=== PATIENT | male | born 1935 | race Caucasian/White ===

== ENCOUNTER → 2018-02-26 15:02 | Outpatient (CLI) | payer MEDICARE, SELFPAY ==
[2018-02-26 15:19] LABS: Bacteria Urine None Seen; RBC Urine None Seen (0-5/HPF); WBC Urine None Seen (0-5/HPF)
[2018-02-26 15:48] LABS: Add Manual Diff / Slide Review NO; Basophils Percent Auto 0.9 % (0-2); Eosinophils Percent Auto 5.3 % (2-4); Hematocrit 30.5 % (41-53); Hemoglobin 10.6 g/dL (13.5-17.5); Lymphocytes Percent Auto 17.5 % (25-40); Mean Corpuscular HGB Conc 34.8 % (30-36); Mean Corpuscular Hemoglobin 32.6 PG (26-34); Mean Corpuscular Volume 93.8 fL (80-100); Monocytes Percent Auto 11.1 % (3-14); Neutrophils Absolute Auto 3300 /uL (3000-5900); Neutrophils Percent Auto 65.2 % (50-75); Platelet Count 155 X10^3/uL (150-400); Red Blood Cell Count 3.25 X10^6/uL (4.5-5.9); Red Cell Distribution Width 13.8 % (11.6-14.8)
[2018-02-26 16:00] LABS: Appearance Urine UA CLEAR; Bilirubin Urine UA NEGATIVE (NEGATIVE); Color Urine UA YELLOW; Glucose Urine UA NEGATIVE (Normal); Ketones Urine UA NEGATIVE (NEGATIVE); Leukocyte Esterase Urine UA NEGATIVE (NEGATIVE); Nitrite Urine UA Negative (Negative); Occult Blood Urine UA NEGATIVE (Negative); Protein Urine UA NEGATIVE (Negative); Specific Gravity Urine UA <=1.005 (1.000-1.035); Urobilinogen Urine UA 0.2 E.U./dL (0.2); pH Urine UA 5.5 (4.5-8.0)
[2018-02-26 16:02] LABS: Creatinine Urine Random 52.2 mg/dL; Protein (Total) Urine Random 29 mg/dL (0-12); Protein Creatinine Ratio Urine 0.55 GRAM/24H
[2018-02-26 16:16] LABS: Culture Indicated Urine Cult Not Indicated; Urine Comments Microscopic Normal
[2018-02-26 16:21] LABS: HEMOLYSIS < 15 (0-50); Iron 64 ug/dL (49-181)
[2018-02-26 16:23] LABS: Alanine Aminotransferase 22 IU/L (21-72); Albumin 3.8 g/dL (3.5-5.0); Albumin Globulin Ratio 1.4 (1.0-2.8); Alkaline Phosphatase 63 U/L (38-126); Aspartate Aminotransferase 21 IU/L (17-59); BUN Creatinine Ratio 21.4 (6-22); Bilirubin Total 0.7 mg/dL (0.2-1.3); Blood Urea Nitrogen 45 mg/dL (9-20); Calcium 8.9 mg/dL (8.4-10.2); Carbon Dioxide 24 mmol/L (22-32); Chloride 103 mmol/L (98-107); Estimated Glomerular Filt Rate 30.3 mL/min (>60); Globulin 2.7 g/dL (1.7-4.1); Glucose 157 mg/dL (80-110); HEMOLYSIS < 15 (0-50); Potassium 4.8 mmol/L (3.4-5.1); Sodium 141 mmol/L (137-145); Total Protein 6.5 g/dL (6.3-8.2); Uric Acid 7.6 mg/dL (3.5-8.5)
[2018-02-26 16:31] LABS: Percent Iron Saturation 25 % (20-50); Total Iron Binding Capacity 259 ug/dL (261-462); Transferrin 189 mg/dL (206-381)
[2018-02-26 16:39] LABS: Vitamin D 25 Hydroxy (D3) 19.1 ng/mL (30.0-100.0)
[2018-02-26 16:56] LABS: Ferritin 92.3 ng/mL (17.9-464)
[2018-02-28 14:28] LABS: Parathyroid Hormone Int 113 pg/mL (14-64)
[2018-03-01 15:42] LABS: Albumin 49 %; Protein/ Creatinine Ratio 417 mg/g creat (22-128); Total Urine Protein 27 mg/dL (5-25); Urine Creatinine, Random 65 mg/dL (20-370)
== END ==
PROVIDERS: Family Provider Internal Medicine; PCP Internal Medicine; Visit Provider Internal Medicine
DX: N18.4 Chronic kidney disease, stage 4 (severe) (principal)
CPT/HCPCS: 36415; 80053; 81001; 82306; 82570; 82728; 83540; 83550; 83970; 84156; 84166; 84550; 85025

== ENCOUNTER → 2018-03-12 07:49 | Outpatient (CLI) | payer MEDICARE, SELFPAY ==
--- NOTE | 2018-03-12 | DI.US.S_ITS ---
PROCEDURE: US RENAL COMPLETE INDICATIONS: STAGE 4 CHRONIC KIDNEY DISEASE TECHNIQUE: Real-time scanning was performed of the kidneys and bladder, with image documentation. COMPARISON: [facility], , RENAL COMPLETE, 08/22/2007, 11:01. FINDINGS: Kidneys: Kidneys are normal in size. Right kidney measures 10.2 cm long; left kidney measures 9.2 cm long. Right renal cortical thickness is 1.4 cm; left renal cortical thickness is 1.0 cm. Renal cortical echotexture is normal. No hydronephrosis or nephrolithiasis. No suspicious solid mass lesions. Bladder: Pre-void bladder volume is 311 mL. Post-void residual is 151 mL. Pre-void images demonstrate no intraluminal masses or stones. On pre-void images, neither ureteral jets are noted with color Doppler interrogation. (Of note, ureteral jets may not be detectable in up to 25% of cases due to insufficient differences in specific gravity between ureteral and bladder urine). Miscellaneous: No free pelvic fluid. IMPRESSION: Normal exam. Dictated by: Naun Ang [facility] Interpreted: Apolinar Mckeon MD on 03/12/2018 at 9:54 Approved by: Apolinar Mckeon M.D. on 03/12/2018 at 11:00
== END ==
PROVIDERS: PCP Internal Medicine; Visit Provider Internal Medicine
DX: N18.4 Chronic kidney disease, stage 4 (severe) (principal)
CPT/HCPCS: 76770

== ENCOUNTER → 2018-04-16 08:54 | Outpatient (CLI) | payer MEDICARE, SELFPAY ==
[2018-04-16 10:01] LABS: BUN Creatinine Ratio 21.4 (6-22); Blood Urea Nitrogen 45 mg/dL (9-20); Calcium 9.2 mg/dL (8.4-10.2); Carbon Dioxide 27 mmol/L (22-32); Chloride 103 mmol/L (98-107); Estimated Glomerular Filt Rate 30.3 mL/min (>60); Glucose 108 mg/dL (80-110); HEMOLYSIS < 15 (0-50); Potassium 4.5 mmol/L (3.4-5.1); Sodium 140 mmol/L (137-145)
== END ==
PROVIDERS: PCP Internal Medicine; Visit Provider Internal Medicine Cardiovascular Disease
DX: N18.4 Chronic kidney disease, stage 4 (severe) (principal); I50.22 Chronic systolic (congestive) heart failure
CPT/HCPCS: 36415; 80048

== ENCOUNTER → 2018-07-11 10:26 | Outpatient (CLI) | payer MEDICARE, SELFPAY ==
--- NOTE | 2018-07-11 13:13 | DI.ECHO.S_ITS ---
Echocardiogram Report + + :Name: JOHN PAUL SINGH Study Date: 07/11/2018 Height: 71 in : :[facility] Exam Location: [facility] Weight: 230 lb : : Gender: Male BSA: 2.2 m2 : :: 1935 Age: 83 yrs BP: 140/80 mmHg: :Reason For Study: CAD : :Ordering Physician: Rand Galicia : :Sridhar Performed By: Ana Page : + + Interpretation Summary 1) Mildly dilated left ventricle with normal systolic function (EF 55-60%). 2) There are no obvious focal wall motion abnormalities noted but poor endocardial definition reduces the sensitivity for the detection of such. 3) Mildly to moderately enlarged right ventricle with mildly reduced function. 4) There is mild aortic stenosis (valve area 2.1cm2, mean gradient 10.4mmHg). 5) The right ventricular systolic pressure is estimated to be at least 55 mmHg based on an estimated right atrial pressure of 15 mm Hg. 6) Compared to the Echo done 11/19/2017, LV is less dilated and EF has improved from 40-45% to 55-60% on this study. Procedure: A two-dimensional transthoracic echocardiogram with color flow and Doppler was performed. The study quality was technically adequate. Comparison is made with the echocardiogram of 11/19/2017. The heart rate ranged between 65-83 bpm during the study. Left Ventricle: The left ventricle is mildly dilated. There is borderline concentric left ventricular hypertrophy. The ejection fraction is estimated to be 55-60%. Compared to the prior exam, the left ventricular function is improved. There are no obvious focal wall motion abnormalities noted but poor endocardial definition reduces the sensitivity for the detection of such. Diastolic function could not be accurately assessed due to atrial fibrillation. Right Ventricle: The right ventricle is mild to moderately dilated. Right ventricular systolic function is mildly reduced. Atria: Both atria are severely dilated. There is no Doppler evidence for an interatrial shunt. Mitral Valve: There is mild mitral annular calcification. The mitral valve leaflets appear mildly thickened, but open well. There is trace mitral regurgitation. Aortic Valve: The aortic valve is trileaflet. Leaflet mobility is minimally reduced. The peak aortic velocity is 2.2 m/sec. The peak aortic velocity on the previous exam was 2.0 m/sec. The aortic valve mean gradient is 10.4 mmHg. The calculated aortic valve area is 2.1 cm2. There is mild aortic stenosis. There is mild to moderate aortic regurgitation. Tricuspid Valve: The tricuspid valve is normal in structure and function. There is mild tricuspid regurgitation. The right ventricular systolic pressure is estimated to be at least 55 mmHg based on an estimated right atrial pressure of 15 mm Hg. Pulmonic Valve: The pulmonic valve is not well visualized. There is a trace or physiologic amount of pulmonic regurgitation. Great Vessels: The aortic root is normal size. The ascending aorta is mildmoderately enlarged. The pulmonary artery is not well visualized, but is probably normal size. The IVC is dilated (diameter is greater than 2.1 cm) and it collapses less than 50% with a sniff. This suggests a high right atrial pressure of 15 mm Hg. Pericardium/ Pleura There is no pericardial effusion. There is no pleural effusion. MMode/2D Measurements & Calculations LVIDd: 6.2 cm LVOT diam: 2.3 cm LVIDs: 4.2 cm Ao root diam: 3.9 cm FS: 31.9 % asc Aorta Diam: 4.3 cm EPSS: 1.0 cm IVSd: 1.1 cm LVPWd: 1.1 cm LV maradiaga. diameter/BSA (cm/m^2): 2.8 LV sys. diameter/BSA (cm/m^2): 1.9 LA A2 area: 39.1 cm2 RA long axis: 6.2 cm LA A4 area: 35.4 cm2 RA area: 28.6 cm2 LA length (vol): 7.4 cm RA vol: 112.0 ml LA vol: 158.8 ml RA : 50.0 ml/m2 LA vol index: 70.9 ml/m2 IVC diam: 2.8 cm RVD1 (basal): 5.3 cm Doppler Measurements & Calculations Ao V2 max: 219.7 cm/sec LVOT Max Fred: 106.5 cm/sec Ao V2 mean: 152.4 cm/sec LV V1 max P.6 mmHg Ao max P.3 mmHg LV V1 VTI: 22.8 cm Ao mean P.4 mmHg ADIS(I,D): 2.1 cm2 Ao V2 VTI: 47.9 cm ADIS(V,D): 2.1 cm2 sev ratio: 0.48 ADIS indexed to BSA (cm^2/m^2): 0.92 MV E max fred: 128.3 cm/sec TR max fred: 316.8 cm/sec MV A max fred: 132.4 cm/sec TR max P.2 mmHg MV E/A: 0.97 PA V2 max: 95.8 cm/sec Med Peak E' Fred: 6.7 cm/sec PA V2 mean: 64.6 cm/sec E/E' med: 19.1 PA mean P.9 mmHg Lat Peak E' Fred: 11.2 cm/sec PA Accel Time: 0.08 sec E/E' lat: 11.4 E/e' average: 15.3 MV P1/2t: 47.3 msec MV P1/2t max fred: 130.0 cm/sec MVA(P12t): 4.6 cm2 _ Reading Physician:01:13 PM
[2018-07-11 13:26] LABS: Add Manual Diff / Slide Review NO; Basophils Percent Auto 1.2 % (0-2); Eosinophils Percent Auto 2.4 % (2-4); Hematocrit 32.8 % (41-53); Lymphocytes Percent Auto 18.3 % (25-40); Mean Corpuscular HGB Conc 33.6 % (30-36); Mean Corpuscular Hemoglobin 32.3 PG (26-34); Monocytes Percent Auto 8.9 % (3-14); Neutrophils Absolute Auto 3300 /uL (3000-5900); Neutrophils Percent Auto 69.2 % (50-75); Platelet Count 207 X10^3/uL (150-400); Red Blood Cell Count 3.42 X10^6/uL (4.5-5.9); Red Cell Distribution Width 13.2 % (11.6-14.8); White Blood Cell Count 4.8 X10^3/uL (4.5-11.0)
[2018-07-11 13:48] LABS: BUN Creatinine Ratio 14.8 (6-22); Blood Urea Nitrogen 31 mg/dL (9-20); Calcium 9.5 mg/dL (8.4-10.2); Carbon Dioxide 30 mmol/L (22-32); Chloride 101 mmol/L (98-107); Cholesterol 109 mg/dL (140-199); Estimated Glomerular Filt Rate 30.3 mL/min (>60); Glucose 100 mg/dL (80-110); HDL Cholesterol 47 mg/dL (40-60); HEMOLYSIS < 15 (0-50); LDL Cholesterol Calculated 49 mg/dL (<100); Potassium 4.2 mmol/L (3.4-5.1); Sodium 144 mmol/L (137-145); Triglycerides 65 mg/dL (35-150)
== END ==
PROVIDERS: PCP Internal Medicine; Visit Provider Internal Medicine Cardiovascular Disease
DX: I08.2 Rheumatic disorders of both aortic and tricuspid valves (principal); I25.10 Atherosclerotic heart disease of native coronary artery without angina pectoris; I25.5 Ischemic cardiomyopathy; E78.5 Hyperlipidemia, unspecified
CPT/HCPCS: 36415; 80048; 80061; 85025; 93306

== ENCOUNTER → 2018-08-23 11:36 | Outpatient (CLI) | payer MEDICARE, SELFPAY ==
[2018-08-23 12:47] LABS: Blood Urea Nitrogen 46 mg/dL (9-20); Calcium 9.1 mg/dL (8.4-10.2); Carbon Dioxide 25 mmol/L (22-32); Chloride 104 mmol/L (98-107); Estimated Glomerular Filt Rate 27.3 mL/min (>60); Glucose 101 mg/dL (80-110); HEMOLYSIS < 15 (0-50); Sodium 142 mmol/L (137-145)
== END ==
PROVIDERS: PCP Internal Medicine; Visit Provider Internal Medicine Cardiovascular Disease
DX: I10 Essential (primary) hypertension (principal); I25.5 Ischemic cardiomyopathy; I48.1 Persistent atrial fibrillation; E78.5 Hyperlipidemia, unspecified
CPT/HCPCS: 36415; 80048

== ENCOUNTER 2019-01-23 06:59 | Inpatient (IN) | payer MEDICARE, MEDICAID, SELFPAY ==
[2019-01-23] VITALS (10 sets, daily range): BP systolic 104–151; BP diastolic 54–78; PULSE 56–84; RESP 12–19; TEMP 33.6–37; O2SAT 96–99; BMI 29.2
--- NOTE | 2019-01-23 06:56 | DI.RAD.S_ITS ---
PROCEDURE: XR HIP W PEL IF DONE RT 2V INDICATIONS: pain swelling TECHNIQUE: 2 views of the hip were acquired. COMPARISON: None. FINDINGS: Bones: No fractures or dislocations. No suspicious bony lesions. The visualized pelvic ring appears intact. Soft tissues: No suspicious soft tissue calcifications or masses. There are extensive soft tissue vascular calcifications. IMPRESSION: No acute radiographic findings. If there is continued pain, followup exam or additional imaging such as MRI or CT could be performed for further assessment. Dictated by: Wanda Sanders M.D. on 01/23/2019 at 9:15 Approved by: Wanda Sanders M.D. on 01/23/2019 at 9:15
--- NOTE | 2019-01-23 07:12 | ED.FALL ---
HPI - Fall General Chief Complaint: Fall Stated Complaint: GLF, Rt leg pain Time Seen by Provider: 01/23/19 07:05 Source: patient and EMS Mode of arrival: EMS Limitations: no limitations History of Present Illness HPI Narrative: 83-year-old male nonsmoker presents by EMS for evaluation of right hip and thigh pain after a mechanical fall in which he fell into the fireplace. He was walking this morning and tripped suffering this injury. He denies any head neck or back pain. patient has a history of hypertension and coronary artery disease and is on warfarin. His primary care provider is Dr. Coffey. Patient was up caring a cup of coffee and tripped over something on the floor. He denies any dizziness, weakness or lightheadedness. He denies any chest pain or shortness of breath. he has pain in his right thigh. Related Data Allergies Allergy/AdvReac Type Severity Reaction Status Date / Time No Known Drug Allergies Allergy Verified 01/23/19 08:36 Review of Systems Constitutional Denies chills, Denies fever(s), Denies lethargy and Denies weakness Eyes Denies change in vision, Denies eye discharge, Denies irritation and Denies loss of vision ENT Ears, Nose, Mouth, and Throat: Denies change in voice, Denies neck pain and Denies sore throat Cardiovascular Denies chest pain, Denies irregular heart rhythm, Denies lightheadedness, Denies palpitations, Denies dyspnea, Denies dyspnea on exertion and Denies orthopnea Respiratory Denies cough, Denies dyspnea, Denies dyspnea on exertion and Denies wheezing Gastrointestinal Gastrointestinal: Denies abdominal pain, Denies change in bowel habits, Denies diarrhea, Denies nausea and Denies vomiting Genitourinary Denies hematuria, Denies flank pain, Denies urinary incontinence and Denies urinary urgency Musculoskeletal Reports joint swelling, Reports limited range of motion and Denies neck pain Integumentary/Breasts Denies pruritus, Denies erythema, Denies rash and Denies wounds Neurologic Denies confusion, Denies loss of vision and Denies weakness Psychiatric Denies anxiety, Denies confusion, Denies depression, Denies homicidal ideation and Denies suicidal ideation Endocrine Denies palpitations Hematologic/Lymphatic Denies easy bruising Allergic/Immunologic Denies wheezing Exam Narrative Exam Narrative: GENERAL: 83-year-old male pleasant, obviously in some pain. alert and oriented x3, GCS 15 HEAD: Atraumatic. Normocephalic. No temporal or scalp tenderness. EYES: Pupils equal round and reactive. Extraocular motions intact. No scleral icterus. No injection or drainage. ENT: Nose without bleeding, purulent drainage or septal hematoma. Throat without erythema, tonsillar hypertrophy or exudate. Uvula midline. Airway patent. NECK: Trachea midline. No JVD or lymphadenopathy. Supple, nontender, no meningeal signs. CARDIOVASCULAR: Regular rate and rhythm without murmurs, gallops, or rubs. RESPIRATORY: Clear to auscultation. Breath sounds equal bilaterally. No wheezes, rales, or rhonchi. GASTROINTESTINAL: Abdomen soft, non-tender, nondistended. No hepato-splenomegaly, or palpable masses. No guarding. EXTREMITIES: Notable tenderness, swelling and some ecchymosis of mid thigh. Sensation intact. Cap refill intact. This injury is closed, isolated and neurovascularly intact BACK: Nontender without deformity or crepitance. No flank tenderness. NEURO: AOx3. SKIN: No rash or erythema. Initial Vital Signs Initial Vital Signs: Vital Signs Temperature 97.5 F L 01/23/19 07:24 Pulse Rate 61 01/23/19 07:24 Respiratory Rate 12 01/23/19 07:24 Blood Pressure 151/66 H 01/23/19 07:24 Pulse Oximetry 99 01/23/19 07:24 PFS Social History Smoking Status: Smoker, status unknown Social History Smoking Status: Smoker, status unknown Procedures Orthopedic Splinting/Casting Injury #1: Side: right Lower Extremity Injury Location: upper leg Lower Extremity Immobilizer: knee immobilizer Post splinting neuro exam: intact Post splinting vascular exam: intact Placed by: Nursing Course Orders Ordered: ED Orders 01/23/19 06:56 XR hip w pel if done RT 2V Stat 01/23/19 07:18 XR chest 1V Stat XR femur RT min 2V Stat 01/23/19 08:10 Basic Metabolic Panel Stat Complete Blood Count AUTO DIFF Stat Partial Thromboplastin Time Stat Prothrombin Time INR Stat Discontinued Medications Hydromorphone HCl (Dilaudid) 0.5 mg IV NOW ONE Stop: 01/23/19 09:27 Phytonadione (Mephyton) 10 mg PO NOW ONE Stop: 01/23/19 08:42 Last Admin: 01/23/19 09:10 Dose: 10 mg Consultations Consultation #1: Dr. Gonzales happy to accept Time: 08:16 Consultation #2: Dr. Main has seen patient at bedside, plans for OR tomorrow Time: 08:16 Vital Signs - 8 hr 01/23/19 07:24 01/23/19 07:28 01/23/19 09:33 Temperature 97.5 F L 97.5 F L Pulse Rate 61 61 56 L Respiratory Rate 12 12 12 Blood Pressure [Right Arm] 151/66 H 138/73 Pulse Oximetry 99 99 97 MDM - Fall Lab Data Result diagrams: 01/23/19 08:10 01/23/19 08:10 Lab Results 01/23/19 01/23/19 01/23/19 Range/Units 08:10 08:10 08:10 WBC 8.3 (4.5-11.0) X10^3/uL RBC 3.35 L (4.5-5.9) X10^6/uL Hgb 10.2 L (13.5-17.5) g/dL Hct 31.2 L (41-53) % MCV 93.2 (80-100) fL MCH 30.6 (26-34) PG MCHC 32.8 (30-36) % RDW 13.6 (11.6-14.8) % Plt Count 163 (150-400) X10^3/uL Neut % (Auto) 82.0 H (50-75) % Lymph % (Auto) 11.9 L (25-40) % [place] % (Auto) 5.4 (3-14) % Eos % (Auto) 0.2 L (2-4) % Baso % (Auto) 0.5 (0-2) % Neut # (Auto) 6800 (7515-2418) /uL Lymph # (Auto) 1000 L (1181-9361) /uL [place] # (Auto) 400 (0-900) /uL Eos # (Auto) 0 (0-450) /uL Baso # (Auto) 0 (0-100) /uL PT 21.9 H (10.1-12.7) SECONDS INR 1.9 H (0.9-1.3) APTT 36 (26.4-36.2) SECONDS Sodium 138 (137-145) mmol/L Potassium 4.2 (3.4-5.1) mmol/L Chloride 104 (98-107) mmol/L Carbon Dioxide 23 (22-32) mmol/L BUN 36 H (9-20) mg/dL Creatinine 2.10 H (0.66-1.25) mg/dL Estimated GFR 30.3 L (>60) mL/min BUN/Creatinine Ratio 17.1 (6-22) Glucose 119 H (80-110) mg/dL Calcium 9.1 (8.4-10.2) mg/dL Imaging Data Femur Xray: Radiologist's impression: Chris Peralta 83 M [address] [address] XRay Report Signed Patient: Chris Peralta R#: [id number] : 5Acct:[id number] Age/Sex: 83 / MDate of Service: 01/23/19 Loc: [id number]-1 Accession Number: [id number] Procedure: XR femur RT min 2V Ordering Provider: Javid Begum D.O. PROCEDURE: XR FEMUR RT MIN 2V INDICATIONS: fall, deformity TECHNIQUE: 2 views of the femur were acquired. COMPARISON: None. FINDINGS: Bones: There is a displaced fracture through the distal right femoral diaphysis. The distal fracture fragment is displaced 4 cm medial to the proximal fracture fragment and 4 cm superior to the proximal fracture fragment. Unicondylar medial right knee arthroplasty is partially characterized visualized and is grossly intact. Soft tissues: No suspicious soft tissue calcifications or masses. IMPRESSION: Displaced, impacted right femoral diaphyseal fracture. Dictated by: Wanda Sanders M.D. on 01/23/2019 at 9:23 Approved by: Wanda Sanders M.D. on 01/23/2019 at 9:24 Chest x-ray: Radiologist's impression: [address] [address] XRay Report Signed Patient: Chris Peralta R#: [id number] : 5Acct:[id number] Age/Sex: 83 / MDate of Service: 01/23/19 Loc: [id number]-3 Accession Number: [id number] Procedure: XR chest 1V Ordering Provider: Javid Begum D.O. PROCEDURE: XR CHEST 1V INDICATIONS: fall, preop TECHNIQUE: One view of the chest was acquired. COMPARISON: [facility], CHEST 2 VIEW, 03/01/2017, 14:01. [facility], , CHEST 2 VIEW, 01/08/2017, 13:50. FINDINGS: Surgical changes and devices: None. Lungs and pleura: There is a questionable subtle pulmonary radiopacity within the right midlung. The lungs are otherwise clear. No pleural effusion or pneumothorax. Mediastinum: Mediastinal contours appear normal. Heart size is normal. Bones and chest wall: No suspicious bony lesions. Overlying soft tissues appear unremarkable. IMPRESSION: Questionable right pulmonary radiopacity. Short interval followup is recommended with resolution of the patient's symptoms to ensure there is no underlying pulmonary pathology. No acute cardiopulmonary findings. Dictated by: Wanda Sanders M.D. on 01/23/2019 at 9:24 Approved by: Wanda Sanders M.D. on 01/23/2019 at 9:25 Discharge Plan Departure Patient Disposition: Admitted As Inpatient Clinical Impression: Closed femur fracture Qualifiers: Encounter type: initial encounter Femur location: shaft Fracture morphology: oblique Fracture alignment: displaced Laterality: right Qualified Code(s): S72.331A - Displaced oblique fracture of shaft of right femur, initial encounter for closed fracture Admit Date/Time: 01/23/19 08:33 Admit Provider: Alvin Gonzales
--- NOTE | 2019-01-23 07:18 | DI.RAD.S_ITS ---
PROCEDURE: XR FEMUR RT MIN 2V INDICATIONS: fall, deformity TECHNIQUE: 2 views of the femur were acquired. COMPARISON: None. FINDINGS: Bones: There is a displaced fracture through the distal right femoral diaphysis. The distal fracture fragment is displaced 4 cm medial to the proximal fracture fragment and 4 cm superior to the proximal fracture fragment. Unicondylar medial right knee arthroplasty is partially characterized visualized and is grossly intact. Soft tissues: No suspicious soft tissue calcifications or masses. IMPRESSION: Displaced, impacted right femoral diaphyseal fracture. Dictated by: Wanda Sanders M.D. on 01/23/2019 at 9:23 Approved by: Wanda Sanders M.D. on 01/23/2019 at 9:24
--- NOTE | 2019-01-23 07:18 | DI.RAD.S_ITS ---
PROCEDURE: XR CHEST 1V INDICATIONS: fall, preop TECHNIQUE: One view of the chest was acquired. COMPARISON: [facility], CHEST 2 VIEW, 03/01/2017, 14:01. [facility], CHEST 2 VIEW, 01/08/2017, 13:50. FINDINGS: Surgical changes and devices: None. Lungs and pleura: There is a questionable subtle pulmonary radiopacity within the right midlung. The lungs are otherwise clear. No pleural effusion or pneumothorax. Mediastinum: Mediastinal contours appear normal. Heart size is normal. Bones and chest wall: No suspicious bony lesions. Overlying soft tissues appear unremarkable. IMPRESSION: Questionable right pulmonary radiopacity. Short interval followup is recommended with resolution of the patient's symptoms to ensure there is no underlying pulmonary pathology. No acute cardiopulmonary findings. Dictated by: Wanda Sanders M.D. on 01/23/2019 at 9:24 Approved by: Wanda Sanders M.D. on 01/23/2019 at 9:25
--- NOTE | 2019-01-23 07:53 | ED_ITS ---
HPI - Fall General Chief Complaint: Fall Stated Complaint: GLF, Rt leg pain Time Seen by Provider: 01/23/19 07:05 Source: patient and EMS Mode of arrival: EMS Limitations: no limitations History of Present Illness HPI Narrative: 83-year-old male nonsmoker presents by EMS for evaluation of right hip and thigh pain after a mechanical fall in which he fell into the fireplace. He was walking this morning and tripped suffering this injury. He denies any head neck or back pain. patient has a history of hypertension and coronary artery disease and is on warfarin. His primary care provider is Dr. Coffey. Patient was up caring a cup of coffee and tripped over something on the floor. He denies any dizziness, weakness or lightheadedness. He denies any chest pain or shortness of breath. he has pain in his right thigh. Related Data Allergies Allergy/AdvReac Type Severity Reaction Status Date / Time No Known Drug Allergies Allergy Verified 01/23/19 08:36 Review of Systems Constitutional Denies chills, Denies fever(s), Denies lethargy and Denies weakness Eyes Denies change in vision, Denies eye discharge, Denies irritation and Denies loss of vision ENT Ears, Nose, Mouth, and Throat: Denies change in voice, Denies neck pain and Denies sore throat Cardiovascular Denies chest pain, Denies irregular heart rhythm, Denies lightheadedness, Denies palpitations, Denies dyspnea, Denies dyspnea on exertion and Denies orthopnea Respiratory Denies cough, Denies dyspnea, Denies dyspnea on exertion and Denies wheezing Gastrointestinal Gastrointestinal: Denies abdominal pain, Denies change in bowel habits, Denies diarrhea, Denies nausea and Denies vomiting Genitourinary Denies hematuria, Denies flank pain, Denies urinary incontinence and Denies urinary urgency Musculoskeletal Reports joint swelling, Reports limited range of motion and Denies neck pain Integumentary/Breasts Denies pruritus, Denies erythema, Denies rash and Denies wounds Neurologic Denies confusion, Denies loss of vision and Denies weakness Psychiatric Denies anxiety, Denies confusion, Denies depression, Denies homicidal ideation and Denies suicidal ideation Endocrine Denies palpitations Hematologic/Lymphatic Denies easy bruising Allergic/Immunologic Denies wheezing Exam Narrative Exam Narrative: GENERAL: 83-year-old male pleasant, obviously in some pain. alert and oriented x3, GCS 15 HEAD: Atraumatic. Normocephalic. No temporal or scalp tenderness. EYES: Pupils equal round and reactive. Extraocular motions intact. No scleral icterus. No injection or drainage. ENT: Nose without bleeding, purulent drainage or septal hematoma. Throat without erythema, tonsillar hypertrophy or exudate. Uvula midline. Airway patent. NECK: Trachea midline. No JVD or lymphadenopathy. Supple, nontender, no meningeal signs. CARDIOVASCULAR: Regular rate and rhythm without murmurs, gallops, or rubs. RESPIRATORY: Clear to auscultation. Breath sounds equal bilaterally. No wheezes, rales, or rhonchi. GASTROINTESTINAL: Abdomen soft, non-tender, nondistended. No hepato- splenomegaly, or palpable masses. No guarding. EXTREMITIES: Notable tenderness, swelling and some ecchymosis of mid thigh. Sensation intact. Cap refill intact. This injury is closed, isolated and neurovascularly intact BACK: Nontender without deformity or crepitance. No flank tenderness. NEURO: AOx3. SKIN: No rash or erythema. Initial Vital Signs Initial Vital Signs: Vital Signs Temperature 97.5 F L 01/23/19 07:24 Pulse Rate 61 01/23/19 07:24 Respiratory Rate 12 01/23/19 07:24 Blood Pressure 151/66 H 01/23/19 07:24 Pulse Oximetry 99 01/23/19 07:24 PFS Social History Smoking Status: Smoker, status unknown Social History Smoking Status: Smoker, status unknown Procedures Orthopedic Splinting/Casting Injury #1: Side: right Lower Extremity Injury Location: upper leg Lower Extremity Immobilizer: knee immobilizer Post splinting neuro exam: intact Post splinting vascular exam: intact Placed by: Nursing Course Orders Ordered: ED Orders 01/23/19 06:56 XR hip w pel if done RT 2V Stat 01/23/19 07:18 XR chest 1V Stat XR femur RT min 2V Stat 01/23/19 08:10 Basic Metabolic Panel Stat Complete Blood Count AUTO DIFF Stat Partial Thromboplastin Time Stat Prothrombin Time INR Stat Discontinued Medications Hydromorphone HCl (Dilaudid) 0.5 mg IV NOW ONE Stop: 01/23/19 09:27 Phytonadione (Mephyton) 10 mg PO NOW ONE Stop: 01/23/19 08:42 Last Admin: 01/23/19 09:10 Dose: 10 mg Consultations Consultation #1: Dr. Gonzales happy to accept Time: 08:16 Consultation #2: Dr. Main has seen patient at bedside, plans for OR tomorrow Time: 08:16 Vital Signs - 8 hr 01/23/19 07:24 01/23/19 07:28 01/23/19 09:33 Temperature 97.5 F L 97.5 F L Pulse Rate 61 61 56 L Respiratory Rate 12 12 12 Blood Pressure [Right Arm] 151/66 H 138/73 Pulse Oximetry 99 99 97 MDM - Fall Lab Data Result diagrams: 01/23/19 08:10 01/23/19 08:10 Lab Results 01/23/19 01/23/19 01/23/19 Range/Units 08:10 08:10 08:10 WBC 8.3 (4.5-11.0) X10^3/uL RBC 3.35 L (4.5-5.9) X10^6/uL Hgb 10.2 L (13.5-17.5) g/dL Hct 31.2 L (41-53) % MCV 93.2 (80-100) fL MCH 30.6 (26-34) PG MCHC 32.8 (30-36) % RDW 13.6 (11.6-14.8) % Plt Count 163 (150-400) X10^3/uL Neut % (Auto) 82.0 H (50-75) % Lymph % (Auto) 11.9 L (25-40) % [place] % (Auto) 5.4 (3-14) % Eos % (Auto) 0.2 L (2-4) % Baso % (Auto) 0.5 (0-2) % Neut # (Auto) 6800 (1719-9904) /uL Lymph # (Auto) 1000 L (7595-4053) /uL [place] # (Auto) 400 (0-900) /uL Eos # (Auto) 0 (0-450) /uL Baso # (Auto) 0 (0-100) /uL PT 21.9 H (10.1-12.7) SECONDS INR 1.9 H (0.9-1.3) APTT 36 (26.4-36.2) SECONDS Sodium 138 (137-145) mmol/L Potassium 4.2 (3.4-5.1) mmol/L Chloride 104 (98-107) mmol/L Carbon Dioxide 23 (22-32) mmol/L BUN 36 H (9-20) mg/dL Creatinine 2.10 H (0.66-1.25) mg/dL Estimated GFR 30.3 L (>60) mL/min BUN/Creatinine Ratio 17.1 (6-22) Glucose 119 H (80-110) mg/dL Calcium 9.1 (8.4-10.2) mg/dL Imaging Data Femur Xray: Radiologist's impression: Chris Peralta 83 M [address] [address] XRay Report Signed Patient: Chris Peralta R#: [id number] : 5Acct:[id number] Age/Sex: 83 / MDate of Service: 01/23/19 Loc: [id number]-5 Accession Number: [id number] Procedure: XR femur RT min 2V Ordering Provider: Javid Begum D.O. PROCEDURE: XR FEMUR RT MIN 2V INDICATIONS: fall, deformity TECHNIQUE: 2 views of the femur were acquired. COMPARISON: None. FINDINGS: Bones: There is a displaced fracture through the distal right femoral diaphysis. The distal fracture fragment is displaced 4 cm medial to the proximal fracture fragment and 4 cm superior to the proximal fracture fragment. Unicondylar medial right knee arthroplasty is partially characterized visualized and is grossly intact. Soft tissues: No suspicious soft tissue calcifications or masses. IMPRESSION: Displaced, impacted right femoral diaphyseal fracture. Dictated by: Wanda Sanders M.D. on 01/23/2019 at 9:23 Approved by: Wanda Sanders M.D. on 01/23/2019 at 9:24 Chest x-ray: Radiologist's impression: [address] [address] XRay Report Signed Patient: Chris Peralta R#: [id number] : 5Acct:[id number] Age/Sex: 83 / MDate of Service: 01/23/19 Loc: [id number]-6 Accession Number: [id number] Procedure: XR chest 1V Ordering Provider: Javid Begum D.O. PROCEDURE: XR CHEST 1V INDICATIONS: fall, preop TECHNIQUE: One view of the chest was acquired. COMPARISON: [facility], CHEST 2 VIEW, 03/01/2017, 14:01. [facility], , CHEST 2 VIEW, 01/08/2017, 13:50. FINDINGS: Surgical changes and devices: None. Lungs and pleura: There is a questionable subtle pulmonary radiopacity within the right midlung. The lungs are otherwise clear. No pleural effusion or pneumothorax. Mediastinum: Mediastinal contours appear normal. Heart size is normal. Bones and chest wall: No suspicious bony lesions. Overlying soft tissues appear unremarkable. IMPRESSION: Questionable right pulmonary radiopacity. Short interval followup is recommended with resolution of the patient's symptoms to ensure there is no underlying pulmonary pathology. No acute cardiopulmonary findings. Dictated by: Wanda Sanders M.D. on 01/23/2019 at 9:24 Approved by: Wanda Sanders M.D. on 01/23/2019 at 9:25 Discharge Plan Departure Patient Disposition: Admitted As Inpatient Clinical Impression: Closed femur fracture Qualifiers: Encounter type: initial encounter Femur location: shaft Fracture morphology: oblique Fracture alignment: displaced Laterality: right Qualified Code(s): S72.331A - Displaced oblique fracture of shaft of right femur, initial encounter for closed fracture Admit Date/Time: 01/23/19 08:33 Admit Provider: Alvin Gonzales
[2019-01-23 08:24] LABS: Add Manual Diff / Slide Review NO; Basophils Absolute Auto 0 /uL (0-100); Basophils Percent Auto 0.5 % (0-2); Eosinophils Absolute Auto 0 /uL (0-450); Eosinophils Percent Auto 0.2 % (2-4); Hematocrit 31.2 % (41-53); Hemoglobin 10.2 g/dL (13.5-17.5); Lymphocytes Absolute Auto 1000 /uL (1100-4500); Lymphocytes Percent Auto 11.9 % (25-40); Mean Corpuscular HGB Conc 32.8 % (30-36); Mean Corpuscular Hemoglobin 30.6 PG (26-34); Mean Corpuscular Volume 93.2 fL (80-100); Monocytes Absolute Auto 400 /uL (0-900); Monocytes Percent Auto 5.4 % (3-14); Neutrophils Absolute Auto 6800 /uL (1500-7000); Platelet Count 163 X10^3/uL (150-400); Red Blood Cell Count 3.35 X10^6/uL (4.5-5.9); Red Cell Distribution Width 13.6 % (11.6-14.8); White Blood Cell Count 8.3 X10^3/uL (4.5-11.0)
[2019-01-23 08:31] LABS: INR 1.9 (0.9-1.3); Prothrombin Time 21.9 SECONDS (10.1-12.7)
[2019-01-23 08:34] LABS: PTT Partial Thromboplastin Tim 36 SECONDS (26.4-36.2)
[2019-01-23 08:36] LABS: BUN Creatinine Ratio 17.1 (6-22); Blood Urea Nitrogen 36 mg/dL (9-20); Calcium 9.1 mg/dL (8.4-10.2); Carbon Dioxide 23 mmol/L (22-32); Chloride 104 mmol/L (98-107); Estimated Glomerular Filt Rate 30.3 mL/min (>60); Glucose 119 mg/dL (80-110); HEMOLYSIS < 15 (0-50); Potassium 4.2 mmol/L (3.4-5.1); Sodium 138 mmol/L (137-145)
--- NOTE | 2019-01-23 08:54 | PC.NURSE ---
unisalve applied under skin folds. pt arrived with excoriated area.
[2019-01-23] MEDS: PHYTONADIONE (VIT K1) 5 MG TABLET 10 MG PO (09:10)
--- NOTE | 2019-01-23 09:13 | P.CONS_ITS ---
History of Present Illness Date Patient Seen: 01/23/19 Time Patient Seen: 09:05 Chief complaint: GLF, Rt leg pain Reason for consult: Right femur fracture Requesting provider: Javid Begum Narrative: 83-year-old male with a right femur fracture. He was walking through his house today and tripped on an object on the floor. He denies any prodromal shortness of breath, chest pain, or dizziness. He did not hit his head. He just went down and felt his right leg pop. He was unable to ambulate afterwards. Pain is sharp with any motion in the leg. he has some spasms which are painful even without moving. No pain outside of the right leg. [facility] Medical History (Updated 01/23/19 @ 11:06 by Angelo Main MD) Anticoagulation adequate (Acute) Atrial fibrillation (Acute) Chronic renal failure (Acute) Family History (Updated 01/23/19 @ 11:10 by Angelo Main MD) Other Hypertension Social History (Updated 01/23/19 @ 11:07 by Angelo Main MD) marital status: Smoking Status: Smoker, status unknown Family History (Updated 01/23/19 @ 11:10 by Angelo Main MD) Other Hypertension Social History (Updated 01/23/19 @ 11:07 by Angelo Main MD) marital status: Smoking Status: Smoker, status unknown Meds Home Medications Medication Instructions Recorded Confirmed Type amlodipine 5 mg PO DAILY 01/23/19 01/23/19 History atorvastatin 40 mg PO DAILY 01/23/19 01/23/19 History clopidogrel 75 mg PO DAILY 01/23/19 01/23/19 History ferrous gluconate 324 mg PO BID 01/23/19 01/23/19 History hydralazine 50 mg PO TID 01/23/19 01/23/19 History hydrocodone-acetaminophen 1 tab PO BID PRN 01/23/19 01/23/19 History losartan 25 mg PO DAILY 01/23/19 01/23/19 History warfarin 2 mg PO DAILY 01/23/19 01/23/19 History Allergies Allergy/AdvReac Type Severity Reaction Status Date / Time No Known Drug Allergies Allergy Verified 01/23/19 08:36 Review of Systems Constitutional Constitutional: Denies chills, Denies fever(s) and Denies frequent falls ENT Ears, Nose, Mouth, and Throat: No dizziness and No lip swelling Cardiovascular Cardiovascular: Denies chest pain Respiratory Respiratory: Denies cough Gastrointestinal Gastrointestinal: Denies abdominal pain Musculoskeletal Comments: History of arthritic pain through multiple joints in the body. Neurologic Neurologic: Denies dizziness and Denies frequent falls Psychiatric Psychiatric: Denies anxiety Endocrine Endocrine: Denies change in body appearance Hematologic/Lymphatic Hematologic/Lymphatic: Reports easy bleeding Comments: easy bleeding from Coumadin Allergic/Immunologic Allergic/Immunologic: Denies lip swelling Exam Vital Signs (past 8 hours): - 01/23/19 07:24 01/23/19 07:28 Temperature 97.5 F L 97.5 F L Pulse Rate 61 61 Respiratory Rate 12 12 Blood Pressure [Right Arm] 151/66 H Pulse Oximetry 99 99 Oxygen Delivery Method Room Air Const Orientation: alert and oriented x3 Resp Auscultation: clear to auscultation bilaterally Cardio Rhythm: abnormal rhythm Extrem Other: Intact integument over the thigh. Well-healed medial parapatellar incision at knee. external rotation of leg. Nonpalpable pulse but good Doppler signal and good capillary refill. Easily moves ankle and toes up and down. In tact sensation through foot and ankle. Objective Imaging Right femur x-ray: My impression: Displaced spiral fracture through the distal shaft of the femur. He does have a unicompartmental knee replacement on this Labs Result Diagrams: 01/23/19 08:10 01/23/19 08:10 Labs: Laboratory Results - last 24 hr 01/23/19 01/23/19 01/23/19 08:10 08:10 08:10 WBC 8.3 RBC 3.35 L Hgb 10.2 L Hct 31.2 L MCV 93.2 MCH 30.6 MCHC 32.8 RDW 13.6 Plt Count 163 Neut % (Auto) 82.0 H Lymph % (Auto) 11.9 L [place] % (Auto) 5.4 Eos % (Auto) 0.2 L Baso % (Auto) 0.5 Neut # (Auto) 6800 Lymph # (Auto) 1000 L [place] # (Auto) 400 Eos # (Auto) 0 Baso # (Auto) 0 PT 21.9 H INR 1.9 H APTT 36 Sodium 138 Potassium 4.2 Chloride 104 Carbon Dioxide 23 BUN 36 H Creatinine 2.10 H Estimated GFR 30.3 L BUN/Creatinine Ratio 17.1 Glucose 119 H Calcium 9.1 Assessment & Plan Assessment & Plan narrative: 1. Right femur fracture. plan is for intramedullary nail fixation to stabilize this. We will go retrograde around hi s unicompartmental knee replacement. Risks and benefits of surgery were discussed including not limited to medical risk with heart attack, stroke, , DVT, PE, infection, bleeding, scarring, nerve injury with pain numbness weakness, nonunion, failure to alleviate symptoms, loss of ambulatory status, need for further surgery. The appropriate consent was obtained. 2. Chronic renal failure treatment as per medicine team. 3. atrial fibrillation on Coumadin. His INR was 1.9. We will give him a dose of vitamin K and plan on postponing surgery until tomorrow.
[2019-01-23] MEDS: HYDROMORPHONE 0.5 MG INJ IV (09:49)
--- NOTE | 2019-01-23 10:19 | P.HP_ITS ---
History of Present Illness Date Patient Seen: 01/23/19 Time Patient Seen: :19 Chief complaint: GLF, Rt leg pain Narrative: This is an 83-year-old male who fell in his home at 4:30 a.m. today while walking past the fireplace. He was carrying coffee and tripped, fracturing the midshaft of the right femur. He tried to sleep for 2 hours and then finally asked his to call 911. He is now being prepared for surgery tomorrow after he has been bowel rested today. He is also on warfarin and will need his INR to be reversed with vitamin K. he has diet-controlled diabetes mellitus, hypertension and congestive heart failure along with coronary artery disease. Per his recent progress notes with Dr. Coffey he has had stents to the left main, left anterior descending and circumflex artery in April. His chronic kidney disease is being followed by Nephrology. The last A1c was 5.3 in November. He is on a regimen of 2 Vicodin a day. The GFR is 30 with a creatinine of 2.1 and hemoglobin of 10.2. The INR is 1.9. Patient History Medical History (Updated 01/23/19 @ 19:47 by Alvin Gonzales MD) Anticoagulation adequate (Acute) Atrial fibrillation (Acute) Chronic kidney disease (CKD) stage G3a/A1, moderately decreased glomerular filtration rate (GFR) between 45-59 mL/min/1.73 square meter and albuminuria creatinine ratio less than 30 mg/g (Acute) Chronic renal failure (Acute) Coronary artery disease (Acute) History of left common carotid artery stent placement (Acute) History of right common carotid artery stent placement (Acute) Peripheral arterial disease (Acute) Surgical History (Updated 01/23/19 @ 19:47 by Alvin Gonzales MD) History of appendectomy (Acute) History of bilateral knee arthroplasty (Acute) Stented coronary artery (Acute) Family History (Updated 01/23/19 @ 19:47 by Alvin Gonzales MD) Mother Lung cancer Father Lung cancer Other Hypertension Social History (Updated 01/23/19 @ 11:07 by Angelo Main MD) marital status: household members: spouse Smoking Status: Smoker, status unknown Family & Social History Family History (Updated 01/23/19 @ 19:47 by Alvin Gonzales MD) Mother Lung cancer Father Lung cancer Other Hypertension Social History: 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 His primary care physician is Dr. Coffey Safety & Behavioral: Feels Safe in Current Yes Environment Been Physically Hurt or No Threatened By a Person Tobacco & Substance use: Smoking Status Smoker, status unknown alcohol intake frequency a few times a month Substance Use Type does not use Meds Home Medications Medication Instructions Recorded Confirmed Type amlodipine 5 mg PO DAILY 01/23/19 01/23/19 History atorvastatin 40 mg PO DAILY 01/23/19 01/23/19 History clopidogrel 75 mg PO DAILY 01/23/19 01/23/19 History ferrous gluconate 324 mg PO BID 01/23/19 01/23/19 History hydralazine 50 mg PO TID 01/23/19 01/23/19 History hydrocodone-acetaminophen 1 tab PO BID PRN 01/23/19 01/23/19 History losartan 25 mg PO DAILY 01/23/19 01/23/19 History warfarin 2 mg PO DAILY 01/23/19 01/23/19 History Allergies Allergy/AdvReac Type Severity Reaction Status Date / Time No Known Drug Allergies Allergy Verified 01/23/19 08:36 Review of Systems Review of Systems Positive for hip pain, falling. Negative for fevers, chills, sweats, nausea, vomiting, diarrhea, bloody stool, abdominal pain, chest pain, coughing, dysuria, joint pain, ankle edema, seizures, headaches, sore throat, new allergies, trouble talking. All systems reviewed & are unremarkable except as noted in HPI and below Exam Vital Signs (past 8 hours): - 01/23/19 07:24 01/23/19 07:28 01/23/19 09:33 Temperature 97.5 F L 97.5 F L Pulse Rate 61 61 56 L Respiratory Rate 12 12 12 Blood Pressure [Right Arm] 151/66 H 138/73 Pulse Oximetry 99 99 97 Oxygen Delivery Method Room Air Narrative Exam Narrative: He is alert and oriented x3. No apparent distress. Pupils are equally round and reactive to light and accommodation. Extraocular muscles are intact. Sclerae are pink and nonicteric. No lymph nodes are felt head, neck, supraclavicular area. There is no thyromegaly. No carotid bruits are heard. JVD is less 6 cm. Heart is regular rate and rhythm with a 2/6 systolic ejection murmur. Lungs are clear to auscultation bilaterally. Abdomen is soft, bowel sounds positive, nontender, no organomegaly. Extremities no ankle edema. Neuro exam. Cranial nerves 2-12 tested intact. Reflexes are symmetric. Motor function is 4/5 throughout. There is a long leg brace on the right lower extremity. There is extensive bruising, flaking of the skin on both lower legs There is extensive bruises on both arms along with skin tears. Objective Labs Result Diagrams: 01/23/19 08:10 01/23/19 08:10 Labs: Laboratory Results - last 24 hr 01/23/19 01/23/19 01/23/19 08:10 08:10 08:10 WBC 8.3 RBC 3.35 L Hgb 10.2 L Hct 31.2 L MCV 93.2 MCH 30.6 MCHC 32.8 RDW 13.6 Plt Count 163 Neut % (Auto) 82.0 H Lymph % (Auto) 11.9 L [place] % (Auto) 5.4 Eos % (Auto) 0.2 L Baso % (Auto) 0.5 Neut # (Auto) 6800 Lymph # (Auto) 1000 L [place] # (Auto) 400 Eos # (Auto) 0 Baso # (Auto) 0 PT 21.9 H INR 1.9 H APTT 36 Sodium 138 Potassium 4.2 Chloride 104 Carbon Dioxide 23 BUN 36 H Creatinine 2.10 H Estimated GFR 30.3 L BUN/Creatinine Ratio 17.1 Glucose 119 H Calcium 9.1 Assessment & Plan Assessment & Plan narrative: Right femur fracture -evaluated by Ortho, now being kept NPO, going for surgery in the morning. -repeat INR in the morning, vitamin K given for reversal today. Peripheral arterial disease -resume Plavix and resume warfarin postop when appropriate. -vitamin K required for reversal of Coumadin to undergo surgery. Coronary artery disease -continue atorvastatin -resume Plavix and warfarin when cleared by surgery Hypertension -continue amlodipine, hydralazine and losartan Hyperlipidemia -continue atorvastatin Chronic kidney disease -repeat BMP in the morning and continue hydration tonight. Anemia -repeat CBC in the morning and postop period
[2019-01-23] MEDS: SODIUM CHLORIDE 0.9% FLUSH 10 ML IV (12:38)
[2019-01-23] MEDS: SODIUM CHLORIDE 0.45% 1,000 ML 100 ML IV ×2 (12:38→20:33)
[2019-01-23] MEDS: HYDRALAZINE 25 MG TABLET 50 MG PO ×2 (14:42→20:31)
--- NOTE | 2019-01-23 14:46 | PC.NURSE ---
AM Shift pt arrived around 1150 from ED. Used slider to transfer to bed. pt is AO, pleasant, and has brace to RLE, generalized scattered bruising and abrasions present upon admission. pt reporting 2/10 pain and hasn't asked for anything other than the 0.5mg Dilaudid administered in ED. Quintana draining to gravity and 1/2 NS infusing at 100/hr. jockey valet, Mirela, stopped by with his favorite muffins (phone number listed on white board) and daughter Ashley is at bedside.
[2019-01-23] MEDS: ATORVASTATIN 20 MG TABLET 40 MG PO (20:30)
[2019-01-23] MEDS: FERROUS GLUCONATE 324 MG TABLET PO (20:30)
[2019-01-24] VITALS (18 sets, daily range): BP systolic 97–143; BP diastolic 50–75; PULSE 63–82; RESP 12–20; TEMP 36.6–37.6; O2SAT 95–100
--- NOTE | 2019-01-24 | DI.RAD.S_ITS ---
PROCEDURE: XR FEMUR RT MIN 2V INDICATIONS: right femur khalida TECHNIQUE: Fluoroscopic images were obtained during an operative procedure and submitted for interpretation following the completion of the procedure. COMPARISON: [facility], CR, XR FEMUR RT MIN 2V, 01/23/2019, 7:41. [facility], CR, XR HIP W PEL IF DONE RT 2V, 01/23/2019, 7:20. FINDINGS: These fluoroscopic images were performed for intraoperative localization. On these images, a right femoral khalida is in place. The distal femur fracture is better aligned. Please correlate with intraoperative findings. IMPRESSION: Normal intraoperative examination. Dictated by: Perfecto Goetz M.D. on 01/24/2019 at 12:59 Approved by: Perfecto Goetz M.D. on 01/24/2019 at 13:00
--- NOTE | 2019-01-24 04:43 | PC.NURSE ---
[employer] Note: 0015: Awake, watching TV. Pt denies pain at this time. Vital signs stable. IV in place in rt AC with 1/2NS infusing at 100cc/hr. Pt verbalized understanding that he is on bedrest due to fractured rt femur, and that he is going to the operating room in the morning to repair the fracture. He verbalized understanding that he cannot eat or drink as of now.
[2019-01-24 05:30] LABS: Add Manual Diff / Slide Review NO; Basophils Absolute Auto 0 /uL (0-100); Basophils Percent Auto 0.6 % (0-2); Eosinophils Absolute Auto 0 /uL (0-450); Eosinophils Percent Auto 0.6 % (2-4); Hematocrit 26.2 % (41-53); Hemoglobin 8.9 g/dL (13.5-17.5); Lymphocytes Absolute Auto 1300 /uL (1100-4500); Lymphocytes Percent Auto 18.4 % (25-40); Mean Corpuscular Hemoglobin 31.3 PG (26-34); Monocytes Absolute Auto 1000 /uL (0-900); Neutrophils Absolute Auto 4600 /uL (1500-7000); Neutrophils Percent Auto 66.4 % (50-75); Platelet Count 150 X10^3/uL (150-400); Red Blood Cell Count 2.84 X10^6/uL (4.5-5.9); Red Cell Distribution Width 13.3 % (11.6-14.8); White Blood Cell Count 6.9 X10^3/uL (4.5-11.0)
[2019-01-24 05:36] LABS: INR 1.6 (0.9-1.3); Prothrombin Time 18.8 SECONDS (10.1-12.7)
[2019-01-24 05:42] LABS: BUN Creatinine Ratio 18.9 (6-22); Blood Urea Nitrogen 36 mg/dL (9-20); Calcium 8.5 mg/dL (8.4-10.2); Carbon Dioxide 23 mmol/L (22-32); Chloride 102 mmol/L (98-107); Glucose 104 mg/dL (80-110); HEMOLYSIS < 15 (0-50); Potassium 4.3 mmol/L (3.4-5.1); Sodium 134 mmol/L (137-145)
[2019-01-24] MEDS: SODIUM CHLORIDE 0.45% 1,000 ML 100 ML IV (05:56)
--- NOTE | 2019-01-24 09:13 | P.PN_ITS ---
Subjective Date Patient Seen: 01/24/19 Time Patient Seen: 09:12 Interval history: He is having no pain. Exam Vital Signs (past 8 hours): - 01/24/19 04:33 Temperature 98.9 F Pulse Rate 68 Respiratory Rate 16 Blood Pressure 129/75 Pulse Oximetry 98 Oxygen Delivery Method Room Air Const Orientation: alert and oriented x3 Extrem Other: Knee immobilizer intact. Easily wiggles toes and ankle up and down. Intact sensation distally. good cap refill distally Objective Labs Result Diagrams: 01/24/19 05:03 01/24/19 05:03 Labs: Laboratory Results - last 24 hr 01/24/19 01/24/19 01/24/19 05:03 05:03 05:03 WBC 6.9 RBC 2.84 L Hgb 8.9 L Hct 26.2 L MCV 92.0 MCH 31.3 MCHC 34.0 RDW 13.3 Plt Count 150 Neut % (Auto) 66.4 Lymph % (Auto) 18.4 L [place] % (Auto) 14.0 Eos % (Auto) 0.6 L Baso % (Auto) 0.6 Neut # (Auto) 4600 Lymph # (Auto) 1300 [place] # (Auto) 1000 H Eos # (Auto) 0 Baso # (Auto) 0 PT 18.8 H INR 1.6 H Sodium 134 L Potassium 4.3 Chloride 102 Carbon Dioxide 23 BUN 36 H Creatinine 1.90 H Estimated GFR 34.0 L BUN/Creatinine Ratio 18.9 Glucose 104 Calcium 8.5 Assessment & Plan Assessment & Plan narrative: Stable distal femur fracture in knee immobilizer. Plan for IM nailing today went operating room available.
[2019-01-24] MEDS: LACTATED RINGERS 1,000 ML 42 ML IV ×2 (10:50→12:36)
[2019-01-24] MEDS: CEFAZOLIN 2 GM/100 ML FROZ.PIGGY IV ×2 (10:55→18:27)
--- NOTE | 2019-01-24 10:58 | PM.PREOP ---
Pre-operative Note Interval Note History & Physical reviewed/Exam performed by Physician: Yes Changes to H&P: No
--- NOTE | 2019-01-24 11:02 | P.OP_ITS ---
Operative Date/Time/Diagnoses Date of procedure: 01/24/19 Time of procedure: 12:54 Pre-op diagnosis: Right femoral shaft fracture History of right knee replacement Post-op diagnosis: same Procedure & Clinicians Procedure: Intramedullary nail fixation of right femur fracture Same procedure as scheduled: Yes Indications: 83-year-old male with a right femur fracture. It was felt he would benefit from operative stabilization. Risks and benefits of surgery were discussed and appropriate consent obtained. Surgeon: Angelo Main Click Yes if Unassisted: Yes Anesthesia Type: General Operative Notes Findings: None Closure Type: primary Specimen(s): none sent Prosthetic devices, grafts, tissues, transplants, or devices: Jerardo NaturalNail retrograde femoral nail Applied: catheter Estimated Blood Loss (mL): 100 Blood products transfused: none Procedure in detail: Patient was brought to the operating room and a spinal block was initiated. He was then intubated on the table. Attention was turned towards the well-marked right leg. Preoperative antibiotics were given. time- out was performed. the right leg was prepped and draped in standard sterile fashion. We utilized his previous medial parapatellar knee incision and made a 5 cm incision along the medial aspect of the patella and patellar tendon. we sharply cut through the retinaculum. We then used fluoroscopy to start our guidewire in the center of the condylar notch and anterior to Blumensaat's line. the guidewire was advanced proximally up the femur and then we over drilled over this while using a tissue protector and retracting the patella medially. We then reduced the fracture and placed the slightly bent guidewire up the leg and across the fracture site until it was in the proximal femur. we then reamed over the guidewire with the tissue and patellar protection. We measured and placed our intramedullary nail. There was still some gap so we sunk the nail deeper and placed our proximal AP screw freehand. We then backslapped several millimeters until the fracture gap had reduced. He had very soft bone distally and we did 3 proximal fixation screws using the guide. final x-rays were taken. The wounds were irrigated. The retinaculum, superficial and skin were closed. Sterile dressing was placed. he was then extubated brought to recovery with no complications. Complications: none Condition: stable Disposition: PACU Plan for aftercare: Inpatient. TDWB on RLE. Will need SNF.
--- NOTE | 2019-01-24 11:42 | SUR.OPER ---
Have not started on time because horse and wagon driver OR team was on hold for twin delivery, possible C section.
--- NOTE | 2019-01-24 11:56 | SUR.OPER ---
Supine on padded OR bed, head on pillow, right arm secured on padded arm boards at <90 degrees abduction, left arm is tucked in, legs uncrossed, right leg is under control of surgeon, safety belt at thigh, tape over blanket over left lower leg.
[2019-01-24] MEDS: BUPIVACAINE 0.5% W/ EPI (PF) VIAL 30 ML INJ (12:02)
--- NOTE | 2019-01-24 13:10 | SUR.OPER ---
Patient has multiple bruising and abrasions on his right leg. Excoriated area in his lower abdominal folds and groin.
[2019-01-24] MEDS: LACTATED RINGERS 1,000 ML 125 ML IV ×2 (14:21→23:39)
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
--- NOTE | 2019-01-24 19:58 | PC.NURSE ---
1500- assumed care of pt from outgoing shift. pt awake and alert. family at bedside. Pt at bedside. updated pt and family on plan of care. belongings and call quintero within reach. family comes and asks questions and answered appropriately. dtr delgado is driving up from [place]. dtr in law left earlier in the day. pt turned and repositioned. changed. stooled. loose. cooperative with care. denies pain. scrotum and pannus excoriated. cleaned and dried, powder applied. will continue to monitor pt for safety. pt left upper arm where bp cuff was has three small skin tears. xeroformdsg doubled, gauze then kirlex wrap with netting to hold in place. bed alarm on.
[2019-01-24] MEDS: ATORVASTATIN 20 MG TABLET 40 MG PO (20:32)
[2019-01-24] MEDS: FERROUS GLUCONATE 324 MG TABLET PO (20:32)
--- NOTE | 2019-01-24 23:13 | PM.PN.1 ---
Subjective Date Patient Seen: 01/24/19 Time Patient Seen: 22:30 Interval history: Chris Peralta is an 83 male who had a mechanical fall and sustained a right distal femur fracture. He is status post surgery today. He states he feels no pain and is anxious for discharge to home. States he is taking care of his who has bone cancer and that his daughters can only cover him for 2 more nights. States he wants to be discharged home on Saturday as he will not have coverage for his 's care. Exam Vital Signs (past 8 hours): - 01/24/19 16:14 01/24/19 16:18 01/24/19 20:36 Temperature 98.4 F 98.4 F Pulse Rate 82 82 82 Respiratory Rate 20 19 Blood Pressure 97/62 143/61 H 119/50 L Pulse Oximetry 97 95 01/24/19 21:23 Temperature 97.9 F Pulse Rate Respiratory Rate 20 Blood Pressure 121/66 Pulse Oximetry 98 Oxygen Delivery Method Room Air Narrative Exam Narrative: General: Alert oriented well-developed 83-year-old male in no distress HEENT: Normocephalic atraumatic Eyes: Conjunctiva is clear, sclera is nonicteric Neck: Supple, no JVD Respirations: Lung sounds are clear to auscultation bilaterally no wheezes or rhonchi CV: Regular rate and rhythm no murmur rubs Skin: Dry and intact, no edema noted Neuro: Alert and oriented x4 with no focal deficits, has normal sensation. Extremities: He moves his upper extremities with full range of motion, right knee immobilized in a splint Psych: Mildly anxious tonight Objective Labs Result Diagrams: 01/24/19 05:03 01/24/19 05:03 Labs: Laboratory Results - last 24 hr 01/24/19 01/24/19 01/24/19 05:03 05:03 05:03 WBC 6.9 RBC 2.84 L Hgb 8.9 L Hct 26.2 L MCV 92.0 MCH 31.3 MCHC 34.0 RDW 13.3 Plt Count 150 Neut % (Auto) 66.4 Lymph % (Auto) 18.4 L [place] % (Auto) 14.0 Eos % (Auto) 0.6 L Baso % (Auto) 0.6 Neut # (Auto) 4600 Lymph # (Auto) 1300 [place] # (Auto) 1000 H Eos # (Auto) 0 Baso # (Auto) 0 PT 18.8 H INR 1.6 H Sodium 134 L Potassium 4.3 Chloride 102 Carbon Dioxide 23 BUN 36 H Creatinine 1.90 H Estimated GFR 34.0 L BUN/Creatinine Ratio 18.9 Glucose 104 Calcium 8.5 Assessment & Plan Assessment & Plan narrative: Atrial fibrillation anticoagulated on warfarin - INR is 1.6, subtherapeutic - Continue warfarin 2 mg po daily, consider increase tomorrow if INR continues to be low, will need to balanced against bleeding risk. Right femur fracture - POD #1 followed by Ortho Peripheral arterial disease -resume Plavix and resume warfarin Coronary artery disease -continue atorvastatin 40 mg po daily -resume Plavix 75 mg po daily and warfarin 2 mg daily Hypertension - continue amlodipine 5 mg po daily - Continue hydralazine 50 mg po tid - Continue losartan 25 mg po daily Hyperlipidemia -continue atorvastatin Chronic kidney disease - repeat BMP in the morning and continue hydration tonight. Anemia - repeat CBC in the morning and postop period Dispo: unknown at this time, he is being recommended for SNF rehab. I have ordered a SW consult to assist the patient in determining care needs. Quality VTE Deep Vein Thrombosis/Pulmonary Embolism Present on Admission: No
[2019-01-25] VITALS (13 sets, daily range): BP systolic 117–133; BP diastolic 55–81; PULSE 59–76; RESP 16–20; TEMP 36.8–37.7; O2SAT 97–98
--- NOTE | 2019-01-25 01:18 | PC.NURSE ---
Heating Equipment Repairer Note: 0045: Awake, daughter at bedside and attempting to assist pt out of bed because he thought he had a bowel movement. Advised pt and daughter that PT will assist him in the morning and to not attempt to get out of bed until then. Assisted pt back to bed, amador care given and barrier cream applied. Quintana cath care given. Assisted pt to turn and reposition. Clean brief and chux placed under pt. IVs in place in rt AC and forearm, with LR infusing at 125cc/hr. Leg immobilizer remains in place on rt leg. Quintana catheter patent, with clear yellow urine.
[2019-01-25] MEDS: CEFAZOLIN 2 GM/100 ML FROZ.PIGGY IV ×3 (03:34→19:50)
[2019-01-25 05:31] LABS: Hematocrit 21.8 % (41-53); Hemoglobin 7.3 g/dL (13.5-17.5)
[2019-01-25] MEDS: FERROUS GLUCONATE 324 MG TABLET PO ×2 (08:42→19:52)
[2019-01-25] MEDS: CLOPIDOGREL 75 MG TABLET PO (08:42)
[2019-01-25] MEDS: OXYCODONE/ACETAMINOPHEN 5/325 TABLET 1 TAB PO (08:48)
--- NOTE | 2019-01-25 09:10 | PM.PNPO.1 ---
Subjective Date Patient Seen: 01/25/19 Time Patient Seen: 09:10 Interval history: He denies shortness of breath or chest pain. denies any pain in the leg either. Exam Vital Signs (past 8 hours): - 01/25/19 03:46 01/25/19 08:00 Temperature 99.8 F H 99 F Pulse Rate 69 67 Respiratory Rate 16 18 Blood Pressure 127/69 133/66 Pulse Oximetry 98 98 Oxygen Delivery Method Room Air Const Orientation: alert and oriented x3 Extrem Other: Dressings clean dry intact. He wiggles toes, good capillary refill and foot. Objective Labs Result Diagrams: 01/25/19 04:32 01/24/19 05:03 Labs: Laboratory Results - last 24 hr 01/25/19 04:32 Hgb 7.3 L Hct 21.8 L Assessment & Plan Post-op Postoperative Procedures Operation Date: 01/24/19 09:00 Actual Procedures Side Surgeon p Retrograde Intramedullary Nailing Femur Angelo Main MD Stable after IM nailing of his left femur. Mobilize with therapy on touchdown weight-bearing. Acute blood loss anemia - His hemoglobin is at 7. He is on Plavix and Coumadin, and I expect this to drop further. With his cardiac history, low blood pressure, anticipation of further dropping, I am going to transfuse him today. Operation Date: 01/24/19 09:00 <No data on this case meets the specified criteria> Quality VTE Deep Vein Thrombosis/Pulmonary Embolism Present on Admission: No
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
[2019-01-25 13:48] LABS: INR 1.4 (0.9-1.3); Prothrombin Time 16.4 SECONDS (10.1-12.7)
--- NOTE | 2019-01-25 14:30 | PT.IPTN ---
Current Diagnoses Displaced fracture of lower epiphysis (separation) of right femur, initial encounter for closed fracture (01/23/19) Surgery Performed Operation Date: 01/24/19 09:00 Actual Procedures p Retrograde Intramedullary Nailing Femur - Angelo Main MD Operation Date: 01/24/19 09:00 <No data on this case meets the specified criteria> Physical Therapy Treatment Note M2 PT-IP Current Condition Start: 01/25/19 12:47 Freq: NEEDED Status: Active Protocol: Document 01/25/19 10:05 [facility] (Rec: 01/25/19 12:59 [facility] [id number]) Physical Therapy Current Condition Current Condition Evaluation Date 01/25/19 Treatment Diagnosis R femoral shaft fx s/p IMN fixation 01/24/19, impaired activity tolerance Precautions Other Precautions TDWB RLE Weight Bearing Status Weight Bearing Status Touch Down Weight Bearing M3 PT-IP Subjective Start: 01/25/19 12:47 Freq: NEEDED Status: Active Protocol: Document 01/25/19 14:30 [facility] (Rec: 01/25/19 16:51 [facility] [email or web address]) Subjective Physical Therapy Visit Type Type Treatment Note Visit Start Time 14:30 Visit Stop Time 14:55 Total Visit Minutes 25 Notes 2 daughters in room during session Number of BUNDLING MACHINE OPERATOR Visits 0 Physical Therapy Visit Comments Patient Comments pt feeling no pain, ready to get BTB. M4 PT-IP Mobility and Gait Start: 01/25/19 12:47 Freq: NEEDED Status: Active Protocol: Document 01/25/19 14:30 [facility] (Rec: 01/25/19 16:51 [facility] [id number]) PT-Bed Mobility Assessment Sit to Supine Sit to Supine Maximum Assistance 2 Person Assistance Scooting Scooting to Edge of Bed Moderate Assistance Scooting Up and Down in Bed Dependent PT-Transfer Assessment Sit to and From Stand Sit to and from Stand Moderate Assistance 2 Person Assistance Use of Upper Extremities Equipment Transfer Assistive Device Gait Belt Front Wheeled Walker Orthotic/Prosthetic Devices or Brace: Yes Transfers Transfer Destination Bed Transfer Technique alt heel/toe scoot to the L Transfer Ability Level of Assist Moderate Assistance 2 Person Assistance Use of Upper Extremities Comments Mobility Comments knee immobilizer in place RLE Gait Assessment Comments Gait Comments unable to ambulate M5 PT-IP Objective Assessments Start: 01/25/19 12:47 Freq: NEEDED Status: Active Protocol: Document 01/25/19 10:05 [facility] (Rec: 01/25/19 12:59 [facility] [id number]) Orientation Orientation/Cognition Level of Alertness Alert Gross Range of Motion Lower Extremity ROM Assessment Right Impaired Impairments RLE in knee immobilizer Strength Lower Extremity Strength Assessment Right Impaired Comments Strength Comments RLE strength not tested d/t surgery LLE 4/5 or greater with hip flexion, knee flex/extension and ankle DF Sensation Assessment Sensation Gross Sensation WNL M6 PT-IP Treatment Start: 01/25/19 12:47 Freq: NEEDED Status: Active Protocol: Document 01/25/19 14:30 [facility] (Rec: 01/25/19 16:51 [facility] [id number]) Physical Therapy Treatment Education Education Provided Weight Bearing Status Safety M7 PT-IP Assessment and Plan Start: 01/25/19 12:47 Freq: NEEDED Status: Active Protocol: Document 01/25/19 14:30 [facility] (Rec: 01/25/19 16:51 [facility] [id number]) PT Summary Assessment and Plan Summary Progress Towards Goals Slow Progress due to Medical Issues Slow Progress due to Activity Tolerance Assessment Summary Pt continues to require 2 assist with transfers and bed mobility this session. No c/o of high levels of pain but pt is unable to manage the FWW without manual assistance and continues to require cuing for TDWB RLE. Goals Bed Mobility Goal Contact Guard Assistance Transfer Goal Minimal Assistance Front Wheeled Walker Days to Meet Goals 5 Frequency of Treatment Frequency Of Treatment Twice a Day Treatment Plan Other Recommendations and Next Treatment cont to advance transfers and Focus bed mobility, re-educate on TDWB RLE Recommendations To Nursing Amount of Assist Needed PT/OT Assist Only Mechanical Lift Discharge Recommendations PT Discharge Recommendations SNF Rehab
--- NOTE | 2019-01-25 14:42 | PC.NURSE ---
Mobility: SI would like to go home but maybe I can't. Pt is max assist of 2 people to get up to chair and back to bed, painful to move when up. It was harder to get up than what he thought it would be. HH down this am and 2 units of blood were crossed, consent signed. First unit of blood is up and running. No sxs of transfusion reaction seen. Have received no call back yet from [facility]. [place] into see pt and she discussed social situation with him. Dtrs have been present today to see pt and has witnessed his diff in moving. Resting quietly for now after return to bed. Cont w/poc..
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
[2019-01-25] MEDS: HYDRALAZINE 25 MG TABLET 50 MG PO (16:14)
[2019-01-25] MEDS: WARFARIN 2 MG TABLET PO (17:07)
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
[2019-01-25] MEDS: ATORVASTATIN 20 MG TABLET 40 MG PO (19:52)
[2019-01-25] MEDS: HYDROCODONE/ACET 5/325 TABLET 1 TAB PO (19:57)
--- NOTE | 2019-01-26 00:27 | PC.NURSE ---
Public Health Assistant Note: 0030: Awake, watching TV. Vital signs stable. Pt denies pain at this time. Rt leg immobilizer remains on. Rt toes are pink and warm, and pedal pulse is strong and equal to lt pedal pulse. IVs in place in rt wrist and rt AC.
[2019-01-26] MEDS: CEFAZOLIN 2 GM/100 ML FROZ.PIGGY IV (02:17)
[2019-01-26] MEDS: HYDROCODONE/ACET 5/325 TABLET 1 TAB PO (02:17)
[2019-01-26 05:09] VITALS: BP 144/63; PULSE 54; RESP 18; TEMP 36.8; O2SAT 97
[2019-01-26 05:59] LABS: Hematocrit 25.7 % (41-53)
[2019-01-26 06:00] LABS: BUN Creatinine Ratio 19.4 (6-22); Blood Urea Nitrogen 35 mg/dL (9-20); Calcium 8.1 mg/dL (8.4-10.2); Carbon Dioxide 25 mmol/L (22-32); Chloride 101 mmol/L (98-107); Estimated Glomerular Filt Rate 36.2 mL/min (>60); Glucose 112 mg/dL (80-110); HEMOLYSIS < 15 (0-50); Magnesium 1.8 mg/dL (1.6-2.3); Potassium 3.7 mmol/L (3.4-5.1); Sodium 134 mmol/L (137-145)
--- NOTE | 2019-01-26 07:59 | PM.PNPO.1 ---
Subjective Date Patient Seen: 01/26/19 Time Patient Seen: 07:59 Interval history: Patient is a 83 year old male with PMH of AFIB on warfarin who is POD#2 s/p intramedullary nail fixation of right femur fracture with Dr. Main. He reports minimal pain when the leg is moved. He has been mobilizing with the assistance of PT to the chair and around the room. He received 2 units of PRBC yesterday and denies any lightheadedness, dizziness, shortness of breath or chest pain. Exam Vital Signs (past 8 hours): - 01/26/19 05:09 Temperature 98.3 F Pulse Rate 54 L Respiratory Rate 18 Blood Pressure 144/63 H Pulse Oximetry 97 Oxygen Delivery Method Room Air Narrative Exam Narrative: 83 year old male resting comfortably in bed in no acute distress. Alert and oriented. Knee immobilizer in place. Dressing is clean, dry and intact with minimal shadow drainage. Able to dorsiflex/plantar flex the foot. Distal sensation intact to light touch. Pulses symmetrical. Calves are soft, nontender bilaterally. Objective Labs Result Diagrams: 01/26/19 05:04 01/26/19 05:04 Labs: Laboratory Results - last 24 hr 01/25/19 01/25/19 01/26/19 10:40 13:20 05:04 Hgb 9.0 L Hct 25.7 L PT 16.4 H INR 1.4 H Sodium Potassium Chloride Carbon Dioxide BUN Creatinine Estimated GFR BUN/Creatinine Ratio Glucose Calcium Magnesium Blood Type A Positive Antibody Screen Negative Crossmatch See Detail 01/26/19 05:04 Hgb Hct PT INR Sodium 134 L Potassium 3.7 Chloride 101 Carbon Dioxide 25 BUN 35 H Creatinine 1.80 H Estimated GFR 36.2 L BUN/Creatinine Ratio 19.4 Glucose 112 H Calcium 8.1 L Magnesium 1.8 Blood Type Antibody Screen Crossmatch Assessment & Plan Post-op Postoperative Procedures Operation Date: 01/24/19 09:00 Actual Procedures Side Surgeon p Retrograde Intramedullary Nailing Femur Angelo Main MD Operation Date: 01/24/19 09:00 <No data on this case meets the specified criteria> Patient remains stable s/p intramedullary nail fixation. He is to continue to mobilize with PT and is touch down weight bearing. Pain is well controlled with current regimen. Due to his current mobility and his status as his 's caregiver, patient has been recommended to discharge to SNF, with which he is amenable. OK to discharge to SNF from orthopedics standpoint. Patient should follow up with orthopedics on an outpatient basis in 2 weeks. Quality VTE Deep Vein Thrombosis/Pulmonary Embolism Present on Admission: No
[2019-01-26 08:51] VITALS: BP 157/65; PULSE 64; RESP 17; TEMP 36.8; O2SAT 99
[2019-01-26] MEDS: AMLODIPINE 5 MG TABLET PO (10:22)
[2019-01-26] MEDS: LOSARTAN 25 MG TABLET PO (10:22)
[2019-01-26] MEDS: CLOPIDOGREL 75 MG TABLET PO (10:22)
[2019-01-26] MEDS: FERROUS GLUCONATE 324 MG TABLET PO (10:22)
[2019-01-26] MEDS: DOCUSATE 100 MG CAPSULE PO (10:22)
[2019-01-26] MEDS: HYDRALAZINE 25 MG TABLET 50 MG PO (10:22)
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
--- NOTE | 2019-01-26 11:13 | PC.NURSE ---
Addendum entered by Evelyn Luu R.N. 01/26/19 12:55: pt belongings all packed up and provided to transport staff member. PT assisted pt to wheelchair and discharged to [facility] at 1242. Original Note: AM Shift pt is AO and receptive to care. Very [place]. VS stable. +2 edema noted in RLE and pt reporting 0/10 pain with intermittent tingling to knee cap. Brace is being worn in bed. PT has yet to visit patient. Plan is for pt to DC to [facility] today at 1230. Adult protective services have been called and are still pending a visit to the patient. H&H is on the increase at 9.0 and 27.7 this AM. PTT was just ordered (1110). Patient agreed and is willing to go to rehab.
[2019-01-26 11:24] LABS: INR 1.5 (0.9-1.3); Prothrombin Time 16.8 SECONDS (10.1-12.7)
--- NOTE | 2019-01-26 12:30 | PT.IPTN ---
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 (01/23/19) Surgery Performed Operation Date: 01/24/19 09:00 Actual Procedures p Retrograde Intramedullary Nailing Femur - Angelo Main MD Operation Date: 01/24/19 09:00 <No data on this case meets the specified criteria> Physical Therapy Treatment Note M2 PT-IP Current Condition Start: 01/25/19 12:47 Freq: NEEDED Status: Discharge Protocol: Document 01/25/19 10:05 RCC (Rec: 01/25/19 12:59 RCC [id number]) Physical Therapy Current Condition Current Condition Evaluation Date 01/25/19 Treatment Diagnosis R femoral shaft fx s/p IMN fixation 01/24/19, impaired activity tolerance Precautions Other Precautions TDWB RLE Weight Bearing Status Weight Bearing Status Touch Down Weight Bearing M3 PT-IP Subjective Start: 01/25/19 12:47 Freq: NEEDED Status: Discharge Protocol: Document 01/26/19 12:30 RS (Rec: 01/26/19 14:34 RS [id number]) Subjective Physical Therapy Visit Type Type Discharge Summary Visit Start Time 11:50 Visit Stop Time 12:30 Total Visit Minutes 40 Physical Therapy Visit Comments Patient Comments pt trying to convince this PT that he's ready to go home, but pt knows he needs to go to SNF. M4 PT-IP Mobility and Gait Start: 01/25/19 12:47 Freq: NEEDED Status: Discharge Protocol: Document 01/26/19 12:30 RS (Rec: 01/26/19 14:34 RS [id number]) PT-Bed Mobility Assessment Supine to Sit Supine to Sit Moderate Assistance 1 Person Assistance Head of Bed Elevated Sit to Supine Sit to Supine Maximum Assistance 2 Person Assistance Scooting Scooting to Edge of Bed Moderate Assistance Scooting Up and Down in Bed Dependent PT-Transfer Assessment Sit to and From Stand Sit to and from Stand Moderate Assistance 2 Person Assistance Use of Upper Extremities Equipment Transfer Assistive Device Gait Belt Front Wheeled Walker Transfers Transfer Destination Wheelchair Transfer Technique alt heel/toe scoot to the L Transfer Ability Level of Assist Moderate Assistance 2 Person Assistance Use of Upper Extremities Comments Mobility Comments knee immobilizer in place RLE, seemed to have more difficulty today than yesterday Gait Assessment Comments Gait Comments unable to ambulate M5 PT-IP Objective Assessments Start: 01/25/19 12:47 Freq: NEEDED Status: Discharge Protocol: Document 01/25/19 10:05 RCC (Rec: 01/25/19 12:59 RCC [id number]) Orientation Orientation/Cognition Level of Alertness Alert Gross Range of Motion Lower Extremity ROM Assessment Right Impaired Impairments RLE in knee immobilizer Strength Lower Extremity Strength Assessment Right Impaired Comments Strength Comments RLE strength not tested d/t surgery LLE 4/5 or greater with hip flexion, knee flex/extension and ankle DF Sensation Assessment Sensation Gross Sensation WNL M6 PT-IP Treatment Start: 01/25/19 12:47 Freq: NEEDED Status: Discharge Protocol: Document 01/25/19 14:30 RCC (Rec: 01/25/19 16:51 RCC [id number]) Physical Therapy Treatment Education Education Provided Weight Bearing Status Safety M7 PT-IP Assessment and Plan Start: 01/25/19 12:47 Freq: NEEDED Status: Discharge Protocol: Document 01/26/19 12:30 RS (Rec: 01/26/19 14:34 RS [id number]) PT Summary Assessment and Plan Potential Rehabilitation Potential Good Status of Condition at Evaluation Stable Summary Assessment Summary POD #2 IMN s/p R femur fx. Pt still requiring heavy 2 person assist for all mobility which is far below pt's reported functional baseline. Continue to recommend SNF rehab for daily low intensity skilled therapies. Pt will be discharging to SNF momentarily . Pt has no other acute PT needs, will sign off. Frequency of Treatment Frequency Of Treatment Discharge
--- NOTE | 2019-01-26 14:52 | CM.DPC ---
DCP/continued: Reviewed chart. Patient with orders to d/c to SNF today. Placed call to first SNF choice [facility]. Per February they do not have male bed today. Therefore, placed call to second choice [facility], spoke with Radha she reports that they can accept. Orders faxed. Met with patient to confirm plan. Patient disappointed that he cannot stay in town but agreeable to [facility] [place]. Patient requesting INSTALLATION TECH call his spouse/Shantel. Placed call to spouse and vm left. Also with patient's permission left message with Ashley. 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 All aware and in agreement with transfer. [facility] brochure provided to patient. [facility] arranged transport through [facility] at 12:30pm. RN updated and given number to call report. P: [facility] today. Left vm with [facility] with discharge disposition. [facility] staff did report to [facility] over the w/e. DWAYNE Stiles
== END 2019-01-26 12:42 | DRG 481 ==
LOC: ED 08:15 → AC 08:34
PROVIDERS: Internal Medicine; Orthopaedic Surgery; Admitting Provider Family Medicine; Emergency Provider Emergency Medicine; PCP Internal Medicine; Visit Provider Family Medicine
PROC: 0QS806Z Reposition Right Femoral Shaft with Intramedullary Internal Fixation Device, Open Approach (ICD-10-PCS; principal; 2019-01-24 09:00)
DX: M84.451A Pathological fracture, right femur, initial encounter for fracture (principal); D62 Acute posthemorrhagic anemia; E11.51 Type 2 diabetes mellitus with diabetic peripheral angiopathy without gangrene; I48.91 Unspecified atrial fibrillation; N18.3 Chronic kidney disease, stage 3 (moderate); I12.9 Hypertensive chronic kidney disease with stage 1 through stage 4 chronic kidney disease, or unspecified chronic kidney disease; I25.10 Atherosclerotic heart disease of native coronary artery without angina pectoris; E78.5 Hyperlipidemia, unspecified; W18.30XA Fall on same level, unspecified, initial encounter; Y92.009 Unspecified place in unspecified non-institutional (private) residence as the place of occurrence of the external cause; Z79.01 Long term (current) use of anticoagulants
CPT/HCPCS: 36415; 36430; 71045; 73502; 73552; 76000; 80048; 83735; 85014; 85018; 85025; 85610; 85730; 86850; 86900; 86901; 96374; 97162; 97530; 99284; P9016; J0690; J1170; J2274; J2405; J2704; J3010; J7050

== ENCOUNTER → 2019-06-24 13:36 | Outpatient (CLI) | payer MEDICARE, SELFPAY ==
[2019-01-23 12:20] VITALS: BMI 29.2
== END ==
PROVIDERS: PCP Internal Medicine; Visit Provider Family Medicine
DX: E11.621 Type 2 diabetes mellitus with foot ulcer (principal); I87.2 Venous insufficiency (chronic) (peripheral); E11.622 Type 2 diabetes mellitus with other skin ulcer; L97.411 Non-pressure chronic ulcer of right heel and midfoot limited to breakdown of skin; L97.821 Non-pressure chronic ulcer of other part of left lower leg limited to breakdown of skin; L97.811 Non-pressure chronic ulcer of other part of right lower leg limited to breakdown of skin; R60.0 Localized edema; I50.42 Chronic combined systolic (congestive) and diastolic (congestive) heart failure
CPT/HCPCS: 11042; 99213; 99214

== ENCOUNTER → 2019-06-26 11:43 | Outpatient (CLI) | payer MEDICARE, SELFPAY ==
[2019-01-23 12:20] VITALS: BMI 29.2
--- NOTE | 2019-06-26 | DI.RAD.S_ITS ---
PROCEDURE: XR CALCANEOUS RT MIN 2V INDICATIONS: EVAL FOR F.B. TECHNIQUE: Two views of the calcaneus were acquired. COMPARISON: None. FINDINGS: Bones: No fractures or dislocations. No suspicious bony lesions. Note is made of a calcific radiodensity that is somewhat rounded at the lateral aspect inferior plantar margin of the posterior calcaneus, within the soft tissues. This has a appearance of peripheral calcification rather than clearly representing evidence of a foreign body. Soft tissues: No suspicious calcifications. Achilles tendon appears normal. IMPRESSION: Rounded presumed dystrophic peripheral calcification circumscribing a 1 cm diameter space in the fatty soft tissues beneath the plantar margin of the posterior calcaneus. A definite foreign body is not seen. Note is made of calcifications within small vessels crossing the ankle consistent with long-standing diabetes. Dictated by: Murali Santos M.D. on 06/26/2019 at 14:11 Approved by: Murali Santos M.D. on 06/26/2019 at 14:13
== END ==
PROVIDERS: Family Provider Internal Medicine; PCP Internal Medicine; Visit Provider Family Medicine
DX: S91.301A Unspecified open wound, right foot, initial encounter (principal)
CPT/HCPCS: 73650

== ENCOUNTER → 2019-06-30 10:45 | Outpatient (CLI) | payer MEDICARE, SELFPAY ==
[2019-01-23 12:20] VITALS: BMI 29.2
== END ==
PROVIDERS: Family Provider Internal Medicine; PCP Internal Medicine; Visit Provider Family Medicine
DX: I87.2 Venous insufficiency (chronic) (peripheral) (principal); L97.818 Non-pressure chronic ulcer of other part of right lower leg with other specified severity; L97.828 Non-pressure chronic ulcer of other part of left lower leg with other specified severity; R60.0 Localized edema
CPT/HCPCS: 29581; 99215

== ENCOUNTER → 2019-07-02 09:41 | Outpatient (CLI) | payer MEDICARE, SELFPAY ==
[2019-01-23 12:20] VITALS: BMI 29.2
== END ==
PROVIDERS: Family Provider Internal Medicine; PCP Internal Medicine; Visit Provider Family Medicine
DX: I87.2 Venous insufficiency (chronic) (peripheral) (principal); E11.628 Type 2 diabetes mellitus with other skin complications; E11.622 Type 2 diabetes mellitus with other skin ulcer; L97.811 Non-pressure chronic ulcer of other part of right lower leg limited to breakdown of skin; L97.821 Non-pressure chronic ulcer of other part of left lower leg limited to breakdown of skin; L89.612 Pressure ulcer of right heel, stage 2; S51.802A Unspecified open wound of left forearm, initial encounter; S51.801A Unspecified open wound of right forearm, initial encounter; L89.313 Pressure ulcer of right buttock, stage 3; L89.323 Pressure ulcer of left buttock, stage 3; R60.0 Localized edema; I50.42 Chronic combined systolic (congestive) and diastolic (congestive) heart failure
CPT/HCPCS: 11042; 97597; 97598

== ENCOUNTER → 2019-07-06 10:08 | Outpatient (CLI) | payer MEDICARE, SELFPAY ==
[2019-01-23 12:20] VITALS: BMI 29.2
== END ==
PROVIDERS: Family Provider Internal Medicine; PCP Internal Medicine; Visit Provider Podiatrist Primary Podiatric Medicine
DX: I87.2 Venous insufficiency (chronic) (peripheral) (principal); L97.811 Non-pressure chronic ulcer of other part of right lower leg limited to breakdown of skin; L97.821 Non-pressure chronic ulcer of other part of left lower leg limited to breakdown of skin; L89.612 Pressure ulcer of right heel, stage 2; L89.313 Pressure ulcer of right buttock, stage 3; L89.323 Pressure ulcer of left buttock, stage 3; S31.80 Open wound of unspecified buttock; S41.102D Unspecified open wound of left upper arm, subsequent encounter
CPT/HCPCS: 29581

== ENCOUNTER → 2019-07-09 10:06 | Outpatient (CLI) | payer MEDICARE, SELFPAY ==
[2019-01-23 12:20] VITALS: BMI 29.2
== END ==
PROVIDERS: Family Provider Internal Medicine; PCP Internal Medicine; Visit Provider Family Medicine
DX: I87.2 Venous insufficiency (chronic) (peripheral) (principal); E11.621 Type 2 diabetes mellitus with foot ulcer; L89.313 Pressure ulcer of right buttock, stage 3; L89.323 Pressure ulcer of left buttock, stage 3; S51.802A Unspecified open wound of left forearm, initial encounter; L97.411 Non-pressure chronic ulcer of right heel and midfoot limited to breakdown of skin; L97.821 Non-pressure chronic ulcer of other part of left lower leg limited to breakdown of skin; L97.811 Non-pressure chronic ulcer of other part of right lower leg limited to breakdown of skin; I50.42 Chronic combined systolic (congestive) and diastolic (congestive) heart failure; S41.102D Unspecified open wound of left upper arm, subsequent encounter; E11.628 Type 2 diabetes mellitus with other skin complications
CPT/HCPCS: 11042; 11045; 97597

== ENCOUNTER → 2019-07-13 12:02 | Outpatient (CLI) | payer MEDICARE, SELFPAY ==
[2019-01-23 12:20] VITALS: BMI 29.2
== END ==
PROVIDERS: Family Provider Internal Medicine; PCP Internal Medicine; Visit Provider Podiatrist Primary Podiatric Medicine
DX: L97.811 Non-pressure chronic ulcer of other part of right lower leg limited to breakdown of skin (principal); L97.821 Non-pressure chronic ulcer of other part of left lower leg limited to breakdown of skin; R60.0 Localized edema; I87.2 Venous insufficiency (chronic) (peripheral); L89.323 Pressure ulcer of left buttock, stage 3; L89.313 Pressure ulcer of right buttock, stage 3
CPT/HCPCS: 29581

== ENCOUNTER → 2019-07-15 08:59 | Outpatient (CLI) | payer MEDICARE, SELFPAY ==
[2019-01-23 12:20] VITALS: BMI 29.2
== END ==
PROVIDERS: Family Provider Internal Medicine; PCP Internal Medicine; Visit Provider Family Medicine
DX: E11.621 Type 2 diabetes mellitus with foot ulcer (principal); I87.2 Venous insufficiency (chronic) (peripheral); L97.818 Non-pressure chronic ulcer of other part of right lower leg with other specified severity; L97.821 Non-pressure chronic ulcer of other part of left lower leg limited to breakdown of skin; L97.411 Non-pressure chronic ulcer of right heel and midfoot limited to breakdown of skin; S51.802A Unspecified open wound of left forearm, initial encounter; L89.313 Pressure ulcer of right buttock, stage 3; L89.323 Pressure ulcer of left buttock, stage 3; E11.622 Type 2 diabetes mellitus with other skin ulcer
CPT/HCPCS: 11042; 29581; 87070; 87075; 87077; 87147; 87185; 87186; 87205

== ENCOUNTER → 2019-07-18 11:20 | Outpatient (CLI) | payer MEDICARE, SELFPAY ==
[2019-01-23 12:20] VITALS: BMI 29.2
[2019-07-18 12:12] LABS: INR 1.5 (0.9-1.3); Prothrombin Time 17.8 SECONDS (10.1-12.7)
== END ==
PROVIDERS: PCP Internal Medicine; Visit Provider Family Medicine
DX: L08.9 Local infection of the skin and subcutaneous tissue, unspecified (principal); Z79.01 Long term (current) use of anticoagulants
CPT/HCPCS: 36415; 85610

== ENCOUNTER → 2019-07-22 10:50 | Outpatient (CLI) | payer MEDICARE, SELFPAY ==
[2019-01-23 12:20] VITALS: BMI 29.2
== END ==
PROVIDERS: PCP Internal Medicine; Visit Provider Family Medicine
DX: E11.621 Type 2 diabetes mellitus with foot ulcer (principal); I87.2 Venous insufficiency (chronic) (peripheral); B95.62 Methicillin resistant Staphylococcus aureus infection as the cause of diseases classified elsewhere; R60.0 Localized edema; L97.819 Non-pressure chronic ulcer of other part of right lower leg with unspecified severity; L97.829 Non-pressure chronic ulcer of other part of left lower leg with unspecified severity; L97.419 Non-pressure chronic ulcer of right heel and midfoot with unspecified severity; S41.102D Unspecified open wound of left upper arm, subsequent encounter
CPT/HCPCS: 11042; 29581; 99213

== ENCOUNTER → 2019-07-22 12:49 | Outpatient (CLI) | payer MEDICARE, SELFPAY ==
[2019-01-23 12:20] VITALS: BMI 29.2
[2019-07-22 14:03] LABS: Add Manual Diff / Slide Review NO; Basophils Absolute Auto 100 /uL (0-100); Basophils Percent Auto 0.8 % (0-2); Eosinophils Absolute Auto 200 /uL (0-450); Eosinophils Percent Auto 2.6 % (2-4); Hematocrit 30.3 % (41-53); Hemoglobin 10.1 g/dL (13.5-17.5); Lymphocytes Absolute Auto 1400 /uL (1100-4500); Lymphocytes Percent Auto 20.1 % (25-40); Mean Corpuscular HGB Conc 33.3 % (30-36); Mean Corpuscular Hemoglobin 30.1 PG (26-34); Mean Corpuscular Volume 90.1 fL (80-100); Monocytes Absolute Auto 700 /uL (0-900); Monocytes Percent Auto 10.4 % (3-14); Neutrophils Absolute Auto 4700 /uL (1500-7000); Neutrophils Percent Auto 66.1 % (50-75); Platelet Count 250 X10^3/uL (150-400); Red Blood Cell Count 3.36 X10^6/uL (4.5-5.9); Red Cell Distribution Width 14.4 % (11.6-14.8); White Blood Cell Count 7.2 X10^3/uL (4.5-11.0)
[2019-07-22 14:18] LABS: Erythrocyte Sedimentation Rate 50 MM/HR (0-15)
[2019-07-22 14:35] LABS: Alanine Aminotransferase 8 IU/L (<50); Albumin 3.6 g/dL (3.5-5.0); Albumin Globulin Ratio 1.2 (1.0-2.8); Alkaline Phosphatase 100 U/L (38-126); Aspartate Aminotransferase 22 IU/L (17-59); BUN Creatinine Ratio 14.2 (6-22); Bilirubin Total 0.6 mg/dL (0.2-1.3); Blood Urea Nitrogen 34 mg/dL (9-20); C-Reactive Protein Quant 1.5 mg/dL (<1.0); Calcium 9.1 mg/dL (8.4-10.2); Carbon Dioxide 26 mmol/L (22-32); Chloride 101 mmol/L (98-107); Estimated Glomerular Filt Rate 25.9 mL/min (>60); Glucose 104 mg/dL (80-110); HEMOLYSIS < 15 (0-50); Potassium 4.7 mmol/L (3.4-5.1); Sodium 137 mmol/L (137-145); Total Protein 6.6 g/dL (6.3-8.2)
== END ==
PROVIDERS: Family Provider Internal Medicine; PCP Internal Medicine; Visit Provider Family Medicine
DX: L08.9 Local infection of the skin and subcutaneous tissue, unspecified (principal)
CPT/HCPCS: 36415; 80053; 85025; 85651; 86140

== ENCOUNTER → 2019-07-24 12:46 | Outpatient (ROUT) | payer MEDICARE, SELFPAY ==
[2019-01-23 12:20] VITALS: BMI 29.2
[2019-07-24 13:02] LABS: Reticulocyte Count, Percent 1.1 % (0.87-2.60)
[2019-07-24 13:03] LABS: HEMOLYSIS < 15 (0-50); Iron 60 ug/dL (49-181)
[2019-07-24 13:14] LABS: Percent Iron Saturation 24 % (20-50); Total Iron Binding Capacity 254 ug/dL (261-462); Transferrin 183 mg/dL (206-381)
[2019-07-24 13:40] LABS: Ferritin 63.2 ng/mL (17.9-464)
== END ==
PROVIDERS: Family Provider Internal Medicine; PCP Internal Medicine; Visit Provider Internal Medicine
DX: D64.9 Anemia, unspecified (principal)
CPT/HCPCS: 82728; 83540; 83550; 85045

== ENCOUNTER → 2019-07-29 09:56 | Outpatient (CLI) | payer MEDICARE, SELFPAY ==
[2019-01-23 12:20] VITALS: BMI 29.2
== END ==
PROVIDERS: Family Provider Internal Medicine; PCP Internal Medicine; Visit Provider Family Medicine
DX: E11.621 Type 2 diabetes mellitus with foot ulcer (principal); I87.2 Venous insufficiency (chronic) (peripheral); L97.812 Non-pressure chronic ulcer of other part of right lower leg with fat layer exposed; B95.62 Methicillin resistant Staphylococcus aureus infection as the cause of diseases classified elsewhere; L97.811 Non-pressure chronic ulcer of other part of right lower leg limited to breakdown of skin; L97.821 Non-pressure chronic ulcer of other part of left lower leg limited to breakdown of skin; L97.411 Non-pressure chronic ulcer of right heel and midfoot limited to breakdown of skin; S41.102D Unspecified open wound of left upper arm, subsequent encounter
CPT/HCPCS: 11042; 29581; 87070; 87075; 87077; 87186; 87205

== ENCOUNTER → 2019-08-05 09:02 | Outpatient (CLI) | payer MEDICARE, SELFPAY ==
[2019-01-23 12:20] VITALS: BMI 29.2
== END ==
PROVIDERS: Family Provider Internal Medicine; PCP Internal Medicine; Visit Provider Family Medicine
DX: I87.2 Venous insufficiency (chronic) (peripheral) (principal); E11.621 Type 2 diabetes mellitus with foot ulcer; L97.811 Non-pressure chronic ulcer of other part of right lower leg limited to breakdown of skin; L97.821 Non-pressure chronic ulcer of other part of left lower leg limited to breakdown of skin; L97.411 Non-pressure chronic ulcer of right heel and midfoot limited to breakdown of skin; S51.802A Unspecified open wound of left forearm, initial encounter; R60.0 Localized edema
CPT/HCPCS: 11042; 17250; 29581

== ENCOUNTER → 2019-08-05 10:31 | Outpatient (CLI) | payer MEDICARE, SELFPAY ==
[2019-01-23 12:20] VITALS: BMI 29.2
[2019-08-05 11:24] LABS: Erythrocyte Sedimentation Rate 33 MM/HR (0-15)
[2019-08-05 11:48] LABS: BUN Creatinine Ratio 22.3 (6-22); Blood Urea Nitrogen 49 mg/dL (9-20); C-Reactive Protein Quant 0.7 mg/dL (<1.0); Calcium 9.4 mg/dL (8.4-10.2); Carbon Dioxide 28 mmol/L (22-32); Chloride 102 mmol/L (98-107); Estimated Glomerular Filt Rate 28.7 mL/min (>60); Glucose 104 mg/dL (80-110); HEMOLYSIS < 15 (0-50); Potassium 4.9 mmol/L (3.4-5.1); Sodium 138 mmol/L (137-145)
== END ==
PROVIDERS: Family Provider Internal Medicine; PCP Internal Medicine; Visit Provider Family Medicine
DX: L08.9 Local infection of the skin and subcutaneous tissue, unspecified (principal)
CPT/HCPCS: 36415; 80048; 85651; 86140

== ENCOUNTER → 2019-08-26 10:27 | Outpatient (CLI) | payer MEDICARE, SELFPAY ==
[2019-01-23 12:20] VITALS: BMI 29.2
[2019-08-26 11:12] LABS: BUN Creatinine Ratio 14.1 (6-22); Blood Urea Nitrogen 31 mg/dL (9-20); Carbon Dioxide 25 mmol/L (22-32); Chloride 104 mmol/L (98-107); Estimated Glomerular Filt Rate 28.7 mL/min (>60); Glucose 94 mg/dL (80-110); HEMOLYSIS < 15 (0-50); Potassium 4.5 mmol/L (3.4-5.1); Sodium 138 mmol/L (137-145)
== END ==
PROVIDERS: PCP Internal Medicine; Visit Provider Internal Medicine Cardiovascular Disease
DX: I50.23 Acute on chronic systolic (congestive) heart failure (principal)
CPT/HCPCS: 36415; 80048

== ENCOUNTER → 2019-08-31 09:06 | Outpatient (CLI) | payer MEDICARE, SELFPAY ==
[2019-01-23 12:20] VITALS: BMI 29.2
== END ==
PROVIDERS: PCP Internal Medicine; Visit Provider Family Medicine
DX: L97.419 Non-pressure chronic ulcer of right heel and midfoot with unspecified severity (principal); S51.802A Unspecified open wound of left forearm, initial encounter
CPT/HCPCS: 29581

== ENCOUNTER → 2019-09-14 10:37 | Outpatient (CLI) | payer MEDICARE, SELFPAY ==
[2019-01-23 12:20] VITALS: BMI 29.2
== END ==
PROVIDERS: PCP Internal Medicine; Visit Provider Family Medicine
DX: E11.621 Type 2 diabetes mellitus with foot ulcer (principal); L97.411 Non-pressure chronic ulcer of right heel and midfoot limited to breakdown of skin; S41.102A Unspecified open wound of left upper arm, initial encounter; R60.0 Localized edema
CPT/HCPCS: 29581; 97597

== ENCOUNTER → 2019-09-21 13:31 | Outpatient (CLI) | payer MEDICARE, SELFPAY ==
[2019-01-23 12:20] VITALS: BMI 29.2
== END ==
PROVIDERS: PCP Internal Medicine; Visit Provider Family Medicine
DX: E11.621 Type 2 diabetes mellitus with foot ulcer (principal); L97.411 Non-pressure chronic ulcer of right heel and midfoot limited to breakdown of skin; R60.0 Localized edema
CPT/HCPCS: 29581; 99213

== ENCOUNTER → 2019-09-28 09:11 | Outpatient (CLI) | payer MEDICARE, SELFPAY ==
[2019-01-23 12:20] VITALS: BMI 29.2
== END ==
PROVIDERS: PCP Internal Medicine; Visit Provider Family Medicine
DX: E11.621 Type 2 diabetes mellitus with foot ulcer (principal); L97.411 Non-pressure chronic ulcer of right heel and midfoot limited to breakdown of skin; R60.0 Localized edema
CPT/HCPCS: 99213

== ENCOUNTER → 2019-09-28 10:23 | Outpatient (CLI) | payer MEDICARE, SELFPAY ==
[2019-01-23 12:20] VITALS: BMI 29.2
[2019-09-28 11:48] LABS: INR 2.2 (0.9-1.3); Prothrombin Time 25.3 SECONDS (10.1-12.7)
== END ==
PROVIDERS: PCP Internal Medicine; Visit Provider Internal Medicine
DX: I48.91 Unspecified atrial fibrillation (principal); I48.20 Chronic atrial fibrillation, unspecified
CPT/HCPCS: 36415; 85610

== ENCOUNTER → 2019-10-05 08:37 | Outpatient (CLI) | payer MEDICARE, SELFPAY ==
[2019-01-23 12:20] VITALS: BMI 29.2
== END ==
PROVIDERS: PCP Internal Medicine; Visit Provider Family Medicine
DX: E11.621 Type 2 diabetes mellitus with foot ulcer (principal)
CPT/HCPCS: 99212; 99213

== ENCOUNTER → 2020-05-11 10:58 | Outpatient (CLI) | payer MEDICARE, SELFPAY ==
[2019-01-23 12:20] VITALS: BMI 29.2
[2020-05-11 12:05] LABS: Add Manual Diff / Slide Review NO; Basophils Absolute Auto 0 /uL (0-100); Basophils Percent Auto 0.6 % (0-2); Eosinophils Absolute Auto 200 /uL (0-450); Hematocrit 31.2 % (41-53); Hemoglobin 10.4 g/dL (13.5-17.5); Lymphocytes Absolute Auto 3300 /uL (1100-4500); Lymphocytes Percent Auto 40.6 % (25-40); Mean Corpuscular HGB Conc 33.4 % (30-36); Mean Corpuscular Hemoglobin 30.2 PG (26-34); Mean Corpuscular Volume 90.3 fL (80-100); Monocytes Absolute Auto 700 /uL (0-900); Monocytes Percent Auto 8.7 % (3-14); Neutrophils Absolute Auto 3900 /uL (1500-7000); Neutrophils Percent Auto 47.1 % (50-75); Platelet Count 192 X10^3/uL (150-400); Red Blood Cell Count 3.45 X10^6/uL (4.5-5.9); Red Cell Distribution Width 15.1 % (11.6-14.8); White Blood Cell Count 8.2 X10^3/uL (4.5-11.0)
[2020-05-11 12:26] LABS: BUN Creatinine Ratio 15.6 (6-22); Blood Urea Nitrogen 31 mg/dL (9-20); Calcium 8.9 mg/dL (8.4-10.2); Carbon Dioxide 23 mmol/L (22-32); Chloride 106 mmol/L (98-107); Cholesterol 102 mg/dL (140-199); Estimated Glomerular Filt Rate 32.1 mL/min (>60); Glucose 89 mg/dL (80-110); HDL Cholesterol 44 mg/dL (40-60); HEMOLYSIS < 15 (0-50); LDL Cholesterol Calculated 46 mg/dL (<100); Potassium 4.7 mmol/L (3.4-5.1); Sodium 137 mmol/L (137-145); Triglycerides 61 mg/dL (35-150)
== END ==
PROVIDERS: PCP Internal Medicine; Referring Provider Internal Medicine Cardiovascular Disease; Visit Provider Internal Medicine Cardiovascular Disease
DX: I10 Essential (primary) hypertension (principal); E78.5 Hyperlipidemia, unspecified
CPT/HCPCS: 36415; 80048; 80061; 85025

== ENCOUNTER → 2020-05-26 16:30 | Outpatient (ROUT) | payer MEDICARE, SELFPAY ==
[2019-01-23 12:20] VITALS: BMI 29.2
== END ==
PROVIDERS: PCP Internal Medicine; Visit Provider Internal Medicine
DX: R39.9 Unspecified symptoms and signs involving the genitourinary system (principal)
CPT/HCPCS: 87077; 87086; 87186

== ENCOUNTER 2020-05-27 12:57 | Emergency (ER) | payer MEDICARE, SELFPAY ==
[2019-01-23 12:20] VITALS: BMI 29.2
[2020-05-27] VITALS (9 sets, daily range): BP systolic 121–185; BP diastolic 56–79; PULSE 51–79; RESP 14–22; TEMP 36.6–36.8; O2SAT 97–100; BMI 30.5
--- NOTE | 2020-05-27 13:12 | DI.RAD.S_ITS ---
PROCEDURE: XR CHEST 1V INDICATIONS: weakness, chills TECHNIQUE: One view of the chest was acquired. COMPARISON: [facility], , CHEST 2 VIEW, 03/01/2017, 14:01. [facility], , XR CHEST 1V, 01/23/2019, 7:43. FINDINGS: Surgical changes and devices: None. Lungs and pleura: Mild interstitial prominence is seen. On this semiupright portable chest examination, no large pneumothorax can be seen. Blunting of the right costophrenic angle is seen. No focal infiltrates are seen. Mediastinum: The cardiac contours are moderately enlarged. The aorta demonstrates calcification and tortuosity. Bones and chest wall: No suspicious bony lesions. There is an apparent right posterior 6th rib fracture seen, as before. Age-appropriate bony degenerative changes are seen. Overlying soft tissues appear unremarkable. IMPRESSION: Mild, generalized interstitial prominence is seen. Moderate cardiomegaly. Blunting of the right costophrenic angle is seen. Please consider CHF. No don, focal infiltrates are seen. If clinically appropriate, a short-term followup chest series (with PA and lateral views) performed in deep inspiration is suggested for further evaluation. Remote right posterior 6th rib fracture. Dictated by: Perfecto Goetz M.D. on 05/27/2020 at 12:32 Approved by: Perfecto Goetz M.D. on 05/27/2020 at 12:34
[2020-05-27 13:21] LABS: Add Manual Diff / Slide Review NO; Basophils Absolute Auto 0 /uL (0-100); Basophils Percent Auto 0.5 % (0-2); Eosinophils Absolute Auto 200 /uL (0-450); Eosinophils Percent Auto 2.6 % (2-4); Hematocrit 30.3 % (41-53); Hemoglobin 10.2 g/dL (13.5-17.5); Lymphocytes Absolute Auto 3500 /uL (1100-4500); Mean Corpuscular HGB Conc 33.6 % (30-36); Mean Corpuscular Hemoglobin 30.6 PG (26-34); Mean Corpuscular Volume 90.9 fL (80-100); Monocytes Absolute Auto 600 /uL (0-900); Monocytes Percent Auto 7.4 % (3-14); Neutrophils Absolute Auto 4300 /uL (1500-7000); Neutrophils Percent Auto 49.5 % (50-75); Platelet Count 221 X10^3/uL (150-400); Red Blood Cell Count 3.33 X10^6/uL (4.5-5.9); White Blood Cell Count 8.6 X10^3/uL (4.5-11.0)
[2020-05-27 13:28] LABS: INR 3.9 (0.9-1.3); Prothrombin Time 44.7 SECONDS (10.1-12.7)
--- NOTE | 2020-05-27 13:30 | ED_ITS ---
HPI - Male Genitourinary <America Emerson, HOSIERY PAIRER-BC - Last Filed: 05/27/20 16:51> General Chief complaint: Urogenital-Male Stated complaint: UTI, maybe sepsis shock Time Seen by Provider: 05/27/20 13:03 Source: patient and other Mode of arrival: Wheelchair Limitations: language barrier (Hard of hearing) History of Present Illness HPI Narrative: The patient is an 85-year-old male former smoker with history of AFib on Coumadin who presents with a chief complaint of urinary tract infection, possibly septic shock. The patient's vice president global advertising sales states that the patient is incontinent, they have noticed that his urine is increasingly smelly and dark lately. The patient complains of some dysuria urgency and frequency as well. He states that he does not have any fever, but had some muscle aches and chills this morning. Thus the patient's ambulatory care contacted his primary care provider and they are concerned about possibly early sepsis. The patient denies any abdominal pain, nausea vomiting or diarrhea. He states he is eating and drinking well. Denies any cough. The patient's vice president global advertising sales states that he has been followed by his primary care provider regarding this, but they are waiting on culture results. The patient states that he is fine, is only here because his vice president global advertising sales brought him. Related Data Home Medications Medication Instructions Recorded Confirmed amlodipine 5 mg PO DAILY 01/23/19 01/23/19 atorvastatin 40 mg PO DAILY 01/23/19 01/23/19 clopidogrel 75 mg PO DAILY 01/23/19 01/23/19 ferrous gluconate 324 mg PO BID 01/23/19 01/23/19 hydralazine 50 mg PO TID 01/23/19 01/23/19 losartan 25 mg PO DAILY 01/23/19 01/23/19 warfarin 2 mg PO DAILY 01/23/19 01/23/19 Previous Rx's Medication Instructions Recorded bisacodyl 10 mg MD PRN PRN #10 ea 01/26/19 docusate sodium [DOK] 100 mg PO BID #60 cap 01/26/19 hydrocodone-acetaminophen 1 tab PO Q4HR PRN #20 tab 01/26/19 hydrocodone-acetaminophen 2 tab PO Q4HR PRN #20 tab 01/26/19 magnesium hydroxide [Milk of 30 ml PO BEDTIME PRN #1 pkg 01/26/19 Magnesia] cephalexin 500 mg PO BID #14 cap 05/27/20 Allergies Allergy/AdvReac Type Severity Reaction Status Date / Time No Known Drug Allergies Allergy Verified 05/27/20 13:11 Review of Systems <JENNI Ring - Last Filed: 05/27/20 16:51> Review of Systems Narrative: GENERAL: See HPI HEENT: Denies sinus pain, ear pain, sore throat, difficulty swallowing, dizziness. RESPIRATORY: Denies dyspnea, cough, wheezing, hemoptysis, sputum. CARDIOVASCULAR: Denies chest pain, palpitations, orthopnea, edema, GASTROINTESTINAL: Denies nausea, vomiting, abdominal pain, diarrhea, constipation, melena. : See HPI MUSCULOSKELETAL: denies weakness, joint pain, or bony pain SKIN: Denies rash, skin lesions, or other NEUROLOGIC: Denies weakness, headache, numbness, change in speech, confusion, seizures, incoordination. PSYCHIATRIC: No concerning psychosocial issues. 12 point review of systems is negative except for those stated above Patient History <JENNI Ring - Last Filed: 05/27/20 16:51> Medical History Anticoagulation adequate (Acute) Atrial fibrillation (Acute) Chronic kidney disease (CKD) stage G3a/A1, moderately decreased glomerular filtration rate (GFR) between 45-59 mL/min/1.73 square meter and albuminuria creatinine ratio less than 30 mg/g (Acute) Chronic renal failure (Acute) Coronary artery disease (Acute) History of left common carotid artery stent placement (Acute) History of right common carotid artery stent placement (Acute) Peripheral arterial disease (Acute) Surgical History History of appendectomy (Acute) History of bilateral knee arthroplasty (Acute) Stented coronary artery (Acute) Family History Mother Lung cancer Father Lung cancer Other Hypertension Social History marital status: household members: spouse Smoking Status: Never smoker Smoking Status: Never smoker alcohol intake frequency: a few times a month Substance Use Type: does not use Exam <JENNI Ring - Last Filed: 05/27/20 16:51> Narrative Exam Narrative: GENERAL: Elderly male lying on stretcher HEAD: Atraumatic. Normocephalic. No temporal or scalp tenderness. EYES: Pupils equal round and reactive. Extraocular motions intact. No scleral icterus. No injection or drainage. ENT: Nose without bleeding, purulent drainage or septal hematoma. Throat without erythema, tonsillar hypertrophy or exudate. Uvula midline. Airway patent. Very hard of hearing NECK: Trachea midline. No JVD or lymphadenopathy. Supple, nontender, no meningeal signs. CARDIOVASCULAR: Regular rate and rhythm RESPIRATORY: Clear to auscultation. Breath sounds equal bilaterally. No wheezes, rales, or rhonchi. No cough. No increased respiratory effort. No accessory muscle use. GASTROINTESTINAL: Abdomen soft, non-tender, nondistended. No hepato- splenomegaly, or palpable masses. No guarding. Active bowel sounds all 4 quadrants EXTREMITIES: No clubbing, cyanosis, or edema. No joint tenderness, effusion, or edema noted. BACK: Nontender without deformity or crepitance. No flank tenderness. NEURO: AOx3. SKIN: No rash or erythema on visible skin Initial Vital Signs Initial Vital Signs: Vital Signs Blood Pressure 185/79 H 05/27/20 13:06 <Angelo Ko MD - Last Filed: 05/27/20 18:22> Initial Vital Signs Initial Vital Signs: Vital Signs Blood Pressure 185/79 H 05/27/20 13:06 Scores <JENNI Ring - Last Filed: 05/27/20 16:51> GCS Anshu coma scale eye opening: Spontaneous Anshu coma scale verbal response: Orientated Anshu coma scale motor response: Obey commands Nicholls coma scale total score: 15 Course <JENNI Ring - Last Filed: 05/27/20 16:51> Orders Ordered: ED Orders 05/27/20 13:11 Complete Blood Count AUTO DIFF Stat Comprehensive Metabolic Panel Stat Lactate (Lactic Acid) Stat Procalcitonin Stat Prothrombin Time INR Stat 05/27/20 13:12 XR chest 1V Stat 05/27/20 13:18 Blood Culture Stat 05/27/20 14:25 Urinalysis and Microscopic Stat Urine Culture Stat Discontinued Medications Cephalexin HCl (Keflex) 500 mg PO NOW ONE Stop: 05/27/20 15:13 Last Admin: 05/27/20 15:39 Dose: 500 mg Documented by: TRENTON Vital Signs Vital signs: Vital Signs - 8 hr 05/27/20 13:06 05/27/20 13:07 05/27/20 13:30 Temperature 97.8 F 98.2 F Pulse Rate 79 63 Respiratory Rate 16 18 Blood Pressure 185/79 H 185/79 H Pulse Oximetry 100 98 05/27/20 13:31 05/27/20 14:00 05/27/20 14:30 Temperature Pulse Rate 61 51 L 62 Respiratory Rate 15 14 20 Blood Pressure 140/63 127/60 147/67 H Pulse Oximetry 98 98 05/27/20 15:00 05/27/20 15:01 05/27/20 15:30 Temperature Pulse Rate 53 L 51 L 51 L Respiratory Rate 15 20 22 Blood Pressure 132/59 L 121/56 L Pulse Oximetry 97 97 97 <Angelo Ko MD - Last Filed: 05/27/20 18:22> Orders Ordered: ED Orders 05/27/20 13:11 Complete Blood Count AUTO DIFF Stat Comprehensive Metabolic Panel Stat Lactate (Lactic Acid) Stat Procalcitonin Stat Prothrombin Time INR Stat 05/27/20 13:12 XR chest 1V Stat 05/27/20 13:18 Blood Culture Stat 05/27/20 14:25 Urinalysis and Microscopic Stat Urine Culture Stat Discontinued Medications Cephalexin HCl (Keflex) 500 mg PO NOW ONE Stop: 05/27/20 15:13 Last Admin: 05/27/20 15:39 Dose: 500 mg Documented by: TRENTON Vital Signs Vital signs: Vital Signs - 8 hr 05/27/20 13:06 05/27/20 13:07 05/27/20 13:30 Temperature 97.8 F 98.2 F Pulse Rate 79 63 Respiratory Rate 16 18 Blood Pressure 185/79 H 185/79 H Pulse Oximetry 100 98 05/27/20 13:31 05/27/20 14:00 05/27/20 14:30 Temperature Pulse Rate 61 51 L 62 Respiratory Rate 15 14 20 Blood Pressure 140/63 127/60 147/67 H Pulse Oximetry 98 98 05/27/20 15:00 05/27/20 15:01 05/27/20 15:30 Temperature Pulse Rate 53 L 51 L 51 L Respiratory Rate 15 20 22 Blood Pressure 132/59 L 121/56 L Pulse Oximetry 97 97 97 MDM - Male Genitourinary <America WilsonLILY espositoP- - Last Filed: 05/27/20 16:51> Lab Data Result diagrams: 05/27/20 13:11 05/27/20 13:11 Labs: Lab Results 05/27/20 05/27/20 05/27/20 Range/Units 13:11 13:11 13:11 WBC 8.6 (4.5-11.0) X10^3/uL RBC 3.33 L (4.5-5.9) X10^6/uL Hgb 10.2 L (13.5-17.5) g/dL Hct 30.3 L (41-53) % MCV 90.9 (80-100) fL MCH 30.6 (26-34) PG MCHC 33.6 (30-36) % RDW 15.0 H (11.6-14.8) % Plt Count 221 (150-400) X10^3/uL Neut % (Auto) 49.5 L (50-75) % Lymph % (Auto) 40.0 (25-40) % [place] % (Auto) 7.4 (3-14) % Eos % (Auto) 2.6 (2-4) % Baso % (Auto) 0.5 (0-2) % Neut # (Auto) 4300 (1071-6347) /uL Lymph # (Auto) 3500 (0182-7571) /uL Weston # (Auto) 600 (0-900) /uL Eos # (Auto) 200 (0-450) /uL Baso # (Auto) 0 (0-100) /uL PT 44.7 H (10.1-12.7) SECONDS INR 3.9 H (0.9-1.3) Sodium (137-145) mmol/L Potassium (3.4-5.1) mmol/L Chloride (98-107) mmol/L Carbon Dioxide (22-32) mmol/L BUN (9-20) mg/dL Creatinine (0.66-1.25) mg/dL Estimated GFR (>60) mL/min BUN/Creatinine Ratio (6-22) Glucose (80-110) mg/dL Lactate (0.7-2.1) mmol/L Calcium (8.4-10.2) mg/dL Total Bilirubin (0.2-1.3) mg/dL AST (17-59) IU/L ALT (<50) IU/L Alkaline Phosphatase (38-126) U/L Total Protein (6.3-8.2) g/dL Albumin (3.5-5.0) g/dL Globulin (1.7-4.1) g/dL Albumin/Globulin Ratio (1.0-2.8) Procalcitonin < 0.05 (<0.5) ng/mL Urine Color Urine Appearance Urine pH (4.5-8.0) Ur Specific [place] (1.000-1.035) Urine Protein (Negative) Urine Glucose (UA) (Negative) g/dL Urine Ketones (NEGATIVE) Urine Occult Blood (Negative) Urine Nitrate (Negative) Urine Bilirubin (NEGATIVE) Urine Urobilinogen (0.2) E.U./dL Ur Leukocyte Esterase (NEGATIVE) Urine RBC (0-5/HPF) Urine WBC (0-5/HPF) Ur Squamous Epith Cells (0-5/HPF) Urine Bacteria (None) Ur Culture Indicated? 05/27/20 05/27/20 05/27/20 Range/Units 13:11 13:11 14:25 WBC (4.5-11.0) X10^3/uL RBC (4.5-5.9) X10^6/uL Hgb (13.5-17.5) g/dL Hct (41-53) % MCV (80-100) fL MCH (26-34) PG MCHC (30-36) % RDW (11.6-14.8) % Plt Count (150-400) X10^3/uL Neut % (Auto) (50-75) % Lymph % (Auto) (25-40) % Weston % (Auto) (3-14) % Eos % (Auto) (2-4) % Baso % (Auto) (0-2) % Neut # (Auto) (5721-2449) /uL Lymph # (Auto) (5156-2701) /uL Weston # (Auto) (0-900) /uL Eos # (Auto) (0-450) /uL Baso # (Auto) (0-100) /uL PT (10.1-12.7) SECONDS INR (0.9-1.3) Sodium 138 (137-145) mmol/L Potassium 4.7 (3.4-5.1) mmol/L Chloride 106 (98-107) mmol/L Carbon Dioxide 23 (22-32) mmol/L BUN 35 H (9-20) mg/dL Creatinine 2.18 H (0.66-1.25) mg/dL Estimated GFR 28.9 L (>60) mL/min BUN/Creatinine Ratio 16.1 (6-22) Glucose 205 H (80-110) mg/dL Lactate 1.4 (0.7-2.1) mmol/L Calcium 8.7 (8.4-10.2) mg/dL Total Bilirubin 0.6 (0.2-1.3) mg/dL AST 37 (17-59) IU/L ALT 11 (<50) IU/L Alkaline Phosphatase 92 (38-126) U/L Total Protein 7.2 (6.3-8.2) g/dL Albumin 3.9 (3.5-5.0) g/dL Globulin 3.3 (1.7-4.1) g/dL Albumin/Globulin Ratio 1.2 (1.0-2.8) Procalcitonin (<0.5) ng/mL Urine Color Yellow Urine Appearance Clear Urine pH 6.0 (4.5-8.0) Ur Specific [place] 1.015 (1.000-1.035) Urine Protein 1+ H (Negative) Urine Glucose (UA) Negative (Negative) g/dL Urine Ketones Negative (NEGATIVE) Urine Occult Blood 1+ H (Negative) Urine Nitrate Negative (Negative) Urine Bilirubin Negative (NEGATIVE) Urine Urobilinogen 0.2 (0.2) E.U./dL Ur Leukocyte Esterase 3+ H (NEGATIVE) Urine RBC 1-5/hpf (0-5/HPF) Urine WBC >100/hpf H (0-5/HPF) Ur Squamous Epith Cells 0-1 /hpf (0-5/HPF) Urine Bacteria Moderate (10-30) H (None) Ur Culture Indicated? Specimen cultured Imaging Data Chest x-ray: Radiologist's Impression: [facility] [address] [place], [place] [id number] XRay Report Signed Patient: Chris Peralta R#: [id number] : 5Acct:[id number] Age/Sex: 85 / MDate of Service: 05/27/20 Loc: ED Accession Number: [id number] Procedure: XR chest 1V Ordering Provider: America Emerson PROCEDURE: XR CHEST 1V INDICATIONS: weakness, chills TECHNIQUE: One view of the chest was acquired. COMPARISON: [facility], CR, CHEST 2 VIEW, 03/01/2017, 14:01. [facility], CR, XR CHEST 1V, 01/23/2019, 7:43. FINDINGS: Surgical changes and devices: None. Lungs and pleura: Mild interstitial prominence is seen. On this semiupright portable chest examination, no large pneumothorax can be seen. Blunting of the right costophrenic angle is seen. No focal infiltrates are seen. Mediastinum: The cardiac contours are moderately enlarged. The aorta demonstrates calcification and tortuosity. Bones and chest wall: No suspicious bony lesions. There is an apparent right posterior 6th rib fracture seen, as before. Age-appropriate bony degenerative changes are seen. Overlying soft tissues appear unremarkable. IMPRESSION: Mild, generalized interstitial prominence is seen. Moderate cardiomegaly. Blunting of the right costophrenic angle is seen. Please consider CHF. No don, focal infiltrates are seen. If clinically appropriate, a short-term followup chest series (with PA and lateral views) performed in deep inspiration is suggested for further evaluation. Remote right posterior 6th rib fracture. Dictated by: Perfecto Goetz M.D. on 05/27/2020 at 12:32 Approved by: Perfecto Goetz M.D. on 05/27/2020 at 12:34 MDM Narrative Medical decision making narrative: The patient is an 85-year-old male presenting with his vice president global advertising sales for chief complaint of urinary tract infection and possible septic shock. The patient is hemodynamically stable on evaluation, alert oriented, though hard of hearing. He is not hypotensive, not febrile and not tachycardic. He does not have an elevated lactate or elevated procalcitonin. He denies any signs of systemic illness other than chills, has no vomiting or diarrhea. His urine is concerning for infection, bacteria, leukocyte esterase, wbc's. I initiated treatment with Keflex and the patient was given a 1st dose in the emergency department. The patient is noted to have an elevated 3.9 INR, and goal is 2-3. I discussed this with the patient and his vice president global advertising sales, his vice president global advertising sales states that she will call his Coumadin clinic to change dosing. She states that he only gets checked once a month at this point time and I encouraged a follow-up for more frequent dosing specially given antibiotics. Patient appears well in the emergency department, keep down his 1st dose of antibiotics. Encouraged follow-up with primary care provider in the next few days and coming back to the emergency department for any acute concerns discussed signs to watch for including flank pain, vomiting etcetera patient and vice president global advertising sales do not have any questions or concerns upon discharge and state understanding of return precautions as well as follow-up care <Angelo Ko MD - Last Filed: 05/27/20 18:22> Lab Data Labs: Lab Results 05/27/20 05/27/20 05/27/20 Range/Units 13:11 13:11 13:11 WBC 8.6 (4.5-11.0) X10^3/uL RBC 3.33 L (4.5-5.9) X10^6/uL Hgb 10.2 L (13.5-17.5) g/dL Hct 30.3 L (41-53) % MCV 90.9 (80-100) fL MCH 30.6 (26-34) PG MCHC 33.6 (30-36) % RDW 15.0 H (11.6-14.8) % Plt Count 221 (150-400) X10^3/uL Neut % (Auto) 49.5 L (50-75) % Lymph % (Auto) 40.0 (25-40) % Weston % (Auto) 7.4 (3-14) % Eos % (Auto) 2.6 (2-4) % Baso % (Auto) 0.5 (0-2) % Neut # (Auto) 4300 (8747-9571) /uL Lymph # (Auto) 3500 (5937-2905) /uL Weston # (Auto) 600 (0-900) /uL Eos # (Auto) 200 (0-450) /uL Baso # (Auto) 0 (0-100) /uL PT 44.7 H (10.1-12.7) SECONDS INR 3.9 H (0.9-1.3) Sodium (137-145) mmol/L Potassium (3.4-5.1) mmol/L Chloride (98-107) mmol/L Carbon Dioxide (22-32) mmol/L BUN (9-20) mg/dL Creatinine (0.66-1.25) mg/dL Estimated GFR (>60) mL/min BUN/Creatinine Ratio (6-22) Glucose (80-110) mg/dL Lactate (0.7-2.1) mmol/L Calcium (8.4-10.2) mg/dL Total Bilirubin (0.2-1.3) mg/dL AST (17-59) IU/L ALT (<50) IU/L Alkaline Phosphatase (38-126) U/L Total Protein (6.3-8.2) g/dL Albumin (3.5-5.0) g/dL Globulin (1.7-4.1) g/dL Albumin/Globulin Ratio (1.0-2.8) Procalcitonin < 0.05 (<0.5) ng/mL Urine Color Urine Appearance Urine pH (4.5-8.0) Ur Specific [place] (1.000-1.035) Urine Protein (Negative) Urine Glucose (UA) (Negative) g/dL Urine Ketones (NEGATIVE) Urine Occult Blood (Negative) Urine Nitrate (Negative) Urine Bilirubin (NEGATIVE) Urine Urobilinogen (0.2) E.U./dL Ur Leukocyte Esterase (NEGATIVE) Urine RBC (0-5/HPF) Urine WBC (0-5/HPF) Ur Squamous Epith Cells (0-5/HPF) Urine Bacteria (None) Ur Culture Indicated? 05/27/20 05/27/20 05/27/20 Range/Units 13:11 13:11 14:25 WBC (4.5-11.0) X10^3/uL RBC (4.5-5.9) X10^6/uL Hgb (13.5-17.5) g/dL Hct (41-53) % MCV (80-100) fL MCH (26-34) PG MCHC (30-36) % RDW (11.6-14.8) % Plt Count (150-400) X10^3/uL Neut % (Auto) (50-75) % Lymph % (Auto) (25-40) % [place]on % (Auto) (3-14) % Eos % (Auto) (2-4) % Baso % (Auto) (0-2) % Neut # (Auto) (1386-1178) /uL Lymph # (Auto) (7427-6688) /uL [place] # (Auto) (0-900) /uL Eos # (Auto) (0-450) /uL Baso # (Auto) (0-100) /uL PT (10.1-12.7) SECONDS INR (0.9-1.3) Sodium 138 (137-145) mmol/L Potassium 4.7 (3.4-5.1) mmol/L Chloride 106 (98-107) mmol/L Carbon Dioxide 23 (22-32) mmol/L BUN 35 H (9-20) mg/dL Creatinine 2.18 H (0.66-1.25) mg/dL Estimated GFR 28.9 L (>60) mL/min BUN/Creatinine Ratio 16.1 (6-22) Glucose 205 H (80-110) mg/dL Lactate 1.4 (0.7-2.1) mmol/L Calcium 8.7 (8.4-10.2) mg/dL Total Bilirubin 0.6 (0.2-1.3) mg/dL AST 37 (17-59) IU/L ALT 11 (<50) IU/L Alkaline Phosphatase 92 (38-126) U/L Total Protein 7.2 (6.3-8.2) g/dL Albumin 3.9 (3.5-5.0) g/dL Globulin 3.3 (1.7-4.1) g/dL Albumin/Globulin Ratio 1.2 (1.0-2.8) Procalcitonin (<0.5) ng/mL Urine Color Yellow Urine Appearance Clear Urine pH 6.0 (4.5-8.0) Ur Specific [place] 1.015 (1.000-1.035) Urine Protein 1+ H (Negative) Urine Glucose (UA) Negative (Negative) g/dL Urine Ketones Negative (NEGATIVE) Urine Occult Blood 1+ H (Negative) Urine Nitrate Negative (Negative) Urine Bilirubin Negative (NEGATIVE) Urine Urobilinogen 0.2 (0.2) E.U./dL Ur Leukocyte Esterase 3+ H (NEGATIVE) Urine RBC 1-5/hpf (0-5/HPF) Urine WBC >100/hpf H (0-5/HPF) Ur Squamous Epith Cells 0-1 /hpf (0-5/HPF) Urine Bacteria Moderate (10-30) H (None) Ur Culture Indicated? Specimen cultured Discharge Plan Departure Patient Disposition: Home Clinical Impression: Urinary tract infection Qualifiers: Urinary tract infection type: site unspecified Hematuria presence: without hematuria Qualified Code(s): N39.0 - Urinary tract infection, site not specified Discharge Date/Time: 05/27/20 15:49 Instructions: DI for Urinary Tract Infection (UTI) Activity Restrictions/Additional Instructions: Thank you for trusting us with your care today. Your labs came back very reassuring. However you appear to have a urinary tract infection. I sent a prescription of antibiotic to [facility]. I suggest taking this with probiotic or yogurt to help prevent antibiotic associated diarrhea. Please monitor for high fevers, flank or back pain, inability keep down fluids or signs of a kidney infection. Please come back to the emergency department for any acute concerns. Please follow-up with primary care provider in the next few days. We are doing a urine culture at this point time, we will call you if we need to change your antibiotics. As discussed, your INR is 3.9 today. This is a bit high. Please follow-up with your Coumadin dosing clinic regarding instructions you may need to decrease your dose, or have you follow-up for recheck sooner than usual. Prescriptions: New cephalexin 500 mg capsule 500 mg PO BID Qty: 14 RF: 0 No Action atorvastatin 40 mg tablet 40 mg PO DAILY RF: 0 clopidogrel 75 mg tablet 75 mg PO DAILY RF: 0 amlodipine 5 mg tablet 5 mg PO DAILY RF: 0 warfarin 2 mg tablet 2 mg PO DAILY RF: 0 losartan 25 mg tablet 25 mg PO DAILY RF: 0 hydralazine 50 mg tablet 50 mg PO TID RF: 0 ferrous gluconate 324 mg (38 mg iron) tablet 324 mg PO BID RF: 0 hydrocodone-acetaminophen 5-325 mg Tablet 2 tab PO Q4HR PRN (Reason: Pain, Moderate (4-6)) Qty: 20 RF: 0 hydrocodone-acetaminophen 5-325 mg Tablet 1 tab PO Q4HR PRN (Reason: Pain, Mild (1-3)) Qty: 20 RF: 0 magnesium hydroxide [Milk of Magnesia] 400 mg/5 mL Suspension 30 ml PO BEDTIME PRN (Reason: Constipation) Qty: 1 RF: 0 bisacodyl 10 mg Suppository 10 mg MD PRN PRN (Reason: Constipation) Qty: 10 RF: 0 docusate sodium [DOK] 100 mg Capsule 100 mg PO BID Qty: 60 RF: 0 Referrals: Sourav Coffey MD [Primary Care Provider] - <Angelo Ko MD - Last Filed: 05/27/20 18:22> Cosign ED Attending Cosignature Attestation: I was immediately available in the department for consultation. This documentation has been reviewed and I agree with assessment and plan. Supervised by Angelo oK MD
[2020-05-27 13:50] LABS: Alanine Aminotransferase 11 IU/L (<50); Albumin 3.9 g/dL (3.5-5.0); Albumin Globulin Ratio 1.2 (1.0-2.8); Alkaline Phosphatase 92 U/L (38-126); Aspartate Aminotransferase 37 IU/L (17-59); BUN Creatinine Ratio 16.1 (6-22); Bilirubin Total 0.6 mg/dL (0.2-1.3); Blood Urea Nitrogen 35 mg/dL (9-20); Calcium 8.7 mg/dL (8.4-10.2); Carbon Dioxide 23 mmol/L (22-32); Chloride 106 mmol/L (98-107); Estimated Glomerular Filt Rate 28.9 mL/min (>60); Globulin 3.3 g/dL (1.7-4.1); Glucose 205 mg/dL (80-110); HEMOLYSIS < 15 (0-50); Lactate (Lactic Acid) 1.4 mmol/L (0.7-2.1); Potassium 4.7 mmol/L (3.4-5.1); Sodium 138 mmol/L (137-145); Total Protein 7.2 g/dL (6.3-8.2)
[2020-05-27 14:13] LABS: Procalcitonin < 0.05 ng/mL (<0.5)
[2020-05-27 14:31] LABS: Appearance Urine UA CLEAR; Bilirubin Urine UA NEGATIVE (NEGATIVE); Color Urine UA YELLOW; Glucose Urine UA NEGATIVE (Negative); Ketones Urine UA NEGATIVE (NEGATIVE); Leukocyte Esterase Urine UA 3+ (NEGATIVE); Nitrite Urine UA NEGATIVE (Negative); Occult Blood Urine UA 1+ (Negative); Protein Urine UA 1+ (Negative); Specific Gravity Urine UA 1.015 (1.000-1.035); Urobilinogen Urine UA 0.2 E.U./dL (0.2)
[2020-05-27 14:49] LABS: Bacteria Urine Moderate (10-30); Culture Indicated Urine Specimen Cultured; RBC Urine 1-5/HPF (0-5/HPF); Squamous Epithelial Cell Urine 0-1 /HPF (0-5/HPF); WBC Urine >100/HPF (0-5/HPF)
[2020-05-27] MEDS: cephALEXin 250 MG CAPSULE 500 MG PO (15:39)
== END 2020-05-27 15:49 | disposition home or self-care (01) ==
PROVIDERS: Emergency Provider Nurse Practitioner Family; PCP Internal Medicine
DX: N39.0 Urinary tract infection, site not specified (principal); R53.1 Weakness; R79.1 Abnormal coagulation profile
CPT/HCPCS: 36415; 71045; 80053; 81001; 83605; 84145; 85025; 85610; 87040; 87077; 87086; 87186; 99284

== ENCOUNTER → 2020-06-20 08:53 | Outpatient (CLI) | payer MEDICARE, SELFPAY ==
[2019-01-23 12:20] VITALS: BMI 29.2
== END ==
PROVIDERS: PCP Internal Medicine; Referring Provider Internal Medicine; Visit Provider Family Medicine
DX: I87.2 Venous insufficiency (chronic) (peripheral) (principal); L97.821 Non-pressure chronic ulcer of other part of left lower leg limited to breakdown of skin; L97.811 Non-pressure chronic ulcer of other part of right lower leg limited to breakdown of skin; I50.42 Chronic combined systolic (congestive) and diastolic (congestive) heart failure; N18.31 Chronic kidney disease, stage 3a; I25.10 Atherosclerotic heart disease of native coronary artery without angina pectoris; I73.9 Peripheral vascular disease, unspecified
CPT/HCPCS: 97597; 99213; 99214

== ENCOUNTER → 2020-06-22 10:55 | Outpatient (CLI) | payer MEDICARE, SELFPAY ==
[2019-01-23 12:20] VITALS: BMI 29.2
== END ==
PROVIDERS: PCP Internal Medicine; Referring Provider Internal Medicine; Visit Provider Family Medicine
DX: I87.2 Venous insufficiency (chronic) (peripheral) (principal); L97.821 Non-pressure chronic ulcer of other part of left lower leg limited to breakdown of skin; L97.811 Non-pressure chronic ulcer of other part of right lower leg limited to breakdown of skin
CPT/HCPCS: 29581

== ENCOUNTER → 2020-06-29 10:09 | Outpatient (CLI) | payer MEDICARE, SELFPAY ==
[2019-01-23 12:20] VITALS: BMI 29.2
== END ==
PROVIDERS: PCP Internal Medicine; Referring Provider Internal Medicine; Visit Provider Family Medicine
DX: I87.2 Venous insufficiency (chronic) (peripheral) (principal); L97.821 Non-pressure chronic ulcer of other part of left lower leg limited to breakdown of skin; L97.811 Non-pressure chronic ulcer of other part of right lower leg limited to breakdown of skin; I50.42 Chronic combined systolic (congestive) and diastolic (congestive) heart failure; N18.31 Chronic kidney disease, stage 3a; I25.10 Atherosclerotic heart disease of native coronary artery without angina pectoris; I73.9 Peripheral vascular disease, unspecified; L03.116 Cellulitis of left lower limb; R60.0 Localized edema
CPT/HCPCS: 97597; 99214

== ENCOUNTER → 2020-07-06 10:48 | Outpatient (CLI) | payer MEDICARE, SELFPAY ==
[2019-01-23 12:20] VITALS: BMI 29.2
== END ==
PROVIDERS: PCP Internal Medicine; Referring Provider Internal Medicine; Visit Provider Family Medicine
DX: I87.2 Venous insufficiency (chronic) (peripheral) (principal); L97.821 Non-pressure chronic ulcer of other part of left lower leg limited to breakdown of skin; L97.811 Non-pressure chronic ulcer of other part of right lower leg limited to breakdown of skin
CPT/HCPCS: 99214

== ENCOUNTER → 2020-07-13 08:52 | Outpatient (CLI) | payer MEDICARE, SELFPAY ==
[2019-01-23 12:20] VITALS: BMI 29.2
== END ==
PROVIDERS: PCP Internal Medicine; Referring Provider Internal Medicine; Visit Provider Family Medicine
DX: I87.2 Venous insufficiency (chronic) (peripheral) (principal); E11.622 Type 2 diabetes mellitus with other skin ulcer; Z79.899 Other long term (current) drug therapy
CPT/HCPCS: 36415; 80048; 97597; 99214

== ENCOUNTER → 2020-07-13 10:02 | Outpatient (CLI) | payer MEDICARE, SELFPAY ==
[2019-01-23 12:20] VITALS: BMI 29.2
[2020-07-13 13:16] LABS: BUN Creatinine Ratio 20.2 (6-22); Blood Urea Nitrogen 43 mg/dL (9-20); Calcium 8.8 mg/dL (8.4-10.2); Carbon Dioxide 24 mmol/L (22-32); Chloride 106 mmol/L (98-107); Estimated Glomerular Filt Rate 29.7 mL/min (>60); Glucose 90 mg/dL (80-110); HEMOLYSIS < 15 (0-50); Potassium 4.8 mmol/L (3.4-5.1); Sodium 138 mmol/L (137-145)
== END ==
PROVIDERS: PCP Internal Medicine; Referring Provider Family Medicine; Visit Provider Family Medicine
DX: Z79.899 Other long term (current) drug therapy (principal)
CPT/HCPCS: 36415; 80048

== ENCOUNTER → 2020-08-03 09:18 | Outpatient (CLI) | payer MEDICARE, SELFPAY ==
[2019-01-23 12:20] VITALS: BMI 29.2
[2020-08-03 10:43] LABS: Prothrombin Time 22.9 SECONDS (10.1-12.7)
== END ==
PROVIDERS: PCP Internal Medicine; Referring Provider Internal Medicine; Visit Provider Internal Medicine
DX: I48.21 Permanent atrial fibrillation (principal)
CPT/HCPCS: 36415; 85610

== ENCOUNTER → 2020-08-03 09:33 | Outpatient (CLI) | payer MEDICARE, SELFPAY ==
[2019-01-23 12:20] VITALS: BMI 29.2
== END ==
PROVIDERS: PCP Internal Medicine; Referring Provider Internal Medicine; Visit Provider Family Medicine
DX: E11.628 Type 2 diabetes mellitus with other skin complications (principal); B37.2 Candidiasis of skin and nail
CPT/HCPCS: 99213; 99214

== ENCOUNTER → 2020-08-16 09:51 | Outpatient (CLI) | payer MEDICARE, SELFPAY ==
[2019-01-23 12:20] VITALS: BMI 29.2
== END ==
PROVIDERS: PCP Internal Medicine; Referring Provider Internal Medicine; Visit Provider Family Medicine
DX: I87.2 Venous insufficiency (chronic) (peripheral) (principal); E11.622 Type 2 diabetes mellitus with other skin ulcer; L97.821 Non-pressure chronic ulcer of other part of left lower leg limited to breakdown of skin; S41.101A Unspecified open wound of right upper arm, initial encounter; E11.628 Type 2 diabetes mellitus with other skin complications
CPT/HCPCS: 17250; 97597; 99214

== ENCOUNTER → 2020-08-16 10:17 | Outpatient (CLI) | payer MEDICARE, SELFPAY ==
[2019-01-23 12:20] VITALS: BMI 29.2
[2020-08-16 11:39] LABS: INR 1.7 (0.9-1.3); Prothrombin Time 19.3 SECONDS (10.1-12.7)
== END ==
PROVIDERS: PCP Internal Medicine; Referring Provider Internal Medicine; Visit Provider Internal Medicine
DX: I48.91 Unspecified atrial fibrillation (principal)
CPT/HCPCS: 36415; 85610

== ENCOUNTER → 2020-08-31 10:02 | Outpatient (CLI) | payer MEDICARE, SELFPAY ==
[2019-01-23 12:20] VITALS: BMI 29.2
== END ==
PROVIDERS: PCP Internal Medicine; Referring Provider Internal Medicine; Visit Provider Family Medicine
DX: I87.2 Venous insufficiency (chronic) (peripheral) (principal); L97.821 Non-pressure chronic ulcer of other part of left lower leg limited to breakdown of skin; S41.101A Unspecified open wound of right upper arm, initial encounter
CPT/HCPCS: 99214

== ENCOUNTER → 2020-09-12 11:34 | Outpatient (CLI) | payer MEDICARE, SELFPAY ==
[2019-01-23 12:20] VITALS: BMI 29.2
== END ==
PROVIDERS: PCP Internal Medicine; Referring Provider Internal Medicine; Visit Provider Family Medicine
DX: S41.101A Unspecified open wound of right upper arm, initial encounter (principal); I87.2 Venous insufficiency (chronic) (peripheral); E11.628 Type 2 diabetes mellitus with other skin complications
CPT/HCPCS: 97597; 99213

== ENCOUNTER → 2020-09-19 10:51 | Outpatient (CLI) | payer OTHER, MEDICARE, SELFPAY ==
[2019-01-23 12:20] VITALS: BMI 29.2
== END ==
PROVIDERS: PCP Internal Medicine; Referring Provider Internal Medicine; Visit Provider Family Medicine
DX: E11.628 Type 2 diabetes mellitus with other skin complications (principal); S41.101A Unspecified open wound of right upper arm, initial encounter
CPT/HCPCS: 99212; 99213

== ENCOUNTER → 2020-09-26 10:26 | Outpatient (CLI) | payer OTHER, MEDICARE, SELFPAY ==
[2019-01-23 12:20] VITALS: BMI 29.2
== END ==
PROVIDERS: PCP Internal Medicine; Referring Provider Internal Medicine; Visit Provider Family Medicine
DX: E11.628 Type 2 diabetes mellitus with other skin complications (principal); S41.101D Unspecified open wound of right upper arm, subsequent encounter
CPT/HCPCS: 99212

== ENCOUNTER → 2020-09-26 10:39 | Outpatient (CLI) | payer OTHER, SELFPAY ==
[2019-01-23 12:20] VITALS: BMI 29.2
[2020-09-26 11:41] LABS: INR 1.6 (0.9-1.3); Prothrombin Time 18.3 SECONDS (10.1-12.7)
== END ==
PROVIDERS: PCP Internal Medicine; Referring Provider Internal Medicine; Visit Provider Internal Medicine
DX: I48.91 Unspecified atrial fibrillation (principal)
CPT/HCPCS: 36415; 85610

== ENCOUNTER → 2020-10-24 11:06 | Outpatient (CLI) | payer OTHER, SELFPAY ==
[2019-01-23 12:20] VITALS: BMI 29.2
[2020-10-24 12:48] LABS: INR 2.3 (0.9-1.3); Prothrombin Time 26.5 SECONDS (10.1-12.7)
== END ==
PROVIDERS: PCP Internal Medicine; Referring Provider Internal Medicine; Visit Provider Internal Medicine
DX: I48.91 Unspecified atrial fibrillation (principal)
CPT/HCPCS: 36415; 85610

== ENCOUNTER 2021-01-21 17:33 | Emergency (ER) | payer OTHER, SELFPAY ==
[2019-01-23 12:20] VITALS: BMI 29.2
[2021-01-21 17:40] VITALS: BP 167/74; PULSE 67; RESP 22; TEMP 37.1; O2SAT 100
--- NOTE | 2021-01-21 17:58 | DI.CT.S_ITS ---
PROCEDURE: CT HEAD/BRAIN WO CON INDICATIONS: On blood thinners. head injury TECHNIQUE: Noncontrast 4.5 mm thick angled axial sections acquired from the foramen magnum to the vertex, with coronal and sagittal reformats. For radiation dose reduction, the following was used: automated exposure control, adjustment of mA and/or kV according to patient size. COMPARISON: None. FINDINGS: Image quality: Excellent. CSF spaces: Basal cisterns are patent. No extra-axial fluid collections. The ventricles are symmetric in size and shape. There is mild cerebral volume loss, with resultant ventricular and sulcal prominence. Brain: No intracranial hemorrhage, mass, or mass effect. There are subcortical, periventricular and deep white matter hypodensities consistent with [id number] chronic small vessel ischemic changes. There is intracranial internal carotid artery atherosclerosis. Skull and face: There is soft tissue swelling in the forehead region with a soft tissue laceration. Calvarium and visualized facial bones appear intact, without suspicious lesions. Sinuses: Visualized sinuses and mastoids are clear. IMPRESSION: 1. No acute intracranial abnormality. 2. Mild to moderate chronic white matter small vessel ischemic changes and mild cerebral volume loss. Dictated by: Garfield Perales M.D. on 01/21/2021 at 18:27 Approved by: Garfield Perales M.D. on 01/21/2021 at 18:35
--- NOTE | 2021-01-21 18:41 | ED_ITS ---
HPI - Fall General Chief Complaint: Trauma Stated Complaint: Fall/ Head, arm, body wounds Time Seen by Provider: 01/21/21 18:25 Source: patient and family Mode of arrival: Family Vehicle Limitations: no limitations History of Present Illness HPI Narrative: The patient stumbled and fell when entering his home about 2 hours ago. He fell to the floor as he entered the door. He injured his forehead and nose. He has lacerations. Initial bleeding has ceased. He also has minor injuries to left arm and the right knee. He had no LOC. He has no confusion. He is motor sensory deficits. He is well oriented. He is anticoagulated with Plavix and Coumadin due to a history of atrial fib. He denies recent illness. Denies recent headache, sore throat, cough or dyspnea. He is having no chest pain. Related Data Home Medications Medication Instructions Recorded Confirmed amlodipine 5 mg PO DAILY 01/23/19 01/23/19 atorvastatin 40 mg PO DAILY 01/23/19 01/23/19 clopidogrel 75 mg PO DAILY 01/23/19 01/23/19 ferrous gluconate 324 mg PO BID 01/23/19 01/23/19 hydralazine 50 mg PO TID 01/23/19 01/23/19 losartan 25 mg PO DAILY 01/23/19 01/23/19 warfarin 2 mg PO DAILY 01/23/19 01/23/19 Previous Rx's Medication Instructions Recorded bisacodyl 10 mg GA PRN PRN #10 ea 01/26/19 docusate sodium [DOK] 100 mg PO BID #60 cap 01/26/19 hydrocodone-acetaminophen 1 tab PO Q4HR PRN #20 tab 01/26/19 hydrocodone-acetaminophen 2 tab PO Q4HR PRN #20 tab 01/26/19 magnesium hydroxide [Milk of 30 ml PO BEDTIME PRN #1 pkg 01/26/19 Magnesia] cephalexin 500 mg PO BID #14 cap 05/27/20 Allergies Allergy/AdvReac Type Severity Reaction Status Date / Time No Known Drug Allergies Allergy Verified 01/21/21 18:07 Review of Systems Constitutional Constitutional: Denies fatigue, Denies fever(s), Denies frequent falls and Denies lethargy Eyes Eyes: Denies blind spots, Denies blurry vision and Denies change in vision ENT Ears, Nose, Mouth, and Throat: Denies tinnitus and Denies sore throat Comments: Injuries to his nose and forehead. Cardiovascular Cardiovascular: Denies chest pain, Denies syncope, Denies rapid heart rate and Denies dyspnea Respiratory Respiratory: Denies cough and Denies dyspnea Gastrointestinal Gastrointestinal: Denies abdominal pain, Denies change in bowel habits, Denies diarrhea, Denies nausea and Denies vomiting Musculoskeletal Comments: Injuries to his right knee and left elbow in addition to the facial injuries. Integumentary/Breasts Skin/Breast: Denies erythema, Denies rash and Denies wounds Neurologic Neurologic: Denies syncope and Denies frequent falls Endocrine Endocrine: Denies fatigue Patient History Medical History Anticoagulation adequate Atrial fibrillation Chronic kidney disease (CKD) stage G3a/A1, moderately decreased glomerular filtration rate (GFR) between 45-59 mL/min/1.73 square meter and albuminuria creatinine ratio less than 30 mg/g Chronic renal failure Coronary artery disease History of left common carotid artery stent placement History of right common carotid artery stent placement Peripheral arterial disease Surgical History History of appendectomy History of bilateral knee arthroplasty Stented coronary artery Family History Mother Lung cancer Father Lung cancer Other Hypertension Social History marital status: household members: spouse Smoking Status: Never smoker Smoking Status: Never smoker alcohol intake frequency: a few times a month Substance Use Type: does not use Exam Initial Vital Signs Initial Vital Signs: Vital Signs Temperature 98.7 F 01/21/21 17:40 Pulse Rate 67 01/21/21 17:40 Respiratory Rate 22 01/21/21 17:40 Blood Pressure 167/74 H 01/21/21 17:40 Pulse Oximetry 100 01/21/21 17:40 Const General: cooperative and well developed Nutritional Appearance: well nourished Other: Facial injuries are noted. HENMT Head: other (5 cm central forehead laceration.) Nose: other (2 cm laceration across the bridge of his nose.) Mouth: oral mucosae normal Throat: posterior oropharynx normal Eyes General: appearance normal, both eyes and all related structures Eyelids: eyelids normal Conjunctivae: conjunctivae normal Sclera: sclerae normal Pupils: PERRL EOM: EOM intact bilaterally Neck Neck: full ROM and No tender Chest Chest: normal inspection of the chest, normal palpation of entire chest wall and No crepitus Resp Auscultation: clear to auscultation bilaterally Cardio Rate: regular rate Rhythm: regular rhythm Heart Sounds: no click, no gallops, no murmurs and no rubs Pulses: normal peripheral pulses GI Inspection: non-distended Palpation: soft, no hepatosplenomegaly, No guarding, No pulsatile mass and No tender Auscultation: normal bowel sounds Back/Spine/Pelvis Back: normal to inspection Skin General: no rashes or lesions noted, No jaundice and No petechiae Neuro General: patient alert, patient oriented x3, gait normal and no focal motor deficits Speech: speech normal Extrem General: full ROM, no clubbing, cyanosis or edema, no pedal edema and no calf tenderness Other: Abrasion to the left lateral elbow. Normal range of motion the elbow. No deformity. Abrasion over the right patella. Normal range of motion without deformity. No tenderness. Extremities are otherwise atraumatic. Procedures Laceration Repair Laceration 1: Site: face (Central forehead) Size (cm): 5 Description: irregular Depth: simple, single layer Local Anesthetic: lidocaine 2% Amount of anesthesia used (mL): 3 Pre-repair: wound explored, irrigated extensively, deep structures intact and extensive debridement Skin layer closed with: nylon Size (cm): 5-0 Technique: simple, interrupted Laceration 2: Site: face (Bridge of his nose) Depth: simple, single layer Local Anesthetic: lidocaine 1% Amount of anesthesia used (mL): 1 Pre-repair: wound explored, irrigated extensively and deep structures intact Skin layer closed with: nylon Size (cm): 5-0 Course Course Course Narrative: His head CT shows no acute intracranial injury. I closed the 1.5 cm nose laceration, and the 5 cm forehead laceration. His INR is 3.1. Pressure bandage was were also applied for peer to time to induce hemostasis. Hemostasis was obtained. He is okay for discharge. Orders Ordered: ED Orders 01/21/21 17:58 CT head/brain wo con Stat 01/21/21 18:50 Complete Blood Count AUTO DIFF Stat Comprehensive Metabolic Panel Stat Partial Thromboplastin Time Stat Prothrombin Time INR Stat Type and Screen Stat Vital Signs Vital signs: Vital Signs - 8 hr 01/21/21 17:40 01/21/21 20:59 01/21/21 21:00 Temperature 98.7 F 97.9 F Pulse Rate 67 64 63 Respiratory Rate 22 Blood Pressure 167/74 H 158/67 H Pulse Oximetry 100 100 100 MDM - Fall Lab Data Result diagrams: 01/21/21 18:50 01/21/21 18:50 Labs: Lab Results 01/21/21 01/21/21 01/21/21 Range/Units 18:50 18:50 18:50 WBC 12.1 H (4.5-11.0) X10^3/uL RBC 3.41 L (4.5-5.9) X10^6/uL Hgb 11.0 L (13.5-17.5) g/dL Hct 32.4 L (41-53) % MCV 95.1 (80-100) fL MCH 32.1 (26-34) PG MCHC 33.8 (30-36) % RDW 13.8 (11.6-14.8) % Plt Count 160 (150-400) X10^3/uL Neut % (Auto) 41.2 L (50-75) % Lymph % (Auto) 50.9 H (25-40) % [place] % (Auto) 4.8 (3-14) % Eos % (Auto) 2.5 (2-4) % Baso % (Auto) 0.6 (0-2) % Neut # (Auto) 5000 (7809-1099) /uL Lymph # (Auto) 6200 H (8229-9062) /uL [place] # (Auto) 600 (0-900) /uL Eos # (Auto) 300 (0-450) /uL Baso # (Auto) 100 (0-100) /uL PT 36.7 H (10.1-12.7) SECONDS INR 3.1 H (0.9-1.3) APTT 49 H D (26.4-36.2) SECONDS Sodium 140 (137-145) mmol/L Potassium 4.5 (3.4-5.1) mmol/L Chloride 109 H (98-107) mmol/L Carbon Dioxide 22 (22-32) mmol/L BUN 36 H (9-20) mg/dL Creatinine 2.20 H (0.66-1.25) mg/dL Estimated GFR 28.6 L (>60) mL/min BUN/Creatinine Ratio 16.4 (6-22) Glucose 106 (80-110) mg/dL Calcium 9.1 (8.4-10.2) mg/dL Total Bilirubin 0.6 (0.2-1.3) mg/dL AST 32 (17-59) IU/L ALT 13 (<50) IU/L Alkaline Phosphatase 88 (38-126) U/L Total Protein 6.8 (6.3-8.2) g/dL Albumin 3.9 (3.5-5.0) g/dL Globulin 2.9 (1.7-4.1) g/dL Albumin/Globulin Ratio 1.3 (1.0-2.8) Blood Type Antibody Screen 01/21/21 Range/Units 18:50 WBC (4.5-11.0) X10^3/uL RBC (4.5-5.9) X10^6/uL Hgb (13.5-17.5) g/dL Hct (41-53) % MCV (80-100) fL MCH (26-34) PG MCHC (30-36) % RDW (11.6-14.8) % Plt Count (150-400) X10^3/uL Neut % (Auto) (50-75) % Lymph % (Auto) (25-40) % [place] % (Auto) (3-14) % Eos % (Auto) (2-4) % Baso % (Auto) (0-2) % Neut # (Auto) (6190-2194) /uL Lymph # (Auto) (6356-2232) /uL [place] # (Auto) (0-900) /uL Eos # (Auto) (0-450) /uL Baso # (Auto) (0-100) /uL PT (10.1-12.7) SECONDS INR (0.9-1.3) APTT (26.4-36.2) SECONDS Sodium (137-145) mmol/L Potassium (3.4-5.1) mmol/L Chloride (98-107) mmol/L Carbon Dioxide (22-32) mmol/L BUN (9-20) mg/dL Creatinine (0.66-1.25) mg/dL Estimated GFR (>60) mL/min BUN/Creatinine Ratio (6-22) Glucose (80-110) mg/dL Calcium (8.4-10.2) mg/dL Total Bilirubin (0.2-1.3) mg/dL AST (17-59) IU/L ALT (<50) IU/L Alkaline Phosphatase (38-126) U/L Total Protein (6.3-8.2) g/dL Albumin (3.5-5.0) g/dL Globulin (1.7-4.1) g/dL Albumin/Globulin Ratio (1.0-2.8) Blood Type A Positive Antibody Screen Negative Imaging Data CT scan - head: Radiologist's Impression: [address] [id number] Scan ReportSigned Patient: Chris Peralta [facility]#: [id number]: 5Acct:[id number]/Sex: 85 / MDate of Service: 01/21/21Loc: EDAccession Number: [id number] Procedure: CT head/brain wo con Ordering Provider: Khushbu Field D.O. PROCEDURE: CT HEAD/BRAIN WO CON INDICATIONS: On blood thinners. head injury TECHNIQUE: Noncontrast 4.5 mm thick angled axial sections acquired from the foramen magnum to the vertex, with coronal and sagittal reformats. For radiation dose reduction, the following was used: automated exposure control, adjustment of mA and/or kV according to patient size. COMPARISON: None. FINDINGS: Image quality: Excellent. CSF spaces: Basal cisterns are patent. No extra-axial fluid collections. The ventricles are symmetric in size and shape. There is mild cerebral volume loss, with resultant ventricular and sulcal prominence. Brain: No intracranial hemorrhage, mass, or mass effect. There are subcortical, periventricular and deep white matter hypodensities consistent with [id number] chronic small vessel ischemic changes. There is intracranial internal carotid artery atherosclerosis. Skull and face: There is soft tissue swelling in the forehead region with a soft tissue laceration. Calvarium and visualized facial bones appear intact, without suspicious lesions. Sinuses: Visualized sinuses and mastoids are clear. IMPRESSION: 1. No acute intracranial abnormality. 2. Mild to moderate chronic white matter small vessel ischemic changes and mild cerebral volume loss. Dictated by: Garfield Perales M.D. on 01/21/2021 at 18:27 Approved by: Garfield Perales M.D. on 01/21/2021 at 18:35 Discharge Plan Departure Patient Disposition: Home Clinical Impression: Anticoagulated on Coumadin Forehead laceration Qualifiers: Encounter type: initial encounter Qualified Code(s): S01.81XA - Laceration without foreign body of other part of head, initial encounter Laceration of nose Qualifiers: Encounter type: initial encounter Qualified Code(s): S01.21XA - Laceration without foreign body of nose, initial encounter Instructions: DI for Laceration Repair Activity Restrictions/Additional Instructions: Keep the bandages in place for 24 hours. I recommend applying ice packs to the forehead injury. Skip tomorrow's dose of Coumadin. Resume Coumadin at her normal dose in 2 days. Follow-up with your doctor in 10 days for suture removal. Return here as necessary. Prescriptions: No Action atorvastatin 40 mg tablet 40 mg PO DAILY RF: 0 clopidogrel 75 mg tablet 75 mg PO DAILY RF: 0 amlodipine 5 mg tablet 5 mg PO DAILY RF: 0 warfarin 2 mg tablet 2 mg PO DAILY RF: 0 losartan 25 mg tablet 25 mg PO DAILY RF: 0 hydralazine 50 mg tablet 50 mg PO TID RF: 0 ferrous gluconate 324 mg (38 mg iron) tablet 324 mg PO BID RF: 0 hydrocodone-acetaminophen 5-325 mg Tablet 2 tab PO Q4HR PRN (Reason: Pain, Moderate (4-6)) Qty: 20 RF: 0 hydrocodone-acetaminophen 5-325 mg Tablet 1 tab PO Q4HR PRN (Reason: Pain, Mild (1-3)) Qty: 20 RF: 0 magnesium hydroxide [Milk of Magnesia] 400 mg/5 mL Suspension 30 ml PO BEDTIME PRN (Reason: Constipation) Qty: 1 RF: 0 bisacodyl 10 mg Suppository 10 mg GA PRN PRN (Reason: Constipation) Qty: 10 RF: 0 docusate sodium [DOK] 100 mg Capsule 100 mg PO BID Qty: 60 RF: 0 cephalexin 500 mg capsule 500 mg PO BID Qty: 14 RF: 0 Referrals: Sourav Coffey MD [Primary Care Provider] -
[2021-01-21 19:09] LABS: Add Manual Diff / Slide Review NO; Basophils Absolute Auto 100 /uL (0-100); Basophils Percent Auto 0.6 % (0-2); Eosinophils Absolute Auto 300 /uL (0-450); Eosinophils Percent Auto 2.5 % (2-4); Hematocrit 32.4 % (41-53); Lymphocytes Absolute Auto 6200 /uL (1100-4500); Lymphocytes Percent Auto 50.9 % (25-40); Mean Corpuscular HGB Conc 33.8 % (30-36); Mean Corpuscular Hemoglobin 32.1 PG (26-34); Mean Corpuscular Volume 95.1 fL (80-100); Monocytes Absolute Auto 600 /uL (0-900); Monocytes Percent Auto 4.8 % (3-14); Neutrophils Absolute Auto 5000 /uL (1500-7000); Neutrophils Percent Auto 41.2 % (50-75); Platelet Count 160 X10^3/uL (150-400); Red Blood Cell Count 3.41 X10^6/uL (4.5-5.9); Red Cell Distribution Width 13.8 % (11.6-14.8); White Blood Cell Count 12.1 X10^3/uL (4.5-11.0)
[2021-01-21 19:22] LABS: INR 3.1 (0.9-1.3); Prothrombin Time 36.7 SECONDS (10.1-12.7)
[2021-01-21 19:25] LABS: PTT Partial Thromboplastin Tim 49 SECONDS (26.4-36.2)
[2021-01-21 19:26] LABS: Alanine Aminotransferase 13 IU/L (<50); Albumin 3.9 g/dL (3.5-5.0); Albumin Globulin Ratio 1.3 (1.0-2.8); Alkaline Phosphatase 88 U/L (38-126); Aspartate Aminotransferase 32 IU/L (17-59); BUN Creatinine Ratio 16.4 (6-22); Bilirubin Total 0.6 mg/dL (0.2-1.3); Blood Urea Nitrogen 36 mg/dL (9-20); Calcium 9.1 mg/dL (8.4-10.2); Carbon Dioxide 22 mmol/L (22-32); Chloride 109 mmol/L (98-107); Estimated Glomerular Filt Rate 28.6 mL/min (>60); Globulin 2.9 g/dL (1.7-4.1); Glucose 106 mg/dL (80-110); HEMOLYSIS < 15 (0-50); Potassium 4.5 mmol/L (3.4-5.1); Sodium 140 mmol/L (137-145); Total Protein 6.8 g/dL (6.3-8.2)
[2021-01-21 20:59] VITALS: PULSE 64; O2SAT 100
[2021-01-21 21:00] VITALS: BP 158/67; PULSE 63; TEMP 36.6; O2SAT 100
== END 2021-01-21 21:34 | disposition home or self-care (01) ==
PROVIDERS: Emergency Provider Emergency Medicine; PCP Internal Medicine
DX: S01.81XA Laceration without foreign body of other part of head, initial encounter (principal); S01.21XA Laceration without foreign body of nose, initial encounter; W19.XXXA Unspecified fall, initial encounter; Z79.01 Long term (current) use of anticoagulants
CPT/HCPCS: 36415; 70450; 80053; 85025; 85610; 85730; 86850; 86900; 86901; 99284

== ENCOUNTER → 2021-06-01 12:04 | Outpatient (CLI) | payer OTHER, SELFPAY ==
[2019-01-23 12:20] VITALS: BMI 29.2
--- NOTE | 2021-06-01 | DI.ECHO.S_ITS ---
[facility] +---------+ : : [address] : [place] : : : : [id number] : : : : Phone: [phone]---------+ Echocardiogram Report + + :Name: JOHN PAUL SINGH Study Date: 06/01/2021 Height: 71 in : :[facility] ReadingLocation: Weight: 213 lb : : Gender: Male BSA: 2.2 m2 : :: 1935 Age: 86 yrs BP: 171/88 mmHg: :Reason For Study: Aortic valve stenosis : :Ordering Physician: Jyotsna : :Frida Waller Performed By: Humberto Pearson : :Referring: JYOTSNA WALLER : + + Interpretation Summary 1) Mildly dilated left ventricle with normal wall motion and normal systolic function (EF 55-60%). 2) Mildly enlarged right ventricle with mildly reduced function. 3) Severe biatrial enlargement present. 4) There is mild aortic stenosis (valve area 1.6cm2, mean gradient 13mmHg). There is mild aortic regurgitation. 5) The right ventricular systolic pressure is estimated to be at least 57 mmHg based on an estimated right atrial pressure of 8 mm Hg. 6) Compared to the Echo done 07/11/2018, no signifiicant change. Procedure: A two-dimensional transthoracic echocardiogram with color flow and Doppler was performed. The study quality was technically adequate. Comparison is made with the echocardiogram of 07/11/2018. A contrast injection of Definity was performed to improve assessment of LV function. Left Ventricle: The left ventricle is mildly dilated. There is normal left ventricular wall thickness. Left ventricular systolic function is normal. The ejection fraction is estimated to be 55-60%. There are no focal wall motion abnormalities. Diastolic function could not be accurately assessed due to unobtainable data. Right Ventricle: The right ventricle is mildly dilated. Right ventricular systolic function is mildly reduced. Atria: Both atria are severely dilated. There is no Doppler evidence for an interatrial shunt. Mitral Valve: There is mild mitral annular calcification. There is mild mitral regurgitation. Aortic Valve: The aortic valve is moderately calcified. There is mild aortic stenosis. The aortic valve mean gradient is 13 mmHg. There is mild aortic regurgitation. Tricuspid Valve: The tricuspid valve is normal in structure and function. There is mild to moderate tricuspid regurgitation. The right ventricular systolic pressure is estimated to be at least 57 mmHg based on an estimated right atrial pressure of 8 mm Hg. Pulmonic Valve: The pulmonic valve is normal in structure and function. There is no pulmonic valvular regurgitation. Great Vessels: The aortic root is normal size. The ascending aorta is mildly enlarged. The IVC is dilated (diameter is greater than 2.1 cm) yet it collapses greater than 50% with a sniff. This suggests a right atrial pressure of 8 mm Hg. Pericardium/ Pleura There is no pericardial effusion. There is no pleural effusion. MMode/2D Measurements & Calculations LVIDd: 6.1 cm LVOT diam: 2.1 cm LVIDs: 4.1 cm Ao root diam: 3.8 cm FS: 32.8 % asc Aorta Diam: 3.8 cm IVSd: 0.90 cm LVPWd: 0.80 cm LV maradiaga. diameter/BSA (cm/m^2): 2.8 LV sys. diameter/BSA (cm/m^2): 1.9 LA dimension: 4.8 cm RA long axis: 7.5 cm LA A2 area: 32.2 cm2 IVC diam: 2.7 cm LA A4 area: 35.6 cm2 LA length (vol): 7.6 cm LA vol: 127.7 ml LA vol index: 59.0 ml/m2 LVLs ap4: 7.2 cm LVLd ap2: 8.1 cm LVLs ap2: 7.8 cm TAPSE_phl: 1.8 cm Doppler Measurements & Calculations Ao V2 max: 250.0 cm/sec LVOT Max Fred: 102.0 cm/sec Ao V2 mean: 171.0 cm/sec LV V1 max P.2 mmHg Ao max P.0 mmHg LV V1 VTI: 25.2 cm Ao mean P.0 mmHg ADIS(I,D): 1.6 cm2 Ao V2 VTI: 53.9 cm ADIS(V,D): 1.4 cm2 sev ratio: 0.47 ADIS indexed to BSA (cm^2/m^2): 0.75 TR max fred: 339.5 cm/sec SV(LVOT): 87.3 ml TR max P.3 mmHg PA V2 max: 119.0 cm/sec PA V2 mean: 76.4 cm/sec PA mean P.0 mmHg PA pr(Accel): 61.0 mmHg AV VR_phl: 0.44 ADIS(VTI)/BSA_phl: 0.77 Reading Physician:06:27 PM
== END ==
PROVIDERS: PCP Internal Medicine; Referring Provider Internal Medicine Cardiovascular Disease; Visit Provider Internal Medicine Cardiovascular Disease
DX: I35.0 Nonrheumatic aortic (valve) stenosis (principal); I51.7 Cardiomegaly; I35.1 Nonrheumatic aortic (valve) insufficiency
CPT/HCPCS: C8929; Q9957

== ENCOUNTER 2022-05-03 14:07 | Inpatient (IN) | payer OTHER, MEDICAID, SELFPAY ==
[2019-01-23 12:20] VITALS: BMI 29.2
[2022-05-03] VITALS (7 sets, daily range): BP systolic 124–160; BP diastolic 58–72; PULSE 71–80; RESP 17–28; TEMP 36.5–36.8; O2SAT 93–99; BMI 30.8
--- NOTE | 2022-05-03 14:19 | DI.RAD.S_ITS ---
PROCEDURE: XR FEMUR LT MIN 2V INDICATIONS: fall/hip pain TECHNIQUE: AP and lateral views of the femur were acquired. COMPARISON: [facility], CR, XR HIP W PEL IF DONE LT 2V, 05/03/2022, 14:23. FINDINGS: Bones: There is a mildly displaced and possibly comminuted intertrochanteric fracture of the proximal femur. There is mild varus angulation. A medial unicompartmental knee arthroplasty is seen in the knee. However the knee is not well evaluated due to positioning. Soft tissues: No suspicious soft tissue calcifications or masses. Atherosclerotic vascular calcifications are present. IMPRESSION: Mildly displaced and possibly comminuted intertrochanteric fracture of the proximal femur. Dictated by: Iván Adler M.D. on 05/03/2022 at 15:27 Approved by: Iván Adler M.D. on 05/03/2022 at 15:31
--- NOTE | 2022-05-03 14:19 | DI.RAD.S_ITS ---
PROCEDURE: XR HIP W PEL IF DONE LT 2V INDICATIONS: fall/hip pain TECHNIQUE: AP pelvis with lateral view of the left hip. COMPARISON: [facility], CR, XR HIP W PEL IF DONE RT 2V, 01/23/2019, 7:20. FINDINGS: Bones: There is a mildly displaced intertrochanteric fracture of the proximal femur. Degenerative changes are seen in the hips bilaterally and in the lower lumbar spine. Chronic posttraumatic changes are seen in the contralateral right proximal femur with a partially imaged intramedullary khalida. Pelvic ring appears intact. No suspicious bony lesions. Soft tissues: The visualized bowel gas pattern is normal. No suspicious soft tissue calcifications. Atherosclerotic calcifications are present. IMPRESSION: Mildly displaced intertrochanteric fracture of the left proximal femur. Dictated by: Iván Adler M.D. on 05/03/2022 at 15:23 Approved by: Iván Adler M.D. on 05/03/2022 at 15:25
--- NOTE | 2022-05-03 14:20 | DI.RAD.S_ITS ---
PROCEDURE: XR CHEST 1V INDICATIONS: fall TECHNIQUE: One view of the chest was acquired. COMPARISON: [facility], CR, XR CHEST 1 VIEW, 11/14/2021, 20:07. [facility], CR, XR CHEST 1V, 01/23/2019, 7:43. FINDINGS: Surgical changes and devices: None. Lungs and pleura: Bilateral interstitial prominence and mild pulmonary opacities are suspicious for edema. Small right pleural effusion. Mediastinum: Mediastinal contours appear normal. Heart size is enlarged. Bones and chest wall: No suspicious bony lesions. Overlying soft tissues appear unremarkable. IMPRESSION: Cardiomegaly and suspected pulmonary edema. Small right pleural effusion. Dictated by: Iván Adler M.D. on 05/03/2022 at 15:25 Approved by: Iván Adler M.D. on 05/03/2022 at 15:27
--- NOTE | 2022-05-03 14:49 | ED_ITS ---
HPI - Fall General Chief Complaint: Trauma Stated Complaint: Fall, left leg pain Time Seen by Provider: 05/03/22 14:43 Source: patient Mode of arrival: EMS History of Present Illness HPI Narrative: Patient is an 87-year-old male history of diet-controlled diabetes hypertension, congestive heart failure, coronary artery disease, possible AFib possibly on Coumadin although he denies. He presents today after a fall. He says he actually was in his chair when he says he fell out at it he just slid down the chair. He denies any head injury or loss of consciousness. He is complaining of pain in his left hip. Unable to weight bear. He has no chest pain or shortness of breath. He received medication with EMS. Related Data Home Medications Medication Instructions Recorded Confirmed amlodipine 5 mg tablet 5 mg PO DAILY 01/23/19 05/03/22 atorvastatin 40 mg tablet 40 mg PO BEDTIME 01/23/19 05/03/22 ferrous gluconate 324 mg (38 mg 324 mg PO BID 01/23/19 05/03/22 iron) tablet apixaban 2.5 mg tablet (Eliquis) 2.5 mg BID 05/03/22 05/03/22 pantoprazole 40 mg tablet,delayed 40 mg PO BID 05/03/22 05/03/22 release torsemide 10 mg PO DAILY PRN Edema 05/03/22 05/03/22 Allergies Allergy/AdvReac Type Severity Reaction Status Date / Time No Known Drug Allergies Allergy Verified 05/03/22 14:15 Review of Systems Review of Systems Narrative: GENERAL: Denies chills, fatigue, malaise, fever, sweats, travel HEENT: Denies sinus pain, ear pain, sore throat, difficulty swallowing, neck pain RESPIRATORY: Denies dyspnea, cough, wheezing, hemoptysis, sputum. CARDIOVASCULAR: Denies chest pain, palpitations, orthopnea, edema GASTROINTESTINAL: Denies nausea, vomiting, abdominal pain, diarrhea, constipation, melena. : Denies dysuria, frequency, incontinence, hematuria, urinary retention, flank pain. MUSCULOSKELETAL: See HPI SKIN: No rash, no erythema, no pruritus NEUROLOGIC: Denies weakness, dizziness, headache, numbness, change in speech, confusion PSYCHIATRIC: No concerning psychosocial issues. 12 point review of systems is negative except for those stated above and HPI Patient History Medical History Anticoagulation adequate Atrial fibrillation Chronic kidney disease (CKD) stage G3a/A1, moderately decreased glomerular filtration rate (GFR) between 45-59 mL/min/1.73 square meter and albuminuria creatinine ratio less than 30 mg/g Chronic renal failure Coronary artery disease History of left common carotid artery stent placement History of right common carotid artery stent placement Peripheral arterial disease Surgical History History of appendectomy History of bilateral knee arthroplasty Stented coronary artery Family History Mother Lung cancer Father Lung cancer Other Hypertension Social History marital status: household members: spouse Smoking Status: Never smoker Smoking Status: Never smoker alcohol intake frequency: a few times a month Substance Use Type: does not use Exam Initial Vital Signs Initial Vital Signs: Vital Signs Pulse Rate 80 05/03/22 14:19 Respiratory Rate 22 05/03/22 14:19 Blood Pressure 160/72 H 05/03/22 14:19 Pulse Oximetry 99 05/03/22 14:19 Oxygen Delivery Method 05/03/22 14:19 GENERAL: Alert 87-year-old male HEENT: Head atraumatic,EOMI, pupils reactive, face symmetric, moist mucous membranes CARDIOVASCULAR: Regular rate and rhythm without murmurs, rubs or gallops. RESPIRATORY: Breath sounds equal bilaterally, no wheezes rales or rhonchi. ABDOMEN: Soft, nontender. Normoactive bowel sounds all 4 quadrants. No guarding or rebound. EXTREMITIES: Normal range of motion, no clubbing or edema. Neurovascularly intact Left leg in position of comfort externally rotated distal pedal pulse intact tender left hip NEUROLOGICAL: Alert and oriented x4. SKIN: Warm, dry, no laceration, no petechiae, no rashes or lesions. Course Orders Ordered: Acetaminophen (Acetaminophen 325 Mg Tablet) 975 mg PO Q8H PRN PRN Reason: Pain, Mild (1-3) Atorvastatin Calcium (Atorvastatin 20 Mg Tablet) 40 mg PO BEDTIME MARTY Hydromorphone HCl (Hydromorphone 0.5 Mg Inj) 0.5 mg IV Q4H PRN PRN Reason: Breakthrough pain only (8-10) Last Admin: 05/04/22 01:17 Dose: 0.5 mg Documented By: Oxycodone HCl (Oxycodone Ir 5 Mg Tablet) 5 mg PO Q4HR PRN PRN Reason: Pain, Moderate (4-6) Oxycodone HCl (Oxycodone Ir 10 Mg Tablet) 10 mg PO Q4HR PRN PRN Reason: Pain, Severe (7-10) Pantoprazole Sodium (Pantoprazole Dr 40 Mg Tablet) 40 mg PO BID [facility] Discontinued Medications Furosemide (Furosemide 40 Mg/4 Ml Vial) 40 mg IV NOW ONE Stop: 05/04/22 06:50 Sodium Chloride (Normal Saline 0.9%) 1,000 mls @ 150 mls/hr IV CONT MARTY Last Admin: 05/03/22 20:25 Dose: Not Given Documented By: SHAUN Morphine Sulfate (Morphine 4 Mg/Ml Inj) 4 mg IV NOW ONE Stop: 05/03/22 15:02 Last Admin: 05/03/22 15:07 Dose: 4 mg Documented By: CARLITOS Ondansetron HCl (Ondansetron 4 Mg/2 Ml Inj) 4 mg IV NOW ONE Stop: 05/03/22 15:02 Last Admin: 05/03/22 15:07 Dose: 4 mg Documented By: CARLITOS Torsemide (Torsemide 10 Mg Tablet) 10 mg PO DAILY [facility] Vital Signs Vital signs: Vital Signs - 8 hr 05/03/22 14:19 05/03/22 15:28 05/03/22 14:40 Pulse Rate 80 77 71 Respiratory Rate 22 28 H Blood Pressure 160/72 H 160/67 H Pulse Oximetry 99 96 Oxygen Delivery Method Room Air Room Air 05/03/22 15:00 Pulse Rate 78 Respiratory Rate Blood Pressure Pulse Oximetry 98 Oxygen Delivery Method MDM - Fall Lab Data Result diagrams: 05/04/22 04:50 05/04/22 04:50 Labs: Lab Results 05/03/22 05/03/22 05/03/22 Range/Units 14:12 14:12 14:12 WBC 24.7 H (4.5-11.0) X10^3/uL RBC 2.98 L (4.5-5.9) X10^6/uL Hgb 9.4 L (13.5-17.5) g/dL Hct 28.2 L (41-53) % MCV 94.5 (80-100) fL MCH 31.5 (26-34) PG MCHC 33.3 (30-36) % RDW 15.3 H (11.6-14.8) % Plt Count 197 (150-400) X10^3/uL Neut % (Auto) Not Reportable Lymph % (Auto) Not Reportable [place] % (Auto) Not Reportable Eos % (Auto) Not Reportable Baso % (Auto) Not Reportable Lymph # (Auto) Not Reportable [place] # (Auto) Not Reportable Baso # (Auto) Not Reportable Total Counted 100 Seg Neutrophils % 29.0 L (38-70) % Lymphocytes % (Manual) 69.0 H (25-45) % Monocytes % (Manual) 1.0 L (2-11) % Basophils % (Manual) 1.0 (0-1) % Neutrophils # (Manual) 7163 H (1292-6148) /uL RBC Morphology See Poikilocytosis 1+ H PT 19.8 H (10.1-12.7) SECONDS INR 1.7 H (0.9-1.3) Sodium 139 (137-145) mmol/L Potassium 4.6 (3.4-5.1) mmol/L Chloride 106 (98-107) mmol/L Carbon Dioxide 22 (22-32) mmol/L BUN 42 H (9-20) mg/dL Creatinine 2.54 H (0.66-1.25) mg/dL Estimated GFR 24 L (>60) mL/min BUN/Creatinine Ratio 16.5 (6-22) Glucose 246 H (80-110) mg/dL Lactate (0.7-2.1) mmol/L Calcium 8.4 (8.4-10.2) mg/dL Total Bilirubin 0.9 (0.2-1.3) mg/dL AST 29 (17-59) IU/L ALT 17 (<50) IU/L Alkaline Phosphatase 95 (38-126) U/L Total Creatine Kinase (55-170) U/L CK-MB (CK-2) CK-MB (CK-2) Rel Index Troponin I (0.01-0.034) ng/mL NT-Pro-B Natriuret Pep (<450) pg/mL Total Protein 6.9 (6.3-8.2) g/dL Albumin 3.6 (3.5-5.0) g/dL Globulin 3.3 (1.7-4.1) g/dL Albumin/Globulin Ratio 1.1 (1.0-2.8) SARS-CoV-2 (PCR) (Negative) 05/03/22 05/03/22 05/03/22 Range/Units 14:12 14:12 14:12 WBC (4.5-11.0) X10^3/uL RBC (4.5-5.9) X10^6/uL Hgb (13.5-17.5) g/dL Hct (41-53) % MCV (80-100) fL MCH (26-34) PG MCHC (30-36) % RDW (11.6-14.8) % Plt Count (150-400) X10^3/uL Neut % (Auto) Lymph % (Auto) [place] % (Auto) Eos % (Auto) Baso % (Auto) Lymph # (Auto) [place] # (Auto) Baso # (Auto) Total Counted Seg Neutrophils % (38-70) % Lymphocytes % (Manual) (25-45) % Monocytes % (Manual) (2-11) % Basophils % (Manual) (0-1) % Neutrophils # (Manual) (7801-2568) /uL RBC Morphology Poikilocytosis PT (10.1-12.7) SECONDS INR (0.9-1.3) Sodium (137-145) mmol/L Potassium (3.4-5.1) mmol/L Chloride (98-107) mmol/L Carbon Dioxide (22-32) mmol/L BUN (9-20) mg/dL Creatinine (0.66-1.25) mg/dL Estimated GFR (>60) mL/min BUN/Creatinine Ratio (6-22) Glucose (80-110) mg/dL Lactate 2.4 H (0.7-2.1) mmol/L Calcium (8.4-10.2) mg/dL Total Bilirubin (0.2-1.3) mg/dL AST (17-59) IU/L ALT (<50) IU/L Alkaline Phosphatase (38-126) U/L Total Creatine Kinase 39 L (55-170) U/L CK-MB (CK-2) TNP CK-MB (CK-2) Rel Index TNP Troponin I 0.027 (0.01-0.034) ng/mL NT-Pro-B Natriuret Pep 7400 H (<450) pg/mL Total Protein (6.3-8.2) g/dL Albumin (3.5-5.0) g/dL Globulin (1.7-4.1) g/dL Albumin/Globulin Ratio (1.0-2.8) SARS-CoV-2 (PCR) (Negative) 05/03/22 Range/Units 14:49 WBC (4.5-11.0) X10^3/uL RBC (4.5-5.9) X10^6/uL Hgb (13.5-17.5) g/dL Hct (41-53) % MCV (80-100) fL MCH (26-34) PG MCHC (30-36) % RDW (11.6-14.8) % Plt Count (150-400) X10^3/uL Neut % (Auto) Lymph % (Auto) [place] % (Auto) Eos % (Auto) Baso % (Auto) Lymph # (Auto) [place] # (Auto) Baso # (Auto) Total Counted Seg Neutrophils % (38-70) % Lymphocytes % (Manual) (25-45) % Monocytes % (Manual) (2-11) % Basophils % (Manual) (0-1) % Neutrophils # (Manual) (1365-7527) /uL RBC Morphology Poikilocytosis PT (10.1-12.7) SECONDS INR (0.9-1.3) Sodium (137-145) mmol/L Potassium (3.4-5.1) mmol/L Chloride (98-107) mmol/L Carbon Dioxide (22-32) mmol/L BUN (9-20) mg/dL Creatinine (0.66-1.25) mg/dL Estimated GFR (>60) mL/min BUN/Creatinine Ratio (6-22) Glucose (80-110) mg/dL Lactate (0.7-2.1) mmol/L Calcium (8.4-10.2) mg/dL Total Bilirubin (0.2-1.3) mg/dL AST (17-59) IU/L ALT (<50) IU/L Alkaline Phosphatase (38-126) U/L Total Creatine Kinase (55-170) U/L CK-MB (CK-2) CK-MB (CK-2) Rel Index Troponin I (0.01-0.034) ng/mL NT-Pro-B Natriuret Pep (<450) pg/mL Total Protein (6.3-8.2) g/dL Albumin (3.5-5.0) g/dL Globulin (1.7-4.1) g/dL Albumin/Globulin Ratio (1.0-2.8) SARS-CoV-2 (PCR) Negative (Negative) Imaging Data Extremity x-ray #1: Radiologist's Impression: Signed Patient: Chris Peralta MR#: [id number] : 1935 Acct:[id number] Age/Sex: 87 / M Date of Service: 05/03/22 Loc: ED Accession Number: [id number] ?? Procedure: XR hip w pel if done LT 2V Ordering Provider: Khushbu Field D.O. PROCEDURE:? XR HIP W PEL IF DONE LT 2V ? INDICATIONS:? fall/hip pain ? TECHNIQUE:? AP pelvis with lateral view of the left hip. ? COMPARISON:? [facility], CR, XR HIP W PEL IF DONE RT 2V, 01/23/2019, 7:20. ? FINDINGS:? ? Bones:? There is a mildly displaced intertrochanteric fracture of the proximal femur.? Degenerative changes are seen in the hips bilaterally and in the lower lumbar spine.? Chronic posttraumatic changes are seen in the contralateral right proximal femur with a partially imaged intramedullary khalida.? Pelvic ring appears intact.? No suspicious bony lesions.? ? Soft tissues:? The visualized bowel gas pattern is normal.? No suspicious soft tissue calcifications.? Atherosclerotic calcifications are present. ? ? IMPRESSION:? Mildly displaced intertrochanteric fracture of the left proximal femur. ? ? ? Dictated by: Iván Adler M.D. on 05/03/2022 at 15:23 ? ? Approved by: Iván Adler M.D. on 05/03/2022 at 15:25 ? Extremity x-ray #2: Radiologist's Impression: YARITZA [place] [id number] XRay Report Signed Patient: Chris Peralta MR#: [id number] : 1935 Acct:[id number] Age/Sex: 87 / M Date of Service: 05/03/22 Loc: ED Accession Number: [id number] ?? Procedure: XR femur LT min 2V Ordering Provider: Khushbu Field D.O. PROCEDURE:? XR FEMUR LT MIN 2V ? INDICATIONS:? fall/hip pain ? TECHNIQUE:? AP and lateral views of the femur were acquired.? ? COMPARISON:? [facility], CR, XR HIP W PEL IF DONE LT 2V, 05/03/2022, 14:23.? FINDINGS:? ? Bones:? There is a mildly displaced and possibly comminuted intertrochanteric fr acture of the proximal femur.? There is mild varus angulation.? A medial unicompartmental knee arthroplasty is seen in the knee.? However the knee is not well evaluated due to positioning. ? Soft tissues:? No suspicious soft tissue calcifications or masses.? Atherosclerotic vascular calcifications are present. ? IMPRESSION:? Mildly displaced and possibly comminuted intertrochanteric fracture of the proximal femur. ? ? Dictated by: Iván Adler M.D. on 05/03/2022 at 15:27 ? ? Chest x-ray: Radiologist's Impression: nt: Chris Peralta MR#: [id number] : 1935 Acct:[id number] Age/Sex: 87 / M Date of Service: 05/03/22 Loc: ED Accession Number: [id number] ?? Procedure: XR chest 1V Ordering Provider: Khushbu Field D.O. PROCEDURE:? XR CHEST 1V ? INDICATIONS:? fall ? TECHNIQUE:? One view of the chest was acquired.? ? COMPARISON:? [facility], CR, XR CHEST 1 VIEW, 11/14/2021, 20:07.? [facility], CR, XR CHEST 1V, 01/23/2019, 7:43. ? FINDINGS:? ? Surgical changes and devices:? None.? ? Lungs and pleura:? Bilateral interstitial prominence and mild pulmonary opacities are suspicious for edema.? Small right pleural effusion. ? Mediastinum:? Mediastinal contours appear normal.? Heart size is enlarged.? ? Bones and chest wall:? No suspicious bony lesions.? Overlying soft tissues appear unremarkable.? ? IMPRESSION:? Cardiomegaly and suspected pulmonary edema.? Small right pleural effusion. ? ? Dictated by: Iván Adler M.D. on 05/03/2022 at 15:25 ? ECG Data Interpretation: Atrial fibrillation rate [address] changes no priors to come MDM Narrative Medical decision making narrative: Patient does have atrial fibrillation but do not actually see that he is on anticoagulation, although he is an extremely poor historian he has absolutely no idea what medication he is on. According to what I see here he has not had any medications filled since 2020. There is no sign of head injury. Found have an intertrochanteric fracture. He also has leukocytosis mildly anemic I do not see any obvious infection. Dr. Heck orthopedic has been updated patient's symptoms and test results. Dr. Boles accepts patient Discharge Plan Departure Patient Disposition: Admitted As Inpatient Clinical Impression: Closed left hip fracture Admit Date/Time: 05/03/22 15:49 Admit Provider: Joselo Boles
[2022-05-03 14:54] LABS: INR 1.7 (0.9-1.3); Prothrombin Time 19.8 SECONDS (10.1-12.7)
[2022-05-03 15:03] LABS: Alanine Aminotransferase 17 IU/L (<50); Albumin 3.6 g/dL (3.5-5.0); Albumin Globulin Ratio 1.1 (1.0-2.8); Alkaline Phosphatase 95 U/L (38-126); Aspartate Aminotransferase 29 IU/L (17-59); BUN Creatinine Ratio 16.5 (6-22); Bilirubin Total 0.9 mg/dL (0.2-1.3); Blood Urea Nitrogen 42 mg/dL (9-20); Calcium 8.4 mg/dL (8.4-10.2); Carbon Dioxide 22 mmol/L (22-32); Chloride 106 mmol/L (98-107); Estimated Glomerular Filt Rate 24 mL/min (>60); Globulin 3.3 g/dL (1.7-4.1); Glucose 246 mg/dL (80-110); HEMOLYSIS < 15 (0-50); Potassium 4.6 mmol/L (3.4-5.1); Sodium 139 mmol/L (137-145); Total Protein 6.9 g/dL (6.3-8.2)
[2022-05-03] MEDS: ONDANSETRON 4 MG/2 ML INJ IV (15:07)
[2022-05-03] MEDS: MORPHINE 4 MG/ML INJ IV (15:07)
[2022-05-03 15:09] LABS: Hematocrit 28.2 % (41-53); Hemoglobin 9.4 g/dL (13.5-17.5); Mean Corpuscular HGB Conc 33.3 % (30-36); Mean Corpuscular Hemoglobin 31.5 PG (26-34); Mean Corpuscular Volume 94.5 fL (80-100); Platelet Count 197 X10^3/uL (150-400); Red Blood Cell Count 2.98 X10^6/uL (4.5-5.9); Red Cell Distribution Width 15.3 % (11.6-14.8); White Blood Cell Count 24.7 X10^3/uL (4.5-11.0)
[2022-05-03 15:11] LABS: Add Manual Diff / Slide Review YES
[2022-05-03 15:36] LABS: COVID19 -Nasal RAPID Negative (Negative)
[2022-05-03 15:37] LABS: Creatine Kinase 39 U/L (55-170)
[2022-05-03 15:41] LABS: Neutrophils Absolute Manual 7163 /uL (3000-5900); Total Cells Counted 100
[2022-05-03 15:42] LABS: Poikilocytosis 1+
[2022-05-03 15:43] LABS: RBC Morphology See
[2022-05-03 15:49] LABS: Troponin I 0.027 ng/mL (0.01-0.034)
[2022-05-03 15:52] LABS: Lactate (Lactic Acid) 2.4 mmol/L (0.7-2.1)
[2022-05-03 16:07] LABS: NT-proBNP (BNP-Adult 18+) 7400 pg/mL (<450)
[2022-05-03 17:41] LABS: Reflexed Lactate in 2 Hours Y
--- NOTE | 2022-05-03 19:22 | PC.NURSE ---
Pt is AXOx3-4, very NOORVIK and pleasant and cooperative. Pt arrived to the unit from ER around 1620 on stretcher. Pt denied pain while not moving on bed. VSS, Tele is placed and it shows A-fib with PVCs. Pt denied dinner due to no appetite today. Otherwise, no problem. Pt is watching TV. Continue monitor.
--- NOTE | 2022-05-03 23:13 | P.HP_ITS ---
History of Present Illness History of Present Illness Date Patient Seen: 05/03/22 Time Patient Seen: 20:00 Chief complaint: Fall, left leg pain Narrative: Mr. Peralta is an 87M with PMH CHFpEF, mild aortic stenosis, atrial fibrillation on eliquis, CKD stage 4 who presents with a fall. He states he believes he took his eliquis the morning of 05/03. He says he was in a chair and he fell out of it onto his left hip. No head strike. No loss of consciousness. He had left hip pain and could not ambulate. In the ED workup was done, vitals notable for no measured temp, elevated blood pressure in 160s/60s. Labs notable for WBC 24.7, hgb 9.4, plts 197. Creatinine 2.54. INR 1.7. BNP 7400. COVID negative. Hip xray shows L displaced intertrochanteric fracture of left proximal femur. Chest xray showed pulmonary edema. He was given pain medications and admitted for further treatment. Patient History Medical History Anticoagulation adequate Atrial fibrillation Chronic kidney disease (CKD) stage G3a/A1, moderately decreased glomerular filtration rate (GFR) between 45-59 mL/min/1.73 square meter and albuminuria creatinine ratio less than 30 mg/g Chronic renal failure Coronary artery disease History of left common carotid artery stent placement History of right common carotid artery stent placement Peripheral arterial disease Surgical History History of appendectomy History of bilateral knee arthroplasty Stented coronary artery Family & Social History Family History Mother Lung cancer Father Lung cancer Other Hypertension Social History: household members spouse Safety & Behavioral: Feels Safe in Current Yes Environment Been Physically Hurt or No Threatened By a Person Tobacco & Substance use: Smoking Status Never smoker alcohol intake frequency a few times a month Substance Use Type does not use Meds Home Medications and Allergies Home Medications Medication Instructions Recorded Confirmed Type amlodipine 5 mg tablet 5 mg PO DAILY 01/23/19 05/03/22 History atorvastatin 40 mg tablet 40 mg PO BEDTIME 01/23/19 05/03/22 History ferrous gluconate 324 mg (38 mg 324 mg PO BID 01/23/19 05/03/22 History iron) tablet apixaban 2.5 mg tablet (Eliquis) 2.5 mg BID 05/03/22 05/03/22 History pantoprazole 40 mg tablet,delayed 40 mg PO BID 05/03/22 05/03/22 History release torsemide 10 mg PO DAILY PRN Edema 05/03/22 05/03/22 History Allergies Allergy/AdvReac Type Severity Reaction Status Date / Time No Known Drug Allergies Allergy Verified 05/03/22 14:15 Review of Systems Review of Systems Narrative: 14 systems reviewed and negative aside from what is noted in HPI Exam Vital Signs (past 8 hours): - 05/03/22 15:28 05/03/22 16:35 05/03/22 16:35 Temperature 98.2 F 98.2 F Pulse Rate 77 74 74 Respiratory Rate 20 20 Blood Pressure 160/67 H 124/58 L 124/58 L Pulse Oximetry 96 93 93 Oxygen Delivery Method Room Air Oxygen Flow Rate 0 0 05/03/22 17:12 05/03/22 16:07 05/03/22 20:47 Temperature 97.7 F Pulse Rate 72 Respiratory Rate 17 Blood Pressure 128/62 Pulse Oximetry 93 Oxygen Delivery Method Room Air Room Air Oxygen Flow Rate Oxygen Delivery Method Room Air Oxygen Flow Rate 0 Narrative Exam Narrative: GEN: no acute distress, hard of hearing HEENT: moist mucous membranes, PERRL NECK: trachea midline, no JVD CV: regular rate and rhythm, no murmurs PULM: clear bilaterally, no wheezes, rhonchi, rales ABD: soft, nontender, nondistended, no organomegaly EXT: warm and well perfused with trace edema, tender to palpation left hip, ped al pulses intact NEURO: awake, alert, moving all extremities SKIN: scattered small bruises Objective Labs Result Diagrams: 05/03/22 14:12 05/03/22 14:12 Labs: Laboratory Results - last 24 hr 05/03/22 05/03/22 05/03/22 14:12 14:12 14:12 WBC 24.7 H RBC 2.98 L Hgb 9.4 L Hct 28.2 L MCV 94.5 MCH 31.5 MCHC 33.3 RDW 15.3 H Plt Count 197 Neut % (Auto) Not Reportable Lymph % (Auto) Not Reportable [place] % (Auto) Not Reportable Eos % (Auto) Not Reportable Baso % (Auto) Not Reportable Lymph # (Auto) Not Reportable [place] # (Auto) Not Reportable Baso # (Auto) Not Reportable Total Counted 100 Seg Neutrophils % 29.0 L Lymphocytes % (Manual) 69.0 H Monocytes % (Manual) 1.0 L Basophils % (Manual) 1.0 Neutrophils # (Manual) 7163 H RBC Morphology See Poikilocytosis 1+ H PT 19.8 H INR 1.7 H Sodium 139 Potassium 4.6 Chloride 106 Carbon Dioxide 22 BUN 42 H Creatinine 2.54 H Estimated GFR 24 L BUN/Creatinine Ratio 16.5 Glucose 246 H Lactate Calcium 8.4 Total Bilirubin 0.9 AST 29 ALT 17 Alkaline Phosphatase 95 Total Creatine Kinase CK-MB (CK-2) CK-MB (CK-2) Rel Index Troponin I NT-Pro-B Natriuret Pep Total Protein 6.9 Albumin 3.6 Globulin 3.3 Albumin/Globulin Ratio 1.1 SARS-CoV-2 (PCR) 05/03/22 05/03/22 05/03/22 14:12 14:12 14:12 WBC RBC Hgb Hct MCV MCH MCHC RDW Plt Count Neut % (Auto) Lymph % (Auto) [place] % (Auto) Eos % (Auto) Baso % (Auto) Lymph # (Auto) [place] # (Auto) Baso # (Auto) Total Counted Seg Neutrophils % Lymphocytes % (Manual) Monocytes % (Manual) Basophils % (Manual) Neutrophils # (Manual) RBC Morphology Poikilocytosis PT INR Sodium Potassium Chloride Carbon Dioxide BUN Creatinine Estimated GFR BUN/Creatinine Ratio Glucose Lactate 2.4 H Calcium Total Bilirubin AST ALT Alkaline Phosphatase Total Creatine Kinase 39 L CK-MB (CK-2) TNP CK-MB (CK-2) Rel Index TNP Troponin I 0.027 NT-Pro-B Natriuret Pep 7400 H Total Protein Albumin Globulin Albumin/Globulin Ratio SARS-CoV-2 (PCR) 05/03/22 14:49 WBC RBC Hgb Hct MCV MCH MCHC RDW Plt Count Neut % (Auto) Lymph % (Auto) [place] % (Auto) Eos % (Auto) Baso % (Auto) Lymph # (Auto) [place] # (Auto) Baso # (Auto) Total Counted Seg Neutrophils % Lymphocytes % (Manual) Monocytes % (Manual) Basophils % (Manual) Neutrophils # (Manual) RBC Morphology Poikilocytosis PT INR Sodium Potassium Chloride Carbon Dioxide BUN Creatinine Estimated GFR BUN/Creatinine Ratio Glucose Lactate Calcium Total Bilirubin AST ALT Alkaline Phosphatase Total Creatine Kinase CK-MB (CK-2) CK-MB (CK-2) Rel Index Troponin I NT-Pro-B Natriuret Pep Total Protein Albumin Globulin Albumin/Globulin Ratio SARS-CoV-2 (PCR) Negative Assessment & Plan Assessment & Plan narrative: Mr. Peralta is an 87M with PMH afib, ckd stage 4 who presents with a fall found to have a left hip fracture. 1. Acute left hip fracture -secondary to mechanical fall -orthopedic consulted -pain well controlled, continue prn pain medications -patient is not clear when he took eliquis, but suspects it was on day of admission in AM on 05/03 -patient has multiple risk factors but his medical conditions are currently optimized and can proceed with surgery when safe to do so per ortho as he is on anticoagulation 2. Leukocytosis -appears chronic as had elevated WBC in 2020, though now at 24.7 from 12.1 -no symptoms of infection -has lymphocytic predominance, raises possibility of CLL -follow up as needed as outpatient 3. Anemia -has chronic anemia -last was in 2020 at 11, now 9.4 -suspect chronic, but will trend to make sure not related to fracture -may be secondary to renal disease 4. Elevated INR -secondary to eliquis vs poor nutrition -hold eliquis 5. Atrial fibrillation, chronic -hold eliquis, last dose suspect took on am 05/03 6. Probable pulmonary edema with CHF with last EF 55-60% in 2020, and mild aortic stenosis -continue home dose torsemide, but will order for daily instead of prn -as he has no respiratory symptoms will diurese gently 7. CKD stage 4 -last creatinine in 2020 was 2.2 -on admit creatinine 2.54, likely new baseline -monitor daily CODE: Full Proxy: Patrizia Leon, daughter I have utilized all available resources to reconcile the patient's home medications. Time Spent With Patient Critical Care time: I spent a total of [] minutes of critical care time on this patient's care today; this time is exclusive of procedural time. Quality VTE Deep Vein Thrombosis/Pulmonary Embolism Present on Admission: No MIPS - Admit I confirm the patient?s Advance Care Plan is present, Code status is documented, Surrogate decision maker is in patient?s record [If Yes, STOP here]: Yes
[2022-05-04] VITALS (18 sets, daily range): BP systolic 105–141; BP diastolic 55–66; PULSE 65–89; RESP 16–18; TEMP 36.6–37.4; O2SAT 87–98
[2022-05-04] MEDS: HYDROMORPHONE 0.5 MG INJ IV ×2 (01:17→11:44)
--- NOTE | 2022-05-04 04:48 | PC.NURSE ---
Pt's POX dropped to 87% on RA while sleeping, O2 2L NC applied, POX 95%. Pt is incontinent of urine, condom cath on draining clear yellow urine. Groin and gluteal crease red and excoriated, Opened superficial wound to left barbosa with scant bloody drainage on home drsg. Area cleaned with NS and drsg applied.
[2022-05-04 05:03] LABS: INR 1.6 (0.9-1.3); Prothrombin Time 18.3 SECONDS (10.1-12.7)
[2022-05-04 05:07] LABS: Lactate 2HR (Lactic Acid Rflx) 0.8 mmol/L (0.7-2.1)
[2022-05-04 05:10] LABS: BUN Creatinine Ratio 17.9 (6-22); Blood Urea Nitrogen 44 mg/dL (9-20); Carbon Dioxide 25 mmol/L (22-32); Chloride 108 mmol/L (98-107); Estimated Glomerular Filt Rate 25 mL/min (>60); Glucose 111 mg/dL (80-110); HEMOLYSIS < 15 (0-50); Potassium 4.4 mmol/L (3.4-5.1); Sodium 141 mmol/L (137-145)
[2022-05-04 05:13] LABS: Hematocrit 25.5 % (41-53); Hemoglobin 8.7 g/dL (13.5-17.5); Mean Corpuscular HGB Conc 34.2 % (30-36); Mean Corpuscular Hemoglobin 32.2 PG (26-34); Platelet Count 168 X10^3/uL (150-400); Red Blood Cell Count 2.71 X10^6/uL (4.5-5.9); Red Cell Distribution Width 15.1 % (11.6-14.8); White Blood Cell Count 22.9 X10^3/uL (4.5-11.0)
[2022-05-04] MEDS: FUROSEMIDE 40 MG/4 ML VIAL IV (08:19)
[2022-05-04] MEDS: PANTOPRAZOLE 40 MG VIAL IV ×2 (08:27→20:15)
[2022-05-04] MEDS: SODIUM CHLORIDE 0.9% FLUSH 10 ML IV ×3 (09:13→20:46)
--- NOTE | 2022-05-04 14:41 | PM.PN.1 ---
Subjective Subjective Date Patient Seen: 05/04/22 Interval history: Pain control is currently good, around a 2/10. He has no chest pain, shortness of breath, nausea, vomiting, LE edema. No palpitations. Hg down to 8.7 today from admission, Exam Vital Signs (past 8 hours): - 05/04/22 07:50 05/04/22 09:19 05/04/22 12:15 Temperature 98.0 F 98.3 F Pulse Rate 65 70 Respiratory Rate 18 18 Blood Pressure 109/55 L 118/64 Pulse Oximetry 95 95 92 Oxygen Delivery Method Room Air Oxygen Flow Rate 0 0 05/04/22 13:28 Temperature Pulse Rate Respiratory Rate Blood Pressure Pulse Oximetry 93 Oxygen Delivery Method Room Air Oxygen Flow Rate Oxygen Delivery Method Room Air Oxygen Flow Rate 0 Narrative Exam Narrative: GEN: no acute distress, hard of hearing HEENT: moist mucous membranes, PERRL NECK: trachea midline, no JVD CV: regular rate and rhythm, no murmurs PULM: clear bilaterally, no wheezes, rhonchi, rales ABD: soft, nontender, nondistended, no organomegaly EXT: warm and well perfused with trace edema, tender to palpation left hip, pedal pulses intact NEURO: awake, alert, moving all extremities SKIN: scattered small bruises Objective Labs Result Diagrams: 05/04/22 04:50 05/04/22 04:50 Labs: Laboratory Results - last 24 hr 05/03/22 05/03/22 05/03/22 14:12 14:12 14:12 WBC 24.7 H RBC 2.98 L Hgb 9.4 L Hct 28.2 L MCV 94.5 MCH 31.5 MCHC 33.3 RDW 15.3 H Plt Count 197 Neut % (Auto) Not Reportable Lymph % (Auto) Not Reportable [place] % (Auto) Not Reportable Eos % (Auto) Not Reportable Baso % (Auto) Not Reportable Lymph # (Auto) Not Reportable [place] # (Auto) Not Reportable Baso # (Auto) Not Reportable Total Counted 100 Seg Neutrophils % 29.0 L Lymphocytes % (Manual) 69.0 H Monocytes % (Manual) 1.0 L Basophils % (Manual) 1.0 Neutrophils # (Manual) 7163 H RBC Morphology See Poikilocytosis 1+ H PT 19.8 H INR 1.7 H Sodium 139 Potassium 4.6 Chloride 106 Carbon Dioxide 22 BUN 42 H Creatinine 2.54 H Estimated GFR 24 L BUN/Creatinine Ratio 16.5 Glucose 246 H Lactate Calcium 8.4 Total Bilirubin 0.9 AST 29 ALT 17 Alkaline Phosphatase 95 Total Creatine Kinase CK-MB (CK-2) CK-MB (CK-2) Rel Index Troponin I NT-Pro-B Natriuret Pep Total Protein 6.9 Albumin 3.6 Globulin 3.3 Albumin/Globulin Ratio 1.1 SARS-CoV-2 (PCR) 05/03/22 05/03/22 05/03/22 14:12 14:12 14:12 WBC RBC Hgb Hct MCV MCH MCHC RDW Plt Count Neut % (Auto) Lymph % (Auto) [place] % (Auto) Eos % (Auto) Baso % (Auto) Lymph # (Auto) [place] # (Auto) Baso # (Auto) Total Counted Seg Neutrophils % Lymphocytes % (Manual) Monocytes % (Manual) Basophils % (Manual) Neutrophils # (Manual) RBC Morphology Poikilocytosis PT INR Sodium Potassium Chloride Carbon Dioxide BUN Creatinine Estimated GFR BUN/Creatinine Ratio Glucose Lactate 2.4 H Calcium Total Bilirubin AST ALT Alkaline Phosphatase Total Creatine Kinase 39 L CK-MB (CK-2) TNP CK-MB (CK-2) Rel Index TNP Troponin I 0.027 NT-Pro-B Natriuret Pep 7400 H Total Protein Albumin Globulin Albumin/Globulin Ratio SARS-CoV-2 (PCR) 05/03/22 05/04/22 05/04/22 14:49 04:50 04:50 WBC 22.9 H RBC 2.71 L Hgb 8.7 L Hct 25.5 L MCV 94.0 MCH 32.2 MCHC 34.2 RDW 15.1 H Plt Count 168 Neut % (Auto) Lymph % (Auto) [place] % (Auto) Eos % (Auto) Baso % (Auto) Lymph # (Auto) [place] # (Auto) Baso # (Auto) Total Counted Seg Neutrophils % Lymphocytes % (Manual) Monocytes % (Manual) Basophils % (Manual) Neutrophils # (Manual) RBC Morphology Poikilocytosis PT INR Sodium Potassium Chloride Carbon Dioxide BUN Creatinine Estimated GFR BUN/Creatinine Ratio Glucose Lactate 0.8 Calcium Total Bilirubin AST ALT Alkaline Phosphatase Total Creatine Kinase CK-MB (CK-2) CK-MB (CK-2) Rel Index Troponin I NT-Pro-B Natriuret Pep Total Protein Albumin Globulin Albumin/Globulin Ratio SARS-CoV-2 (PCR) Negative 05/04/22 05/04/22 04:50 04:50 WBC RBC Hgb Hct MCV MCH MCHC RDW Plt Count Neut % (Auto) Lymph % (Auto) [place] % (Auto) Eos % (Auto) Baso % (Auto) Lymph # (Auto) [place] # (Auto) Baso # (Auto) Total Counted Seg Neutrophils % Lymphocytes % (Manual) Monocytes % (Manual) Basophils % (Manual) Neutrophils # (Manual) RBC Morphology Poikilocytosis PT 18.3 H INR 1.6 H Sodium 141 Potassium 4.4 Chloride 108 H Carbon Dioxide 25 BUN 44 H Creatinine 2.46 H Estimated GFR 25 L BUN/Creatinine Ratio 17.9 Glucose 111 H D Lactate Calcium 8.0 L Total Bilirubin AST ALT Alkaline Phosphatase Total Creatine Kinase CK-MB (CK-2) CK-MB (CK-2) Rel Index Troponin I NT-Pro-B Natriuret Pep Total Protein Albumin Globulin Albumin/Globulin Ratio SARS-CoV-2 (PCR) [facility] Medical History Anticoagulation adequate Atrial fibrillation Chronic kidney disease (CKD) stage G3a/A1, moderately decreased glomerular filtration rate (GFR) between 45-59 mL/min/1.73 square meter and albuminuria creatinine ratio less than 30 mg/g Chronic renal failure Coronary artery disease History of left common carotid artery stent placement History of right common carotid artery stent placement Peripheral arterial disease Surgical History History of appendectomy History of bilateral knee arthroplasty Stented coronary artery Family History Mother Lung cancer Father Lung cancer Other Hypertension Social History marital status: household members: spouse Smoking Status: Never smoker Assessment & Plan Assessment & Plan narrative: Mr. Peralta is an 87M with H afib, ckd stage 4 who presents with a fall found to have a left hip fracture. 1. Acute left hip fracture -secondary to mechanical fall -orthopedic consulted -pain well controlled, continue prn pain medications -last dose eliquis was AM of 05/03. -patient has multiple risk factors but his medical conditions are currently optimized and can proceed with surgery when safe to do so per ortho as he is on anticoagulation. Per discussion today plan for OR tomorrow AM. 2. Leukocytosis -appears chronic as had elevated WBC in 2020, though now at 24.7 from 12.1. May also be reactive in setting of fall. -no symptoms of infection -has lymphocytic predominance, raises possibility of CLL -follow up as needed as outpatient 3. Anemia -has chronic anemia -last was in 2020 at 11, was 9.4, now 8.7. In discussion with orthopedics will give 1U PRBC overnight prior to OR given expected blood loss and current anemia. -suspect chronic, but will trend to make sure not related to fracture -may be secondary to renal disease as well 4. Elevated INR -secondary to eliquis vs poor nutrition -held eliquis 5. Atrial fibrillation, chronic -hold eliquis, last dose suspect took on am 05/03 6. Probable pulmonary edema with acute on chronic CHF with last EF 55-60% in 2020, and mild aortic stenosis -continue home dose torsemide, but will order for daily instead of prn -overnight he required some supplemental oxygen (later noted probable YOSELIN) so he received 40 mg of IV lasix x1 dose. 7. CKD stage 4 -last creatinine in 2020 was 2.2 -on admit creatinine 2.54, likely new baseline -monitor daily CODE: Full Proxy: Patrizia Leon, daughter I have utilized all available resources to reconcile the patient's home medications. DVT: SCDs. Time Spent With Patient Critical Care time: I spent a total of [] minutes of critical care time on this patient's care today; this time is exclusive of procedural time. Quality VTE Deep Vein Thrombosis/Pulmonary Embolism Present on Admission: No MIPS - Admit I confirm the patient?s Advance Care Plan is present, Code status is documented, Surrogate decision maker is in patient?s record [If Yes, STOP here]: Yes
--- NOTE | 2022-05-04 15:34 | CM.DANOTE ---
Addendum entered by DWAYNE Valldaares 05/05/22 13:09: ADD: Dtr Patrizia lives with patient and cares for him 08/04. Dtr understands patient will likely require SNF upon DC and asks this ELECTRICAL & INSTRUMENTATION SUPERVISOR to start referrals to all SNFs that would consider patient's [facility] Patient in the OR this morning, therapies pending post operatively. Will begin SNF search JW Original Note: Initial DCP Assessment Note Pt is an 87 yo male, resident of [place], presents after a fall at home and found to have an acute left hip fx requiring surgical repair PCP: Formerly Sourav Coffey (current?) Payer: [facility] Reviewed chart, pt discussed in multidisciplinary rounds this morning.Patient currently scheduled in the OR for ORIF, left hip on 05.05.[address] Heck CM team will plan to follow closely for discussion w/patient and family post operatively re dispo options. Will also await dispo recs from therapy team DWAYNE Tabor Discharge Planning/Care Management Discharge Assessment Start: 05/04/22 15:21 Freq: Status: Active Protocol: Document 05/04/22 15:22 SUNNY (Rec: 05/04/22 15:34 SUNNY [id number]) Discharge Planning Assessment Assigned Oven Stripper DWAYNE Herring DPOA/Assigned Designee Name Patrizia Leonmehul (career professional) Contact Information [phone] Advance Directives? Yes Advance Directives on File No History Provided By Patient,Family Member,Medical Record Prior Living Arrangements House Household Members spouse Type of transporation used prior to Relies on Others admit Independent with ADL's Yes: Need to collect more info Is patient alert and oriented? Yes: Very [place] Patient/Family Preference Intermediate Facility Barriers to Discharge Yes Comment 87 yo, GLF/will require hip repair, expected to need SNF for recovery, will await surgery and post operative therapy and recs Discharge Plan Intermediate Facility Transportation Arrangement SNF likely to provide transport at d/c Referrals Initiated Intermediate
--- NOTE | 2022-05-04 17:18 | PM.CN ---
History of Present Illness Consult details Date Patient Seen: 05/03/22 Time Patient Seen: 17:00 Chief complaint: Fall, left leg pain Reason for consult: Left intertrochanteric hip fracture Requesting provider: Khushbu Field Narrative: The patient is an 87-year-old gentleman who fell sustaining the above-noted hip fracture. He was seen at [facility] where radiographs revealed a displaced femoral neck fracture. He has been anticoagulated. He has multiple medical issues that will require being addressed. He is admitted to the hospitalist service with orthopedic consultation for definitive management of the fracture. This note is documentation of a consultation that took place yesterday. I neglected to dictate the note at the appropriate time. Meds Home Medications and Allergies Home Medications Medication Instructions Recorded Confirmed Type amlodipine 5 mg tablet 5 mg PO DAILY 01/23/19 05/03/22 History atorvastatin 40 mg tablet 40 mg PO BEDTIME 01/23/19 05/03/22 History ferrous gluconate 324 mg (38 mg 324 mg PO BID 01/23/19 05/03/22 History iron) tablet apixaban 2.5 mg tablet (Eliquis) 2.5 mg BID 05/03/22 05/03/22 History pantoprazole 40 mg tablet,delayed 40 mg PO BID 05/03/22 05/03/22 History release torsemide 10 mg PO DAILY PRN Edema 05/03/22 05/03/22 History Allergies Allergy/AdvReac Type Severity Reaction Status Date / Time No Known Drug Allergies Allergy Verified 05/03/22 14:15 Review of Systems Review of Systems Narrative: The patient suffers from dementia and review of systems is not possible. Exam Vital Signs (past 8 hours): - 05/04/22 09:19 05/04/22 12:15 05/04/22 13:28 Temperature 98.3 F Pulse Rate 70 Respiratory Rate 18 Blood Pressure 118/64 Pulse Oximetry 95 92 93 Oxygen Delivery Method Room Air Room Air Oxygen Flow Rate 0 05/04/22 16:05 05/04/22 17:11 Temperature 98.6 F Pulse Rate 77 Respiratory Rate 18 Blood Pressure 105/66 Pulse Oximetry 93 93 Oxygen Delivery Method Room Air Oxygen Flow Rate 0 Oxygen Delivery Method Room Air Oxygen Flow Rate 0 Narrative Exam Narrative: The skin over the anticipated site of incision on the left hip is without lesions. Left leg is shortened and externally rotated. Calf is soft. The patient notes he can feel me touching his toes and he can wiggle his toes. Objective Labs Result Diagrams: 05/04/22 04:50 05/04/22 04:50 Labs: Laboratory Results - last 24 hr 05/04/22 05/04/22 05/04/22 04:50 04:50 04:50 WBC 22.9 H RBC 2.71 L Hgb 8.7 L Hct 25.5 L MCV 94.0 MCH 32.2 MCHC 34.2 RDW 15.1 H Plt Count 168 PT 18.3 H INR 1.6 H Sodium Potassium Chloride Carbon Dioxide BUN Creatinine Estimated GFR BUN/Creatinine Ratio Glucose Lactate 0.8 Calcium 05/04/22 04:50 WBC RBC Hgb Hct MCV MCH MCHC RDW Plt Count PT INR Sodium 141 Potassium 4.4 Chloride 108 H Carbon Dioxide 25 BUN 44 H Creatinine 2.46 H Estimated GFR 25 L BUN/Creatinine Ratio 17.9 Glucose 111 H D Lactate Calcium 8.0 L PFSH Medical History Anticoagulation adequate Atrial fibrillation Chronic kidney disease (CKD) stage G3a/A1, moderately decreased glomerular filtration rate (GFR) between 45-59 mL/min/1.73 square meter and albuminuria creatinine ratio less than 30 mg/g Chronic renal failure Coronary artery disease History of left common carotid artery stent placement History of right common carotid artery stent placement Peripheral arterial disease Surgical History History of appendectomy History of bilateral knee arthroplasty Stented coronary artery Family History Mother Lung cancer Father Lung cancer Other Hypertension Social History marital status: household members: spouse Tobacco & Substance Use Smoking Status: Never smoker Assessment & Plan Assessment & Plan narrative: The patient has multiple medical issues including chronic renal disease, and anticoagulation for atrial fibrillation. He has been on Eliquis which was stopped upon his hospitalization but it will not be 48 hours without the Eliquis until tomorrow morning on Saturday. He also has had an anemia which over the last 24 hours has worsened as he is become less dehydrated. There is also likely blood loss into the thigh from the hip fracture. I have been communicating with the medical service and we have discussed keeping him off the Eliquis, as well as transfusing him overnight tonight in preparation for open reduction and internal fixation with a dynamic hip screw to be performed at 9:00 a.m. on Saturday. I have discussed the situation with the patient's daughter. I have requested her to come in tomorrow morning for formal consent. COVID-19 COVID-19 status: Negative Result date/Date tested (Pos, Neg/Pending): 05/03/22 Time Spent With Patient Time with patient: less than 30 minutes Critical Care time: I spent a total of [] minutes of critical care time on this patient's care today; this time is exclusive of procedural time.
[2022-05-04] MEDS: OXYCODONE IR 5 MG TABLET PO (17:22)
[2022-05-04] MEDS: ATORVASTATIN 20 MG TABLET 40 MG PO (20:45)
[2022-05-05] VITALS (20 sets, daily range): BP systolic 122–150; BP diastolic 56–71; PULSE 69–91; RESP 14–24; TEMP 36.4–37.6; O2SAT 91–97; BMI 30.8
--- NOTE | 2022-05-05 | DI.RAD.S_ITS ---
PROCEDURE: XR HIP W PEL IF DONE LT 2V INDICATIONS: LT HIP SURGERY TECHNIQUE: 2 intraoperative low resolution spot films were obtained COMPARISON: [facility], , XR HIP W PEL IF DONE LT 2V, 05/03/2022, 14:23. FINDINGS: Intraoperative fluoroscopic spot films shows femoral neck compression screw and sideplate in good position transfixing an intertrochanteric fracture. IMPRESSION: Left hip orthopedic hardware in good position Approved by: Gustabo Mcfadden M.D. on 05/05/2022 at 17:36
--- NOTE | 2022-05-05 | PC.NURSE ---
Blood transfusion started at 20:30, complete at 23:48. No Adverse side effects noted.
--- NOTE | 2022-05-05 08:26 | PC.NURSE ---
Day shift: Pt seen by Dr Heck and Dr Boles this AM prior to going down for surgery. Pt's Daughter in room this AM also. Off unit for hip procedure at approx 0830. Off tele.
--- NOTE | 2022-05-05 08:28 | PM.PREOP ---
Pre-operative Note COVID-19 COVID-19 status: Negative Result date/Date tested (Pos, Neg/Pending): 05/03/22 Interval Note History & Physical reviewed/Exam performed by Physician: Yes Changes to H&P: Yes H&P completed within 30 days and has changed as indicated here:: He has had a transfusion overnight in preparation for surgery. Has been off Eliquis for 2 days now.
[2022-05-05] MEDS: LACTATED RINGERS 1,000 ML 42 ML IV (08:53)
--- NOTE | 2022-05-05 08:54 | SUR.PREOP ---
Patient to pre-op area in stable condition for left hip repair. Patient ABSENTEE-SHAWNEE and confused at times per baseline. Patient AAO x 3 at arrival. Consents for surgery and anesthesia signed by daughter, Darlene; verbal consent obtained over phone for anesthesia consent and witnessed by Lynne Martínez RN and Genesis Borrego RN. Condom cath noted on arrival to pre-op. Afib at a controlled rate noted on monitor; room air saturation WNL.
[2022-05-05] MEDS: CEFAZOLIN 2 GM/100 ML PREMIX 100 ML IV (09:10)
[2022-05-05] MEDS: TRANEXAMIC ACID 1,000 MG VIAL 2000 MG INJ ×2 (09:21→09:47)
[2022-05-05] MEDS: BUPIVACAINE 0.5% W/ EPI (PF) 30 ML VIAL INJ (09:28)
--- NOTE | 2022-05-05 09:31 | SUR.OPER ---
Supine on padded [place] table with left leg secured in padded positioning boots and suspended in positioning spars, foot wrapped with cast padding and coban, operative leg in traction per surgeon. Right leg in padded well leg vasquez, Head on one pillow. Arm on non-operative side secured on padded armboard <90 degrees abduction. Arm on operative side padded and resting across chest then secured with tape over sheet. Padded perineal post in place per surgeon.
--- NOTE | 2022-05-05 10:17 | PC.NURSE ---
Day shift: Pt remains off unit at this time.
--- NOTE | 2022-05-05 10:17 | SUR.PHASEI ---
Patient to recovery room with anesthesia and nursing staff in stable condition s/p left hip repair. VSS; resting with eyes closed; RR even and unlabored; no distress noted. Afib noted on monitor at a controlled rate of 83; dressing to left hip clean, dry and intact.
--- NOTE | 2022-05-05 10:18 | P.OP_ITS ---
Operative Date/Time/Diagnoses Date of procedure: 05/05/22 Time of procedure: 10:18 Pre-op diagnosis: Left closed, displaced intertrochanteric hip fracture Post-op diagnosis: same Procedure & Clinicians Procedure: Open reduction internal fixation with dynamic hip screw Same procedure as scheduled: Yes Indications: The patient is an 87-year-old gentleman with failing health, mild dementia and significant hearing loss. He fell sustaining the above-noted fracture 2 days ago. His surgery has been delayed due to medical considerations and due to the fact that he has been anticoagulated with Eliquis. After 2 days off the Eliquis and appropriate treatment of his underlying medical issues he is taken to the operating room for repair of the fracture. The risks benefits and alternatives of the surgery were discussed with the patient's daughter in the patient's presence. Risks discussed included but were not limited to: Failure of the hardware, cutting out of the screws, excessive bleeding requiring transfusion, stiffness, infection, nerve damage, deep venous thrombosis, pulmonary embolism, stroke, myocardial infarction, permanent paralysis and . Surgeon: Leland Heck Click Yes if Unassisted: Yes Anesthesia Type: General and Local Operative Notes Findings: Displaced intertrochanteric femoral fracture on the left with anatomic reduction and appropriate position of hardware. Closure Type: primary Specimen(s): none sent Prosthetic devices, grafts, tissues, transplants, or devices: Implants used during this procedure were manufactured by the [employer] and included a 135 degree long barrel 4 hole side plate, 110 mm lag screw and 4 cortical screws to hold the plate on the lateral femur. Applied: implant(s) Estimated Blood Loss (mL): 250 Blood products transfused: none Procedure in detail: The patient was seen in the preoperative area where his left hip was marked with my initials to identify the operative site. He was taken to the operating room and placed on the operating room table in the supine position after undergoing a general anesthetic on his hospital bed. A perineal post was placed. His left leg was placed in the traction leg vasquez in his right leg placed in the well leg vasquez. This was flexed abducted and internally rotated to get it out of the way of the fluoro. All pressure points were well padded. Traction was applied to the left leg and internal rotation applied to reduce the fracture. The position the fracture was identified as being anatomic in the AP and lateral views of fluoroscopy. A furniture assembler and installer-out was performed. The patient received preoperative antibiotics and a dose of tranexamic acid prior to surgery. The lateral aspect of the femur was then prepared with ChloraPrep in the usual fashion and draped with an adherent drape. An approximately 10 cm incision was created overlying the proximal femoral shaft just distal to the greater trochanter. This was carried to the fascia nai which was incised. The vastus lateralis fascia was incised and the muscle bluntly dissected with a Seay elevator off the lateral aspect of the femur. Hemostasis was obtained with electrocautery. The 135 degree guide was used to place a guide pin in the center of the femoral head on the AP and lateral views. This was measured and the triple Reamer used prior to placement of the appropriate length lag screw. The sideplate was then tapped into position over the guide screw. This was confirmed as being appropriately positioned on the fluoroscopy. Four screws were then used to hold this in position. The position of the hardware and the fracture was confirmed as being satisfactory in the AP and lateral views of fluoroscopy. After placement of the side plate with the 1st screw the traction had been removed on the left leg to prevent excessive length of time in traction. Wound was copiously irrigated. A 2nd g of tranexamic acid was administered. The wound was closed with running 2-0 Vicryl in the fascia of the vastus lateralis followed by running and interrupted 0 Vicryl in the fascia nai. Running and interrupted 3-0 Vicryl was used in the subcutaneous layer and hadley for skin. A total of 20 mL of 0.5% Marcaine was injected into the soft tissues for postoperative pain control. Dressings of Xeroform, sterile 4x4s, an ABD and Tegaderm were applied. The patient's legs were then taken out of traction and the well leg vasquez. Was allowed to awaken in the operating room and transferred to the recovery room in good condition having tolerated the procedure well. Complications: none Post-operative Condition: stable Disposition: PACU Plan for aftercare: The patient will be allowed to weight bear as tolerated on his operative leg. He will likely require half-way facility placement due to his age, general poor health and dementia.
--- NOTE | 2022-05-05 11:00 | PC.NURSE ---
Day shift: Pt back in room from PACU at approx 1045. He denies any pain or nausea. VS WNL. RA 93%. Dressing on left hip is CDI. SCD's in place. Calm and cooperative. Call light in reach. Bed alarm is on. Door to room is open. With continue with plan of care. CMS ok and PPP.
--- NOTE | 2022-05-05 11:35 | PT.IIE ---
Current Diagnoses Displaced intertrochanteric fracture of left femur, initial encounter for closed fracture (05/03/22) Surgery Performed Operation Date: 05/05/22 09:00 Actual Procedures p ORIF Hip DHS(Left) - Leland Heck MD Surgical History (Last Reviewed 05/03/22 @ 23:28 by Mirza Ravi MD) History of appendectomy History of bilateral knee arthroplasty Stented coronary artery Medical History (Last Reviewed 05/04/22 @ 17:20 by Leland Heck MD) Anticoagulation adequate Atrial fibrillation Chronic kidney disease (CKD) stage G3a/A1, moderately decreased glomerular filtration rate (GFR) between 45-59 mL/min/1.73 square meter and albuminuria creatinine ratio less than 30 mg/g Chronic renal failure Coronary artery disease History of left common carotid artery stent placement History of right common carotid artery stent placement Peripheral arterial disease Physical Therapy Inpatient Evaluation/Re-Eval M1 PT/OT-IP Prior Functional Status Start: 05/05/22 13:08 Freq: NEEDED Status: Active Protocol: Document 05/05/22 11:35 AB (Rec: 05/05/22 13:18 AB [id number]) Medical Review Prior Functional Status Medical History Reviewed Yes Communication able to make needs known; pt is very [place] Mobility and Gait pt stated that he is independent with all mobilities and ambulation using FWW or SPC and sometimes without AD Social History Household Members family Living Arrangements House Number of Floors (Floors) Two Floors Number of Stairs To Enter/Railing? no steps to enter the house 4 steps B rails to get to bedroom level Home Environment Standard Height Toilet,Walk in Shower Home Equipment Raised Toilet Seat w/Armrests, Shower Seat with Backrest,Hand Held Shower,Grab Bars Near Toilet,Grab Bars In Shower Additional Social History Comment bed has R side rail M2 PT-IP Current Condition Start: 05/05/22 13:08 Freq: NEEDED Status: Active Protocol: Document 05/05/22 11:35 AB (Rec: 05/05/22 13:18 AB [email or web address]) Physical Therapy Current Condition Current Condition Evaluation Date 05/05/22 Treatment Diagnosis L femoral fx s/p ORIF; difficulty in walking Onset Date 05/03/22 M3 PT-IP Subjective Start: 05/05/22 13:08 Freq: NEEDED Status: Active Protocol: Document 05/05/22 11:35 AB (Rec: 05/05/22 13:18 AB [email or web address]) Subjective Physical Therapy Visit Type Type Initial Evaluation Visit Start Time 11:35 Visit Stop Time 12:27 Total Visit Minutes 52 Number of SILHOUETTE ARTIST Visits 0 Physical Therapy Visit Comments Patient Comments agreeable to do PT M4 PT-IP Mobility and Gait Start: 05/05/22 13:08 Freq: NEEDED Status: Active Protocol: Document 05/05/22 11:35 AB (Rec: 05/05/22 13:18 AB [email or web address]) PT-Bed Mobility Assessment Supine to Sit Supine to Sit Maximum Assistance,2 Person Assistance Sit to Supine Sit to Supine Maximum Assistance,Total Assistance,2 Person Assistance Scooting Scooting to Edge of Bed Dependent PT-Transfer Assessment Sit to and From Stand Sit to and from Stand Maximum Assistance,2 Person Assistance,Use of Upper Extremities Equipment Transfer Assistive Device Gait Belt,Front Wheeled Walker Orthotic/Prosthetic Devices or Brace: No Comments Mobility Comments pt completed supine to sit max A x 2 and max cues. able to sit on EOB CGA to min A. attempted sit to stand x 2 and pt unable to stand. attempted again with bed height elevated and pt completed sit to stand max A x 2 and max cues but only tolerated ~ 10 sec of standing . c/o L hip pain. completed sit to supine total A x 2 and max cues. positioned pt in bed max A x 2 to total A x 2. call light and table placed within reach. Gait Assessment Comments Gait Comments unable at this time PT-Balance Assessment Sitting Balance and Reactions Static Sitting Balance Ability Good Dynamic Sitting Balance Ability Fair Standing Balance and Reactions Static Standing Balance Ability Poor Dynamic Standing Balance Ability Poor Device Used FWW M5 PT-IP Objective Assessments Start: 05/05/22 13:08 Freq: NEEDED Status: Active Protocol: Document 05/05/22 11:35 AB (Rec: 05/05/22 13:18 AB [email or web address]) Orientation Orientation/Cognition Level of Alertness Alert Orientation Name,Place,Situation Language Function Ability Hard of Hearing Safety Awareness Decreased Safety Awareness Memory Description Short Term Impaired Gross Range of Motion Lower Extremity ROM Assessment Within Functional Limits Strength Lower Extremity Strength Assessment Left Impaired Hip 3-/5 Knee 3+/5 Coordination Assessment Gross Coordination Gross Coordination WNL Sensation Assessment Sensation Gross Sensation WNL Muscle Tone Muscle Tone WNL Yes M6 PT-IP Treatment Start: 05/05/22 13:08 Freq: NEEDED Status: Active Protocol: Document 05/05/22 11:35 AB (Rec: 05/05/22 13:18 AB [id number]) Physical Therapy Treatment Education Education Provided Precautions,Weight Bearing Status,Post-Op Packet,Safety M7 PT-IP Assessment and Plan Start: 05/05/22 13:08 Freq: NEEDED Status: Active Protocol: Document 05/05/22 11:35 AB (Rec: 05/05/22 13:18 AB [email or web address]) PT Summary Assessment and Plan Potential Rehabilitation Potential Fair Status of Condition at Evaluation Evolving Summary Impairments Pain,ROM,Strength,Balance, Coordination,Sensation,Tone, Cognition,Bed Mobility, Transfers,Gait,Activity Tolerance Assessment Summary pt requiring max A x 2 to total A x 2 with mobility and unable to ambulate at this time. pt will need SNF rehab to improve strength and functional independence. will continue to assess progress. Goals Bed Mobility Goal Minimal Assistance Transfer Goal Minimal Assistance,Front Wheeled Walker Gait Goal Minimal Assistance,Front Wheel Walker Gait Distance 25 Other Goals improve bed mobility, transfers and ambulation using FWW ~100 ft SBA Days to Meet Goals 10 Frequency of Treatment Frequency Of Treatment Twice a Day Treatment Plan Physical Therapy Treatment Plan Bed Mobility Training,Transfer Training,Gait Training, Therapeutic Exercise,Balance Retraining,Post Op Education, Discharge Planning,Hot or Cold Pack,Neuromuscular Re-ed, Coordination Retraining,Manual Therapy Weight Bearing Status Weight Bearing Status Weight Bear as Tolerated Allowed Weight Bearing Amount (enter % LLE WBAT or #) (%) Recommendations To Nursing Amount of Assist Needed Mechanical Lift Discharge Recommendations PT Discharge Recommendations SNF Rehab Transportation Needs at Discharge Wheelchair/Cabulance
--- NOTE | 2022-05-05 13:40 | PM.PN.1 ---
Subjective Subjective Date Patient Seen: 05/05/22 Interval history: 87 year old male admitted with a L hip fracture. He is on eliquis so surgical intervention was delayed until this AM. Prior to surgery he had no complaints of chest pain, shortness of breath, nausea, or vomiting. Exam Vital Signs (past 8 hours): - 05/05/22 08:49 05/05/22 10:09 05/05/22 10:14 Temperature 99.7 F H 98.7 F Pulse Rate 77 87 89 Respiratory Rate 24 15 14 Blood Pressure 134/71 138/66 125/60 Pulse Oximetry 94 93 94 Oxygen Delivery Method Room Air Room Air Room Air Oxygen Flow Rate 05/05/22 10:19 05/05/22 10:28 05/05/22 10:35 Temperature 97.5 F L Pulse Rate 80 82 79 Respiratory Rate 24 22 18 Blood Pressure 132/67 145/70 H 150/63 H Pulse Oximetry 94 93 92 Oxygen Delivery Method Room Air Room Air Oxygen Flow Rate 0 05/05/22 11:05 05/05/22 11:35 05/05/22 12:07 Temperature 97.6 F 97.5 F L Pulse Rate 75 71 Respiratory Rate 18 18 Blood Pressure 133/56 L 135/63 Pulse Oximetry 91 92 Oxygen Delivery Method Room Air Oxygen Flow Rate 0 0 05/05/22 12:07 05/05/22 13:00 05/05/22 12:35 Temperature 97.5 F L Pulse Rate 86 Respiratory Rate 18 Blood Pressure 129/65 Pulse Oximetry 92 93 93 Oxygen Delivery Method Room Air Room Air Oxygen Flow Rate 0 Oxygen Delivery Method Room Air Oxygen Flow Rate 0 Narrative Exam Narrative: GEN: no acute distress, hard of hearing HEENT: moist mucous membranes, PERRL NECK: trachea midline, no JVD CV: regular rate and rhythm, no murmurs PULM: clear bilaterally, no wheezes, rhonchi, rales ABD: soft, nontender, nondistended, no organomegaly EXT: no edema or joint effusions today. NEURO: awake, alert, moving all extremities SKIN: scattered small bruises Objective Labs Result Diagrams: 05/04/22 04:50 05/04/22 04:50 Labs: Laboratory Results - last 24 hr 05/04/22 18:45 Blood Type A Positive Antibody Screen Negative Crossmatch See Detail [facility] Medical History Anticoagulation adequate Atrial fibrillation Chronic kidney disease (CKD) stage G3a/A1, moderately decreased glomerular filtration rate (GFR) between 45-59 mL/min/1.73 square meter and albuminuria creatinine ratio less than 30 mg/g Chronic renal failure Coronary artery disease History of left common carotid artery stent placement History of right common carotid artery stent placement Peripheral arterial disease Surgical History History of appendectomy History of bilateral knee arthroplasty Stented coronary artery Family History Mother Lung cancer Father Lung cancer Other Hypertension Social History marital status: household members: family Smoking Status: Never smoker Assessment & Plan Assessment & Plan narrative: Mr. Peralta is an 87M with PMH afib, ckd stage 4 who presents with a fall found to have a left hip fracture. 1. Acute left hip fracture -secondary to mechanical fall -orthopedic surgery consulted, plan for OR today. -pain well controlled, continue prn pain medications -last dose eliquis was AM of 05/03. -patient has multiple risk factors but his medical conditions are currently optimized and can proceed with surgery when safe to do so per ortho as he is on anticoagulation. 2. Leukocytosis -appears chronic as had elevated WBC in 2020, though now at 24.7 from 12.1. May also be reactive in setting of fall. -no symptoms of infection -has lymphocytic predominance, raises possibility of CLL -follow up as needed as outpatient 3. Anemia -has chronic anemia -last was in 2020 at 11, was 9.4, now 8.7. In discussion with orthopedics will gave 1U PRBC overnight prior to OR given expected blood loss and current anemia. -suspect chronic, but will trend to make sure not related to fracture -may be secondary to renal disease as well -follow up h/h tomorrow. 4. Elevated INR -secondary to eliquis most likely -held eliquis prior to surgery, restart once feasible after operative interventions. 5. Atrial fibrillation, chronic -hold eliquis, last dose he took on am 05/03 6. Probable pulmonary edema with acute on chronic CHF with last EF 55-60% in 2020, and mild aortic ,stenosis and YOSELIN -he was given a single dose of lasix with improvement in his hypoxia. He requires oxygen and desaturates as well when sleeping indicative of YOSELIN -Goal O2 >90%. -continue home medications, 10 mg torsemide following surgery. 7. CKD stage 4 -last creatinine in 2020 was 2.2 -on admit creatinine 2.54, likely new baseline will continue to follow. -monitor daily CODE: Full Proxy: Patrizia Leon, daughter I have utilized all available resources to reconcile the patient's home medications. DVT: SCDs. Dispo: suspect he will need SNF after surgical repair and medical stability achieved. Time Spent With Patient Critical Care time: I spent a total of [] minutes of critical care time on this patient's care today; this time is exclusive of procedural time. Quality VTE Deep Vein Thrombosis/Pulmonary Embolism Present on Admission: No
[2022-05-05] MEDS: OXYCODONE IR 5 MG TABLET PO (14:36)
[2022-05-05] MEDS: ATORVASTATIN 20 MG TABLET 40 MG PO (21:04)
[2022-05-05] MEDS: PANTOPRAZOLE DR 40 MG TABLET PO (21:04)
[2022-05-05] MEDS: SODIUM CHLORIDE 0.9% FLUSH 10 ML IV (21:05)
[2022-05-05] MEDS: APIXABAN 5 MG TABLET 2.5 MG PO (21:05)
[2022-05-06] VITALS (8 sets, daily range): BP systolic 108–120; BP diastolic 52–65; PULSE 78–87; RESP 12–20; TEMP 36.7–37.1; O2SAT 93–97
[2022-05-06] MEDS: OXYCODONE IR 5 MG TABLET PO (02:56)
[2022-05-06 06:10] LABS: Alanine Aminotransferase 14 IU/L (<50); Albumin 2.8 g/dL (3.5-5.0); Albumin Globulin Ratio 0.9 (1.0-2.8); Alkaline Phosphatase 77 U/L (38-126); Aspartate Aminotransferase 28 IU/L (17-59); BUN Creatinine Ratio 20.7 (6-22); Bilirubin Total 1.1 mg/dL (0.2-1.3); Blood Urea Nitrogen 54 mg/dL (9-20); Calcium 7.6 mg/dL (8.4-10.2); Carbon Dioxide 23 mmol/L (22-32); Chloride 103 mmol/L (98-107); Estimated Glomerular Filt Rate 23 mL/min (>60); Glucose 120 mg/dL (80-110); HEMOLYSIS < 15 (0-50); Sodium 135 mmol/L (137-145); Total Protein 5.8 g/dL (6.3-8.2)
[2022-05-06 06:17] LABS: Hematocrit 27.2 % (41-53); Hemoglobin 9.1 g/dL (13.5-17.5); Mean Corpuscular HGB Conc 33.5 % (30-36); Mean Corpuscular Hemoglobin 31.8 PG (26-34); Platelet Count 185 X10^3/uL (150-400); Red Blood Cell Count 2.86 X10^6/uL (4.5-5.9); Red Cell Distribution Width 14.9 % (11.6-14.8); White Blood Cell Count 28.6 X10^3/uL (4.5-11.0)
[2022-05-06] MEDS: PANTOPRAZOLE DR 40 MG TABLET PO ×2 (06:19→21:09)
--- NOTE | 2022-05-06 07:46 | PM.PNPO.1 ---
Subjective Subjective Date Patient Seen: 05/06/22 Time Patient Seen: 07:47 Interval history: Pt sleeping, daughter at bedside. He is extremely [place] and has some dementia, which makes interviewing and examination challenging. However, he appears to be comfortable and in good spirits. Exam Vital Signs (past 8 hours): - 05/06/22 03:19 Temperature 98.7 F Pulse Rate 83 Respiratory Rate 16 Blood Pressure 120/62 Pulse Oximetry 96 Oxygen Flow Rate 0 Oxygen Delivery Method Room Air Oxygen Flow Rate 0 Narrative Exam Narrative: Able to move foot, bend at knee and flex at hip. Calves soft, compressible, and without palpable cords or masses. Dressing placed intraoperatively is CDI. Objective Labs Result Diagrams: 05/06/22 05:28 05/06/22 05:28 Labs: Laboratory Results - last 24 hr 05/06/22 05/06/22 05:28 05:28 WBC 28.6 H RBC 2.86 L Hgb 9.1 L Hct 27.2 L MCV 95.0 MCH 31.8 MCHC 33.5 RDW 14.9 H Plt Count 185 Sodium 135 L Potassium 4.0 Chloride 103 Carbon Dioxide 23 BUN 54 H Creatinine 2.61 H Estimated GFR 23 L BUN/Creatinine Ratio 20.7 Glucose 120 H Calcium 7.6 L Total Bilirubin 1.1 AST 28 ALT 14 Alkaline Phosphatase 77 Total Protein 5.8 L Albumin 2.8 L Globulin 3.0 Albumin/Globulin Ratio 0.9 L [facility] Medical History Anticoagulation adequate Atrial fibrillation Chronic kidney disease (CKD) stage G3a/A1, moderately decreased glomerular filtration rate (GFR) between 45-59 mL/min/1.73 square meter and albuminuria creatinine ratio less than 30 mg/g Chronic renal failure Coronary artery disease History of left common carotid artery stent placement History of right common carotid artery stent placement Peripheral arterial disease Surgical History History of appendectomy History of bilateral knee arthroplasty Stented coronary artery Family History Mother Lung cancer Father Lung cancer Other Hypertension Social History marital status: household members: family Smoking Status: Never smoker Assessment & Plan Post-op Assessment and plan (1) Closed left hip fracture: Assessment and Plan narrative: Will likely need SNF rehab d/t dementia and underlying medical issues. WBAT LLE. Pt takes Eliquis d/t a fib and this will be adequate for post-surgical VTE prophylaxis. He should follow up at [facility] between May 15 and May 19 for staple removal and wound check, but if coordinating this with his living situation is too difficult, staple removal and wound check can be done at SNF. He should follow up with our office no later than 6 weeks after surgery for radiographs. Postoperative Procedures: Procedures Operation Date: 05/05/22 09:00 Actual Procedure Side Surgeon p ORIF Hip DHS Left Leland Heck MD Postoperative day: 1 Quality VTE Deep Vein Thrombosis/Pulmonary Embolism Present on Admission: No
[2022-05-06] MEDS: AMLODIPINE 5 MG TABLET PO (08:55)
[2022-05-06] MEDS: TORSEMIDE 10 MG TABLET PO (08:55)
[2022-05-06] MEDS: APIXABAN 5 MG TABLET 2.5 MG PO ×2 (08:55→20:29)
[2022-05-06] MEDS: DOCUSATE 100 MG CAPSULE PO ×2 (08:55→20:29)
[2022-05-06] MEDS: SODIUM CHLORIDE 0.9% FLUSH 10 ML IV ×2 (08:57→21:10)
--- NOTE | 2022-05-06 12:10 | PT.IPTN ---
Current Diagnoses Fracture of unspecified part of neck of left femur, initial encounter for closed fracture (05/03/22) Displaced intertrochanteric fracture of left femur, initial encounter for closed fracture (05/03/22) Surgery Performed Operation Date: 05/05/22 09:00 Actual Procedures p ORIF Hip DHS(Left) - Leland Heck MD Physical Therapy Treatment Note M2 PT-IP Current Condition Start: 05/05/22 13:08 Freq: NEEDED Status: Active Protocol: Document 05/05/22 11:35 AB (Rec: 05/05/22 13:18 AB [id number]) Physical Therapy Current Condition Current Condition Evaluation Date 05/05/22 Treatment Diagnosis L femoral fx s/p ORIF; difficulty in walking Onset Date 05/03/22 M3 PT-IP Subjective Start: 05/05/22 13:08 Freq: NEEDED Status: Active Protocol: Document 05/06/22 12:10 DLM (Rec: 05/06/22 12:34 DLM [id number]) Subjective Physical Therapy Visit Type Type Treatment Note Visit Start Time 11:45 Visit Stop Time 12:10 Total Visit Minutes 25 Number of ION EXCHANGE OPERATOR Visits 0 Physical Therapy Visit Comments Patient Comments He thinks he is too weak to be able to walk M4 PT-IP Mobility and Gait Start: 05/05/22 13:08 Freq: NEEDED Status: Active Protocol: Document 05/06/22 12:10 DLM (Rec: 05/06/22 12:34 DLM [id number]) PT-Bed Mobility Assessment Supine to Sit Supine to Sit Maximum Assistance,1 Person Assistance,Head of Bed Elevated Sit to Supine Sit to Supine Maximum Assistance,2 Person Assistance Scooting Scooting to Edge of Bed Moderate Assistance Scooting Up and Down in Bed Dependent PT-Transfer Assessment Sit to and From Stand Sit to and from Stand Moderate Assistance,2 Person Assistance,Use of Upper Extremities Equipment Transfer Assistive Device Gait Belt,Front Wheeled Walker Comments Mobility Comments He sat up on edge of bed. Pt stood at edge of bed with FWW x 3 trials. He was not able to progress to transfers to the chair today. Gait Assessment Gait Gait Assistance Required: Moderate Assistance Distance (Feet) 1 Assistive Devices Assistive Device Gait Belt,Front Wheeled Walker Gait Deviations General Gait Pattern Antalgic,Flexed Trunk Factors Limiting Gait Function Factors Limiting Gait Function Decreased Activity Tolerance, Decreased Strength,Pain,Poor Balance Comments Gait Comments Pt able to take a couple of side steps at edge of bed, able to move left LE but poor ability to move right LE and bear weight on left. He c/o pain with attempts to bear weight on left. He is not able to compensate well with his UE's on the FWW due to significant arthritic changes in bilateral UE's PT-Balance Assessment Sitting Balance and Reactions Static Sitting Balance Ability Good Dynamic Sitting Balance Ability Fair Standing Balance and Reactions Static Standing Balance Ability Fair Dynamic Standing Balance Ability Poor Device Used FWW M5 PT-IP Objective Assessments Start: 05/05/22 13:08 Freq: NEEDED Status: Active Protocol: Document 05/05/22 11:35 AB (Rec: 05/05/22 13:18 AB [email or web address]) Orientation Orientation/Cognition Level of Alertness Alert Orientation Name,Place,Situation Language Function Ability Hard of Hearing Safety Awareness Decreased Safety Awareness Memory Description Short Term Impaired Gross Range of Motion Lower Extremity ROM Assessment Within Functional Limits Strength Lower Extremity Strength Assessment Left Impaired Hip 3-/5 Knee 3+/5 Coordination Assessment Gross Coordination Gross Coordination WNL Sensation Assessment Sensation Gross Sensation WNL Muscle Tone Muscle Tone WNL Yes M6 PT-IP Treatment Start: 05/05/22 13:08 Freq: NEEDED Status: Active Protocol: Document 05/06/22 12:10 DLM (Rec: 05/06/22 12:34 [facility] [id number]) Physical Therapy Treatment Exercises Exercises Ankle Pumps,Heel Slides Education Education Provided Weight Bearing Status,Safety Other Treatments Other Treatment Performed all exercises with assistance M7 PT-IP Assessment and Plan Start: 05/05/22 13:08 Freq: NEEDED Status: Active Protocol: Document 05/06/22 12:10 DLM (Rec: 05/06/22 12:34 [facility] [id number]) PT Summary Assessment and Plan Summary Impairments Pain,ROM,Strength,Balance, Coordination,Tone,Cognition, Bed Mobility,Transfers,Gait, Activity Tolerance Progress Towards Goals Progressing Toward Goals Assessment Summary Milton is alert and resting in bed. He is hard of hearing and communication can be challening. No family present for this therapy visit. He shows good effort with therapy but continues to have low activity tolerance. His mobility is very slow. He was able to sit edge of bed and stand up but continues to need 2 person assistance. Pt returned to bed after therapy. Coordinated this visit with nursing to get bed changed while pt up. Pt set up for lunch. Continue to recommend SNF rehab at discharge. Goals Bed Mobility Goal Minimal Assistance Transfer Goal Minimal Assistance,Front Wheeled Walker Gait Goal Minimal Assistance,Front Wheel Walker Gait Distance 25 Other Goals improve bed mobility, transfers and ambulation using FWW ~100 ft SBA Days to Meet Goals 10 Frequency of Treatment Frequency Of Treatment Twice a Day Treatment Plan Physical Therapy Treatment Plan Bed Mobility Training,Transfer Training,Gait Training, Therapeutic Exercise,Balance Retraining,Post Op Education, Discharge Planning,Hot or Cold Pack,Neuromuscular Re-ed Precautions Other Precautions hard of hearing, UE arthritic changes in joints Weight Bearing Status Weight Bearing Status Weight Bear as Tolerated Allowed Weight Bearing Amount (enter % Left LE WBAT, s/p ORIF or #) (%) Recommendations To Nursing Amount of Assist Needed 2 Person Assist,Mechanical Lift Discharge Recommendations PT Discharge Recommendations SNF Rehab Transportation Needs at Discharge Wheelchair/Cabulance
--- NOTE | 2022-05-06 13:30 | CM.DPC ---
DCP SNF Planning: Per Ortho and , pt needing SNF at d/c. Per PT, recommending SNF before safe return home with Dtr. SW spoke to [facility] and they do not currently have beds for a few days. SW left msg with TIM, MARIO, Yousif SUTTON on their review. SW spoke to [facility] w/e admissions and she reviewed and confirms that she feels they can accept and willing to initiate [employer] MCR auth and SW ordered OT today knowing they will not be present until tomorrow to work with pt but SW faxed updated clinicals and PT notes to review towards sending for SNF auth. LAUREL printed pt's COVID vax status and pt's booster was in Sep 2021 this year and therefore pt would be eligible for another booster to keep from having to quarantine. LAUREL completed PASRR and printed COVID booster from [facility]. Plan: SW to follow for [facility] initiating [employer] MCR SNF auth and discussion with pt/Dtr about receiving the updated COVID booster prior to SNF. Erna Sawyer MSW
--- NOTE | 2022-05-06 14:42 | P.PN_ITS ---
Subjective Subjective Date Patient Seen: 05/06/22 Interval history: 87 year old male admitted with a L hip fracture. Now POD#1. He had no complaints of chest pain, shortness of breath, nausea, or vomiting. His pain is controlled today, he states he was able to stand but not do much else with PT today. Exam Vital Signs (past 8 hours): - 05/06/22 07:53 05/06/22 08:38 05/06/22 12:19 Temperature 98.3 F 98.0 F Pulse Rate 80 87 Respiratory Rate 20 20 Blood Pressure 110/60 116/65 Pulse Oximetry 97 97 96 Oxygen Delivery Method Room Air Oxygen Flow Rate 0 0 05/06/22 13:56 Temperature Pulse Rate Respiratory Rate Blood Pressure Pulse Oximetry 96 Oxygen Delivery Method Room Air Oxygen Flow Rate Oxygen Delivery Method Room Air Oxygen Flow Rate 0 Narrative Exam Narrative: GEN: no acute distress, hard of hearing HEENT: moist mucous membranes, PERRL NECK: trachea midline, no JVD CV: regular rate and rhythm, no murmurs PULM: clear bilaterally, no wheezes, rhonchi, rales ABD: soft, nontender, nondistended, no organomegaly EXT: no edema or joint effusions today. dressing c/d/i. NEURO: awake, alert, moving all extremities SKIN: scattered small bruises Objective Labs Result Diagrams: 05/06/22 05:28 05/06/22 05:28 Labs: Laboratory Results - last 24 hr 05/06/22 05/06/22 05:28 05:28 WBC 28.6 H RBC 2.86 L Hgb 9.1 L Hct 27.2 L MCV 95.0 MCH 31.8 MCHC 33.5 RDW 14.9 H Plt Count 185 Sodium 135 L Potassium 4.0 Chloride 103 Carbon Dioxide 23 BUN 54 H Creatinine 2.61 H Estimated GFR 23 L BUN/Creatinine Ratio 20.7 Glucose 120 H Calcium 7.6 L Total Bilirubin 1.1 AST 28 ALT 14 Alkaline Phosphatase 77 Total Protein 5.8 L Albumin 2.8 L Globulin 3.0 Albumin/Globulin Ratio 0.9 L [facility] Medical History Anticoagulation adequate Atrial fibrillation Chronic kidney disease (CKD) stage G3a/A1, moderately decreased glomerular filtration rate (GFR) between 45-59 mL/min/1.73 square meter and albuminuria creatinine ratio less than 30 mg/g Chronic renal failure Coronary artery disease History of left common carotid artery stent placement History of right common carotid artery stent placement Peripheral arterial disease Surgical History History of appendectomy History of bilateral knee arthroplasty Stented coronary artery Family History Mother Lung cancer Father Lung cancer Other Hypertension Social History marital status: household members: family Smoking Status: Never smoker Assessment & Plan Assessment & Plan narrative: Mr. Peralta is an 87M with PMH afib, ckd stage 4 who presents with a fall found to have a left hip fracture. 1. Acute left hip fracture -secondary to mechanical fall -orthopedic surgery consulted, now POD#1. -pain well controlled, continue prn pain medications -continue PT/OT -likely will need SNF placement. 2. Leukocytosis -appears chronic as had elevated WBC in 2020, though notably increased since prior. -no symptoms of infection -has lymphocytic predominance, raises possibility of CLL -follow up as needed as outpatient 3. Anemia -has chronic anemia -last was in 2020 at 11, was 9.4, now 8.7. In discussion with orthopedics gave 1U PRBC overnight prior to OR given expected blood loss and current anemia. -suspect chronic, but will trend to make sure not related to fracture -may be secondary to renal disease as well 4. Elevated INR -secondary to eliquis most likely -held eliquis prior to surgery, now restarted. 5. Atrial fibrillation, chronic -held eliquis prior to surgery, last dose he took on am 05/03. Now restarted post-operatively. 6. Probable pulmonary edema with acute on chronic CHF with last EF 55-60% in 2020, and mild aortic ,stenosis and YOSELIN -he was given a single dose of lasix with improvement in his hypoxia. He requires oxygen and desaturates as well when sleeping indicative of YOSELIN -Goal O2 >90%. -continue home medications, 10 mg torsemide following surgery. 7. CKD stage 4 -last creatinine in 2020 was 2.2 -on admit creatinine 2.54, likely new baseline will continue to follow. -monitor daily CODE: Full Proxy: Patrizia Leon, daughter I have utilized all available resources to reconcile the patient's home medications. DVT: SCDs. Dispo: suspect he will need SNF after surgical repair and medical stability achieved. Time Spent With Patient Critical Care time: I spent a total of [] minutes of critical care time on this patient's care today; this time is exclusive of procedural time. Quality VTE Deep Vein Thrombosis/Pulmonary Embolism Present on Admission: No
[2022-05-06] MEDS: ATORVASTATIN 20 MG TABLET 40 MG PO (20:29)
[2022-05-07 05:15] VITALS: BP 119/55; PULSE 76; RESP 14; TEMP 37.2; O2SAT 97
--- NOTE | 2022-05-07 05:23 | PC.NURSE ---
Pt is AxOx4, needs 2 person assistance and cooperative. VSS, pt denies pain. Drsg on L hip C/D/I. Pt has good CMS but still can't lift LLE. Otherwise, no problem identified. Continue monitor.
[2022-05-07 05:43] LABS: Alanine Aminotransferase 10 IU/L (<50); Albumin 2.7 g/dL (3.5-5.0); Albumin Globulin Ratio 0.9 (1.0-2.8); Alkaline Phosphatase 76 U/L (38-126); Aspartate Aminotransferase 32 IU/L (17-59); BUN Creatinine Ratio 22.5 (6-22); Bilirubin Total 0.7 mg/dL (0.2-1.3); Blood Urea Nitrogen 58 mg/dL (9-20); Calcium 7.4 mg/dL (8.4-10.2); Carbon Dioxide 22 mmol/L (22-32); Chloride 104 mmol/L (98-107); Estimated Glomerular Filt Rate 23 mL/min (>60); Glucose 118 mg/dL (80-110); HEMOLYSIS < 15 (0-50); Potassium 3.9 mmol/L (3.4-5.1); Sodium 133 mmol/L (137-145); Total Protein 5.7 g/dL (6.3-8.2)
[2022-05-07] MEDS: PANTOPRAZOLE DR 40 MG TABLET PO ×2 (06:06→20:48)
--- NOTE | 2022-05-07 07:25 | PM.PNPO.1 ---
Subjective Subjective Date Patient Seen: 05/07/22 Time Patient Seen: 07:26 Interval history: Sitting up in bed, watching TV. Much brighter on my visit today. Exam Vital Signs (past 8 hours): - 05/06/22 23:45 05/07/22 01:00 05/07/22 05:00 Temperature 98.7 F Pulse Rate 78 Respiratory Rate 12 Blood Pressure 108/52 L Pulse Oximetry 95 Oxygen Delivery Method Room Air Room Air Oxygen Flow Rate 0 05/07/22 05:15 Temperature 98.9 F Pulse Rate 76 Respiratory Rate 14 Blood Pressure 119/55 L Pulse Oximetry 97 Oxygen Delivery Method Oxygen Flow Rate 0 Oxygen Delivery Method Room Air Oxygen Flow Rate 0 Narrative Exam Narrative: 4/5 strength in hip flexors, hamstrings, quadriceps; 5/5 DF, PF, EHL on left. Sensation to light touch intact throughout LLE. Calves soft, compressible, nontender. Gauze and tegaderm placed intraoperatively are CDI. Objective Labs Result Diagrams: 05/06/22 05:28 05/07/22 05:17 Labs: Laboratory Results - last 24 hr 05/07/22 05:17 Sodium 133 L Potassium 3.9 Chloride 104 Carbon Dioxide 22 BUN 58 H Creatinine 2.58 H Estimated GFR 23 L BUN/Creatinine Ratio 22.5 H Glucose 118 H Calcium 7.4 L Total Bilirubin 0.7 AST 32 ALT 10 Alkaline Phosphatase 76 Total Protein 5.7 L Albumin 2.7 L Globulin 3.0 Albumin/Globulin Ratio 0.9 L [facility] Medical History Anticoagulation adequate Atrial fibrillation Chronic kidney disease (CKD) stage G3a/A1, moderately decreased glomerular filtration rate (GFR) between 45-59 mL/min/1.73 square meter and albuminuria creatinine ratio less than 30 mg/g Chronic renal failure Coronary artery disease History of left common carotid artery stent placement History of right common carotid artery stent placement Peripheral arterial disease Surgical History History of appendectomy History of bilateral knee arthroplasty Stented coronary artery Family History Mother Lung cancer Father Lung cancer Other Hypertension Social History marital status: household members: family Smoking Status: Never smoker Assessment & Plan Post-op Assessment and plan (1) Closed left hip fracture: Assessment and Plan narrative: Will need SNF rehab.? WBAT LLE.? Pt takes Eliquis d/t a fib and this will be adequate for post-surgical VTE prophylaxis.? He should follow up at [facility] between May 15 and May 19 for staple removal and wound check, but if coordinating this with his rehab situation is too difficult, staple removal and wound check can be done at SNF.? He should follow up with our office no later than 6 weeks after surgery for radiographs.? Postoperative Procedures: Procedures Operation Date: 05/05/22 09:00 Actual Procedure Side Surgeon p ORIF Hip DHS Left Leland Heck MD Postoperative day: 2 Quality VTE Deep Vein Thrombosis/Pulmonary Embolism Present on Admission: No
[2022-05-07 08:21] VITALS: BP 123/52; PULSE 75; RESP 18; TEMP 37; O2SAT 94
--- NOTE | 2022-05-07 09:33 | OT.IP.EVAL ---
Current Diagnoses Fracture of unspecified part of neck of left femur, initial encounter for closed fracture (05/03/22) Displaced intertrochanteric fracture of left femur, initial encounter for closed fracture (05/03/22) Surgery Performed Operation Date: 05/05/22 09:00 Actual Procedures p ORIF Hip DHS(Left) - Leland Heck MD Past Medical History (Last Reviewed 05/04/22 @ 17:20 by Leland Heck MD) Anticoagulation adequate Atrial fibrillation Chronic kidney disease (CKD) stage G3a/A1, moderately decreased glomerular filtration rate (GFR) between 45-59 mL/min/1.73 square meter and albuminuria creatinine ratio less than 30 mg/g Chronic renal failure Coronary artery disease History of left common carotid artery stent placement History of right common carotid artery stent placement Peripheral arterial disease Surgical History (Last Reviewed 05/03/22 @ 23:28 by Mirza Ravi MD) History of appendectomy History of bilateral knee arthroplasty Stented coronary artery Occupational Therapy Inpatient Evaluation/Re-Eval M1 PT/OT-IP Prior Functional Status Start: 05/05/22 13:08 Freq: NEEDED Status: Active Protocol: Document 05/07/22 09:35 CGR (Rec: 05/07/22 10:11 CGR [id number]) Medical Review Prior Functional Status Medical History Reviewed Yes Communication able to make needs known; pt is very KAR[place] Mobility and Gait pt stated that he is independent with all mobilities and ambulation using FWW or SPC and sometimes without AD Activities of Daily Living and IADL's Pt's daughter assist as needed with ADls. Social History Household Members family Living Arrangements House Number of Floors (Floors) Two Floors Number of Stairs To Enter/Railing? no steps to enter the house 4 steps B rails to get to bedroom level Home Environment Standard Height Toilet,Walk in Shower Home Equipment Raised Toilet Seat w/Armrests, Shower Seat with Backrest,Hand Held Shower,Lift Recliner, Grab Bars Near Toilet,Grab Bars In Shower Employment Status Retired Additional Social History Comment bed has R side rail but sleeps in the lift chair per daughter M1 PT/OT-IP Prior Functional Status Start: 05/07/22 09:34 Freq: NEEDED Status: Active Protocol: Document 05/07/22 09:35 CGR (Rec: 05/07/22 10:11 CGR [id number]) Medical Review Prior Functional Status Medical History Reviewed Yes Communication able to make needs known; pt is very [place] Mobility and Gait pt stated that he is independent with all mobilities and ambulation using FWW or SPC and sometimes without AD Activities of Daily Living and IADL's Pt's daughter assist as needed with ADls. Social History Household Members family Living Arrangements House Number of Floors (Floors) Two Floors Number of Stairs To Enter/Railing? no steps to enter the house 4 steps B rails to get to bedroom level Home Environment Standard Height Toilet,Walk in Shower Home Equipment Raised Toilet Seat w/Armrests, Shower Seat with Backrest,Hand Held Shower,Lift Recliner, Grab Bars Near Toilet,Grab Bars In Shower Employment Status Retired Additional Social History Comment bed has R side rail but sleeps in the lift chair per daughter M2 OT-IP Current Condition Start: 05/07/22 09:34 Freq: Status: Active Protocol: Document 05/07/22 09:35 CGR (Rec: 05/07/22 10:11 R [id number]) Occupational Therapy Current Condition Current Condition Evaluation Date 05/07/22 Treatment Diagnosis L intertrocanteric fx s/p 05/05 ORIF sx Diagnosis Onset Date 05/03/22 Weight Bearing Status Weight Bearing Status Weight Bear as Tolerated M3 OT- IP Subjective and Pain Start: 05/07/22 09:34 Freq: Status: Active Protocol: Document 05/07/22 09:35 CGR (Rec: 05/07/22 10:11 CGR [id number]) OT- Subjective Occupational Therapy Visit Type Type Initial Evaluation Visit Start Time 09:10 Visit Stop Time 09:33 Total Visit Minutes 23 Notes Pt's daughter present throughout OT Pain Assessment Pain When Pain Assessed During Mobility Pain Present Pain Present Pain Reported Location left hip Scale Used did not rate Pain Behaviors Facial Grimacing,Guarding Management Techniques Distraction,Modification of Treatment,Re-positioning M4 OT- IP ADL's Start: 05/07/22 09:34 Freq: Status: Active Protocol: Document 05/07/22 09:35 CGR (Rec: 05/07/22 10:11 CGR [id number]) OT [id number] Comments OT Self-Feeding Comments not meal time OT ADL-Grooming Comments OT Grooming Comments pt states already performed this AM OT ADL-Oral Care Comments Oral Care Comments pt states already performed this AM OT ADL-Dressing General Eval Lower Body Dressing Ability Total Assistance Areas Needing Assistance Socks OT ADL-Toileting Comments OT Toileting Comments not performed, pt with brief donned OT ADL-Bathing Comments OT Bathing Comments not performed on this date M5 OT- IP IADL's Start: 05/07/22 09:34 Freq: Status: Active Protocol: Document 05/07/22 09:35 CGR (Rec: 05/07/22 10:11 CGR [id number]) OT-Instrumental Activities of Daily Living Deficits IADL Deficits Identified Deficits Home Safety Awareness Awareness of Need for Assistance at Home Decreased Awareness Ability to Problem Solve Emergency Able to Problem Solve Situations Medication Management Medication Management Caregiver Administers Money Management Money Management Caregiver Provides Assistance Meal Preparation Meal Preparation Caregiver Provides Assist Coding Support Specialist Coding Support Specialist Caregiver Provides Assist M6 OT- IP Functional Cognition Start: 05/07/22 09:34 Freq: Status: Active Protocol: Document 05/07/22 09:35 CGR (Rec: 05/07/22 10:11 CGR [id number]) Cognitive Factors Limiting Selfcare Function Cognitive Ability Level of Alertness Alert Patient Orientation Name,Age,Birthday,Month,Date, Year,Day of Week,Place, Situation Attention Span Ability Capable of Focused Attention, Capable of Sustained Attention Ability to Follow Commands Able to Follow One Step Commands with Increased Time, Able to Follow One Step Commands with Repetition Cognitive Comments Cognitive Assessment Comments Pt is KARUK and needs extra time for comprehension of simple requests. Pt would benefit from formal cog testing. OT- Vision and Hearing OT- Hearing Assessment OT- Hearing Assessment Hearing Impaired OT- Vision Assessment Visual Attentiveness WFL Visual Convergence Impaired Vision Assessment Comments Pt with delayed occular pursuits without smooth pursuits. M7 OT- IP Mobility and Balance Start: 05/07/22 09:34 Freq: Status: Active Protocol: Document 05/07/22 09:35 CGR (Rec: 05/07/22 10:11 CGR [id number]) OT- Bed Mobility Assessment Supine to Sit Supine to Sit Assist Moderate Assistance,Maximum Assistance,1 Person Assistance Sit to Supine Sit to Supine Assist Maximum Assistance,1 Person Assistance Scooting Scooting to Edge of Bed Moderate Assistance Scooting Up and Down in Bed Total Assistance,2 Person Assistance OT-Transfer Assessment Sit to and From Stand Sit to and from Stand Minimal Assistance,Moderate Assistance Technique Transfer Destination Bed Transfer Technique Stand Step Pivot Devices Transfer Assistive Devices Gait Belt,Front Wheeled Walker Comments Mobility Comments Pt was able to stand x2 but with forward flexed standing posture. OT- Gait Assessment Comments Gait Ability Comments did not occur OT- Balance Assessment Sitting Balance and Reactions Static Sitting Balance Ability Fair Dynamic Sitting Balance Ability Fair M8 OT- IP Objective Assessments Start: 05/07/22 09:34 Freq: Status: Active Protocol: Document 05/07/22 09:35 CGR (Rec: 05/07/22 10:11 CGR [id number]) OT Gross Range of Motion Upper Extremity Range of Motion Assessment Within Functional Limits ROM Impairments but noted that pt has pain to B shlds with shld fx past 90 degrees. OT Strength Upper Extremity Strength Assessment Within Functional Limits Comments Strength Comments arms and hands 4/5, shlds not tested d/t pain. OT- Coordination Assessment Upper Extremity Finger to Nose Test Within Functional Limits OT-Muscle Tone Assessment Muscle Tone WNL Yes OT Sensation Assessment Edema Edema Absent M9 OT- IP Assessment and Plan Start: 05/07/22 09:34 Freq: Status: Active Protocol: Document 05/07/22 09:35 CGR (Rec: 05/07/22 10:11 CGR [id number]) OT Summary Assessment and Plan Potential Rehabilitation Potential Good Analytic Complexity at Evaluation High Summary OT Impairments Pain,Strength,Balance, Functional Cognition, Functional Mobility,Grooming, Dressing,Toileting,Bathing, Toilet Transfers,Shower Transfers,Activity Tolerance Progress Towards Goals Slow Progress due to Pain,Slow Progress due to Activity Tolerance Assessment Summary Pt presents as a high complexity evaluation s/p admit for fall with hip fx. Pt underwent ORIF of the L hip on 05/05. Pt is currently able to stand but unable to take steps this morning with OT. Pt declined other activities stating that he had already performed simple grooming and declined transfer to chair. Pt returned to bed and left sitting up in bed at end of session. Call button within reach and all needs at time met. Goals Grooming Goal Independent Dressing Goal Independent Toileting Goal Independent Bathing Goal Standby Assistance Toilet Transfer Goal Independent Shower Transfer Goal Standby Assistance Days to Meet Goals 30 Frequency of Treatment Frequency Of Treatment Once a Day Treatment Plan OT Treatment Plan ADL Training,Functional Cognition Training,Functional Mobility,Patient/Family Education,Discharge Planning Other Treatment Recommendations and Next ADLs seated EOB or in chair, Treatment Focus simple transfers Discharge Recommendations OT Discharge Recommendations SNF Rehab Transportation Needs at Discharge Wheelchair/Cabulance
[2022-05-07] MEDS: APIXABAN 5 MG TABLET 2.5 MG PO ×2 (10:20→20:48)
[2022-05-07] MEDS: AMLODIPINE 5 MG TABLET PO (10:21)
[2022-05-07] MEDS: OXYCODONE IR 5 MG TABLET PO (10:21)
[2022-05-07] MEDS: DOCUSATE 100 MG CAPSULE PO ×2 (10:22→20:48)
[2022-05-07] MEDS: TORSEMIDE 10 MG TABLET PO (10:23)
[2022-05-07] MEDS: SODIUM CHLORIDE 0.9% FLUSH 10 ML IV ×2 (10:23→20:44)
[2022-05-07 11:34] VITALS: BP 117/53; PULSE 75; RESP 16; TEMP 36.8; O2SAT 98
--- NOTE | 2022-05-07 11:35 | P.PN_ITS ---
Subjective Subjective Date Patient Seen: 05/07/22 Time Patient Seen: 11:30 Interval history: Patient has no new complaints. Is not concerned about hip pain. Exam Vital Signs (past 8 hours): - 05/07/22 05:00 05/07/22 05:15 05/07/22 08:21 Temperature 98.9 F 98.6 F Pulse Rate 76 75 Respiratory Rate 14 18 Blood Pressure 119/55 L 123/52 L Pulse Oximetry 97 94 Oxygen Delivery Method Room Air Oxygen Flow Rate 0 0 05/07/22 09:00 05/07/22 11:34 Temperature 98.3 F Pulse Rate 75 Respiratory Rate 16 Blood Pressure 117/53 L Pulse Oximetry 98 Oxygen Delivery Method Room Air Oxygen Flow Rate 0 Oxygen Delivery Method Room Air Oxygen Flow Rate 0 Objective Labs Result Diagrams: 05/06/22 05:28 05/07/22 05:17 Labs: Laboratory Results - last 24 hr 05/07/22 05:17 Sodium 133 L Potassium 3.9 Chloride 104 Carbon Dioxide 22 BUN 58 H Creatinine 2.58 H Estimated GFR 23 L BUN/Creatinine Ratio 22.5 H Glucose 118 H Calcium 7.4 L Total Bilirubin 0.7 AST 32 ALT 10 Alkaline Phosphatase 76 Total Protein 5.7 L Albumin 2.7 L Globulin 3.0 Albumin/Globulin Ratio 0.9 L [facility] Medical History Anticoagulation adequate Atrial fibrillation Chronic kidney disease (CKD) stage G3a/A1, moderately decreased glomerular filtration rate (GFR) between 45-59 mL/min/1.73 square meter and albuminuria creatinine ratio less than 30 mg/g Chronic renal failure Coronary artery disease History of left common carotid artery stent placement History of right common carotid artery stent placement Peripheral arterial disease Surgical History History of appendectomy History of bilateral knee arthroplasty Stented coronary artery Family History Mother Lung cancer Father Lung cancer Other Hypertension Social History marital status: household members: family Smoking Status: Never smoker Assessment & Plan Assessment & Plan narrative: 1. Acute left hip fracture Now POD#2. Pain well controlled, continue prn pain medications Continue PT/OT Likely will need SNF placement. 2. Leukocytosis Appears chronic as had elevated WBC in 2020, though notably increased since prior. Has lymphocytic predominance, raises possibility of CLL Reassess labs in the morning. 3. Anemia Has had chronic anemia and may be due to renal disease. Given 1 unit of packed red blood cells on this admission. Follow-up blood test in the morning. 4. Elevated INR Secondary to eliquis most likely Held eliquis prior to surgery, now restarted. 5. Atrial fibrillation, chronic Held eliquis prior to surgery, last dose he took on am 05/03. Now restarted post- operatively. 6. Probable pulmonary edema with acute on chronic CHF with last EF 55-60% in 2020, and mild aortic ,stenosis and YOSELIN He was given a single dose of lasix with improvement in his hypoxia on this admission. He requires oxygen and desaturates as well when sleeping indicative of YOSELIN Goal O2 >90%. Continue home medications, 10 mg torsemide daily. 7. CKD stage 4 Last creatinine in 2020 was 2.2 On admit creatinine 2.54, likely new baseline will continue to follow. Monitor labs in a.m. CODE: Full Proxy: Patrizia Leon, daughter I have utilized all available resources to reconcile the patient's home medi cations. DVT: SCDs. Dispo: suspect he will need SNF after surgical repair and medical stability ach ieved. Time Spent With Patient Critical Care time: I spent a total of [] minutes of critical care time on this patient's care today; this time is exclusive of procedural time. Quality VTE Deep Vein Thrombosis/Pulmonary Embolism Present on Admission: No
--- NOTE | 2022-05-07 11:49 | CM.DPC ---
Addendum entered by DWAYNE Glass 05/07/22 16:03: ADD: Call from [facility] and [facility] stating pt auth'd for SNF. Due to lateness in the day, [facility] can accept tomorrow but will need to call back with time for transport. LAUREL updated MD who kindly placed order for updated COVID booster. BF Original Note: DCP SNF Planning: SW updated OT that orders placed and requested to prioritize pt's eval as awaiting OT eval note towards getting [facility] insurance auth and OT kindly completed eval this morning. SW spoke to [facility] admissions and confirmed they just submitted insurance auth this morning right when OT note was available. SW called pt's Dtr Patrizia as pt with some cognitive decline and updated on [facility] acceptance and awaiting insurance auth for SNF and Patrizia appreciative and SW explained updated COVID booster shot so pt does not have to quarantine at SNF and Dtr agreeable with second COVID booster for pt here at the hospital. Requested SW update pt on SNF as pt had been hopeful for home. SW met bedside with pt and explained role and pt somewhat [place] and hears better out of left ear and SW discussed above and pt confirms he is agreeable to SNF but hopeful to not need SNF for long as preference is home when safe enough to ambulate with less assist. SW to updated MD on need for COVID booster order but wanting to time it for the additional patients currently needing them as well. Plan: SW to follow for insurance review to confirm auth for SNF for likely d/c tomorrow pending timeframe of auth approval and SNF availability to accept today vs tomorrow. Pt will need updated COVID booster. DWAYNE Glass
--- NOTE | 2022-05-07 12:18 | PT.IPTN ---
Current Diagnoses Fracture of unspecified part of neck of left femur, initial encounter for closed fracture (05/03/22) Displaced intertrochanteric fracture of left femur, initial encounter for closed fracture (05/03/22) Surgery Performed Operation Date: 05/05/22 09:00 Actual Procedures p ORIF Hip DHS(Left) - Leland Heck MD Physical Therapy Treatment Note M2 PT-IP Current Condition Start: 05/05/22 13:08 Freq: NEEDED Status: Active Protocol: Document 05/07/22 11:55 SP (Rec: 05/07/22 14:36 SP [id number]) Physical Therapy Current Condition Current Condition Evaluation Date 05/05/22 Treatment Diagnosis L femoral fx s/p ORIF; difficulty in walking Onset Date 05/03/22 M3 PT-IP Subjective Start: 05/05/22 13:08 Freq: NEEDED Status: Active Protocol: Document 05/07/22 11:55 SP (Rec: 05/07/22 14:36 SP [id number]) Subjective Physical Therapy Visit Type Type Treatment Note Visit Start Time 11:55 Visit Stop Time 12:18 Total Visit Minutes 23 Notes Nurse provided 2nd person assist required throughout tx. Number of GROCERY SPECIALIST Visits 1 Physical Therapy Visit Comments Patient Comments Pt agreeable to mobilizing with therapy. Patient Goals GROCERY SPECIALIST discussed with pt possible DC to SNF, he said OK. M4 PT-IP Mobility and Gait Start: 05/05/22 13:08 Freq: NEEDED Status: Active Protocol: Document 05/07/22 11:55 SP (Rec: 05/07/22 14:36 SP [id number]) PT-Bed Mobility Assessment Supine to Sit Supine to Sit Maximum Assistance,2 Person Assistance,Head of Bed Elevated Scooting Scooting to Edge of Bed Maximum Assistance PT-Transfer Assessment Sit to and From Stand Sit to and from Stand Maximum Assistance,2 Person Assistance,Use of Upper Extremities Equipment Transfer Assistive Device Gait Belt,Front Wheeled Walker Orthotic/Prosthetic Devices or Brace: No Transfers Transfer Destination Chair Transfer Technique Squat Pivot Transfer Ability Level of Assist Maximum Assistance,2 Person Assistance,Use of Upper Extremities Comments Mobility Comments Elevated supine>sit Max A x1 for heavy trunk support due to retrol lean, weakness, L hip pain, Scoot to EOB Max A x2 w/ use transfer pad. Sit>Stand Max A x2 w/FWW, cued push from bed. Able to come to stand and reposition BLE back under him, decreased LLE WB and unableto reposition RLE, pt Max A return to sit on EOB decreased standign tolerance 15s. Completed squat pivot transfer bed>chair with max cues reach for opp chair arm rest, Max Ax2 with therapist blocking BLE anteriorly, heavy transition to chair and scoot back in chair fully BUE redirected on chair arms for self support. ELevated BLE in chair. Pt had call light hand all needs in reach. SERVICE DISMANTLER provided chair alarm. Gait Assessment Gait Gait Assistance Required: Maximum Assistance,2 Person Assist Able to Maintain Weight Bearing Status Yes During Gait Comments Gait Comments Able to come to stand Max A x2 w/ FWW but unable to bear wt into LLE to reposition RLE due to pain LLE and weakness so completed squat pivot transfer bed>chair Max Ax2. Stair Climbing Assessment Comments Stair Climbing Comments Unable to assess. Will need to assess 4 steps B HR before going home to ableto get up to bedroom level home, no steps to enter. PT-Balance Assessment Sitting Balance and Reactions Static Sitting Balance Ability Poor Dynamic Sitting Balance Ability Poor Standing Balance and Reactions Static Standing Balance Ability Poor Dynamic Standing Balance Ability Poor Device Used FWW M5 PT-IP Objective Assessments Start: 05/05/22 13:08 Freq: NEEDED Status: Active Protocol: Document 05/05/22 11:35 AB (Rec: 05/05/22 13:18 AB [id number]) Orientation Orientation/Cognition Level of Alertness Alert Orientation Name,Place,Situation Language Function Ability Hard of Hearing Safety Awareness Decreased Safety Awareness Memory Description Short Term Impaired Gross Range of Motion Lower Extremity ROM Assessment Within Functional Limits Strength Lower Extremity Strength Assessment Left Impaired Hip 3-/5 Knee 3+/5 Coordination Assessment Gross Coordination Gross Coordination WNL Sensation Assessment Sensation Gross Sensation WNL Muscle Tone Muscle Tone WNL Yes M6 PT-IP Treatment Start: 05/05/22 13:08 Freq: NEEDED Status: Active Protocol: Document 05/07/22 11:55 SP (Rec: 05/07/22 14:36 SP [id number]) Physical Therapy Treatment Exercises Exercises Ankle Pumps,Quad Sets Education Education Provided Weight Bearing Status,Safety Other Treatments Other Treatment Performed all exercises with assistance M7 PT-IP Assessment and Plan Start: 05/05/22 13:08 Freq: NEEDED Status: Active Protocol: Document 05/07/22 11:55 SP (Rec: 05/07/22 14:36 SP [id number]) PT Summary Assessment and Plan Potential Rehabilitation Potential Fair Status of Condition at Evaluation Evolving Summary Impairments Pain,ROM,Strength,Balance, Coordination,Tone,Cognition, Bed Mobility,Transfers,Gait, Activity Tolerance Progress Towards Goals Progressing Toward Goals,Slow Progress due to Pain,Slow Progress due to Activity Tolerance Assessment Summary Pt requires Max Ax2 for all mobility due to pain and decreased strength. squat pivot transfer this tx. Will require SNF for increase strength and functional mobility progression. Goals Bed Mobility Goal Minimal Assistance Transfer Goal Minimal Assistance,Front Wheeled Walker Gait Goal Minimal Assistance,Front Wheel Walker Gait Distance 25 Other Goals improve bed mobility, transfers and ambulation using FWW ~100 ft SBA Days to Meet Goals 10 Frequency of Treatment Frequency Of Treatment Twice a Day Treatment Plan Physical Therapy Treatment Plan Bed Mobility Training,Transfer Training,Gait Training, Therapeutic Exercise,Balance Retraining,Post Op Education, Discharge Planning,Hot or Cold Pack,Neuromuscular Re-ed Other Recommendations and Next Treatment LE ex, bed mob, transfers, Focus standing increase tolerance, gait if able w/ FWW and chair follow. Precautions Other Precautions hard of hearing, UE arthritic changes in joints Weight Bearing Status Weight Bearing Status Weight Bear as Tolerated Recommendations To Nursing Amount of Assist Needed 2 Person Assist,Mechanical Lift Discharge Recommendations PT Discharge Recommendations SNF Rehab Transportation Needs at Discharge Wheelchair/Cabulance
--- NOTE | 2022-05-07 13:49 | PC.NURSE ---
Assess- Patient thinks that he is going to go home, he keeps taking off his tele. Pads reapplied and patient is calm.
--- NOTE | 2022-05-07 15:36 | PT.IPTN ---
Current Diagnoses Fracture of unspecified part of neck of left femur, initial encounter for closed fracture (05/03/22) Displaced intertrochanteric fracture of left femur, initial encounter for closed fracture (05/03/22) Surgery Performed Operation Date: 05/05/22 09:00 Actual Procedures p ORIF Hip DHS(Left) - Leland Heck MD Physical Therapy Treatment Note M2 PT-IP Current Condition Start: 05/05/22 13:08 Freq: NEEDED Status: Active Protocol: Document 05/07/22 15:16 SP (Rec: 05/07/22 16:05 SP [id number]) Physical Therapy Current Condition Current Condition Evaluation Date 05/05/22 Treatment Diagnosis L femoral fx s/p ORIF; difficulty in walking Onset Date 05/03/22 M3 PT-IP Subjective Start: 05/05/22 13:08 Freq: NEEDED Status: Active Protocol: Document 05/07/22 15:16 SP (Rec: 05/07/22 16:05 SP [id number]) Subjective Physical Therapy Visit Type Type Treatment Note Visit Start Time 15:16 Visit Stop Time 15:36 Total Visit Minutes 20 Notes PHP WEBSITE DEVELOPER provided 2nd person Max assist required for mobility during tx. Declined pain but demonstrates decrease LLE WB during mobility, fascial grimmacing. Number of AIR BRAKE MECHANIC Visits 2 Physical Therapy Visit Comments Patient Comments Pt agreeable to mobilizing with therapy for standing and getting back to bed. M4 PT-IP Mobility and Gait Start: 05/05/22 13:08 Freq: NEEDED Status: Active Protocol: Document 05/07/22 15:16 SP (Rec: 05/07/22 16:05 SP [id number]) PT-Bed Mobility Assessment Sit to Supine Sit to Supine Maximum Assistance,2 Person Assistance Scooting Scooting Up and Down in Bed Maximum Assistance PT-Transfer Assessment Sit to and From Stand Sit to and from Stand Maximum Assistance,2 Person Assistance,Use of Upper Extremities Equipment Transfer Assistive Device Gait Belt,Front Wheeled Walker Orthotic/Prosthetic Devices or Brace: No Transfers Transfer Destination Bed Transfer Technique Stand Step Pivot Transfer Ability Level of Assist Maximum Assistance,2 Person Assistance,Use of Upper Extremities Comments Mobility Comments Pt able to lean trunk forward to sit upright in chair use chair arms, Max A x2 to scoot forward in chair via sheet on chair. STS Max A x2 RUE on FWW , LUE push from chair, cued come to full stand quad fac w/ BLE under him. Pt able step with LLE and pivot scoot RLE with heavy BUE WB on FWW 2 ft, support for trunk wt shift and repositioning FWW support, pt unable to complete full pivot to bed, cues for RLE back fully but unable, but back enought to sit on EOB. Sit>supine Max Ax2 for trunk lowering and BLE reposition onto bed. Max A x2 lateral scoot to center in bed via transfer pad. Pt had call light and all needs in reach before left, bed alarmed. Gait Assessment Gait Gait Assistance Required: Maximum Assistance,2 Person Assist Distance (Feet) 2 Able to Maintain Weight Bearing Status Yes During Gait Assistive Devices Assistive Device Gait Belt,Front Wheeled Walker Orthotic/Prosthetic Devices or Brace: No Gait Deviations General Gait Pattern Antalgic,Decreased Stride Length,Decreased Feet Clearance,Flexed Trunk,Lateral Trunk Lean,Step-to Gait,Wide Based Gait Factors Limiting Gait Function Factors Limiting Gait Function Decreased Activity Tolerance, Decreased Strength,Difficulty Following Directions,Pain,Poor Balance,Poor Safety Awareness Comments Gait Comments see mobility for details. Stair Climbing Assessment Comments Stair Climbing Comments Unable to assess. Will need to assess 4 steps B HR before going home to ableto get up to bedroom level home, no steps to enter. PT-Balance Assessment Sitting Balance and Reactions Static Sitting Balance Ability Good Dynamic Sitting Balance Ability Fair Standing Balance and Reactions Static Standing Balance Ability Poor Dynamic Standing Balance Ability Poor Device Used FWW M5 PT-IP Objective Assessments Start: 05/05/22 13:08 Freq: NEEDED Status: Active Protocol: Document 05/05/22 11:35 AB (Rec: 05/05/22 13:18 AB [id number]) Orientation Orientation/Cognition Level of Alertness Alert Orientation Name,Place,Situation Language Function Ability Hard of Hearing Safety Awareness Decreased Safety Awareness Memory Description Short Term Impaired Gross Range of Motion Lower Extremity ROM Assessment Within Functional Limits Strength Lower Extremity Strength Assessment Left Impaired Hip 3-/5 Knee 3+/5 Coordination Assessment Gross Coordination Gross Coordination WNL Sensation Assessment Sensation Gross Sensation WNL Muscle Tone Muscle Tone WNL Yes M6 PT-IP Treatment Start: 05/05/22 13:08 Freq: NEEDED Status: Active Protocol: Document 05/07/22 11:55 SP (Rec: 05/07/22 14:36 SP [id number]) Physical Therapy Treatment Exercises Exercises Ankle Pumps,Quad Sets Education Education Provided Weight Bearing Status,Safety Other Treatments Other Treatment Performed all exercises with assistance M7 PT-IP Assessment and Plan Start: 05/05/22 13:08 Freq: NEEDED Status: Active Protocol: Document 05/07/22 15:16 SP (Rec: 05/07/22 16:05 SP [id number]) PT Summary Assessment and Plan Potential Rehabilitation Potential Fair Status of Condition at Evaluation Evolving Summary Impairments Pain,ROM,Strength,Balance, Coordination,Tone,Cognition, Bed Mobility,Transfers,Gait, Activity Tolerance Progress Towards Goals Progressing Toward Goals,Slow Progress due to Pain,Slow Progress due to Activity Tolerance Assessment Summary Pt requires Max Ax2, able to stand step pivot w/ fww chair> bed, decreased LLE WB but able to scoot RLE during transfer, not fully back but enough to sit on bed. Will require SNF for increase strength and functional mobility progression. Goals Bed Mobility Goal Minimal Assistance Transfer Goal Minimal Assistance,Front Wheeled Walker Gait Goal Minimal Assistance,Front Wheel Walker Gait Distance 25 Other Goals improve bed mobility, transfers and ambulation using FWW ~100 ft SBA Days to Meet Goals 10 Frequency of Treatment Frequency Of Treatment Twice a Day Treatment Plan Physical Therapy Treatment Plan Bed Mobility Training,Transfer Training,Gait Training, Therapeutic Exercise,Balance Retraining,Post Op Education, Discharge Planning,Hot or Cold Pack,Neuromuscular Re-ed Other Recommendations and Next Treatment LE ex, bed mob, transfers, Focus standing increase tolerance, gait if able w/ FWW and chair follow. Precautions Other Precautions hard of hearing, UE arthritic changes in joints Weight Bearing Status Weight Bearing Status Weight Bear as Tolerated Allowed Weight Bearing Amount (enter % Left LE WBAT, s/p ORIF or #) (%) Recommendations To Nursing Amount of Assist Needed 2 Person Assist Discharge Recommendations PT Discharge Recommendations SNF Rehab Transportation Needs at Discharge Wheelchair/Cabulance
[2022-05-07 15:49] VITALS: BP 105/52; PULSE 70; RESP 16; TEMP 36.2; O2SAT 99
[2022-05-07] MEDS: COVID-19 VACC #3, MRNA(MOD) 50 MCG/0.25 ML VIAL IM (17:46)
[2022-05-07 20:00] VITALS: BP 134/62; PULSE 76; RESP 16; TEMP 36.6; O2SAT 95
[2022-05-07] MEDS: ATORVASTATIN 20 MG TABLET 40 MG PO (20:47)
[2022-05-08] VITALS (8 sets, daily range): BP systolic 111–128; BP diastolic 51–58; PULSE 57–75; RESP 15–21; TEMP 36.4–37.1; O2SAT 94–98
[2022-05-08 05:59] LABS: Alanine Aminotransferase 9 IU/L (<50); Albumin 2.7 g/dL (3.5-5.0); Albumin Globulin Ratio 0.9 (1.0-2.8); Alkaline Phosphatase 74 U/L (38-126); Aspartate Aminotransferase 34 IU/L (17-59); BUN Creatinine Ratio 22.8 (6-22); Blood Urea Nitrogen 57 mg/dL (9-20); Calcium 7.5 mg/dL (8.4-10.2); Carbon Dioxide 24 mmol/L (22-32); Chloride 104 mmol/L (98-107); Estimated Glomerular Filt Rate 24 mL/min (>60); Glucose 115 mg/dL (80-110); HEMOLYSIS < 15 (0-50); Potassium 3.6 mmol/L (3.4-5.1); Sodium 134 mmol/L (137-145); Total Protein 5.7 g/dL (6.3-8.2)
[2022-05-08 06:03] LABS: Hematocrit 25.5 % (41-53); Hemoglobin 8.6 g/dL (13.5-17.5); Mean Corpuscular HGB Conc 33.8 % (30-36); Mean Corpuscular Hemoglobin 31.8 PG (26-34); Mean Corpuscular Volume 94.1 fL (80-100); Platelet Count 204 X10^3/uL (150-400); Red Blood Cell Count 2.71 X10^6/uL (4.5-5.9); Red Cell Distribution Width 14.8 % (11.6-14.8)
[2022-05-08 06:05] LABS: Add Manual Diff / Slide Review YES
[2022-05-08 06:08] LABS: White Blood Cell Count 30.5 X10^3/uL (4.5-11.0)
[2022-05-08] MEDS: PANTOPRAZOLE DR 40 MG TABLET PO ×2 (06:44→22:00)
[2022-05-08 06:45] LABS: Neutrophils Absolute Manual 3355 /uL (3000-5900); Total Cells Counted 100
[2022-05-08 06:46] LABS: Poikilocytosis 1+
[2022-05-08] MEDS: DOCUSATE 100 MG CAPSULE PO ×2 (10:13→21:59)
[2022-05-08] MEDS: APIXABAN 5 MG TABLET 2.5 MG PO ×2 (10:13→22:00)
[2022-05-08] MEDS: SODIUM CHLORIDE 0.9% FLUSH 10 ML IV ×2 (10:15→21:59)
[2022-05-08] MEDS: TORSEMIDE 10 MG TABLET PO (10:15)
[2022-05-08] MEDS: AMLODIPINE 5 MG TABLET PO (10:15)
--- NOTE | 2022-05-08 10:18 | P.PN_ITS ---
Exam Vital Signs (past 8 hours): - 05/08/22 05:12 05/08/22 08:00 Temperature 97.6 F 97.8 F Pulse Rate 72 73 Respiratory Rate 15 20 Blood Pressure 124/57 L 128/55 L Pulse Oximetry 98 97 Oxygen Flow Rate 0 0 Oxygen Delivery Method Room Air Oxygen Flow Rate 0 Narrative Exam Narrative: Alert. Oriented to person. Questionable to place. Appears in no acute distress. HEENT: Pupils equal reactive to light. Extraocular movements normal. Head is normocephalic. Trachea is midline. No palpable neck nodes. Respiratory: Adequate air entry throughout the lung fitzpatrick but generally decreased in volume. No wheezes or crackles. Cardiovascular: Heart sounds S1 and S2 with no extra sounds or murmurs. Pulses equal bilaterally. Gastrointestinal: Abdomen is soft. Nontender bowel sounds normal Musculoskeletal: Able to move all extremities volitionally. Tender left hip. Neuro: Normal sensation of all extremities. Oriented to person. Psych: Normal mood and affect. Objective Labs Result Diagrams: 05/08/22 05:21 05/08/22 05:21 Labs: Laboratory Results - last 24 hr 05/08/22 05/08/22 05:21 05:21 WBC 30.5 H* RBC 2.71 L Hgb 8.6 L Hct 25.5 L MCV 94.1 MCH 31.8 MCHC 33.8 RDW 14.8 Plt Count 204 Neut % (Auto) Not Reportable Lymph % (Auto) Not Reportable [place] % (Auto) Not Reportable Eos % (Auto) Not Reportable Baso % (Auto) Not Reportable Lymph # (Auto) Not Reportable [place] # (Auto) Not Reportable Baso # (Auto) Not Reportable Total Counted 100 Seg Neutrophils % 11.0 L Lymphocytes % (Manual) 88.0 H Eosinophils % (Manual) 1.0 L Neutrophils # (Manual) 3355 RBC Morphology See below Poikilocytosis 1+ H Sodium 134 L Potassium 3.6 Chloride 104 Carbon Dioxide 24 BUN 57 H Creatinine 2.50 H Estimated GFR 24 L BUN/Creatinine Ratio 22.8 H Glucose 115 H Calcium 7.5 L Total Bilirubin 1.0 AST 34 ALT 9 Alkaline Phosphatase 74 Total Protein 5.7 L Albumin 2.7 L Globulin 3.0 Albumin/Globulin Ratio 0.9 L [facility] Medical History Anticoagulation adequate Atrial fibrillation Chronic kidney disease (CKD) stage G3a/A1, moderately decreased glomerular filtration rate (GFR) between 45-59 mL/min/1.73 square meter and albuminuria creatinine ratio less than 30 mg/g Chronic renal failure Coronary artery disease History of left common carotid artery stent placement History of right common carotid artery stent placement Peripheral arterial disease Surgical History History of appendectomy History of bilateral knee arthroplasty Stented coronary artery Family History Mother Lung cancer Father Lung cancer Other Hypertension Social History marital status: household members: family Smoking Status: Never smoker Assessment & Plan Assessment & Plan narrative: 1. Acute left hip fracture Now POD#3. Pain well controlled, continue prn pain medications Continue PT/OT Likely will need SNF placement. Ready for SNF in regards to postoperative status. However concern with increasing leukocytosis. 2. Leukocytosis Appears chronic as had elevated WBC in 2020, though notably increased since prior. Has lymphocytic predominance, raises possibility of CLL. With abrupt increase in instability of leukocytes concerning for a ALL conversion or actual diagnosis. Leukocytosis continues to increase. It had elevated white blood count in 2021 however prior to this admission was normal. Will do repeat stat CBC, cytometry, pathology assessment and CRP to confirm noninfective. 3. Anemia Has had chronic anemia and may be due to renal disease.? Given 1 unit of packed red blood cells on this admission.? Follow-up blood test in the morning. 4. Elevated INR Secondary to eliquis most likely Held eliquis prior to surgery, now restarted. 5. Atrial fibrillation, chronic Held eliquis prior to surgery, last dose he took on am 05/03. Now restarted post- operatively. 6. Probable pulmonary edema with acute on chronic CHF with last EF 55-60% in 2020, and mild aortic ,stenosis and YOSELIN He was given a single dose of lasix with improvement in his hypoxia on this admission. He requires oxygen and desaturates as well when sleeping indicative of YOSELIN Goal O2 >90%. Continue home medications, 10 mg torsemide daily. 7. CKD stage 4 Last creatinine in 2020 was 2.2 On admit creatinine 2.54, likely new baseline will continue to follow. With 2.5 today with BUN of 57 and GFR of 24. CODE: Full Proxy: Patrizia Leon, daughter I have utilized all available resources to reconcile the patient's home medications. DVT: SCDs. Dispo: suspect he will need SNF after surgical repair and medical stability achieved. Time Spent With Patient Critical Care time: I spent a total of [] minutes of critical care time on this patient's care today; this time is exclusive of procedural time. Quality VTE Deep Vein Thrombosis/Pulmonary Embolism Present on Admission: No
--- NOTE | 2022-05-08 11:46 | OT.IPNOTE ---
Pt getting a blood draw now to check on the pt later.
[2022-05-08 11:54] LABS: Hematocrit 23.9 % (41-53); Hemoglobin 8.2 g/dL (13.5-17.5); Mean Corpuscular HGB Conc 34.2 % (30-36); Mean Corpuscular Hemoglobin 31.9 PG (26-34); Mean Corpuscular Volume 93.3 fL (80-100); Platelet Count 206 X10^3/uL (150-400); Red Blood Cell Count 2.57 X10^6/uL (4.5-5.9); Red Cell Distribution Width 14.7 % (11.6-14.8)
[2022-05-08 12:08] LABS: Neutrophils Absolute Manual 4590 /uL (3000-5900); RBC Morphology Normal Morphology; Smudge Cells 1+; Total Cells Counted 100
--- NOTE | 2022-05-08 12:31 | OT.IP.TRT ---
Current Diagnoses Fracture of unspecified part of neck of left femur, initial encounter for closed fracture (05/03/22) Displaced intertrochanteric fracture of left femur, initial encounter for closed fracture (05/03/22) Surgery Performed Operation Date: 05/05/22 09:00 Actual Procedures p ORIF Hip DHS(Left) - Leland Heck MD Occupational Therapy Treatment Note M2 OT-IP Current Condition Start: 05/07/22 09:34 Freq: Status: Active Protocol: Document 05/07/22 09:35 CGR (Rec: 05/07/22 10:11 CGR [id number]) Occupational Therapy Current Condition Current Condition Evaluation Date 05/07/22 Treatment Diagnosis L intertrocanteric fx s/p 05/05 ORIF sx Diagnosis Onset Date 05/03/22 Weight Bearing Status Weight Bearing Status Weight Bear as Tolerated M3 OT- IP Subjective and Pain Start: 05/07/22 09:34 Freq: Status: Active Protocol: Document 05/08/22 12:47 CCC (Rec: 05/08/22 13:00 [facility] [id number]) OT- Subjective Occupational Therapy Visit Type Type Treatment Note Visit Start Time 12:15 Visit Stop Time 12:31 Total Visit Minutes 16 Occupational Therapy Visit Comments Patient Comments Pt agreed to get up to the chair for lunch. OT Pain Assessment Pain When Pain Assessed During Mobility Pain Present Pain Present Pain Reported Location left hip Pain Behaviors Facial Grimacing,Guarding Management Techniques Distraction,Modification of Treatment,Re-positioning M4 OT- IP ADL's Start: 05/07/22 09:34 Freq: Status: Active Protocol: Document 05/08/22 12:47 CCC (Rec: 05/08/22 13:00 CCC [id number]) OT ADL-Grooming General Evaluation Grooming Ability Standby Assistance Areas Needing Assistance Retrieving/Set-up of Grooming Items Comments OT Grooming Comments while seated OT ADL-Oral Care General Eval Oral Care Ability Standby Assistance Areas of Assistance Retrieving/Set-Up of Items Comments Oral Care Comments while seated and vc for completeness M5 OT- IP IADL's Start: 05/07/22 09:34 Freq: Status: Active Protocol: Document 05/07/22 09:35 CGR (Rec: 05/07/22 10:11 CGR [id number]) OT-Instrumental Activities of Daily Living Deficits IADL Deficits Identified Deficits Home Safety Awareness Awareness of Need for Assistance at Home Decreased Awareness Ability to Problem Solve Emergency Able to Problem Solve Situations Medication Management Medication Management Caregiver Administers Money Management Money Management Caregiver Provides Assistance Meal Preparation Meal Preparation Caregiver Provides Assist Bowling Ball Molder Bowling Ball Molder Caregiver Provides Assist M6 OT- IP Functional Cognition Start: 05/07/22 09:34 Freq: Status: Active Protocol: Document 05/08/22 12:47 [facility] (Rec: 05/08/22 13:00 [facility] [id number]) Cognitive Factors Limiting Selfcare Function Cognitive Comments Cognitive Assessment Comments Pt is very hard of hearing and able to follow simple commands. M7 OT- IP Mobility and Balance Start: 05/07/22 09:34 Freq: Status: Active Protocol: Document 05/08/22 12:47 [facility] (Rec: 05/08/22 13:00 [facility] [id number]) OT- Bed Mobility Assessment Supine to Sit Supine to Sit Assist Maximum Assistance,1 Person Assistance OT-Transfer Assessment Sit to and From Stand Sit to and from Stand Maximum Assistance,2 Person Assistance Technique Transfer Destination Bed,Chair Devices Transfer Assistive Devices None,Gait Belt Comments Mobility Comments Pt able to stand to FWW with MAX AX 2 and stand for one minute and lean to the left. Pt then able to squat pivot transfer to the right with MAX AX 2. OT- Balance Assessment Sitting Balance and Reactions Static Sitting Balance Ability Fair Dynamic Sitting Balance Ability Fair Standing Balance and Reactions Static Standing Balance Ability Poor M8 OT- IP Objective Assessments Start: 05/07/22 09:34 Freq: Status: Active Protocol: Document 05/07/22 09:35 CGR (Rec: 05/07/22 10:11 CGR [id number]) OT Gross Range of Motion Upper Extremity Range of Motion Assessment Within Functional Limits ROM Impairments but noted that pt has pain to B shlds with shld fx past 90 degrees. OT Strength Upper Extremity Strength Assessment Within Functional Limits Comments Strength Comments arms and hands 4/5, shlds not tested d/t pain. OT- Coordination Assessment Upper Extremity Finger to Nose Test Within Functional Limits OT-Muscle Tone Assessment Muscle Tone WNL Yes OT Sensation Assessment Edema Edema Absent M9 OT- IP Assessment and Plan Start: 05/07/22 09:34 Freq: Status: Active Protocol: Document 05/08/22 12:47 [facility] (Rec: 05/08/22 13:00 [facility] [id number]) OT Summary Assessment and Plan Potential Rehabilitation Potential Good Analytic Complexity at Evaluation High Summary OT Impairments Pain,Strength,Balance, Functional Cognition, Functional Mobility,Grooming, Dressing,Toileting,Bathing, Toilet Transfers,Shower Transfers,Activity Tolerance Progress Towards Goals Slow Progress due to Pain,Slow Progress due to Activity Tolerance Assessment Summary Pt still needing extensive 2 person assist for mobility needs and able to go grooming/ oral care while seated in the recliner. Pt looking to go to skilled rehab when medically stable. Goals Grooming Goal Independent Dressing Goal Independent Toileting Goal Independent Bathing Goal Standby Assistance Toilet Transfer Goal Independent Shower Transfer Goal Standby Assistance Days to Meet Goals 30 Frequency of Treatment Frequency Of Treatment Once a Day Treatment Plan OT Treatment Plan ADL Training,Functional Cognition Training,Functional Mobility,Patient/Family Education,Discharge Planning Discharge Recommendations OT Discharge Recommendations SNF Rehab Transportation Needs at Discharge Wheelchair/Cabulance
--- NOTE | 2022-05-08 12:47 | PT.IPTN ---
Current Diagnoses Fracture of unspecified part of neck of left femur, initial encounter for closed fracture (05/03/22) Displaced intertrochanteric fracture of left femur, initial encounter for closed fracture (05/03/22) Surgery Performed Operation Date: 05/05/22 09:00 Actual Procedures p ORIF Hip DHS(Left) - Leland Heck MD Physical Therapy Treatment Note M2 PT-IP Current Condition Start: 05/05/22 13:08 Freq: NEEDED Status: Active Protocol: Document 05/07/22 15:16 SP (Rec: 05/07/22 16:05 SP [id number]) Physical Therapy Current Condition Current Condition Evaluation Date 05/05/22 Treatment Diagnosis L femoral fx s/p ORIF; difficulty in walking Onset Date 05/03/22 M3 PT-IP Subjective Start: 05/05/22 13:08 Freq: NEEDED Status: Active Protocol: Document 05/08/22 12:32 LJ (Rec: 05/08/22 12:47 LJ [id number]) Subjective Physical Therapy Visit Type Type Treatment Note Visit Start Time 12:06 Visit Stop Time 12:29 Total Visit Minutes 23 Notes co-tx with OT Number of CREAM CHEESE MAKER Visits 3 Physical Therapy Visit Comments Patient Comments Pt in bed saying he is feeling nuch better today. Willing to et up and try to ambulate to chair. M4 PT-IP Mobility and Gait Start: 05/05/22 13:08 Freq: NEEDED Status: Active Protocol: Document 05/08/22 12:32 LJ (Rec: 05/08/22 12:47 LJ [id number]) PT-Bed Mobility Assessment Supine to Sit Supine to Sit Maximum Assistance,2 Person Assistance,Head of Bed Elevated Scooting Scooting to Edge of Bed Maximum Assistance PT-Transfer Assessment Sit to and From Stand Sit to and from Stand Maximum Assistance,2 Person Assistance,Use of Upper Extremities Equipment Transfer Assistive Device Gait Belt,Front Wheeled Walker Orthotic/Prosthetic Devices or Brace: No Transfers Transfer Destination Chair Transfer Technique Squat Pivot Transfer Ability Level of Assist Maximum Assistance,2 Person Assistance,Use of Upper Extremities Comments Mobility Comments Pt requiring maxA x2 for bed mobility and tranbsfer. He was able to stand at the edge of the bed using UEs and MaxA x2 and use of UEs. Pt unable to maintain full upright position and relies heavily on UEs for standing with FWW. He was able to shuffle RLE sideways several inches toward chair but unable to move LLE. He sat back ddown on the bed after ~ 30 sec of standing. Therapists performed a squat pivot transfer to the chair. He was left in the care of OT. Gait Assessment Gait Gait Assistance Required: Maximum Assistance,2 Person Assist Distance (Feet) 2 Able to Maintain Weight Bearing Status Yes During Gait Assistive Devices Assistive Device Gait Belt,Front Wheeled Walker Orthotic/Prosthetic Devices or Brace: No Gait Deviations General Gait Pattern Antalgic,Decreased Stride Length,Decreased Feet Clearance,Flexed Trunk,Lateral Trunk Lean,Step-to Gait,Wide Based Gait Factors Limiting Gait Function Factors Limiting Gait Function Decreased Activity Tolerance, Decreased Strength,Difficulty Following Directions,Pain,Poor Balance,Poor Safety Awareness Comments Gait Comments see mobility for details. Stair Climbing Assessment Comments Stair Climbing Comments Unable to assess. Will need to assess 4 steps B HR before going home to ableto get up to bedroom level home, no steps to enter. M5 PT-IP Objective Assessments Start: 05/05/22 13:08 Freq: NEEDED Status: Active Protocol: Document 05/05/22 11:35 AB (Rec: 05/05/22 13:18 AB [id number]) Orientation Orientation/Cognition Level of Alertness Alert Orientation Name,Place,Situation Language Function Ability Hard of Hearing Safety Awareness Decreased Safety Awareness Memory Description Short Term Impaired Gross Range of Motion Lower Extremity ROM Assessment Within Functional Limits Strength Lower Extremity Strength Assessment Left Impaired Hip 3-/5 Knee 3+/5 Coordination Assessment Gross Coordination Gross Coordination WNL Sensation Assessment Sensation Gross Sensation WNL Muscle Tone Muscle Tone WNL Yes M6 PT-IP Treatment Start: 05/05/22 13:08 Freq: NEEDED Status: Active Protocol: Document 05/08/22 12:32 KIM (Rec: 05/08/22 12:47 [id number]) Physical Therapy Treatment Exercises Exercises Ankle Pumps,Quad Sets Education Education Provided Weight Bearing Status,Safety Other Treatments Other Treatment Performed all exercises with assistance M7 PT-IP Assessment and Plan Start: 05/05/22 13:08 Freq: NEEDED Status: Active Protocol: Document 05/08/22 12:32 KIM (Rec: 05/08/22 12:47 [id number]) PT Summary Assessment and Plan Potential Rehabilitation Potential Fair Status of Condition at Evaluation Evolving Summary Impairments Pain,ROM,Strength,Balance, Coordination,Tone,Cognition, Bed Mobility,Transfers,Gait, Activity Tolerance Progress Towards Goals Progressing Toward Goals,Slow Progress due to Pain,Slow Progress due to Activity Tolerance Assessment Summary Pt requires Max Ax2, unable to stand step pivot to chair and required squat pivot x2 to transfer to chair. He is unable to put much weight onto LLE or scoot the leg in any direction. Unable to lift it off floor. Will require SNF for increase strength and functional mobility progression. Goals Bed Mobility Goal Minimal Assistance Transfer Goal Minimal Assistance,Front Wheeled Walker Gait Goal Minimal Assistance,Front Wheel Walker Gait Distance 25 Other Goals improve bed mobility, transfers and ambulation using FWW ~100 ft SBA Days to Meet Goals 10 Frequency of Treatment Frequency Of Treatment Twice a Day Treatment Plan Physical Therapy Treatment Plan Bed Mobility Training,Transfer Training,Gait Training, Therapeutic Exercise,Balance Retraining,Post Op Education, Discharge Planning,Hot or Cold Pack,Neuromuscular Re-ed Other Recommendations and Next Treatment LE ex, bed mob, transfers, Focus standing increase tolerance, gait if able w/ FWW and chair follow. Precautions Other Precautions hard of hearing, UE arthritic changes in joints Weight Bearing Status Weight Bearing Status Weight Bear as Tolerated Allowed Weight Bearing Amount (enter % Left LE WBAT, s/p ORIF or #) (%) Recommendations To Nursing Amount of Assist Needed 2 Person Assist Discharge Recommendations PT Discharge Recommendations SNF Rehab Transportation Needs at Discharge Wheelchair/Cabulance
[2022-05-08 13:52] LABS: COVID19 -Nasal RAPID Negative (Negative)
--- NOTE | 2022-05-08 14:18 | PT.IPTN ---
Current Diagnoses Fracture of unspecified part of neck of left femur, initial encounter for closed fracture (05/03/22) Displaced intertrochanteric fracture of left femur, initial encounter for closed fracture (05/03/22) Surgery Performed Operation Date: 05/05/22 09:00 Actual Procedures p ORIF Hip DHS(Left) - Leland Heck MD Physical Therapy Treatment Note M2 PT-IP Current Condition Start: 05/05/22 13:08 Freq: NEEDED Status: Active Protocol: Document 05/07/22 15:16 SP (Rec: 05/07/22 16:05 SP [id number]) Physical Therapy Current Condition Current Condition Evaluation Date 05/05/22 Treatment Diagnosis L femoral fx s/p ORIF; difficulty in walking Onset Date 05/03/22 M3 PT-IP Subjective Start: 05/05/22 13:08 Freq: NEEDED Status: Active Protocol: Document 05/08/22 14:02 LJ (Rec: 05/08/22 14:18 LJ [id number]) Subjective Physical Therapy Visit Type Type Treatment Note Visit Start Time 01:42 Visit Stop Time 02:02 Total Visit Minutes 20 Notes GLASS TUBE BENDER and nurse provided assistance. Physical Therapy Visit Comments Patient Comments Pt wanting to get back into bed M4 PT-IP Mobility and Gait Start: 05/05/22 13:08 Freq: NEEDED Status: Active Protocol: Document 05/08/22 14:02 LJ (Rec: 05/08/22 14:18 LJ [id number]) PT-Bed Mobility Assessment Sit to Supine Sit to Supine Maximum Assistance,2 Person Assistance Scooting Scooting to Edge of Bed Dependent Scooting Up and Down in Bed Dependent PT-Transfer Assessment Sit to and From Stand Sit to and from Stand Maximum Assistance,2 Person Assistance,Use of Upper Extremities Equipment Transfer Assistive Device Gait Belt,Front Wheeled Walker Orthotic/Prosthetic Devices or Brace: No Transfers Transfer Destination Bed Transfer Technique Stand Step Pivot Transfer Ability Level of Assist Maximum Assistance,2 Person Assistance,Use of Upper Extremities Comments Mobility Comments Pt in chair wanting to transfer back to bed. Pt required maxA to scoot to edge of chair and maxA x2 with 3rd person for stabilizing FWW. Pt stood and maintained a flexed trunk position more than in am tx. he was able to shuffle LLE this time but needed to sit before he was entirely in front of the bed. Third person assisted with positioning his hips onto bed while 2 others held him up. Pt required MaxA x2 to position in bed. Dependent for scooting to head of bed. Pt was left in bed with nursing attending to changing his brief. Gait Assessment Gait Gait Assistance Required: Maximum Assistance,2 Person Assist Distance (Feet) 2 Able to Maintain Weight Bearing Status Yes During Gait Assistive Devices Assistive Device Gait Belt,Front Wheeled Walker Orthotic/Prosthetic Devices or Brace: No Gait Deviations General Gait Pattern Antalgic,Decreased Stride Length,Decreased Feet Clearance,Flexed Trunk,Lateral Trunk Lean,Step-to Gait,Wide Based Gait Factors Limiting Gait Function Factors Limiting Gait Function Decreased Activity Tolerance, Decreased Strength,Difficulty Following Directions,Pain,Poor Balance,Poor Safety Awareness Comments Gait Comments see mobility for details. Stair Climbing Assessment Comments Stair Climbing Comments Unable to assess. Will need to assess 4 steps B HR before going home to ableto get up to bedroom level home, no steps to enter. M5 PT-IP Objective Assessments Start: 05/05/22 13:08 Freq: NEEDED Status: Active Protocol: Document 05/05/22 11:35 AB (Rec: 05/05/22 13:18 AB [id number]) Orientation Orientation/Cognition Level of Alertness Alert Orientation Name,Place,Situation Language Function Ability Hard of Hearing Safety Awareness Decreased Safety Awareness Memory Description Short Term Impaired Gross Range of Motion Lower Extremity ROM Assessment Within Functional Limits Strength Lower Extremity Strength Assessment Left Impaired Hip 3-/5 Knee 3+/5 Coordination Assessment Gross Coordination Gross Coordination WNL Sensation Assessment Sensation Gross Sensation WNL Muscle Tone Muscle Tone WNL Yes M6 PT-IP Treatment Start: 05/05/22 13:08 Freq: NEEDED Status: Active Protocol: Document 05/08/22 14:02 (Rec: 05/08/22 14:18 [id number]) Physical Therapy Treatment Education Education Provided Weight Bearing Status,Safety M7 PT-IP Assessment and Plan Start: 05/05/22 13:08 Freq: NEEDED Status: Active Protocol: Document 05/08/22 14:02 KIM (Rec: 05/08/22 14:18 LJ [id number]) PT Summary Assessment and Plan Potential Rehabilitation Potential Fair Status of Condition at Evaluation Evolving Summary Impairments Pain,ROM,Strength,Balance, Coordination,Tone,Cognition, Bed Mobility,Transfers,Gait, Activity Tolerance Progress Towards Goals Progressing Toward Goals,Slow Progress due to Pain,Slow Progress due to Activity Tolerance Assessment Summary Pt unable to maintain erect position for more than ~20 sec this afternoon. He was not able to stand as tall as the morning session but he was able to move left foot to shuffle toward the bed. Pt sat on the bed and was assisted in scooting farther toward the center of the bed prior to lifting legs to lay down. He require SNF to improve strength, mobilty, and transfers to return to OF. Goals Bed Mobility Goal Minimal Assistance Transfer Goal Minimal Assistance,Front Wheeled Walker Gait Goal Minimal Assistance,Front Wheel Walker Gait Distance 25 Other Goals improve bed mobility, transfers and ambulation using FWW ~100 ft SBA Days to Meet Goals 10 Frequency of Treatment Frequency Of Treatment Twice a Day Treatment Plan Physical Therapy Treatment Plan Bed Mobility Training,Transfer Training,Gait Training, Therapeutic Exercise,Balance Retraining,Post Op Education, Discharge Planning,Hot or Cold Pack,Neuromuscular Re-ed Other Recommendations and Next Treatment LE ex, bed mob, transfers, Focus standing increase tolerance, gait if able w/ FWW and chair follow. Precautions Other Precautions hard of hearing, UE arthritic changes in joints Weight Bearing Status Weight Bearing Status Weight Bear as Tolerated Allowed Weight Bearing Amount (enter % Left LE WBAT, s/p ORIF or #) (%) Recommendations To Nursing Amount of Assist Needed 2 Person Assist Discharge Recommendations PT Discharge Recommendations SNF Rehab Transportation Needs at Discharge Wheelchair/Cabulance
--- NOTE | 2022-05-08 14:19 | PT.IPTN ---
Current Diagnoses Fracture of unspecified part of neck of left femur, initial encounter for closed fracture (05/03/22) Displaced intertrochanteric fracture of left femur, initial encounter for closed fracture (05/03/22) Surgery Performed Operation Date: 05/05/22 09:00 Actual Procedures p ORIF Hip DHS(Left) - Leland Heck MD Physical Therapy Treatment Note M2 PT-IP Current Condition Start: 05/05/22 13:08 Freq: NEEDED Status: Active Protocol: Document 05/07/22 15:16 SP (Rec: 05/07/22 16:05 SP [id number]) Physical Therapy Current Condition Current Condition Evaluation Date 05/05/22 Treatment Diagnosis L femoral fx s/p ORIF; difficulty in walking Onset Date 05/03/22 M3 PT-IP Subjective Start: 05/05/22 13:08 Freq: NEEDED Status: Active Protocol: Document 05/08/22 14:02 LJ (Rec: 05/08/22 14:18 LJ [id number]) Subjective Physical Therapy Visit Type Type Treatment Note Visit Start Time 01:42 Visit Stop Time 02:02 Total Visit Minutes 20 Notes CLAMP FORKLIFT OPERATOR and nurse provided assistance. Physical Therapy Visit Comments Patient Comments Pt wanting to get back into bed M4 PT-IP Mobility and Gait Start: 05/05/22 13:08 Freq: NEEDED Status: Active Protocol: Document 05/08/22 14:02 LJ (Rec: 05/08/22 14:18 LJ [id number]) PT-Bed Mobility Assessment Sit to Supine Sit to Supine Maximum Assistance,2 Person Assistance Scooting Scooting to Edge of Bed Dependent Scooting Up and Down in Bed Dependent PT-Transfer Assessment Sit to and From Stand Sit to and from Stand Maximum Assistance,2 Person Assistance,Use of Upper Extremities Equipment Transfer Assistive Device Gait Belt,Front Wheeled Walker Orthotic/Prosthetic Devices or Brace: No Transfers Transfer Destination Bed Transfer Technique Stand Step Pivot Transfer Ability Level of Assist Maximum Assistance,2 Person Assistance,Use of Upper Extremities Comments Mobility Comments Pt in chair wanting to transfer back to bed. Pt required maxA to scoot to edge of chair and maxA x2 with 3rd person for stabilizing FWW. Pt stood and maintained a flexed trunk position more than in am tx. he was able to shuffle LLE this time but needed to sit before he was entirely in front of the bed. Third person assisted with positioning his hips onto bed while 2 others held him up. Pt required MaxA x2 to position in bed. Dependent for scooting to head of bed. Pt was left in bed with nursing attending to changing his brief. Gait Assessment Gait Gait Assistance Required: Maximum Assistance,2 Person Assist Distance (Feet) 2 Able to Maintain Weight Bearing Status Yes During Gait Assistive Devices Assistive Device Gait Belt,Front Wheeled Walker Orthotic/Prosthetic Devices or Brace: No Gait Deviations General Gait Pattern Antalgic,Decreased Stride Length,Decreased Feet Clearance,Flexed Trunk,Lateral Trunk Lean,Step-to Gait,Wide Based Gait Factors Limiting Gait Function Factors Limiting Gait Function Decreased Activity Tolerance, Decreased Strength,Difficulty Following Directions,Pain,Poor Balance,Poor Safety Awareness Comments Gait Comments see mobility for details. Stair Climbing Assessment Comments Stair Climbing Comments Unable to assess. Will need to assess 4 steps B HR before going home to ableto get up to bedroom level home, no steps to enter. M5 PT-IP Objective Assessments Start: 05/05/22 13:08 Freq: NEEDED Status: Active Protocol: Document 05/05/22 11:35 AB (Rec: 05/05/22 13:18 AB [id number]) Orientation Orientation/Cognition Level of Alertness Alert Orientation Name,Place,Situation Language Function Ability Hard of Hearing Safety Awareness Decreased Safety Awareness Memory Description Short Term Impaired Gross Range of Motion Lower Extremity ROM Assessment Within Functional Limits Strength Lower Extremity Strength Assessment Left Impaired Hip 3-/5 Knee 3+/5 Coordination Assessment Gross Coordination Gross Coordination WNL Sensation Assessment Sensation Gross Sensation WNL Muscle Tone Muscle Tone WNL Yes M6 PT-IP Treatment Start: 05/05/22 13:08 Freq: NEEDED Status: Active Protocol: Document 05/08/22 14:02 (Rec: 05/08/22 14:18 [id number]) Physical Therapy Treatment Education Education Provided Weight Bearing Status,Safety M7 PT-IP Assessment and Plan Start: 05/05/22 13:08 Freq: NEEDED Status: Active Protocol: Document 05/08/22 14:02 KIM (Rec: 05/08/22 14:18 LJ [id number]) PT Summary Assessment and Plan Potential Rehabilitation Potential Fair Status of Condition at Evaluation Evolving Summary Impairments Pain,ROM,Strength,Balance, Coordination,Tone,Cognition, Bed Mobility,Transfers,Gait, Activity Tolerance Progress Towards Goals Progressing Toward Goals,Slow Progress due to Pain,Slow Progress due to Activity Tolerance Assessment Summary Pt unable to maintain erect position for more than ~20 sec this afternoon. He was not able to stand as tall as the morning session but he was able to move left foot to shuffle toward the bed. Pt sat on the bed and was assisted in scooting farther toward the center of the bed prior to lifting legs to lay down. He require SNF to improve strength, mobilty, and transfers to return to OF. Goals Bed Mobility Goal Minimal Assistance Transfer Goal Minimal Assistance,Front Wheeled Walker Gait Goal Minimal Assistance,Front Wheel Walker Gait Distance 25 Other Goals improve bed mobility, transfers and ambulation using FWW ~100 ft SBA Days to Meet Goals 10 Frequency of Treatment Frequency Of Treatment Twice a Day Treatment Plan Physical Therapy Treatment Plan Bed Mobility Training,Transfer Training,Gait Training, Therapeutic Exercise,Balance Retraining,Post Op Education, Discharge Planning,Hot or Cold Pack,Neuromuscular Re-ed Other Recommendations and Next Treatment LE ex, bed mob, transfers, Focus standing increase tolerance, gait if able w/ FWW and chair follow. Precautions Other Precautions hard of hearing, UE arthritic changes in joints Weight Bearing Status Weight Bearing Status Weight Bear as Tolerated Allowed Weight Bearing Amount (enter % Left LE WBAT, s/p ORIF or #) (%) Recommendations To Nursing Amount of Assist Needed 2 Person Assist Discharge Recommendations PT Discharge Recommendations SNF Rehab Transportation Needs at Discharge Wheelchair/Cabulance
--- NOTE | 2022-05-08 16:38 | PM.PNPO.1 ---
Subjective Subjective Date Patient Seen: 05/08/22 Time Patient Seen: 12:45 Interval history: Patient is working with his nurse and physical therapy when I come in. He is moderately alert and oriented. He has no complaints of left hip pain. Exam Vital Signs (past 8 hours): - 05/08/22 09:00 05/08/22 13:00 05/08/22 12:00 Temperature 98.0 F Pulse Rate 68 Respiratory Rate 20 Blood Pressure 118/58 L Pulse Oximetry 95 Oxygen Delivery Method Room Air Room Air Oxygen Flow Rate 0 05/08/22 16:00 Temperature 98.2 F Pulse Rate 75 Respiratory Rate 21 Blood Pressure 128/51 L Pulse Oximetry 96 Oxygen Delivery Method Oxygen Flow Rate 0 Oxygen Delivery Method Room Air Oxygen Flow Rate 0 Narrative Exam Narrative: Pleasant 87-year-old male, resting comfortably in his chair. He is alert and oriented times 2-3, no acute distress. Dressing is clean, dry, intact. Bilateral lower extremity: Motor functions are grossly intact, sensation is grossly intact to light touch, calves are soft and nontender palpation. He requires maximal 2-3 person assist to transfer from the chair to the bed. Objective Labs Result Diagrams: 05/08/22 11:42 05/08/22 05:21 Labs: Laboratory Results - last 24 hr 05/08/22 05/08/22 05/08/22 05:21 05:21 11:42 WBC 30.5 H* 27.0 H RBC 2.71 L 2.57 L Hgb 8.6 L 8.2 L Hct 25.5 L 23.9 L MCV 94.1 93.3 MCH 31.8 31.9 MCHC 33.8 34.2 RDW 14.8 14.7 Plt Count 204 206 Neut % (Auto) Not Reportable Lymph % (Auto) Not Reportable [place] % (Auto) Not Reportable Eos % (Auto) Not Reportable Baso % (Auto) Not Reportable Lymph # (Auto) Not Reportable [place] # (Auto) Not Reportable Baso # (Auto) Not Reportable Total Counted 100 100 Seg Neutrophils % 11.0 L 17.0 L D Lymphocytes % (Manual) 88.0 H 82.0 H Eosinophils % (Manual) 1.0 L 1.0 L Neutrophils # (Manual) [id number] Smudge Cells 1+ H RBC Morphology See below Normal morphology Poikilocytosis 1+ H Sodium 134 L Potassium 3.6 Chloride 104 Carbon Dioxide 24 BUN 57 H Creatinine 2.50 H Estimated GFR 24 L BUN/Creatinine Ratio 22.8 H Glucose 115 H Calcium 7.5 L Total Bilirubin 1.0 AST 34 ALT 9 Alkaline Phosphatase 74 C-Reactive Protein Total Protein 5.7 L Albumin 2.7 L Globulin 3.0 Albumin/Globulin Ratio 0.9 L SARS-CoV-2 (PCR) 05/08/22 05/08/22 11:42 11:51 WBC RBC Hgb Hct MCV MCH MCHC RDW Plt Count Neut % (Auto) Lymph % (Auto) [place] % (Auto) Eos % (Auto) Baso % (Auto) Lymph # (Auto) [place] # (Auto) Baso # (Auto) Total Counted Seg Neutrophils % Lymphocytes % (Manual) Eosinophils % (Manual) Neutrophils # (Manual) Smudge Cells RBC Morphology Poikilocytosis Sodium Potassium Chloride Carbon Dioxide BUN Creatinine Estimated GFR BUN/Creatinine Ratio Glucose Calcium Total Bilirubin AST ALT Alkaline Phosphatase C-Reactive Protein 12.0 H Total Protein Albumin Globulin Albumin/Globulin Ratio SARS-CoV-2 (PCR) Negative [facility] Medical History Anticoagulation adequate Atrial fibrillation Chronic kidney disease (CKD) stage G3a/A1, moderately decreased glomerular filtration rate (GFR) between 45-59 mL/min/1.73 square meter and albuminuria creatinine ratio less than 30 mg/g Chronic renal failure Coronary artery disease History of left common carotid artery stent placement History of right common carotid artery stent placement Peripheral arterial disease Surgical History History of appendectomy History of bilateral knee arthroplasty Stented coronary artery Family History Mother Lung cancer Father Lung cancer Other Hypertension Social History marital status: household members: family Smoking Status: Never smoker Assessment & Plan Post-op Postoperative Procedures: Procedures Operation Date: 05/05/22 09:00 Actual Procedure Side Surgeon p ORIF Hip DHS Left Leland Heck MD Postoperative day: 3 Postoperative status narrative: -stable status post left hip DHS ORIF Postoperative plan narrative: (1) Closed left hip fracture: Assessment and Plan narrative: Will need SNF rehab. WBAT LLE. Pt takes Eliquis d/t a fib and this will be adequate for post-surgical VTE prophylaxis. He should follow up at [facility] between May 15 and May 19 for staple removal and wound check, but if coordinating this with his rehab situation is too difficult, staple removal and wound check can be done at SNF. He should follow up with our office no later than 6 weeks after surgery for radiographs. Orthopedics to sign off at this point. Please do not hesitate to reach consult with any further questions or concerns. Quality VTE Deep Vein Thrombosis/Pulmonary Embolism Present on Admission: No
--- NOTE | 2022-05-08 18:49 | PC.NURSE ---
Pt worked with PT and sat in chair for about an hour. 2/3 person assist in transfer. Incontinent of stool. Pt will be discharged to SNF tomorrow. Pt is very TAKOTNA and AO3.
[2022-05-08] MEDS: ATORVASTATIN 20 MG TABLET 40 MG PO (22:00)
[2022-05-09] VITALS (8 sets, daily range): BP systolic 115–126; BP diastolic 48–53; PULSE 61–75; RESP 16–20; TEMP 36.2–36.9; O2SAT 94–98
[2022-05-09] MEDS: PANTOPRAZOLE DR 40 MG TABLET PO (05:44)
[2022-05-09] MEDS: DOCUSATE 100 MG CAPSULE PO (08:48)
[2022-05-09] MEDS: AMLODIPINE 5 MG TABLET PO (08:48)
[2022-05-09] MEDS: APIXABAN 5 MG TABLET 2.5 MG PO (08:48)
[2022-05-09] MEDS: TORSEMIDE 10 MG TABLET PO (08:48)
[2022-05-09] MEDS: SODIUM CHLORIDE 0.9% FLUSH 10 ML IV (08:50)
--- NOTE | 2022-05-09 10:56 | PT.IPTN ---
Current Diagnoses Fracture of unspecified part of neck of left femur, initial encounter for closed fracture (05/03/22) Displaced intertrochanteric fracture of left femur, initial encounter for closed fracture (05/03/22) Surgery Performed Operation Date: 05/05/22 09:00 Actual Procedures p ORIF Hip DHS(Left) - Leland Heck MD Physical Therapy Treatment Note M2 PT-IP Current Condition Start: 05/05/22 13:08 Freq: NEEDED Status: Active Protocol: Document 05/07/22 15:16 SP (Rec: 05/07/22 16:05 SP [id number]) Physical Therapy Current Condition Current Condition Evaluation Date 05/05/22 Treatment Diagnosis L femoral fx s/p ORIF; difficulty in walking Onset Date 05/03/22 M3 PT-IP Subjective Start: 05/05/22 13:08 Freq: NEEDED Status: Active Protocol: Document 05/09/22 10:40 KS (Rec: 05/09/22 11:57 KS [id number]) Subjective Physical Therapy Visit Type Type Treatment Note Visit Start Time 10:40 Visit Stop Time 10:56 Total Visit Minutes 16 Notes co treat w/ OT Physical Therapy Visit Comments Patient Comments Pt agreeable to working w/ therapy. M4 PT-IP Mobility and Gait Start: 05/05/22 13:08 Freq: NEEDED Status: Active Protocol: Document 05/09/22 10:40 KS (Rec: 05/09/22 11:57 KS [id number]) PT-Bed Mobility Assessment Supine to Sit Supine to Sit Maximum Assistance,2 Person Assistance,Head of Bed Elevated Sit to Supine Sit to Supine Maximum Assistance,2 Person Assistance Scooting Scooting to Edge of Bed Moderate Assistance PT-Transfer Assessment Sit to and From Stand Sit to and from Stand Moderate Assistance,Maximum Assistance,2 Person Assistance ,Use of Upper Extremities Equipment Transfer Assistive Device Gait Belt,Front Wheeled Walker Orthotic/Prosthetic Devices or Brace: No Transfers Transfer Destination Bed Transfer Technique Sit<>stand Transfer Ability Level of Assist Moderate Assistance,Maximum Assistance,2 Person Assistance ,Use of Upper Extremities Comments Mobility Comments Pt in bed upon arrival and agreeable to practice standing . Max A x2 for sup<>sit w/ HOB elevated and Mod A and cues for scooting EOB. Pt able to sit<>stand from raised bed Mod to Max A x2 but unable to stand upright and on frst attempt braced LLE against bed to maintain standing balance. Pt attempted marching in place but was unable to full elevate LE off of floor. Pt performed 2 additional sit<> stand w/ similar outcomes but was able to maintain stading balance w/ Mod A x2 w/o leaning against bed frame. Pt performed minimal exercises while seated EOB, ankle pumps and seated marching but fatigued quickly. Max A x2 for sit<>sup. Pt left in bed w/ all needs in reach. Gait Assessment Comments Gait Comments Unable Stair Climbing Assessment Comments Stair Climbing Comments Unable to assess. Will need to assess 4 steps B HR before going home to ableto get up to bedroom level home, no steps to enter. PT-Balance Assessment Sitting Balance and Reactions Static Sitting Balance Ability Good Dynamic Sitting Balance Ability Fair Standing Balance and Reactions Static Standing Balance Ability Poor Dynamic Standing Balance Ability Poor Device Used FWW M5 PT-IP Objective Assessments Start: 05/05/22 13:08 Freq: NEEDED Status: Active Protocol: Document 05/05/22 11:35 AB (Rec: 05/05/22 13:18 AB [id number]) Orientation Orientation/Cognition Level of Alertness Alert Orientation Name,Place,Situation Language Function Ability Hard of Hearing Safety Awareness Decreased Safety Awareness Memory Description Short Term Impaired Gross Range of Motion Lower Extremity ROM Assessment Within Functional Limits Strength Lower Extremity Strength Assessment Left Impaired Hip 3-/5 Knee 3+/5 Coordination Assessment Gross Coordination Gross Coordination WNL Sensation Assessment Sensation Gross Sensation WNL Muscle Tone Muscle Tone WNL Yes M6 PT-IP Treatment Start: 05/05/22 13:08 Freq: NEEDED Status: Active Protocol: Document 05/09/22 10:40 KS (Rec: 05/09/22 11:57 KS [id number]) Physical Therapy Treatment Exercises Exercises Ankle Pumps Education Education Provided Weight Bearing Status,Safety Other Treatments Other Treatment Performed Seated marching. M7 PT-IP Assessment and Plan Start: 05/05/22 13:08 Freq: NEEDED Status: Active Protocol: Document 05/09/22 10:40 KS (Rec: 05/09/22 11:57 KS [id number]) PT Summary Assessment and Plan Potential Rehabilitation Potential Fair Summary Impairments Pain,ROM,Strength,Balance, Coordination,Tone,Cognition, Bed Mobility,Transfers,Gait, Activity Tolerance Progress Towards Goals Progressing Toward Goals,Slow Progress due to Pain,Slow Progress due to Activity Tolerance Assessment Summary Pt remains limited by weakness and low tolerance for actvity . He required Mod to Max A x2 throughout treatment. He was able to perform 3x sit<>stands w/ FWW 2PA but unable to elevate feet from floor to take steps. Poor tolerance for ther ex. He will require SNF to improve strength, mobilty, and transfers to return to PLOF. Goals Bed Mobility Goal Minimal Assistance Transfer Goal Minimal Assistance,Front Wheeled Walker Gait Goal Minimal Assistance,Front Wheel Walker Gait Distance 25 Other Goals improve bed mobility, transfers and ambulation using FWW ~100 ft SBA Days to Meet Goals 10 Frequency of Treatment Frequency Of Treatment Twice a Day Treatment Plan Physical Therapy Treatment Plan Bed Mobility Training,Transfer Training,Gait Training, Therapeutic Exercise,Balance Retraining,Post Op Education, Discharge Planning,Hot or Cold Pack,Neuromuscular Re-ed Other Recommendations and Next Treatment LE ex, bed mob, transfers, Focus standing increase tolerance, gait if able w/ FWW and chair follow. Precautions Other Precautions hard of hearing, UE arthritic changes in joints Weight Bearing Status Weight Bearing Status Weight Bear as Tolerated Allowed Weight Bearing Amount (enter % Left LE WBAT, s/p ORIF or #) (%) Recommendations To Nursing Amount of Assist Needed 2 Person Assist Discharge Recommendations PT Discharge Recommendations SNF Rehab Transportation Needs at Discharge Wheelchair/Cabulance
--- NOTE | 2022-05-09 11:17 | OT.IP.TRT ---
Current Diagnoses Fracture of unspecified part of neck of left femur, initial encounter for closed fracture (05/03/22) Displaced intertrochanteric fracture of left femur, initial encounter for closed fracture (05/03/22) Surgery Performed Operation Date: 05/05/22 09:00 Actual Procedures p ORIF Hip DHS(Left) - Leland Heck MD Occupational Therapy Treatment Note M2 OT-IP Current Condition Start: 05/07/22 09:34 Freq: Status: Active Protocol: Document 05/07/22 09:35 CGR (Rec: 05/07/22 10:11 CGR [id number]) Occupational Therapy Current Condition Current Condition Evaluation Date 05/07/22 Treatment Diagnosis L intertrocanteric fx s/p 05/05 ORIF sx Diagnosis Onset Date 05/03/22 Weight Bearing Status Weight Bearing Status Weight Bear as Tolerated M3 OT- IP Subjective and Pain Start: 05/07/22 09:34 Freq: Status: Active Protocol: Document 05/09/22 11:08 CCC (Rec: 05/09/22 11:17 CCC [id number]) OT- Subjective Occupational Therapy Visit Type Type Treatment Note Visit Start Time 09:25 Visit Stop Time 11:50 Total Visit Minutes 35 Notes Pt seen from [id number] and [id number]. Occupational Therapy Visit Comments Patient Comments Pt agreed to try to get up. OT Pain Assessment Pain When Pain Assessed During Mobility Pain Present Pain Present Pain Reported M4 OT- IP ADL's Start: 05/07/22 09:34 Freq: Status: Active Protocol: Document 05/09/22 11:08 CCC (Rec: 05/09/22 11:17 [facility] [id number]) OT ADL-Grooming General Evaluation Grooming Ability Standby Assistance Areas Needing Assistance Retrieving/Set-up of Grooming Items Comments OT Grooming Comments while seated OT ADL-Oral Care General Eval Oral Care Ability Standby Assistance Areas of Assistance Retrieving/Set-Up of Items Comments Oral Care Comments while seated and vc for completeness OT ADL-Dressing General Eval Lower Body Dressing Ability Total Assistance Areas Needing Assistance Underpants/Brief OT ADL-Toileting General Evaluation Toileting Ability Total Assistance Areas Needing Assistance Manage Clothing,Perform Perineal Hygiene Comments OT Toileting Comments Pt needing MODA X2 to assist to roll side to side for brief and hygiene needs. OT ADL-Bathing Comments OT Bathing Comments Sponge bath more appropriate at this time. M5 OT- IP IADL's Start: 05/07/22 09:34 Freq: Status: Active Protocol: Document 05/07/22 09:35 CGR (Rec: 05/07/22 10:11 CGR [id number]) OT-Instrumental Activities of Daily Living Deficits IADL Deficits Identified Deficits Home Safety Awareness Awareness of Need for Assistance at Home Decreased Awareness Ability to Problem Solve Emergency Able to Problem Solve Situations Medication Management Medication Management Caregiver Administers Money Management Money Management Caregiver Provides Assistance Meal Preparation Meal Preparation Caregiver Provides Assist Collet Making Machine Operator Collet Making Machine Operator Caregiver Provides Assist M6 OT- IP Functional Cognition Start: 05/07/22 09:34 Freq: Status: Active Protocol: Document 05/09/22 11:08 [facility] (Rec: 05/09/22 11:17 [facility] [id number]) Cognitive Factors Limiting Selfcare Function Cognitive Comments Cognitive Assessment Comments Attempted to do SLUMS but pt is very hard of hearing to be able to fully participate in the assessment. Pt aware of the date and year. M7 OT- IP Mobility and Balance Start: 05/07/22 09:34 Freq: Status: Active Protocol: Document 05/09/22 11:08 [facility] (Rec: 05/09/22 11:17 [facility] [id number]) OT- Bed Mobility Assessment Supine to Sit Supine to Sit Assist Maximum Assistance,2 Person Assistance Sit to Supine Sit to Supine Assist Maximum Assistance,2 Person Assistance OT-Transfer Assessment Sit to and From Stand Sit to and from Stand Moderate Assistance,Maximum Assistance,2 Person Assistance Comments Mobility Comments MAX AX 2 with HOB up and able to sit at edge of the bed. Pt MOD Ax2 to stand to FWW and tends to lean on the edge of the bed for balance. pt tires needing MAX AX 2 to stand to FWW. OT- Balance Assessment Sitting Balance and Reactions Static Sitting Balance Ability Fair Dynamic Sitting Balance Ability Fair Standing Balance and Reactions Static Standing Balance Ability Poor M9 OT- IP Assessment and Plan Start: 05/07/22 09:34 Freq: Status: Active Protocol: Document 05/09/22 11:08 [facility] (Rec: 05/09/22 11:17 [facility] [id number]) OT Summary Assessment and Plan Potential Rehabilitation Potential Good Analytic Complexity at Evaluation High Summary OT Impairments Pain,Strength,Balance, Functional Cognition, Functional Mobility,Grooming, Dressing,Toileting,Bathing, Toilet Transfers,Shower Transfers,Activity Tolerance Progress Towards Goals Progressing Toward Goals,Slow Progress due to Pain,Slow Progress due to Activity Tolerance Assessment Summary Pt looking to go to skilled rehab today. Pt still needing extensive two person assist for ADl and mobility needs. Goals Grooming Goal Independent Dressing Goal Independent Toileting Goal Independent Bathing Goal Standby Assistance Toilet Transfer Goal Independent Shower Transfer Goal Standby Assistance Days to Meet Goals 30 Frequency of Treatment Frequency Of Treatment Once a Day Treatment Plan OT Treatment Plan ADL Training,Functional Cognition Training,Functional Mobility,Patient/Family Education,Discharge Planning Discharge Recommendations OT Discharge Recommendations SNF Rehab Transportation Needs at Discharge Wheelchair/Cabulance
--- NOTE | 2022-05-09 12:38 | P.DS_ITS ---
History of Present Illness History of Present Illness Date Patient Seen: 05/09/22 Time Patient Seen: 12:00 Chief complaint: Fall, left leg pain Narrative: As per the the history and physical, Mr. Peralta is an 87M with PMH CHFpEF, mild aortic stenosis, atrial fibrillation on eliquis, CKD stage 4 who presents with a fall. He states he believes he took his eliquis the morning of 05/03. He says he was in a chair and he fell out of it onto his left hip. No head strike. No loss of consciousness. He had left hip pain and could not ambulate. In the ED workup was done, vitals notable for no measured temp, elevated blood pressure in 160s/60s. Labs notable for WBC 24.7, hgb 9.4, plts 197. Creatinine 2.54. INR 1.7. BNP 7400. COVID negative. Hip xray shows L displaced intertrochanteric fracture of left proximal femur. Chest xray showed pulmonary edema. He was given pain medications and admitted for further treatment. Discharge Providers Provider Date of admission: 05/03/22 15:49 Discharge Date: 05/09/22 Primary care physician: Sourav Coffey MD Consults: 05/03/22 20:49 Consult to Orthopedic Surgery Routine Comment: Consulting Provider: Leland Heck Reason for consultation: hip fracture Has provider been notified: Yes 05/05/22 10:25 Consult to Discharge Planning Routine Comment: Likely SNF placement after hip fracture 05/05/22 10:31 Consult to Discharge Planning Routine Comment: Consult to Physical Therapy Evaluate & Treat Comment: Physician Instructions: Evaluate and Treat Consult to Respiratory Therapy Evaluate & Treat Comment: Physician Instructions: Evaluate and treat 05/06/22 13:19 Consult to Occupational Therapy Evaluate & Treat Comment: Physician Instructions: Evaluate and treat Discharge provider: Kerrie Blum MD Summary Hospital Course Discharge Diagnosis: Left hip intratrochanteric fracture in setting of patient with concern for 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 Currently postoperative. Hospital Course: Patient presented following a fall and injury to left hip. He was noted to have intertrochanteric fracture. Dr. Heck orthopedic surgery was consulted and open reduction internal fixation with dynamic hip screw was completed on May 05, 2022. Patient has progressed as expected postoperatively. However it was noted that the patient had elevated white blood cell count that was consistently elevated and slightly increasing during the hospital stay. This presented a concern for CLL. He does have high lymphocytes and normal level of neutrophils. Lymphocyte percentage is 82%. Further tests for workup are still pending results and these should be followed by his primary care provider. Postoperative physical therapy has been provided however patient needs further mobilization prior to being discharged to home. Medical problems of hypertension, atrial fibrillation and GERD have been stable during the hospital stay. Status at Discharge Cognitive/behavioral status at discharge: at baseline, confused Functional status at discharge: uses cane/walker Overall status at discharge: patient is progressing back to baseline Time Spent with Patient Time spent: Greater than 30 minutes Exam Vital Signs (past 8 hours): - 05/09/22 05:00 05/09/22 08:05 05/09/22 08:20 Temperature 98.4 F Pulse Rate 72 Respiratory Rate 20 Blood Pressure 115/48 L Pulse Oximetry 95 97 97 Oxygen Delivery Method Room Air Nasal Cannula Oxygen Flow Rate 0 0 1.5 05/09/22 11:55 Temperature 97.9 F Pulse Rate 62 Respiratory Rate 20 Blood Pressure 126/53 L Pulse Oximetry 97 Oxygen Delivery Method Oxygen Flow Rate 0 Oxygen Delivery Method Nasal Cannula Oxygen Flow Rate 0 Narrative Exam Narrative: Alert.? Oriented to person.? Questionable to place.? Appears in no acute distress. HEENT:? Pupils equal reactive to light.? Extraocular movements normal.? Head is normocephalic.? Trachea is midline.? No palpable neck nodes. Respiratory:? Adequate air entry throughout the lung fitzpatrick but generally decreased in volume.? No wheezes or crackles. Cardiovascular:? Heart sounds S1 and S2 with no extra sounds or murmurs.? Pulses equal bilaterally. Atrial fibrillation. Gastrointestinal:? Abdomen is soft.? Nontender bowel sounds normal Musculoskeletal:? Able to move all extremities volitionally.? Tender left hip. Neuro:? Normal sensation of all extremities.? Oriented to person. Psych:? Normal mood and affect. Objective Labs Result Diagrams: 05/08/22 11:42 05/08/22 05:21 Labs: Laboratory Results - last 24 hr 05/08/22 11:51 SARS-CoV-2 (PCR) Negative [facility] Medical History Anticoagulation adequate Atrial fibrillation Chronic kidney disease (CKD) stage G3a/A1, moderately decreased glomerular filtration rate (GFR) between 45-59 mL/min/1.73 square meter and albuminuria creatinine ratio less than 30 mg/g Chronic renal failure Coronary artery disease History of left common carotid artery stent placement History of right common carotid artery stent placement Peripheral arterial disease Surgical History History of appendectomy History of bilateral knee arthroplasty Stented coronary artery Family History Mother Lung cancer Father Lung cancer Other Hypertension Social History marital status: household members: family Smoking Status: Never smoker Discharge Assessment & Plan Assessment and Plan Assessment: Ready for discharge to SNF Plan of Treatment: Discharged to [facility] today. Discharge Plan Discharge Plan Patient Disposition: SNF Transfer to: [facility] Discharge orders & Medications Prescriptions: New docusate sodium 100 mg Capsule 100 mg PO BID 30 Days Qty: 60 0RF polyethylene glycol 3350 17 gram Powder In Packet 17 g PO DAILY PRN (Reason: Constipation) 30 Days Qty: 30 0RF oxycodone 5 mg Tablet 5 mg PO Q3HR PRN (Reason: Pain, Mild (1-3)) Qty: 30 0RF Continued atorvastatin 40 mg tablet 40 mg PO BEDTIME amlodipine 5 mg tablet 5 mg PO DAILY ferrous gluconate 324 mg (38 mg iron) tablet 324 mg PO BID Label Comments: TK 1 T PO BID. Eliquis 2.5 mg Tablet 2.5 mg BID torsemide 10 mg 10 mg PO DAILY PRN (Reason: Edema) pantoprazole 40 mg Tablet,Delayed Release (Dr/Ec) 40 mg PO BID Follow up/Referrals: Sourav Coffey MD [Primary Care Provider] - Leland Heck MD [Physician] - (10-14 days postop) Diet/Activity/Treatments Other treatments: -WBAT LLE. -Pt takes Eliquis d/t a fib and this will be adequate for post-surgical VTE prophylaxis. -He should follow up at [facility] between May 15 and May 19 for staple removal and wound check, but if coordinating this with his rehab situation is too difficult, staple removal and wound check can be done at SNF. He should follow up with our office no later than 6 weeks after surgery for radiographs. Visit Report/Discharge Packet Instructions: DI for Open Reduction Internal Fixation Surgery Stand Alone Forms: Surgery Discharge Discharge Data Primary Care Provider: Sourav Coffey VTE Deep Vein Thrombosis/Pulmonary Embolism Present on Admission: No
--- NOTE | 2022-05-09 12:53 | CM.DPC ---
DCP Discharge SNF Per MD, pt medically stable to d/c to SNF today and no identified barriers to discharge. SW confirmed with [facility] that they can still accept today and transport around 1430 and updated COVID swab obtained yesterday already. GEE Jensen kindly faxing d/c packet to [facility] to review. LAUREL called pt's Dtr Patrizia and updated on d/c plan for today and she remains agreeable with d/c plan and states she was bedside this morning and pt was aware of plan for today and remained agreeable as well and more open to SNF since his spouse has and pt no longer stressed about getting back home to spouse. LAUREL updated RN and provided report number and radio repairman and CLINICAL NURSING INTERN. Plan: Patient to d/c to [facility] today via facility van at 1430 prior to safe return home with Dtr assist. Erna Sawyer, LEAF BINNER
--- NOTE | 2022-05-09 14:43 | PC.NURSE ---
Day shift: Report given to Meera SOUSA at [facility] at this time. Pt's brief just changed prior to d/c. Dressing remains CDI. CMS intact but Pt unable to stand on his own. VS remain WNL. RA 97%. Belongings and SNF packet given to transport person. Left unit at approx 1500. Pt's Daughter aware of placement to SNF.
== END 2022-05-09 14:53 | DRG 480 ==
LOC: ED 15:01 → AC 15:49
PROVIDERS: Internal Medicine; Neuromusculoskeletal Medicine, Sports Medicine; Orthopaedic Surgery; Admitting Provider Internal Medicine; Emergency Provider Emergency Medicine; PCP Internal Medicine; Referring Provider Emergency Medicine; Visit Provider Internal Medicine
PROC: 0QS734Z Reposition Left Upper Femur with Internal Fixation Device, Percutaneous Approach (ICD-10-PCS; principal; 2022-05-05 09:00)
DX: S72.142A Displaced intertrochanteric fracture of left femur, initial encounter for closed fracture (principal); I50.33 Acute on chronic diastolic (congestive) heart failure; N18.4 Chronic kidney disease, stage 4 (severe); I48.20 Chronic atrial fibrillation, unspecified; C91.90 Lymphoid leukemia, unspecified not having achieved remission; I13.0 Hypertensive heart and chronic kidney disease with heart failure and stage 1 through stage 4 chronic kidney disease, or unspecified chronic kidney disease; I25.10 Atherosclerotic heart disease of native coronary artery without angina pectoris; K21.9 Gastro-esophageal reflux disease without esophagitis; D63.1 Anemia in chronic kidney disease; W07.XXXA Fall from chair, initial encounter; Z79.01 Long term (current) use of anticoagulants; Z95.5 Presence of coronary angioplasty implant and graft; Z20.822 Contact with and (suspected) exposure to COVID-19; Z23 Encounter for immunization
CPT/HCPCS: 0013A; 36415; 36430; 71045; 73502; 73552; 76000; 80048; 80053; 82550; 83605; 83880; 84484; 85007; 85025; 85027; 85610; 86140; 86850; 86900; 86901; 87635; 88184; 91301; 93005; 93010; 94760; 96374; 96375; 97162; 97167; 97530; 97535; 99284; C9803; P9016; C9113; J0690; J1170; J1940; J2270; J2405; J2704; J3010

== ENCOUNTER → 2022-07-14 13:56 | Outpatient (CLI) | payer OTHER, MEDICAID, SELFPAY ==
[2022-05-03 16:07] VITALS: BMI 30.8
--- NOTE | 2022-07-14 13:58 | DI.MRI.S_ITS ---
PROCEDURE: MR HEAD/BRAIN WO CON INDICATIONS: RT SIDED WEAKNESS/NEURO DEFICIT/STROKE SUSPECTED TECHNIQUE: Non-contrast axial T1 spin echo, axial T2 fast spin echo, sagittal and axial FLAIR, coronal T2 fast spin echo, axial gradient echo, axial diffusion and ADC through the brain. COMPARISON: CT, CT HEAD/BRAIN WO CON, 01/21/2021, 18:03. FINDINGS: Image quality: Degraded by patient positioning factors. CSF spaces: Ventricles appear symmetric in size and shape. Basal cisterns are patent. No extra-axial fluid collections. Brain: No intracranial bleeds or mass effects. There is cerebral volume loss for age. There are periventricular and deep white matter chronic small vessel ischemic changes. Brainstem appears normal. Diffusion-weighted images show no definite acute ischemic insults. No chronic ischemic insults. Normal intravascular flow voids are present. Skull and face: Calvarial bone marrow is normal in signal. Orbits are normal. Sinuses: Sinuses and mastoids are clear. IMPRESSION: 1. Volume loss and small vessel ischemic disease. 2. Limited examination demonstrating no definite acute intracranial abnormality. No definite recent infarct. Repeat imaging when patient is able to appropriately position for the examination may be helpful for further assessment. Dictated by: Michael Kern M.D. on 07/16/2022 at 8:49 Approved by: Michael Kern M.D. on 07/16/2022 at 8:51
== END ==
PROVIDERS: PCP Internal Medicine; Referring Provider Internal Medicine; Visit Provider Internal Medicine
DX: R41.3 Other amnesia (principal); R53.1 Weakness; R29.818 Other symptoms and signs involving the nervous system
CPT/HCPCS: 70551

== ENCOUNTER 2022-08-06 15:54 | Inpatient (IN) | payer OTHER, MEDICAID, SELFPAY ==
[2022-05-03 16:07] VITALS: BMI 30.8
[2022-08-06 16:04] VITALS: BP 166/69; PULSE 78; RESP 18; TEMP 37.2; O2SAT 100; BMI 35.5
--- NOTE | 2022-08-06 16:11 | DI.RAD.S_ITS ---
PROCEDURE: XR HAND RT MIN 3V INDICATIONS: fall last night, pain and swelling TECHNIQUE: 3 views of the hand(s) acquired. COMPARISON: None. FINDINGS: Bones: The bones are demineralized and there is diffuse osteoarthritic change. A cortical irregularity at the lateral base of the 3rd metacarpal is seen, probably related to degenerative changes, however a nondisplaced fracture is possible if there is point tenderness at this location. Soft tissues: No suspicious soft tissue calcifications. Vasculature has atherosclerotic calcifications. IMPRESSION: Cortical irregularity at the base of the 3rd metacarpal, probably related to underlying degenerative changes, however it if there is point tenderness at this location a nondisplaced fracture could be considered. Dictated by: Rik Reyes M.D. on 08/06/2022 at 17:00 Approved by: Rik Reyes M.D. on 08/06/2022 at 17:03
--- NOTE | 2022-08-06 16:12 | DI.RAD.S_ITS ---
PROCEDURE: XR ANKLE RT MIN 3V INDICATIONS: fall last night right ankle swelling TECHNIQUE: 3 views of the ankle were acquired. COMPARISON: None. FINDINGS: Bones: Degenerative changes, especially of the lateral ankle. No fracture or dislocation. Soft tissues: No tibiotalar joint effusion. Achilles tendon appears normal. Vasculature has atherosclerotic calcifications. There is artifact from overlying sock. IMPRESSION: 1. No acute abnormality identified. No fracture identified. 2. Degenerative changes. 3. Vascular calcifications. Dictated by: Rik Reyes M.D. on 08/06/2022 at 17:04 Approved by: Rik Reyes M.D. on 08/06/2022 at 17:06
--- NOTE | 2022-08-06 19:10 | DI.RAD.S_ITS ---
PROCEDURE: XR CHEST 1V INDICATIONS: Flu like symptoms TECHNIQUE: One view of the chest was acquired. COMPARISON: [facility], CR, XR CHEST 1V, 05/03/2022, 14:23. FINDINGS: Surgical changes and devices: None. Lungs and pleura: The lung apices are partially obscured by patient's neck soft tissues. No definite pneumothorax. There is a small right pleural effusion. Associated confluent right basilar opacities are consistent with compressive atelectasis as well as likely consolidation. There is pulmonary edema. Mediastinum: Mediastinal contours appear unchanged. Heart size is enlarged. Bones and chest wall: No suspicious bony lesions. Overlying soft tissues appear unremarkable. IMPRESSION: 1. Small right pleural effusion with right basilar opacities consistent with atelectasis as well as likely consolidation/pneumonia. Recommend short-term follow-up to demonstrate resolution. 2. Pulmonary edema and cardiomegaly compatible with congestive heart failure. Dictated by: Garfield Perales M.D. on 08/06/2022 at 20:34 Approved by: Garfield Perales M.D. on 08/06/2022 at 20:36
--- NOTE | 2022-08-06 19:15 | CM.SWNOTE ---
Pt is 87 year old male who presents to ED with his daughter/caregiver after a fall. Pt has [employer] and Medicaid. Pt's PCP is Rani Clark. LAUREL met with pt and daughter Patrizia. Patrizia reports that she is the sole caregiver and patient's needs are starting to exceed her capacity. LAUREL explained to Patrizia that pt would likely not meet criteria for a SNF, due to a lack of skilled needs. Patrizia reports that they have a HCS in home assessment scheduled for 09/03 with Goran. Patrizia does not have contact information for Goran but LAUREL has possible phone number [phone]. LAUREL left voicemail for Goran requesting a call back with a request for an earlier assessment, if possible. LAUREL explored other options with Patrizia including private pay caregivers and home health. Patrizia reports that it will not be enough help. Pt currently goes to PT outpatient. Plan: Pt will be seen by ED Provider. LAUREL will follow up with Goran regarding scheduling an earlier assessment. DWAYNE Richardson
--- NOTE | 2022-08-06 19:30 | PC.NURSE ---
Assumed care of pt at this time - assessment performed
--- NOTE | 2022-08-06 20:00 | PC.NURSE ---
Sitting on stretcher - dozing in and out - airway patent
[2022-08-06 20:02] LABS: INR 1.8 (0.9-1.3); Prothrombin Time 20.2 SECONDS (10.1-12.7)
[2022-08-06 20:05] LABS: PTT Partial Thromboplastin Tim 34 SECONDS (26-36)
[2022-08-06 20:12] LABS: Hematocrit 25.8 % (41-53); Hemoglobin 8.7 g/dL (13.5-17.5); Mean Corpuscular HGB Conc 33.5 % (30-36); Mean Corpuscular Hemoglobin 30.9 PG (26-34); Mean Corpuscular Volume 92.3 fL (80-100); Platelet Count 234 X10^3/uL (150-400)
[2022-08-06 20:13] LABS: Add Manual Diff / Slide Review YES; White Blood Cell Count 21.7 X10^3/uL (4.5-11.0)
[2022-08-06 20:14] LABS: Alanine Aminotransferase 15 IU/L (<50); Albumin 3.5 g/dL (3.5-5.0); Alkaline Phosphatase 121 U/L (38-126); Aspartate Aminotransferase 22 IU/L (17-59); Bilirubin Total 0.6 mg/dL (0.2-1.3); Blood Urea Nitrogen 38 mg/dL (9-20); Calcium 8.3 mg/dL (8.4-10.2); Carbon Dioxide 25 mmol/L (22-32); Chloride 107 mmol/L (98-107); Creatine Kinase 28 U/L (55-170); Estimated Glomerular Filt Rate 24 mL/min (>60); Globulin 3.6 g/dL (1.7-4.1); Glucose 171 mg/dL (80-110); HEMOLYSIS < 15 (0-50); Lipase 61 U/L (23-300); Magnesium 1.8 mg/dL (1.6-2.3); Potassium 4.3 mmol/L (3.4-5.1); Sodium 142 mmol/L (137-145); Total Protein 7.1 g/dL (6.3-8.2)
[2022-08-06 20:22] LABS: NT-proBNP (BNP-Adult 18+) 7920 pg/mL (<450)
[2022-08-06 20:24] LABS: Troponin I 0.036 ng/mL (0.01-0.034)
[2022-08-06 20:27] LABS: Neutrophils Absolute Manual 2604 /uL (3000-5900); Total Cells Counted 100
[2022-08-06 20:28] LABS: Anisocytosis 1+; Ovalocytes 1+; Poikilocytosis 3+
[2022-08-06 20:29] LABS: Acanthocytes 1+; Burr Cells 1+; Procalcitonin 0.15 ng/mL (<0.5); Schistocytes 1+; Smudge Cells 2+
--- NOTE | 2022-08-06 21:00 | PC.NURSE ---
No changes in pt assessment at this time- no needs voiced
[2022-08-06 22:00] VITALS: BP 142/64; PULSE 75; RESP 18; O2SAT 98
--- NOTE | 2022-08-06 22:00 | PC.NURSE ---
repeat troponin drawn at this time - tolerated well
[2022-08-06 22:17] LABS: Influenza A - CEPHEID Flu A NEGATIVE (NEGATIVE); Influenza B - CEPHEID Flu B NEGATIVE (NEGATIVE); Respiratory Syncytial Virus Negative (Negative)
[2022-08-06 22:30] LABS: COVID-19 CEPHEID 4-PLEX PCR POSITIVE (Negative)
[2022-08-06 22:31] LABS: Bacteria Urine None Seen; RBC Urine 0-1/HPF (0-5/HPF); Squamous Epithelial Cell Urine None Seen (0-5/HPF); WBC Urine 0-1/HPF (0-5/HPF)
[2022-08-06 22:32] LABS: Troponin I 0.034 ng/mL (0.01-0.034)
--- NOTE | 2022-08-06 23:00 | PC.NURSE ---
NO changes in pt status at this time - pleasant disposition - sings when RN at bedside
[2022-08-06 23:30] VITALS: BP 147/92; PULSE 75; RESP 18; O2SAT 97
[2022-08-07] VITALS (11 sets, daily range): BP systolic 122–155; BP diastolic 57–72; PULSE 68–99; RESP 18–20; TEMP 37–37.1; O2SAT 96–100; BMI 29.8
--- NOTE | 2022-08-07 | PC.NURSE ---
No changes in pt status - rests quietly in NAD - awakens to RN at bedside - pleasant disposition - calm and cooperative - airway patent
--- NOTE | 2022-08-07 00:28 | ED_ITS ---
HPI - Fall General Chief Complaint: Fall Stated Complaint: GLF last night, blood thinners Time Seen by Provider: 08/06/22 19:23 History of Present Illness HPI Narrative: 87-year-old male nonsmoker with history of hypertension, hyperlipidemia on blood thinners for atrial fibrillation presents with family in the chief complaint of a ground level fall last night. He had been in an automated recliner and slid out and landed on the ground. In doing so he injured his right hand and ankle. He denies any head neck or back pain. He has no chest pain or shortness of breath. He is had no cough. Denies runny nose, sore throat nor fever or chills. He is had no nausea, vomiting or diarrhea. He lives at home with family and they are concerned that he is decompensating and they are unable to care for him. Patient has had somewhat of a decline since requiring hip surgery in April and has not been near is ambulatory since. Patient has become significantly weak with increased SOB and inability to assist over the past few days. EMS has been called multiple times Related Data Home Medications Medication Instructions Recorded Confirmed amlodipine 5 mg tablet 5 mg PO DAILY 01/23/19 05/03/22 atorvastatin 40 mg tablet 40 mg PO BEDTIME 01/23/19 05/03/22 ferrous gluconate 324 mg (38 mg 324 mg PO BID 01/23/19 05/03/22 iron) tablet apixaban 2.5 mg tablet (Eliquis) 2.5 mg BID 05/03/22 05/03/22 pantoprazole 40 mg tablet,delayed 40 mg PO BID 05/03/22 05/03/22 release torsemide 10 mg PO DAILY PRN Edema 05/03/22 05/03/22 Previous Rx's Medication Instructions Recorded oxycodone 5 mg tablet 5 mg PO Q3HR PRN Pain, Mild (1-3) 05/09/22 #30 tabs Allergies Allergy/AdvReac Type Severity Reaction Status Date / Time No Known Drug Allergies Allergy Verified 08/06/22 16:11 Review of Systems Review of Systems Narrative: GENERAL: Denies chills, fatigue, malaise, fever, sweats. HEENT: Denies sinus pain, ear pain, sore throat, difficulty swallowing, dizziness. RESPIRATORY: Denies dyspnea, cough, wheezing, hemoptysis, sputum. CARDIOVASCULAR: Denies chest pain, palpitations, orthopnea, edema, GASTROINTESTINAL: Denies nausea, vomiting, abdominal pain, diarrhea, constipation, melena. : Denies dysuria, frequency, incontinence, hematuria, urinary retention. MUSCULOSKELETAL: See HPI SKIN: See HPI NEUROLOGIC: Denies weakness, headache, numbness, change in speech, confusion, seizures, incoordination. PSYCHIATRIC: No concerning psychosocial issues. 12 point review of systems is negative except for those stated above Patient History Medical History (Updated 08/07/22 @ 05:12 by Javid Begum DO) Anticoagulation adequate Atrial fibrillation Chronic kidney disease (CKD) stage G3a/A1, moderately decreased glomerular filtration rate (GFR) between 45-59 mL/min/1.73 square meter and albuminuria creatinine ratio less than 30 mg/g Chronic renal failure Coronary artery disease History of left common carotid artery stent placement History of right common carotid artery stent placement Peripheral arterial disease Surgical History History of appendectomy History of bilateral knee arthroplasty Stented coronary artery Family History Mother Lung cancer Father Lung cancer Other Hypertension Social History marital status: household members: family Smoking Status: Never smoker Smoking Status: Never smoker alcohol intake frequency: a few times a month Substance Use Type: does not use Exam Narrative Exam Narrative: GENERAL: [87] year old patient appears stated age. Well-developed patient, in mild distress. GCS 14 (pleasantly confused) HEAD: Atraumatic. Normocephalic. EYES: Pupils equal round and reactive. Extraocular motions intact. No scleral icterus. No injection or drainage. ENT: Nose without bleeding, purulent drainage. Throat without erythema, tonsillar hypertrophy or exudate. Airway patent. NECK: Trachea midline. Non tender CARDIOVASCULAR: Irregular rate and rhythm without murmurs, gallops, or rubs. RESPIRATORY: Clear to auscultation. Breath sounds equal bilaterally. No wheezes, rales, or rhonchi. GASTROINTESTINAL: Abdomen soft, non-tender, nondistended. EXTREMITIES: Swelling of right hand with some ecchymosis, no numbness or tingling, superficial abrasions at wrist BACK: Nontender without deformity or crepitance. No flank tenderness. NEURO: AOx3. SKIN: No rash or erythema of visible areas Initial Vital Signs Initial Vital Signs: Vital Signs Temperature 99 F 08/06/22 16:04 Pulse Rate 78 08/06/22 16:04 Respiratory Rate 18 08/06/22 16:04 Blood Pressure 166/69 H 08/06/22 16:04 Pulse Oximetry 100 08/06/22 16:04 Oxygen Delivery Method 08/06/22 16:04 Procedures Orthopedic Splinting/Casting Injury #1: Side: right Upper Extremity Injury Location: hand Upper Extremity Immobilizer: volar splint Post splinting neuro exam: intact Post splinting vascular exam: intact Placed by: Nursing Course Orders Ordered: ED Orders 08/06/22 21:30 Urine Culture Stat Urine Microscopic Stat 08/06/22 22:00 Troponin I Stat Amlodipine Besylate (Amlodipine 5 Mg Tablet) 5 mg PO DAILY MARTY Apixaban (Apixaban 5 Mg Tablet) 2.5 mg PO BID MARTY Atorvastatin Calcium (Atorvastatin 20 Mg Tablet) 40 mg PO BEDTIME MARTY Remdesivir 200 mg/ Sodium (Chloride) 250 mls @ 250 mls/hr IV NOW ONE Stop: 08/07/22 06:13 Discontinued Medications Dexamethasone (Dexamethasone 10 Mg/Ml Vial) 6 mg IV NOW ONE Stop: 08/07/22 05:15 Furosemide (Furosemide 40 Mg/4 Ml Vial) 40 mg IV NOW ONE Stop: 08/07/22 05:10 Ceftriaxone Sodium 1,000 mg/ (Sodium Chloride) 100 mls @ 200 mls/hr IV NOW ONE Stop: 08/07/22 05:10 Azithromycin 500 mg/ Dextrose 250 mls @ 250 mls/hr IV NOW ONE Stop: 08/07/22 05:10 Vital Signs Vital signs: Vital Signs - 8 hr 08/06/22 22:00 Pulse Rate 75 Respiratory Rate 18 Blood Pressure 142/64 H Pulse Oximetry 98 Oxygen Delivery Method Room Air MDM - Fall Lab Data Result diagrams: 08/06/22 19:45 08/06/22 19:45 Labs: Lab Results 08/06/22 08/06/22 08/06/22 Range/Units 19:45 19:45 19:45 WBC 21.7 H (4.5-11.0) X10^3/uL RBC 2.80 L (4.5-5.9) X10^6/uL Hgb 8.7 L (13.5-17.5) g/dL Hct 25.8 L (41-53) % MCV 92.3 (80-100) fL MCH 30.9 (26-34) PG MCHC 33.5 (30-36) % RDW 15.0 H (11.6-14.8) % Plt Count 234 (150-400) X10^3/uL Neut % (Auto) Not Reportable Lymph % (Auto) Not Reportable [place] % (Auto) Not Reportable Eos % (Auto) Not Reportable Baso % (Auto) Not Reportable Lymph # (Auto) Not Reportable [place] # (Auto) Not Reportable Baso # (Auto) Not Reportable Total Counted 100 Seg Neutrophils % 12.0 L (38-70) % Atypical Lymphs % 83.0 H ( - 0) % Monocytes % (Manual) 3.0 (2-11) % Eosinophils % (Manual) 2.0 (2-4) % Neutrophils # (Manual) 2604 L (7761-4249) /uL Smudge Cells 2+ H RBC Morphology See below Poikilocytosis 3+ H Anisocytosis 1+ H Ovalocytes 1+ H Hillary Cells 1+ H Acanthocytes (Spur) 1+ Schistocytes 1+ H PT 20.2 H (10.1-12.7) SECONDS INR 1.8 H (0.9-1.3) APTT 34 (26-36) SECONDS Sodium 142 (137-145) mmol/L Potassium 4.3 (3.4-5.1) mmol/L Chloride 107 (98-107) mmol/L Carbon Dioxide 25 (22-32) mmol/L BUN 38 H (9-20) mg/dL Creatinine 2.54 H (0.66-1.25) mg/dL Estimated GFR 24 L (>60) mL/min BUN/Creatinine Ratio 15.0 (6-22) Glucose 171 H (80-110) mg/dL Lactate (0.7-2.1) mmol/L Calcium 8.3 L (8.4-10.2) mg/dL Magnesium 1.8 (1.6-2.3) mg/dL Total Bilirubin 0.6 (0.2-1.3) mg/dL AST 22 (17-59) IU/L ALT 15 (<50) IU/L Alkaline Phosphatase 121 (38-126) U/L Total Creatine Kinase 28 L (55-170) U/L CK-MB (CK-2) TNP CK-MB (CK-2) Rel Index TNP Troponin I 0.036 H (0.01-0.034) ng/mL NT-Pro-B Natriuret Pep (<450) pg/mL Total Protein 7.1 (6.3-8.2) g/dL Albumin 3.5 (3.5-5.0) g/dL Globulin 3.6 (1.7-4.1) g/dL Albumin/Globulin Ratio 1.0 (1.0-2.8) Lipase 61 (23-300) U/L Procalcitonin (<0.5) ng/mL Urine RBC (0-5/HPF) Urine WBC (0-5/HPF) Ur Squamous Epith Cells (0-5/HPF) Urine Bacteria (None) SARS-CoV-2 (PCR) (Negative) Influenza A (RT-PCR) (NEGATIVE) Influenza B (RT-PCR) (NEGATIVE) RSV (PCR) (Negative) 08/06/22 08/06/22 08/06/22 Range/Units 19:45 19:45 19:50 WBC (4.5-11.0) X10^3/uL RBC (4.5-5.9) X10^6/uL Hgb (13.5-17.5) g/dL Hct (41-53) % MCV (80-100) fL MCH (26-34) PG MCHC (30-36) % RDW (11.6-14.8) % Plt Count (150-400) X10^3/uL Neut % (Auto) Lymph % (Auto) [place] % (Auto) Eos % (Auto) Baso % (Auto) Lymph # (Auto) [place] # (Auto) Baso # (Auto) Total Counted Seg Neutrophils % (38-70) % Atypical Lymphs % ( - 0) % Monocytes % (Manual) (2-11) % Eosinophils % (Manual) (2-4) % Neutrophils # (Manual) (6829-4180) /uL Smudge Cells RBC Morphology Poikilocytosis Anisocytosis Ovalocytes Hillary Cells Acanthocytes (Spur) Schistocytes PT (10.1-12.7) SECONDS INR (0.9-1.3) APTT (26-36) SECONDS Sodium (137-145) mmol/L Potassium (3.4-5.1) mmol/L Chloride (98-107) mmol/L Carbon Dioxide (22-32) mmol/L BUN (9-20) mg/dL Creatinine (0.66-1.25) mg/dL Estimated GFR (>60) mL/min BUN/Creatinine Ratio (6-22) Glucose (80-110) mg/dL Lactate 1.0 (0.7-2.1) mmol/L Calcium (8.4-10.2) mg/dL Magnesium (1.6-2.3) mg/dL Total Bilirubin (0.2-1.3) mg/dL AST (17-59) IU/L ALT (<50) IU/L Alkaline Phosphatase (38-126) U/L Total Creatine Kinase (55-170) U/L CK-MB (CK-2) CK-MB (CK-2) Rel Index Troponin I (0.01-0.034) ng/mL NT-Pro-B Natriuret Pep 7920 H (<450) pg/mL Total Protein (6.3-8.2) g/dL Albumin (3.5-5.0) g/dL Globulin (1.7-4.1) g/dL Albumin/Globulin Ratio (1.0-2.8) Lipase (23-300) U/L Procalcitonin 0.15 (<0.5) ng/mL Urine RBC (0-5/HPF) Urine WBC (0-5/HPF) Ur Squamous Epith Cells (0-5/HPF) Urine Bacteria (None) SARS-CoV-2 (PCR) Positive H (Negative) Influenza A (RT-PCR) Flu a negative (NEGATIVE) Influenza B (RT-PCR) Flu b negative (NEGATIVE) RSV (PCR) Negative (Negative) 08/06/22 08/06/22 Range/Units 21:30 22:00 WBC (4.5-11.0) X10^3/uL RBC (4.5-5.9) X10^6/uL Hgb (13.5-17.5) g/dL Hct (41-53) % MCV (80-100) fL MCH (26-34) PG MCHC (30-36) % RDW (11.6-14.8) % Plt Count (150-400) X10^3/uL Neut % (Auto) Lymph % (Auto) [place] % (Auto) Eos % (Auto) Baso % (Auto) Lymph # (Auto) [place] # (Auto) Baso # (Auto) Total Counted Seg Neutrophils % (38-70) % Atypical Lymphs % ( - 0) % Monocytes % (Manual) (2-11) % Eosinophils % (Manual) (2-4) % Neutrophils # (Manual) (8655-1109) /uL Smudge Cells RBC Morphology Poikilocytosis Anisocytosis Ovalocytes Orange Cells Acanthocytes (Spur) Schistocytes PT (10.1-12.7) SECONDS INR (0.9-1.3) APTT (26-36) SECONDS Sodium (137-145) mmol/L Potassium (3.4-5.1) mmol/L Chloride (98-107) mmol/L Carbon Dioxide (22-32) mmol/L BUN (9-20) mg/dL Creatinine (0.66-1.25) mg/dL Estimated GFR (>60) mL/min BUN/Creatinine Ratio (6-22) Glucose (80-110) mg/dL Lactate (0.7-2.1) mmol/L Calcium (8.4-10.2) mg/dL Magnesium (1.6-2.3) mg/dL Total Bilirubin (0.2-1.3) mg/dL AST (17-59) IU/L ALT (<50) IU/L Alkaline Phosphatase (38-126) U/L Total Creatine Kinase (55-170) U/L CK-MB (CK-2) CK-MB (CK-2) Rel Index Troponin I 0.034 (0.01-0.034) ng/mL NT-Pro-B Natriuret Pep (<450) pg/mL Total Protein (6.3-8.2) g/dL Albumin (3.5-5.0) g/dL Globulin (1.7-4.1) g/dL Albumin/Globulin Ratio (1.0-2.8) Lipase (23-300) U/L Procalcitonin (<0.5) ng/mL Urine RBC 0-1/hpf (0-5/HPF) Urine WBC 0-1/hpf (0-5/HPF) Ur Squamous Epith Cells None seen (0-5/HPF) Urine Bacteria None seen (None) SARS-CoV-2 (PCR) (Negative) Influenza A (RT-PCR) (NEGATIVE) Influenza B (RT-PCR) (NEGATIVE) RSV (PCR) (Negative) Urine Dip Bedside Urine Glucose Negative Bedside Urine Bilirubin - Negative Bedside Urine Ketone - Negative Urine Specific Marcy 1.015 Bedside Urine Occult Blood - Negative Bedside Urine pH 6.0 Bedside Urine Protein + 30 Bedside Urine Urobilinogen - Negative Bedside Urine Nitrite - Negative Bedside Urine Leukocytes - Negative Esterase Imaging Data Extremity x-ray #1: Radiologist's Impression: [address] [address] XRay Report Signed Patient: Chris Peralta MR#: [id number] : 1935 Acct:[id number] Age/Sex: 87 / M Date of Service: 08/06/22 Loc: ED Accession Number: [id number] ?? Procedure: XR hand RT min 3V Ordering Provider: America Smith D.O. PROCEDURE:? XR HAND RT MIN 3V ? INDICATIONS:? fall last night, pain and swelling ? TECHNIQUE:? 3 views of the hand(s) acquired.? ? COMPARISON:? None. ? FINDINGS:? ? Bones:? The bones are demineralized and there is diffuse osteoarthritic change.? A cortical irregularity at the lateral base of the 3rd metacarpal is seen, probably related to degenerative changes, however a nondisplaced fracture is possible if there is point tenderness at this location. ? Soft tissues:? No suspicious soft tissue calcifications.? Vasculature has atherosclerotic calcifications. ? ? IMPRESSION:? Cortical irregularity at the base of the 3rd metacarpal, probably related to underlying degenerative changes, however it if there is point tenderness at this location a nondisplaced fracture could be considered. ? ? Dictated by: Rik Reyes M.D. on 08/06/2022 at 17:00 ? ? Approved by: Rik Reyes M.D. on 08/06/2022 at 17: Extremity x-ray #2: Radiologist's Impression: [address] [address] XRay Report Signed Patient: Chris Peralta MR#: [id number] : 1935 Acct:[id number] Age/Sex: 87 / M Date of Service: 08/06/22 Loc: ED Accession Number: [id number] ?? Procedure: XR ankle RT min 3V Ordering Provider: America Smith D.O. PROCEDURE:? XR ANKLE RT MIN 3V ? INDICATIONS:? fall last night right ankle swelling ? TECHNIQUE:? 3 views of the ankle were acquired.? ? COMPARISON:? None. ? FINDINGS:? ? Bones:? Degenerative changes, especially of the lateral ankle.? No fracture or dislocation. ? Soft tissues:? No tibiotalar joint effusion.? Achilles tendon appears normal.? Vasculature has atherosclerotic calcifications.? There is artifact from overlying sock. ? ? IMPRESSION:? 1. No acute abnormality identified.? No fracture identified. 2. Degenerative changes. 3. Vascular calcifications.? Dictated by: Rik Reyes M.D. on 08/06/2022 at 17:04 ? ? Approved by: Rik Reyes M.D. on 08/06/2022 at 17:06 ? Chest x-ray: Radiologist's Impression: Close Chest X-Ray (Signed) Garfield Perales - 08/06/22 Ankle X-Ray (Signed) Rik Reyes - 08/06/22 Hand X-Ray (Signed) Rik Reyes - 08/06/22 Brain MRI (Signed) Michael Kern - 07/14/22 Hip X-Ray (Signed) Gustabo Mcfadden - 05/05/22 Telemetry Strips 05/03/22 EKG Rpt. 05/03/22 Chest X-Ray (Signed) Iván Adler - 05/03/22 Hip X-Ray (Signed) Iván Adler - 05/03/22 Femur X-Ray (Signed) Iván Adler - 05/03/22 Echocardiogram Ultrasound (Cancelled) 06/01/[address] (Signed) Garfield Perales - 01/21/21 Chest X-Ray (Signed) Perfecto Goetz - 05/27/20 Calcaneus X-Ray (Signed) Murali Santos - 06/26/19 Femur X-Ray (Signed) Perfecto Goetz - 01/24/19 Femur X-Ray (Signed) Wanda Sanders - 01/23/19 Chest X-Ray (Signed) Wanda Sanders - 01/23/19 Hip X-Ray (Signed) Wanda Sanders - 01/23/19 Echocardiogram Ultrasound (Signed) Rand Wlaler - 07/11/18 Renal Ultrasound (Signed) Apolinar Mckeon - 03/12/18 Launch?Image [address] [address] XRay Report Signed Patient: Chris Peralta MR#: [id number] : 1935 Acct:[id number] Age/Sex: 87 / M Date of Service: 08/06/22 Loc: ED Accession Number: [id number] ?? Procedure: XR chest 1V Ordering Provider: Javid Begum D.O. PROCEDURE:? XR CHEST 1V ? INDICATIONS:? Flu like symptoms ? TECHNIQUE:? One view of the chest was acquired.? ? COMPARISON:? [facility], , XR CHEST 1V, 05/03/2022, 14:23. ? FINDINGS:? ? Surgical changes and devices:? None.? ? Lungs and pleura:? The lung apices are partially obscured by patient's neck soft tissues. ?No definite pneumothorax.? There is a small right pleural effusion.? Associated confluent right basilar opacities are consistent with compressive atelectasis as well as likely consolidation.? There is pulmonary edema. ? Mediastinum:? Mediastinal contours appear unchanged.? Heart size is enlarged.? ? Bones and chest wall:? No suspicious bony lesions.? Overlying soft tissues appear unremarkable.? ? IMPRESSION:? ? 1. Small right pleural effusion with right basilar opacities consistent with atelectasis as well as likely consolidation/pneumonia.? Recommend short-term follow-up to demonstrate resolution. ? 2. Pulmonary edema and cardiomegaly compatible with congestive heart failure. ? ? Dictated by: Garfield Perales M.D. on 08/06/2022 at 20:34 ? ? Approved by: Garfield Perales M.D. on 08/06/2022 at 20:36 ? 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 He historically can assist with transfers but it is requiring 2 person assist over the past few days. Patient has evidence of congestive heart failure on physical exam, chest x-ray and labs as well as bibasilar pneumonia. Patient requires hospitalization for stabilization of his condition Discharge Plan Departure Patient Disposition: Admitted As Inpatient Clinical Impression: COVID, Acute CHF, Pneumonia Admit Date/Time: 08/07/22 05:32 Admit Provider: Brigida Mckeon
--- NOTE | 2022-08-07 02:00 | PC.NURSE ---
Daughter at bedside - awaiting further disposition - the patient continues intermittently to rest with his eyes closed
--- NOTE | 2022-08-07 03:00 | PC.NURSE ---
No changes at this time in pt status
--- NOTE | 2022-08-07 04:00 | PC.NURSE ---
No changes in pt status
--- NOTE | 2022-08-07 05:33 | PC.NURSE ---
patient 2 person max assist to stand and ambulate 2-3 steps - when first stood - able to rotate somewhat to sit on edge of bed - needed RN assistance to get upright. 2 person lift assist to stand from seated position on bed to standing - the patient had to be told to place his toes on the ground several times as he was pointing them up - able to take 2-3 shuffling small steps with coaching - had to be asked several times to take a step before he would - falls to bed without control of stand to sit - extremely weak and high fall risk - only able to stand a few minutes - increased work of breathing noted with slight exertion - O2 sat 96% - pt unable to ambulate far enough for accurate room air exertion saturation - daughter present - states that the pt has not gotten better since he was in rehab after he broke his hip - seems to have taken a backslide recently
--- NOTE | 2022-08-07 05:50 | PC.NURSE ---
Hospitalist at bedside - speaking with daughter for admission
[2022-08-07] MEDS: cefTRIAXone 1,000 MG in SODIUM CHLORIDE 0.9% 100 ML 200 MG IV (06:05)
--- NOTE | 2022-08-07 06:28 | PM.HP.1 ---
History of Present Illness History of Present Illness Date Patient Seen: 08/07/22 Time Patient Seen: 06:28 Chief complaint: GLF last night, blood thinners Narrative: Chris Peralta is an 87-year-old male nonsmoker with history of hypertension, hyperlipidemia on blood thinners for atrial fibrillation presented with his daughter, Darlene with chief complaint of a ground level fall last night. History is provided by his daughter as he is very hard of hearing and confused. ? He had been sitting in an automated recliner and slid out and landed on the ground.? In doing so he injured his right hand and ankle.? He denies any head neck or back pain.? He denies chest pain, but daughter states his is weak and seems to always be short of breath with an extended dry cough in the am.?Denies runny nose, sore throat nor fever or chills.? He is had no nausea, vomiting or diarrhea.? He lives at home with his daughter who moved up from [place] and she is concerned that he is decompensating and they are unable to care for him.? Patient has had somewhat of a decline since requiring hip surgery in April and has not been near is ambulatory since.? Patient has become significantly weak with increased SOB and inability to assist over the past few days. Patient is currently incontinent of both bladder and bowel worsening over the past couple of months. EMS was called multiple times as Darlene is unable to pick him up on her own. His daughter Darlene stated that he was to have seen an oncologist as he is been having elevated white counts and they are concerned he has chronic leukemia. Chest x-ray reports a small right pleural effusion likely consolidation/pneumonia and also noted pulmonary edema and cardiomegaly associated with CHF. There is a possibility of a nondisplaced fracture of the base of the 3rd metacarpal of 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 He is a low-grade temperature of 99? blood pressure 142/64 heart rate 75 respiratory rate 18 oxygen saturation 98% on room air he weighs 99 kg with a BMI of 30.8. His WBC is 21.7, RBC 2.8 hemoglobin 8.7 hematocrit 25.8 he appears to have a abnormal smear, creatinine is 2.54 with a BUN of 38 and an EGFR of 24 which is his baseline, glucose 171 proBNP is almost 8000 procalcitonin is negative and COVID 19 PCR is positive. UA is negative for UTI. Patient History Medical History (Updated 08/07/22 @ 06:32 by NIELS Lovell) Anticoagulated Anticoagulation adequate Atrial fibrillation Chronic kidney disease (CKD) stage G3a/A1, moderately decreased glomerular filtration rate (GFR) between 45-59 mL/min/1.73 square meter and albuminuria creatinine ratio less than 30 mg/g Chronic renal failure Coronary artery disease History of left common carotid artery stent placement History of right common carotid artery stent placement Peripheral arterial disease Surgical History History of appendectomy History of bilateral knee arthroplasty Stented coronary artery Family & Social History Family History Mother Lung cancer Father Lung cancer Other Hypertension Social History: household members family Safety & Behavioral: Feels Safe in Current Yes Environment Been Physically Hurt or No Threatened By a Person Tobacco & Substance use: Smoking Status Never smoker alcohol intake frequency a few times a month Substance Use Type does not use Meds Home Medications and Allergies Home Medications Medication Instructions Recorded Confirmed Type amlodipine 5 mg tablet 5 mg PO DAILY 01/23/19 05/03/22 History atorvastatin 40 mg tablet 40 mg PO BEDTIME 01/23/19 05/03/22 History ferrous gluconate 324 mg (38 mg 324 mg PO BID 01/23/19 05/03/22 History iron) tablet apixaban 2.5 mg tablet (Eliquis) 2.5 mg BID 05/03/22 05/03/22 History pantoprazole 40 mg tablet,delayed 40 mg PO BID 05/03/22 05/03/22 History release torsemide 10 mg PO DAILY PRN Edema 05/03/22 05/03/22 History oxycodone 5 mg tablet 5 mg PO Q3HR PRN Pain, Mild (1-3) 05/09/22 Rx #30 tabs Allergies Allergy/AdvReac Type Severity Reaction Status Date / Time No Known Drug Allergies Allergy Verified 08/06/22 16:11 Review of Systems Review of Systems ROS: Yes unobtainable due to mental status Exam Vital Signs (past 8 hours): Oxygen Delivery Method Room Air Narrative Exam Narrative: Gen: Alert, oriented X 2, well-nourished 87 y.o. male, appears younger than stated age HEENT: normocephalic, atraumatic, conjunctiva clear, sclera non-icteric, oral mucosa pink and moist Neck: supple, full ROM, no JVD, trachea is midline Resp: Lungs CTA, non-labored breathing CV: irregularly irregular, no murmur or rubs Abd: soft, non-tender, normoactive BTs Skin: no lesions or rashes, dry and intact Neuro: Very hard of hearing, pleasantly confused. Speech clear and coherent. Extremities: Multiple excoriations on both legs, +2 nonpitting edema, moves all 4 extremities, is ambulatory, negative Kenneth?s sign Psyche: normal mood and affect. Objective Labs Result Diagrams: 08/06/22 19:45 08/06/22 19:45 Labs: Laboratory Results - last 24 hr 08/06/22 08/06/22 08/06/22 19:45 19:45 19:45 WBC 21.7 H RBC 2.80 L Hgb 8.7 L Hct 25.8 L MCV 92.3 MCH 30.9 MCHC 33.5 RDW 15.0 H Plt Count 234 Neut % (Auto) Not Reportable Lymph % (Auto) Not Reportable [place] % (Auto) Not Reportable Eos % (Auto) Not Reportable Baso % (Auto) Not Reportable Lymph # (Auto) Not Reportable [place] # (Auto) Not Reportable Baso # (Auto) Not Reportable Total Counted 100 Seg Neutrophils % 12.0 L Atypical Lymphs % 83.0 H Monocytes % (Manual) 3.0 Eosinophils % (Manual) 2.0 Neutrophils # (Manual) 2604 L Smudge Cells 2+ H RBC Morphology See below Poikilocytosis 3+ H Anisocytosis 1+ H Ovalocytes 1+ H [place] Cells 1+ H Acanthocytes (Spur) 1+ Schistocytes 1+ H PT 20.2 H INR 1.8 H APTT 34 Sodium 142 Potassium 4.3 Chloride 107 Carbon Dioxide 25 BUN 38 H Creatinine 2.54 H Estimated GFR 24 L BUN/Creatinine Ratio 15.0 Glucose 171 H Lactate Calcium 8.3 L Magnesium 1.8 Total Bilirubin 0.6 AST 22 ALT 15 Alkaline Phosphatase 121 Total Creatine Kinase 28 L CK-MB (CK-2) TNP CK-MB (CK-2) Rel Index TNP Troponin I 0.036 H NT-Pro-B Natriuret Pep Total Protein 7.1 Albumin 3.5 Globulin 3.6 Albumin/Globulin Ratio 1.0 Lipase 61 Procalcitonin Urine RBC Urine WBC Ur Squamous Epith Cells Urine Bacteria SARS-CoV-2 (PCR) Influenza A (RT-PCR) Influenza B (RT-PCR) RSV (PCR) 08/06/22 08/06/22 08/06/22 19:45 19:45 19:50 WBC RBC Hgb Hct MCV MCH MCHC RDW Plt Count Neut % (Auto) Lymph % (Auto) [place] % (Auto) Eos % (Auto) Baso % (Auto) Lymph # (Auto) [place] # (Auto) Baso # (Auto) Total Counted Seg Neutrophils % Atypical Lymphs % Monocytes % (Manual) Eosinophils % (Manual) Neutrophils # (Manual) Smudge Cells RBC Morphology Poikilocytosis Anisocytosis Ovalocytes [place] Cells Acanthocytes (Spur) Schistocytes PT INR APTT Sodium Potassium Chloride Carbon Dioxide BUN Creatinine Estimated GFR BUN/Creatinine Ratio Glucose Lactate 1.0 Calcium Magnesium Total Bilirubin AST ALT Alkaline Phosphatase Total Creatine Kinase CK-MB (CK-2) CK-MB (CK-2) Rel Index Troponin I NT-Pro-B Natriuret Pep 7920 H Total Protein Albumin Globulin Albumin/Globulin Ratio Lipase Procalcitonin 0.15 Urine RBC Urine WBC Ur Squamous Epith Cells Urine Bacteria SARS-CoV-2 (PCR) Positive H Influenza A (RT-PCR) Flu a negative Influenza B (RT-PCR) Flu b negative RSV (PCR) Negative 08/06/22 08/06/22 21:30 22:00 WBC RBC Hgb Hct MCV MCH MCHC RDW Plt Count Neut % (Auto) Lymph % (Auto) [place] % (Auto) Eos % (Auto) Baso % (Auto) Lymph # (Auto) [place] # (Auto) Baso # (Auto) Total Counted Seg Neutrophils % Atypical Lymphs % Monocytes % (Manual) Eosinophils % (Manual) Neutrophils # (Manual) Smudge Cells RBC Morphology Poikilocytosis Anisocytosis Ovalocytes [place] Cells Acanthocytes (Spur) Schistocytes PT INR APTT Sodium Potassium Chloride Carbon Dioxide BUN Creatinine Estimated GFR BUN/Creatinine Ratio Glucose Lactate Calcium Magnesium Total Bilirubin AST ALT Alkaline Phosphatase Total Creatine Kinase CK-MB (CK-2) CK-MB (CK-2) Rel Index Troponin I 0.034 NT-Pro-B Natriuret Pep Total Protein Albumin Globulin Albumin/Globulin Ratio Lipase Procalcitonin Urine RBC 0-1/hpf Urine WBC 0-1/hpf Ur Squamous Epith Cells None seen Urine Bacteria None seen SARS-CoV-2 (PCR) Influenza A (RT-PCR) Influenza B (RT-PCR) RSV (PCR) Assessment & Plan Assessment & Plan narrative: Chris Peralta is admitted for weakness and shortness of breath associated with a acute on chronic CHF exacerbation, suspected bacterial pneumonia and COVID-19. Acute on chronic CHF exacerbation, present on admission He was given IV Lasix 40 mg in the ED Have ordered a Quintana due to the patient's relative incontinence and for accurate I&Os He is ordered for a complete echocardiogram. He had 1 done in 2018 and then another 1 was scheduled in May of 2021 but that was canceled. Suspected bacterial pneumonia, acute, present on admission He was started on IV ceftriaxone and azithromycin and this will be continued COVID-19 unknown if acute Per the daughter the patient reportedly tested positive approximately 3 weeks ago the tested negative on home testing kits and is now positive Patient will be administered IV remdesivir and dexamethasone. RT to assess for oxygen supplementation or need for humidified oxygen Leukocytosis, present since April of 2022 Patient will need to be assessed by Hematology as chronic leukemia suspected Atrial fibrillation, chronic He is anticoagulated on apixaban VTE Prophylaxis: X Bilateral SCDs Patient is currently anticoagulated on apixaban. Patient is admitted to the inpatient service due to the severity of disease, risks of further disease progression and this stay is expected to exceed 2 midnights. FEN: IV fluids: Saline lock, diet: Heart healthy no added sodium diet, labs: CBC, C/BMP, liver enzymes, Mag, PT/INR Consultants None Dispo: Unknown at this time the patient may require rehab Code status: Full code as discussed with the patient's daughter. She states there is some sort of power of senior trial attorney but does not know who it is. [X] I have utilized all available immediate resources to obtain, update, or review of the patient's current medications VTE Deep Vein Thrombosis/Pulmonary Embolism Present on Admission: No MIPS - Admit I confirm the patient?s Advance Care Plan is present, Code status is documented, Surrogate decision maker is in patient?s record: Yes MIPS - DC The patient has current or prior documentation of left ventricular ejection fraction (LVEF) less than 40%, or moderate or severely depressed left ventricular systolic function.: No COVID-19 COVID-19 status: Positive Result date/Date tested (Pos, Neg/Pending): 08/07/22
--- NOTE | 2022-08-07 06:36 | DI.ECHO.S_ITS ---
[facility] +---------+ : : [address] : [place] : : : : [id number] : : : : Phone: [phone]+ Echocardiogram Report + + :Name: JOHN PAUL SINGH Study Date: 08/07/2022 Height: 66 in : :[facility] ReadingLocation: Weight: 220 lb : : Gender: Male BSA: 2.1 m2 : :: 1935 Age: 87 yrs BP: 131/62 mmHg: :Reason For Study: CHF EXACERBATION : :Ordering Physician: Giovany IBARRAformed By: Brandee Rankin : :Referring: ANDRIY IBARRA : + + Interpretation Summary 1) Mildy enlarged left ventricle with low normal systolic function (EF 50- 55%). 2) Mildly enlarged right ventricle with low normal function. 3) Severe biatrial enlargement present. 4) There is mild aortic stenosis (valve area 1.8cm2, mean gradient 15mmHg). 5) There is mild to moderate tricuspid regurgitation. 6) The right ventricular systolic pressure is estimated to be at least 61 mmHg based on an estimated right atrial pressure of 15 mm Hg. 7) Compared to the Echo done 06/01/2021, right sided hypervolemia is present on this study. Procedure: A two-dimensional transthoracic echocardiogram with color flow and Doppler was performed. The study quality was technically difficult. A contrast injection of Definity was performed to improve assessment of LV function. Comparison is made with the echocardiogram of 06/01/2021. The patient was in atrial fibrillation with heart rates between 63-85 bpm during the exam. Left Ventricle: The left ventricle is mildly dilated. There is mild concentric left ventricular hypertrophy. The ejection fraction is estimated to be 50-55%. There are no focal wall motion abnormalities. Right Ventricle: The right ventricle is mildly dilated. Right ventricular systolic function is at the lower limits of normal. Atria: The left atrium is severely dilated. The right atrium is severely dilated. There is no Doppler evidence for an interatrial shunt. Mitral Valve: There is mild mitral annular calcification. There is mild mitral regurgitation. Aortic Valve: The aortic valve is moderately calcified. The aortic valve is trileaflet. There is mild aortic stenosis. The peak aortic velocity is 2.6 m/sec. The aortic valve mean gradient is 15 mmHg. There is mild aortic regurgitation. Tricuspid Valve: The tricuspid valve is normal in structure and function. The right ventricular systolic pressure is estimated to be at least 61 mmHg based on an estimated right atrial pressure of 15 mm Hg. There is mild to moderate tricuspid regurgitation. Pulmonic Valve: The pulmonic valve is not well visualized. There is no pulmonic valvular regurgitation. Great Vessels: The aortic root is normal size. The ascending aorta is mild- moderately enlarged. The IVC is dilated (diameter is greater than 2.1 cm) and it collapses less than 50% with a sniff. This suggests a high right atrial pressure of 15 mm Hg. Pericardium/ Pleura There is no pericardial effusion. There is no pleural effusion. MMode/2D Measurements & Calculations LVIDd: 6.1 cm LVOT diam: 2.2 cm LVIDs: 3.9 cm Ao root diam: 3.7 cm FS: 36.0 % asc Aorta Diam: 4.1 cm IVSd: 1.3 cm LVPWd: 1.1 cm LV maradiaga. diameter/BSA (cm/m^2): 2.9 LV sys. diameter/BSA (cm/m^2): 1.9 LA A2 area: 36.4 cm2 RA long axis: 7.7 cm LA A4 area: 44.6 cm2 RA area: 42.5 cm2 LA length (vol): 8.2 cm RA vol: 198.2 ml LA vol: 168.6 ml RA : 95.1 ml/m2 LA vol index: 81.0 ml/m2 IVC diam: 2.8 cm RVD1 (basal): 4.7 cm TAPSE: 1.9 cm Doppler Measurements & Calculations Ao V2 max: 259.3 cm/sec LVOT Max Fred: 121.8 cm/sec Ao V2 mean: 178.1 cm/sec LV V1 max P.9 mmHg Ao max P.7 mmHg LV V1 VTI: 27.7 cm Ao mean P.2 mmHg ADIS(I,D): 1.8 cm2 Ao V2 VTI: 55.7 cm ADIS(V,D): 1.7 cm2 sev ratio: 0.50 ADIS indexed to BSA (cm^2/m^2): 0.89 MV E max fred: 146.6 cm/sec TR max fred: 340.3 cm/sec MV A max fred: 0.68 cm/sec TR max P.3 mmHg MV E/A: 217.1 PA V2 max: 117.7 cm/sec Med Peak E' Fred: 5.0 cm/sec PA V2 mean: 71.2 cm/sec E/E' med: 29.6 PA mean P.3 mmHg Lat Peak E' Fred: 11.9 cm/sec PA pr(Accel): 39.6 mmHg E/E' lat: 12.3 E/e' average: 20.9 MV dec time: 0.19 sec SV(LVOT): 103.0 ml Reading Physician:09:18 AM
--- NOTE | 2022-08-07 07:10 | PC.NURSE ---
Report to dayshift RN team - care relinquished at this time
[2022-08-07] MEDS: FUROSEMIDE 40 MG/4 ML VIAL IV ×2 (07:42→17:36)
[2022-08-07] MEDS: AZITHROMYCIN 500 MG in DEXTROSE 5% IN WATER 250 ML 250 MG IV (07:42)
[2022-08-07] MEDS: DEXAMETHASONE 10 MG/ML VIAL 6 MG IV (07:43)
--- NOTE | 2022-08-07 07:50 | PC.NURSE ---
Received report from LARS Mccurdy at 0700. pt resting in bed. COVID+. receiving ECHO at this time. Rocephin completed and azithromycin infusing. NAD at this time. denies needs. Verbal order for cabrera catheter by TUMBLER PLATER. Admitted to Acute Care and report given to LARS Valdes.
[2022-08-07 08:24] LABS: Thyroid Stimulating Hormone 3.54 uIU/mL (0.47-4.68)
[2022-08-07 09:59] LABS: Alanine Aminotransferase 14 IU/L (<50); Albumin 3.2 g/dL (3.5-5.0); Albumin Globulin Ratio 0.9 (1.0-2.8); Alkaline Phosphatase 116 U/L (38-126); Aspartate Aminotransferase 22 IU/L (17-59); BUN Creatinine Ratio 15.1 (6-22); Bilirubin Total 0.5 mg/dL (0.2-1.3); Blood Urea Nitrogen 36 mg/dL (9-20); Calcium 8.1 mg/dL (8.4-10.2); Carbon Dioxide 22 mmol/L (22-32); Chloride 108 mmol/L (98-107); Estimated Glomerular Filt Rate 26 mL/min (>60); Globulin 3.5 g/dL (1.7-4.1); Glucose 158 mg/dL (80-110); HEMOLYSIS < 15 (0-50); Magnesium 1.8 mg/dL (1.6-2.3); Potassium 4.1 mmol/L (3.4-5.1); Sodium 140 mmol/L (137-145); Total Protein 6.7 g/dL (6.3-8.2)
[2022-08-07 10:12] LABS: Hematocrit 23.5 % (41-53); Hemoglobin 7.9 g/dL (13.5-17.5); Mean Corpuscular HGB Conc 33.7 % (30-36); Mean Corpuscular Volume 92.2 fL (80-100); Platelet Count 205 X10^3/uL (150-400); Red Blood Cell Count 2.55 X10^6/uL (4.5-5.9); Red Cell Distribution Width 15.3 % (11.6-14.8); White Blood Cell Count 17.5 X10^3/uL (4.5-11.0)
[2022-08-07 10:14] LABS: Add Manual Diff / Slide Review YES
[2022-08-07 11:14] LABS: Neutrophils Absolute Manual 3850 /uL (3000-5900); Total Cells Counted 100
[2022-08-07 11:15] LABS: Acanthocytes 1+; Ovalocytes 1+
[2022-08-07 11:16] LABS: Anisocytosis 1+; Schistocytes 1+; Smudge Cells 2+
[2022-08-07] MEDS: APIXABAN 5 MG TABLET 2.5 MG PO ×2 (11:16→20:04)
[2022-08-07] MEDS: REMDESIVIR 200 MG in SODIUM CHLORIDE 0.9% 210 ML 250 MG IV (11:16)
[2022-08-07] MEDS: AMLODIPINE 5 MG TABLET PO (11:17)
--- NOTE | 2022-08-07 14:13 | CM.SWNOTE ---
SW ED Note Chris Peralta is an 87-year-old male nonsmoker with history of hypertension, hyperlipidemia on blood thinners for atrial fibrillation presented with his daughter, Darlene with chief complaint of a ground level fall last night. Pt has [employer] and Medicaid. LAUREL received a return call from pt's HCS Car Audio Installer Goran Kellertiz . Goran reports that he has patient scheduled for assessment on 09/03/22 and does not have any earlier availability. LAUREL reports that pt was admitted to the hospital. Goran requests pt's H&P be faxed to [phone]. LAUREL faxed requested documents. LAUREL informed Goran that pt will be assigned an inpatient bilingual case manager and LAUREL will pass along his contact information to the correct person. DWAYNE Richardson
--- NOTE | 2022-08-07 15:40 | PC.WOUNDPHOT ---
Admit Photos: 1) Skin tear to right elbow, cleansed and redressed with allevyn dressing and gauze to assist in securement. 2) Under abdominal skin fold on the left side, no drainage, open to air, cleansed. 3) Bilateral big toes, unstageable pressure ulcer on each. 3) Left barbosa, chronic skin ulcer, cleansed and open to air. No drainage.
[2022-08-07] MEDS: ATORVASTATIN 20 MG TABLET 40 MG PO (20:04)
[2022-08-08] VITALS (8 sets, daily range): BP systolic 105–145; BP diastolic 55–74; PULSE 51–64; RESP 15–21; TEMP 36.1–37; O2SAT 98–99
--- NOTE | 2022-08-08 04:18 | PC.NURSE ---
Patient consistently having non-sustaining HR's in 40's and is still in afib. All other VSS and patient is comfortably resting. ONEIL Mckeon made aware.
[2022-08-08] MEDS: cefTRIAXone 1,000 MG in SODIUM CHLORIDE 0.9% 100 ML 200 MG IV (05:24)
[2022-08-08] MEDS: AZITHROMYCIN 500 MG in DEXTROSE 5% IN WATER 250 ML 250 MG IV (06:26)
--- NOTE | 2022-08-08 06:47 | PC.NURSE ---
Pt continues to be in afib, had a non-sustaining HR as low as 32. KITCHEN WORK SUPERVISOR Mike notified.
[2022-08-08 08:54] LABS: Ketones (Beta-Hydroxybutyrate) 0.03 mmol/L (<0.27)
[2022-08-08 08:58] LABS: Alanine Aminotransferase 13 IU/L (<50); Albumin 2.7 g/dL (3.5-5.0); Albumin Globulin Ratio 0.9 (1.0-2.8); Alkaline Phosphatase 90 U/L (38-126); Aspartate Aminotransferase 20 IU/L (17-59); BUN Creatinine Ratio 19.7 (6-22); Bilirubin Total 0.3 mg/dL (0.2-1.3); Blood Urea Nitrogen 46 mg/dL (9-20); Calcium 7.9 mg/dL (8.4-10.2); Carbon Dioxide 23 mmol/L (22-32); Chloride 106 mmol/L (98-107); Estimated Glomerular Filt Rate 26 mL/min (>60); Globulin 3.1 g/dL (1.7-4.1); Glucose 144 mg/dL (80-110); HEMOLYSIS < 15 (0-50); Magnesium 1.8 mg/dL (1.6-2.3); Potassium 3.8 mmol/L (3.4-5.1); Sodium 140 mmol/L (137-145); Total Protein 5.8 g/dL (6.3-8.2)
--- NOTE | 2022-08-08 09:30 | P.PN_ITS ---
Exam Vital Signs (past 8 hours): - 08/08/22 04:00 Temperature 97.5 F L Pulse Rate 54 L Respiratory Rate 21 Blood Pressure 145/62 H Pulse Oximetry 99 Oxygen Delivery Method Room Air Oxygen Flow Rate 0 Narrative Exam Narrative: Gen: Alert, oriented X 2, well-nourished 87 y.o. male, appears younger than stated age HEENT: normocephalic, atraumatic, conjunctiva clear, sclera non-icteric, oral mucosa pink and moist Neck: supple, full ROM, no JVD, trachea is midline Resp: Lungs CTA, non-labored breathing CV: irregularly irregular, no murmur or rubs Abd: soft, non-tender, normoactive BTs Skin: no lesions or rashes, dry and intact Neuro: Very hard of hearing, pleasantly confused. Speech clear and coherent. Extremities: Multiple excoriations on both legs, +2 nonpitting edema, right hand in splint with dark bruising of fingers, moves all 4 right hand fingers, patient is ambulatory Psyche: normal mood and affect. Objective Labs Result Diagrams: 08/08/22 08:10 08/08/22 08:10 Labs: Laboratory Results - last 24 hr 08/07/22 08/07/22 08/07/22 09:33 09:33 10:03 WBC 17.5 H RBC 2.55 L Hgb 7.9 L Hct 23.5 L MCV 92.2 MCH 31.0 MCHC 33.7 RDW 15.3 H Plt Count 205 Neut % (Auto) Not Reportable Lymph % (Auto) Not Reportable [place] % (Auto) Not Reportable Eos % (Auto) Not Reportable Baso % (Auto) Not Reportable Lymph # (Auto) Not Reportable [place] # (Auto) Not Reportable Baso # (Auto) Not Reportable Total Counted 100 Seg Neutrophils % 22.0 L D Lymphocytes % (Manual) 22.0 L Atypical Lymphs % 52.0 H Monocytes % (Manual) 3.0 Eosinophils % (Manual) 1.0 L Neutrophils # (Manual) 3850 Smudge Cells 2+ H RBC Morphology See below Anisocytosis 1+ H Ovalocytes 1+ H Acanthocytes (Spur) 1+ Schistocytes 1+ H Sodium 140 Potassium 4.1 Chloride 108 H Carbon Dioxide 22 BUN 36 H Creatinine 2.38 H Estimated GFR 26 L BUN/Creatinine Ratio 15.1 Glucose 158 H Calcium 8.1 L Magnesium 1.8 Total Bilirubin 0.5 AST 22 ALT 14 Alkaline Phosphatase 116 Total Protein 6.7 Albumin 3.2 L Globulin 3.5 Albumin/Globulin Ratio 0.9 L Nasal Screen MRSA (PCR) Negative for mrsa Ketones 08/08/22 08/08/22 08:10 08:10 WBC RBC Hgb Hct MCV MCH MCHC RDW Plt Count Neut % (Auto) Lymph % (Auto) [place] % (Auto) Eos % (Auto) Baso % (Auto) Lymph # (Auto) [place] # (Auto) Baso # (Auto) Total Counted Seg Neutrophils % Lymphocytes % (Manual) Atypical Lymphs % Monocytes % (Manual) Eosinophils % (Manual) Neutrophils # (Manual) Smudge Cells RBC Morphology Anisocytosis Ovalocytes Acanthocytes (Spur) Schistocytes Sodium 140 Potassium 3.8 Chloride 106 Carbon Dioxide 23 BUN 46 H Creatinine 2.34 H Estimated GFR 26 L BUN/Creatinine Ratio 19.7 Glucose 144 H Calcium 7.9 L Magnesium 1.8 Total Bilirubin 0.3 AST 20 ALT 13 Alkaline Phosphatase 90 Total Protein 5.8 L Albumin 2.7 L Globulin 3.1 Albumin/Globulin Ratio 0.9 L Nasal Screen MRSA (PCR) Ketones 0.03 [facility] Medical History (Updated 08/07/22 @ 06:32 by NIELS Lovell) Anticoagulated Anticoagulation adequate Atrial fibrillation Chronic kidney disease (CKD) stage G3a/A1, moderately decreased glomerular filtration rate (GFR) between 45-59 mL/min/1.73 square meter and albuminuria creatinine ratio less than 30 mg/g Chronic renal failure Coronary artery disease History of left common carotid artery stent placement History of right common carotid artery stent placement Peripheral arterial disease Surgical History History of appendectomy History of bilateral knee arthroplasty Stented coronary artery Family History Mother Lung cancer Father Lung cancer Other Hypertension Social History marital status: household members: family Smoking Status: Never smoker Assessment & Plan Assessment & Plan narrative: Chris Peralta is admitted for weakness and shortness of breath associated with a acute on chronic CHF exacerbation, suspected bacterial pneumonia and COVID-19. Acute on chronic right-sided CHF exacerbation, present on admission * Will give 1 more day of lasix then remove cabrera * Echo 08/07 shows EF 50-55% with severe biatrial enlargement, mild aortic stenosis (valve area 1.8cm2, mean gradient 15mmHg), mild to moderate tricuspid regurgitation and severely elevated RVSP of 61 with right sided hypervolemia * Patient now on room air and lungs sound clear on exam Blood loss anemia likely from GIB * Patient's Hgb dipped to 7.1 and he had large black BM * Stopped eliquis, given 1 unit PRBC * Patient likely not a good candidate for scope due to age * Monitor CBC, will transfuse as needed to keep Hgb >7 Right hand bruising and possible 3rd metacarpal fracture from fall * Xray of hand in ED showed possible 3rd metacarpal displaced fracture, but could be denegerative change * Ortho recommended splinting with velcro wrist splint and movement as tolerated, no intervention needed Suspected bacterial pneumonia, acute, present on admission * He was started on IV ceftriaxone and azithromycin and this will be continued COVID-19 unknown if acute * Per the daughter the patient reportedly tested positive approximately 3 weeks ago the tested negative on home testing kits and is now positive * Patient received IV remdesivir and dexamethasone then these were discontinued after pt weaned off O2 Leukocytosis, present since April of 2022 * Patient will need to be assessed by Hematology as chronic leukemia suspected Atrial fibrillation, chronic * stopped apixaban given GIB VTE Prophylaxis: X Bilateral SCDs Patient is currently anticoagulated on apixaban. Dispo: SNF vs HH PT Code status: Full code as discussed with the patient's daughter. She states there is some sort of power of state attorney but does not know who it is. COVID-19 COVID-19 status: Positive Result date/Date tested (Pos, Neg/Pending): 08/07/22 Time Spent With Patient Critical Care time: I spent a total of [] minutes of critical care time on this patient's care today; this time is exclusive of procedural time. Quality VTE Deep Vein Thrombosis/Pulmonary Embolism Present on Admission: No
[2022-08-08] MEDS: APIXABAN 5 MG TABLET 2.5 MG PO (10:08)
[2022-08-08] MEDS: FUROSEMIDE 40 MG/4 ML VIAL IV (10:09)
[2022-08-08 10:36] LABS: Hematocrit 21.1 % (41-53); Hemoglobin 7.1 g/dL (13.5-17.5); Mean Corpuscular HGB Conc 33.5 % (30-36); Mean Corpuscular Hemoglobin 30.7 PG (26-34); Mean Corpuscular Volume 91.7 fL (80-100); Platelet Count 189 X10^3/uL (150-400); Red Cell Distribution Width 15.3 % (11.6-14.8); White Blood Cell Count 15.7 X10^3/uL (4.5-11.0)
[2022-08-08 10:49] LABS: Add Manual Diff / Slide Review YES
[2022-08-08 11:15] LABS: Neutrophils Absolute Manual 3611 /uL (3000-5900); RBC Morphology Normal Morphology; Total Cells Counted 100
--- NOTE | 2022-08-08 11:40 | PT.IIE ---
Addendum entered and electronically signed by Shanda Resendiz PT 08/08/22 13:05: Spoke with nurse prior to PT eval asked regarding pt's medical stability to do PT and stated that pt is cleared for PT to see. 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 (08/07/22) Surgical History (Last Reviewed 05/08/22 @ 16:41 by Elsa Le PA-C) History of appendectomy History of bilateral knee arthroplasty Stented coronary artery Medical History (Last Updated 08/07/22 @ 06:32 by NIELS Lovell) Anticoagulated Anticoagulation adequate Atrial fibrillation Chronic kidney disease (CKD) stage G3a/A1, moderately decreased glomerular filtration rate (GFR) between 45-59 mL/min/1.73 square meter and albuminuria creatinine ratio less than 30 mg/g Chronic renal failure Coronary artery disease History of left common carotid artery stent placement History of right common carotid artery stent placement Peripheral arterial disease Physical Therapy Inpatient Evaluation/Re-Eval M1 PT/OT-IP Prior Functional Status Start: 08/08/22 12:46 Freq: NEEDED Status: Active Protocol: Document 08/08/22 11:40 AB (Rec: 08/08/22 13:04 AB [id number]) Medical Review Prior Functional Status Medical History Reviewed Yes Communication able to make needs known; very [place]; uses amplifier to assist with hearing needs Mobility and Gait per daughter: pt needing one person assist with transfers and ambulation using FWW and only able to ambulate ~ 15 ft; pt not able to ambulate much and uses a lift chair to sleep on and has a bedside commode next to the recliner Social History Household Members family Living Arrangements House Number of Floors (Floors) Two Floors Number of Stairs To Enter/Railing? pt stays on main level of the house: has one step to enter the house but pt needs to go around the house to be able to get in; daughter stated that she needs to push pt in and around the house Home Environment Standard Height Toilet,Tub/ Shower Home Equipment Front Wheel Walker,Bedside Commode,Raised Toilet Seat w/ Armrests,Tub Transfer Bench, Hand Held Shower,Grab Bars Near Toilet,Grab Bars In Shower Additional Social History Comment daughter stated that she cannot assist pt now due to level of assistance needed M2 PT-IP Current Condition Start: 08/08/22 12:46 Freq: NEEDED Status: Active Protocol: Document 08/08/22 11:40 AB (Rec: 08/08/22 13:04 AB [id number]) Physical Therapy Current Condition Current Condition Evaluation Date 08/08/22 Treatment Diagnosis Covid; CHF; PNA; difficulty in walking Onset Date 08/07/22 M3 PT-IP Subjective Start: 08/08/22 12:46 Freq: NEEDED Status: Active Protocol: Document 08/08/22 11:40 AB (Rec: 08/08/22 13:04 AB [id number]) Subjective Physical Therapy Visit Type Type Initial Evaluation Visit Start Time 11:40 Visit Stop Time 12:30 Total Visit Minutes 50 Number of ASSISTANT FLOOR COVERING PRINTER Visits 0 Physical Therapy Visit Comments Patient Comments agreeable to do PT Therapy Pain Assessment Pain Present Pain Present Denied Pain M4 PT-IP Mobility and Gait Start: 08/08/22 12:46 Freq: NEEDED Status: Active Protocol: Document 08/08/22 11:40 AB (Rec: 08/08/22 13:04 AB [email or web address]) PT-Bed Mobility Assessment Supine to Sit Supine to Sit Minimal Assistance,1 Person Assistance,2 Person Assistance ,Head of Bed Elevated,Bedrails Scooting Scooting to Edge of Bed Maximum Assistance PT-Transfer Assessment Sit to and From Stand Sit to and from Stand Maximum Assistance,2 Person Assistance,Use of Upper Extremities Equipment Transfer Assistive Device Gait Belt,Front Wheeled Walker Orthotic/Prosthetic Devices or Brace: No Transfers Transfer Destination Chair,Bedside Commode Transfer Technique Stand Step Pivot Transfer Ability Level of Assist Maximum Assistance,2 Person Assistance,Use of Upper Extremities Comments Mobility Comments pt completed supine to sit max A x 1-2 and max cues with HOB elevated and use of bed rail. max A for scooting to EOB. increase posterior LOB sitting on EOB requiring min A and max cues. completed sit to stand from EOB max A x 2 and max cues and step transfer to chair using FWW max A x 2 and max cues. Pt. needing to be cleaned up and brief change. NAC present to assist. completed sit to stand from the chair max A x 2 and max cues and uses FWW for standing balance needing max A x 1-2 with pt presenting increase posterior LOB. pt with RUE swelling with atnner wrap and difficulty using RUE for support on FWW. pt needing to use the toilet. positioned bedside commode next to pt and completed step transfer to commode using FWW max a x 2 and max cues. pt completed sit to stand from bed side commode max A x 2 and max cues and max A x 1-2 for standing balance using FWW while NAC assisting with hygiene care and brief change. Pt repeated x 2 reps and needing seated rest break in between task due to decrease activity tolerance. pt completed step transfer to chair using FWW max A x 2 and max cues. positioned pt on the chair. call light and table placed within reach. left pt with NAC in room. PT-Balance Assessment Sitting Balance and Reactions Static Sitting Balance Ability Fair Dynamic Sitting Balance Ability Poor Standing Balance and Reactions Static Standing Balance Ability Poor Dynamic Standing Balance Ability Poor Device Used FWW M5 PT-IP Objective Assessments Start: 08/08/22 12:46 Freq: NEEDED Status: Active Protocol: Document 08/08/22 11:40 AB (Rec: 08/08/22 13:04 AB [id number]) Orientation Orientation/Cognition Level of Alertness Alert Orientation Name Language Function Ability Hard of Hearing Safety Awareness Decreased Safety Awareness Memory Description Short Term Impaired Gross Range of Motion Lower Extremity ROM Assessment Within Functional Limits Strength Lower Extremity Strength Assessment Bilaterally Impaired Hip 4-/5 Knee 3+/5 Muscle Tone Muscle Tone WNL Yes M6 PT-IP Treatment Start: 08/08/22 12:46 Freq: NEEDED Status: Active Protocol: Document 08/08/22 11:40 AB (Rec: 08/08/22 13:04 AB [id number]) Physical Therapy Treatment Education Education Provided Safety M7 PT-IP Assessment and Plan Start: 08/08/22 12:46 Freq: NEEDED Status: Active Protocol: Document 08/08/22 11:40 AB (Rec: 08/08/22 13:04 AB [id number]) PT Summary Assessment and Plan Potential Rehabilitation Potential Fair Status of Condition at Evaluation Evolving Summary Impairments Pain,ROM,Strength,Balance, Coordination,Sensation,Tone, Cognition,Bed Mobility, Transfers,Gait,Activity Tolerance Assessment Summary pt requiring max A x 2 for mobility using FWW and unable to ambulate at this time with decrease activity tolerance affecting mobility level. pt will require SNF rehab to improve strength and independence. Goals Bed Mobility Goal Minimal Assistance Transfer Goal Minimal Assistance,Front Wheeled Walker Gait Goal Minimal Assistance,Front Wheel Walker Gait Distance 30 Other Goals improve bed mobility, transfers and ambulation using FWW 50 ft SBA up/down 1 step using FWW min A Days to Meet Goals 10 Frequency of Treatment Frequency Of Treatment Once a Day Treatment Plan Physical Therapy Treatment Plan Bed Mobility Training,Transfer Training,Gait Training, Therapeutic Exercise,Balance Retraining,Discharge Planning, Hot or Cold Pack,Neuromuscular Re-ed,Coordination Retraining ,Manual Therapy Precautions Other Precautions Covid; falls Recommendations To Nursing Amount of Assist Needed 2 Person Assist Discharge Recommendations PT Discharge Recommendations SNF Rehab Transportation Needs at Discharge Wheelchair/Cabulance
--- NOTE | 2022-08-08 12:30 | OT.IP.EVAL ---
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 (08/07/22) Past Medical History (Last Updated 08/07/22 @ 06:32 by NIELS Lovell) Anticoagulated Anticoagulation adequate Atrial fibrillation Chronic kidney disease (CKD) stage G3a/A1, moderately decreased glomerular filtration rate (GFR) between 45-59 mL/min/1.73 square meter and albuminuria creatinine ratio less than 30 mg/g Chronic renal failure Coronary artery disease History of left common carotid artery stent placement History of right common carotid artery stent placement Peripheral arterial disease Surgical History (Last Reviewed 05/08/22 @ 16:41 by Elsa Le PA-C) History of appendectomy History of bilateral knee arthroplasty Stented coronary artery Occupational Therapy Inpatient Evaluation/Re-Eval M1 PT/OT-IP Prior Functional Status Start: 08/08/22 12:46 Freq: NEEDED Status: Active Protocol: Document 08/08/22 11:40 [facility] (Rec: 08/08/22 14:01 [facility] [id number]) Medical Review Prior Functional Status Medical History Reviewed Yes Communication able to make needs known; very [place]; uses amplifier to assist with hearing needs Mobility and Gait per daughter: pt needing one person assist with transfers and ambulation using FWW and only able to ambulate ~ 15 ft; pt not able to ambulate much and uses a lift chair to sleep on and has a bedside commode next to the recliner Activities of Daily Living and IADL's Pt's daughter having to help him for showering, bathing, dressing, and toileting needs. Social History Household Members family Living Arrangements House Number of Floors (Floors) Two Floors Number of Stairs To Enter/Railing? pt stays on main level of the house: has one step to enter the house but pt needs to go around the house to be able to get in; daughter stated that she needs to push pt in and around the house Home Environment Standard Height Toilet,Tub/ Shower Home Equipment Front Wheel Walker,Bedside Commode,Raised Toilet Seat w/ Armrests,Tub Transfer Bench, Hand Held Shower,Grab Bars Near Toilet,Grab Bars In Shower Additional Social History Comment daughter stated that she cannot assist pt now due to level of assistance needed M2 OT-IP Current Condition Start: 08/08/22 13:41 Freq: Status: Active Protocol: Document 08/08/22 11:40 [facility] (Rec: 08/08/22 14:01 [facility] [id number]) Occupational Therapy Current Condition Current Condition Evaluation Date 08/08/22 Treatment Diagnosis CHF exacerbation, COVID+, PNA, decreased mobility Diagnosis Onset Date 08/07/22 M3 OT- IP Subjective and Pain Start: 08/08/22 13:41 Freq: Status: Active Protocol: Document 08/08/22 11:40 [facility] (Rec: 08/08/22 14:01 [facility] [id number]) OT- Subjective Occupational Therapy Visit Type Type Initial Evaluation Visit Start Time 11:40 Visit Stop Time 12:30 Total Visit Minutes 50 Occupational Therapy Visit Comments Patient Comments Pt agreed to get up and his daughter present in the room. Patient/Caregiver Goals Pt's daughter wanting pt to go to skilled rehab as unable provide enough care for the pt at this time. OT Pain Assessment Pain When Pain Assessed At Rest Pain Present Pain Present Denied Pain M4 OT- IP ADL's Start: 08/08/22 13:41 Freq: Status: Active Protocol: Document 08/08/22 11:40 [facility] (Rec: 08/08/22 14:01 [facility] [id number]) OT [id number] Comments OT Self-Feeding Comments Pt will need assist for setting up his tray as his right hand in tanner wrap and difficulty to move at this time. OT ADL-Grooming Comments OT Grooming Comments Not performed. OT ADL-Oral Care Comments Oral Care Comments Not performed. OT ADL-Dressing General Eval Lower Body Dressing Ability Maximum Assistance,Total Assistance Comments OT Dressing Comments Assist for socks and brief management needs. OT ADL-Toileting General Evaluation Toileting Ability Total Assistance Areas Needing Assistance Manage Clothing,Perform Perineal Hygiene Comments OT Toileting Comments Pt able to stand to FWW with MAX AX 2 and able to stand while another person, nursing aid able to clean the pt and do brief management needs. OT ADL-Bathing Comments OT Bathing Comments Sponge bath more appropriate at this time. M5 OT- IP IADL's Start: 08/08/22 13:41 Freq: Status: Active Protocol: Document 08/08/22 11:40 [facility] (Rec: 08/08/22 14:01 [facility] [id number]) OT-Instrumental Activities of Daily Living Home Safety Awareness Home Safety Comments Pt's daughter now lives with the pt and has been assisting with all his needs. M6 OT- IP Functional Cognition Start: 08/08/22 13:41 Freq: Status: Active Protocol: Document 08/08/22 11:40 [facility] (Rec: 08/08/22 14:01 [facility] [id number]) Cognitive Factors Limiting Selfcare Function Cognitive Ability Level of Alertness Alert Patient Orientation Name,Place Attention Span Ability Capable of Focused Attention, Capable of Sustained Attention Ability to Follow Commands Able to Follow One Step Commands with Increased Time, Able to Follow One Step Commands with Repetition Memory Description Short Term Impaired Cognitive Comments Cognitive Assessment Comments Pt is very hard of hearing and needing simple concrete steps to follow. At time needing hand over hand and visual cues . Pt is pleasant and cooperative. OT- Vision and Hearing OT- Hearing Assessment OT- Hearing Assessment Hearing Impaired M7 OT- IP Mobility and Balance Start: 08/08/22 13:41 Freq: Status: Active Protocol: Document 08/08/22 11:40 [facility] (Rec: 08/08/22 14:01 [facility] [id number]) OT- Bed Mobility Assessment Supine to Sit Supine to Sit Assist Maximum Assistance,1 Person Assistance,2 Person Assistance OT-Transfer Assessment Sit to and From Stand Sit to and from Stand Maximum Assistance,2 Person Assistance Transfers Transfer Ability Maximum Assistance,2 Person Assistance Technique Transfer Destination Bed,Chair Transfer Technique Stand Step Pivot Devices Transfer Assistive Devices Gait Belt,Front Wheeled Walker Comments Mobility Comments MAXA X 1-2 as pt usually sleep in the lift chair at home. MAX AX 2 to stand with assist for his balance, help guide the FWW and help guide and lower pt down to the recliner. OT- Balance Assessment Sitting Balance and Reactions Static Sitting Balance Ability Fair Dynamic Sitting Balance Ability Poor Standing Balance and Reactions Static Standing Balance Ability Poor Dynamic Standing Balance Ability Poor M8 OT- IP Objective Assessments Start: 08/08/22 13:41 Freq: Status: Active Protocol: Document 08/08/22 11:40 [facility] (Rec: 08/08/22 14:01 [facility] [id number]) OT Gross Range of Motion Upper Extremity Range of Motion Assessment Bilaterally Impaired ROM Impairments Decreased at end ranges. OT Strength Comments Strength Comments LUE at grossly at least 4-/5 for available ROM. RUE shoulder 3+/5 M9 OT- IP Assessment and Plan Start: 08/08/22 13:41 Freq: Status: Active Protocol: Document 08/08/22 11:40 [facility] (Rec: 08/08/22 14:01 [facility] [id number]) OT Summary Assessment and Plan Potential Rehabilitation Potential Good Analytic Complexity at Evaluation Moderate Summary OT Impairments Pain,Range of Motion,Strength, Coordination,Functional Mobility,Grooming,Dressing, Toileting,Bathing,Toilet Transfers,Shower Transfers, Activity Tolerance Progress Towards Goals Slow Progress due to Medical Issues Assessment Summary Pt MOD complexity and main barriers are right hand in tanner wrap and having 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 Per medical chart, pt has possible 3rd metacarpal non-displaced fracture. Pt now needing extensive 2-3 person assist for all mobility and toileting needs. Pt however able to stand for several minutes with OT/PT with FWW while nursing aid able to clean the pt after incontinent episode of bowel. Pt will benefit from skilled rehab . Goals Grooming Goal Standby Assistance Dressing Goal Moderate Assistance Toileting Goal Minimal Assistance Bathing Goal Moderate Assistance Toilet Transfer Goal Minimal Assistance Shower Transfer Goal Minimal Assistance Days to Meet Goals 30 Frequency of Treatment Frequency Of Treatment Once a Day Treatment Plan OT Treatment Plan ADL Training,Functional Cognition Training,Functional Mobility,Patient/Family Education,Discharge Planning Discharge Recommendations OT Discharge Recommendations SNF Rehab Transportation Needs at Discharge Wheelchair/Cabulance
--- NOTE | 2022-08-08 15:48 | CM.DANOTE ---
DCP/Assessment: Reviewed chart. Patient is a 87yr old male admitted [facility] after [facility] on 08-07-22. PCP is Dr. Rani Clark. Primary payor is 1)[employer] 2)Medicaid. Briefly met with patient to ask if okay to speak with his daughter/Patrizia re: d/c planning. Patient is COVID+ and agreeable. ROBOTICS SPECIALIST met with daughter to discuss planning. Daughter reports that she has been caring for patient and that she needs help. Daughter emotional during visit and reports that she is very close to patient and feels badly that she cannot care for him. Notified daughter that current recommendation is SNF. Daughter in agreement to SNF for patient and currently she has appointment with [facility] in August for long-term care na Discharge Planning/Care Management Advanced directive, confirm from FAMILY Start: 08/07/22 13:19 Freq: Q24H Status: Active Protocol: Document 08/07/22 13:20 [facility] (Rec: 08/07/22 13:20 [facility] [id number]) Advance Directive, confirm on record Time 13:20 Person contacted patrizia Copy received No Document 08/08/22 13:19 CLP (Rec: 08/08/22 14:46 CLP [id number]) Advance Directive, confirm on record Time 13:20 Person contacted patrizia Copy received No Time 14:46 Person contacted Patrizia/daughter Copy received No CM Discharge Assessment Start: 08/08/22 15:43 Freq: Status: Active Protocol: Document 08/08/22 15:44 KJS (Rec: 08/08/22 15:48 KJS [id number]) Discharge Planning Assessment Assigned Tankage Grinder Operator DWAYNE Stiles Contact Information Patrizia Leon (daughter) # [phone] Advance Directives? Yes Advance Directives on File No History Provided By Patient,Family Member,Medical Record Prior Living Arrangements House Household Members family Type of transporation used prior to Relies on Others admit Independent with ADL's No Is patient alert and oriented? Yes: Patient currently COVID ( +) Needs Assistance With Bathing,Meal Prep,Managing Medications,Home Chores / Shopping Comment Patient provided CM team with permission to speak with his daughter/Patrizia re: d/c planning. Caregiver for Another No Patient/Family Preference [facility] Facility Comment Current recommendation is SNF for rehabilitation. Discharge Plan [facility] Transportation Arrangement SNF likely to provide transport at d/c Referrals Initiated [facility] If patient plan is SNF: Has PASSR been No completed? Medicare Choice List Provided Yes SNF/HH Preference [facility] is first SNF choice. Contact Name/Phone February [phone] Additional SNF's faxed for review are: [facility], [facility] and [facility]. Has Agency SNF been contacted Yes Whiteboard Updated in Patient Room with No name and ext. # of Tankage Grinder Operator Review Status In Process Next Review Type Continued Stay Review
--- NOTE | 2022-08-08 16:02 | CM.DANOTE ---
Addendum entered by Farrah Sotelo 08/08/22 16:43: Spoke with [place] at [facility], he reports that patient currently on service. KJS Original Note: DCP/Assessment: Reviewed chart. Patient is a 87yr old male admitted to [facility] after [facility]F. Patient's PCP is Dr. Rani Clark. Primary payor is 1)[facility] 2)Medicaid. Patient currently Inpatient status. PERFORMANCE TEST ARCHITECT attempted to meet with patient today. Unfortunately, patient COVID+ but patient provided PERFORMANCE TEST ARCHITECT with permission to speak with his daughter/Patrizia. Daughter reports that patient is vaccinated. Met briefly with Patrizia re: d/c planning. Daughter emotional at time of visit she reports that she can no longer care for patient. Current recommendation is SNF. Daughter in agreement and first SNF choice is [facility]. PERFORMANCE TEST ARCHITECT placed call to February at [facility] requesting they evaluate for admit for tomorrow or Saturday. She is in agreement to evaluate. In addition, referral sent to the following facilities: [facility], [facility], and [facility]. Patient has appointment with the state in August for long-term care accommodations, PERFORMANCE TEST ARCHITECT completed expedited JOHN application and faxed to [facility] office. Daughter aware that if patient goes to SNF that he may need to come home prior to skilled nursing placement. Daughter reports that she is exhausted. PERFORMANCE TEST ARCHITECT encouraged daughter to get some sleep while patient hospitalized. Daughter in agreement. P: [facility] evaluating for SNF admit. Other facilities reviewing are [facility], [facility], and [facility]. COPED expedited application completed and faxed. S Discharge Planning/Care Management Advanced directive, confirm from FAMILY Start: 08/07/22 13:19 Freq: Q24H Status: Active Protocol: Document 08/07/22 13:20 [facility] (Rec: 08/07/22 13:20 [facility] [id number]) Advance Directive, confirm on record Time 13:20 Person contacted patrizia Copy received No Document 08/08/22 13:19 CLP (Rec: 08/08/22 14:46 CLP [id number]) Advance Directive, confirm on record Time 13:20 Person contacted patrizia Copy received No Time 14:46 Person contacted Patrizia/daughter Copy received No CM Discharge Assessment Start: 08/08/22 15:43 Freq: Status: Active Protocol: Document 08/08/22 15:44 KJS (Rec: 08/08/22 15:48 KJS [id number]) Discharge Planning Assessment Assigned Trucking Contractor DWAYNE Stiles Contact Information Patrizia Leon (daughter) # [phone] Advance Directives? Yes Advance Directives on File No History Provided By Patient,Family Member,Medical Record Prior Living Arrangements House Household Members family Type of transporation used prior to Relies on Others admit Independent with ADL's No Is patient alert and oriented? Yes: Patient currently COVID ( +) Needs Assistance With Bathing,Meal Prep,Managing Medications,Home Chores / Shopping Comment Patient provided CM team with permission to speak with his daughter/Patrizia re: d/c planning. Caregiver for Another No Patient/Family Preference [facility] Facility Comment Current recommendation is SNF for rehabilitation. Discharge Plan [facility] Facility Transportation Arrangement SNF likely to provide transport at d/c Referrals Initiated [facility] If patient plan is SNF: Has PASSR been No completed? Medicare Choice List Provided Yes SNF/HH Preference [facility] is first SNF choice. Contact Name/Phone February [phone] Additional SNF's faxed for review are: [facility], [facility] and [facility]. Has Agency SNF been contacted Yes Whiteboard Updated in Patient Room with No name and ext. # of Trucking Contractor Review Status In Process Next Review Type Continued Stay Review
[2022-08-08] MEDS: ATORVASTATIN 20 MG TABLET 40 MG PO (20:10)
[2022-08-09] VITALS (56 sets, daily range): BP systolic 120–157; BP diastolic 56–91; PULSE 53–108; RESP 17–40; TEMP 36.4–36.6; O2SAT 95–99
[2022-08-09] MEDS: cefTRIAXone 1,000 MG in SODIUM CHLORIDE 0.9% 100 ML 200 MG IV (05:13)
[2022-08-09] MEDS: AZITHROMYCIN 500 MG in DEXTROSE 5% IN WATER 250 ML 250 MG IV (05:36)
--- NOTE | 2022-08-09 08:35 | P.PN_ITS ---
Subjective Subjective Date Patient Seen: 08/09/22 Time Patient Seen: 13:42 Interval history: Patient feels well and has no complaints. Says his right hand bruising doesn't hurt much. Exam Vital Signs (past 8 hours): - 08/09/22 04:00 08/09/22 07:00 Temperature 97.9 F 97.9 F Pulse Rate 64 71 Respiratory Rate 21 18 Blood Pressure 126/56 L 130/70 Pulse Oximetry 95 95 Oxygen Flow Rate 0 Oxygen Delivery Method Room Air Oxygen Flow Rate 0 Narrative Exam Narrative: Gen: Alert, oriented X 2, well-nourished 87 y.o. male, appears younger than stated age HEENT: normocephalic, atraumatic, conjunctiva clear, sclera non-icteric, oral mucosa pink and moist Neck: supple, full ROM, no JVD, trachea is midline Resp: Lungs CTA, non-labored breathing CV: irregularly irregular, no murmur or rubs Abd: soft, non-tender, normoactive BTs Skin: no lesions or rashes, dry and intact Neuro: Very hard of hearing, pleasantly confused. Speech clear and coherent. Extremities: Multiple excoriations on both legs, +2 nonpitting edema, right hand in splint with dark bruising of fingers, moves all 4 right hand fingers, patient is ambulatory Psyche: normal mood and affect. Objective Labs Result Diagrams: 08/09/22 09:15 08/09/22 09:15 Labs: Laboratory Results - last 24 hr 08/08/22 08/08/22 08/08/22 08:10 08:10 08:10 WBC 15.7 H RBC 2.30 L Hgb 7.1 L Hct 21.1 L MCV 91.7 MCH 30.7 MCHC 33.5 RDW 15.3 H Plt Count 189 Neut % (Auto) Not Reportable Lymph % (Auto) Not Reportable [place] % (Auto) Not Reportable Eos % (Auto) Not Reportable Baso % (Auto) Not Reportable Lymph # (Auto) Not Reportable [place] # (Auto) Not Reportable Baso # (Auto) Not Reportable Total Counted 100 Seg Neutrophils % 23.0 L Lymphocytes % (Manual) 77.0 H Neutrophils # (Manual) 3611 RBC Morphology Normal morphology Sodium 140 Potassium 3.8 Chloride 106 Carbon Dioxide 23 BUN 46 H Creatinine 2.34 H Estimated GFR 26 L BUN/Creatinine Ratio 19.7 Glucose 144 H Calcium 7.9 L Magnesium 1.8 Total Bilirubin 0.3 AST 20 ALT 13 Alkaline Phosphatase 90 Total Protein 5.8 L Albumin 2.7 L Globulin 3.1 Albumin/Globulin Ratio 0.9 L Ketones 0.03 Blood Type Antibody Screen Crossmatch 08/08/22 14:10 WBC RBC Hgb Hct MCV MCH MCHC RDW Plt Count Neut % (Auto) Lymph % (Auto) [place] % (Auto) Eos % (Auto) Baso % (Auto) Lymph # (Auto) [place] # (Auto) Baso # (Auto) Total Counted Seg Neutrophils % Lymphocytes % (Manual) Neutrophils # (Manual) RBC Morphology Sodium Potassium Chloride Carbon Dioxide BUN Creatinine Estimated GFR BUN/Creatinine Ratio Glucose Calcium Magnesium Total Bilirubin AST ALT Alkaline Phosphatase Total Protein Albumin Globulin Albumin/Globulin Ratio Ketones Blood Type A Positive Antibody Screen Negative Crossmatch See Detail [facility] Medical History (Updated 08/07/22 @ 06:32 by NIELS Lovell) Anticoagulated Anticoagulation adequate Atrial fibrillation Chronic kidney disease (CKD) stage G3a/A1, moderately decreased glomerular filtration rate (GFR) between 45-59 mL/min/1.73 square meter and albuminuria creatinine ratio less than 30 mg/g Chronic renal failure Coronary artery disease History of left common carotid artery stent placement History of right common carotid artery stent placement Peripheral arterial disease Surgical History History of appendectomy History of bilateral knee arthroplasty Stented coronary artery Family History Mother Lung cancer Father Lung cancer Other Hypertension Social History marital status: household members: family Smoking Status: Never smoker Assessment & Plan Assessment & Plan narrative: Chris Peralta is admitted for weakness and shortness of breath associated with a acute on chronic CHF exacerbation, suspected bacterial pneumonia and COVID-19. Acute on chronic right-sided CHF exacerbation, present on admission * diuresed well with IV lasix, start po lasix 40mg daily * Echo 08/07 shows EF 50-55% with severe biatrial enlargement, mild aortic stenosis (valve area 1.8cm2, mean gradient 15mmHg), mild to moderate tricuspid regurgitation and severely elevated RVSP of 61 with right sided hypervolemia * Patient now on room air and lungs sound clear on exam Blood loss anemia likely from GIB * Patient's Hgb dipped to 7.1 and he had large black BM * Stopped eliquis, given 1 unit PRBC * Patient likely not a good candidate for scope due to age * Monitor CBC, will transfuse as needed to keep Hgb >7 * Currently stable Hgb in 8's Right hand bruising and possible 3rd metacarpal fracture from fall * Xray of hand in ED showed possible 3rd metacarpal displaced fracture, but could be denegerative change * Ortho recommended splinting with velcro wrist splint and movement as tolerated, no intervention needed Suspected bacterial pneumonia, acute, present on admission * He was started on IV ceftriaxone and azithromycin and this will be continued COVID-19 unknown if acute * Per the daughter the patient reportedly tested positive approximately 3 weeks ago the tested negative on home testing kits and is now positive * Patient received IV remdesivir and dexamethasone then these were discontinued after pt weaned off O2 Leukocytosis, present since April of 2022 * Patient will need to be assessed by Hematology as chronic 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 Dispo: SNF on 08/10 Code status: Full code as discussed with the patient's daughter. She states there is some sort of power of soils analyst but does not know who it is. COVID-19 COVID-19 status: Positive Result date/Date tested (Pos, Neg/Pending): 08/07/22 Time Spent With Patient Critical Care time: I spent a total of [] minutes of critical care time on this patient's care today; this time is exclusive of procedural time. Quality VTE Deep Vein Thrombosis/Pulmonary Embolism Present on Admission: No
[2022-08-09] MEDS: AMLODIPINE 5 MG TABLET PO (09:07)
[2022-08-09] MEDS: FUROSEMIDE 40 MG TABLET PO (09:07)
[2022-08-09 09:42] LABS: Hematocrit 25.5 % (41-53); Hemoglobin 8.4 g/dL (13.5-17.5); Mean Corpuscular Hemoglobin 29.9 PG (26-34); Mean Corpuscular Volume 90.5 fL (80-100); Platelet Count 208 X10^3/uL (150-400); Red Blood Cell Count 2.81 X10^6/uL (4.5-5.9); Red Cell Distribution Width 17.1 % (11.6-14.8); White Blood Cell Count 23.9 X10^3/uL (4.5-11.0)
[2022-08-09 09:45] LABS: Add Manual Diff / Slide Review YES
[2022-08-09 10:03] LABS: Alanine Aminotransferase 14 IU/L (<50); Albumin 3.1 g/dL (3.5-5.0); Albumin Globulin Ratio 0.9 (1.0-2.8); Alkaline Phosphatase 101 U/L (38-126); Aspartate Aminotransferase 21 IU/L (17-59); BUN Creatinine Ratio 18.6 (6-22); Bilirubin Total 0.5 mg/dL (0.2-1.3); Blood Urea Nitrogen 44 mg/dL (9-20); Calcium 7.8 mg/dL (8.4-10.2); Carbon Dioxide 22 mmol/L (22-32); Chloride 105 mmol/L (98-107); Estimated Glomerular Filt Rate 26 mL/min (>60); Globulin 3.5 g/dL (1.7-4.1); Glucose 134 mg/dL (80-110); HEMOLYSIS < 15 (0-50); Magnesium 1.7 mg/dL (1.6-2.3); Potassium 3.7 mmol/L (3.4-5.1); Sodium 139 mmol/L (137-145); Total Protein 6.6 g/dL (6.3-8.2)
[2022-08-09 10:44] LABS: Neutrophils Absolute Manual 3346 /uL (3000-5900); Total Cells Counted 100
[2022-08-09 10:45] LABS: Platelet Estimate Adequate on smear
[2022-08-09 10:46] LABS: Acanthocytes 1+; Ovalocytes 1+; Poikilocytosis 1+; RBC Morphology S; Smudge Cells 1+
--- NOTE | 2022-08-09 14:50 | OT.IP.TRT ---
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 (08/07/22) Occupational Therapy Treatment Note M2 OT-IP Current Condition Start: 08/08/22 13:41 Freq: Status: Active Protocol: Document 08/08/22 11:40 [facility] (Rec: 08/08/22 14:01 [facility] [id number]) Occupational Therapy Current Condition Current Condition Evaluation Date 08/08/22 Treatment Diagnosis CHF exacerbation, COVID+, PNA, decreased mobility Diagnosis Onset Date 08/07/22 M3 OT- IP Subjective and Pain Start: 08/08/22 13:41 Freq: Status: Active Protocol: Document 08/09/22 15:04 [facility] (Rec: 08/09/22 15:12 [facility] [id number]) OT- Subjective Occupational Therapy Visit Type Type Treatment Note Visit Start Time 14:30 Visit Stop Time 14:51 Total Visit Minutes 21 Occupational Therapy Visit Comments Patient Comments Pt agreed to work with OT. Patient/Caregiver Goals To get better. OT Pain Assessment Pain When Pain Assessed At Rest Pain Present Pain Present Denied Pain M9 OT- IP Assessment and Plan Start: 08/08/22 13:41 Freq: Status: Active Protocol: Document 08/09/22 15:04 [facility] (Rec: 08/09/22 15:12 [facility] [id number]) OT Summary Assessment and Plan Potential Rehabilitation Potential Good Analytic Complexity at Evaluation Moderate Summary OT Impairments Pain,Range of Motion,Strength, Coordination,Functional Mobility,Grooming,Dressing, Toileting,Bathing,Toilet Transfers,Shower Transfers, Activity Tolerance Progress Towards Goals Slow Progress due to Medical Issues Assessment Summary Spoke to hospitalist regarding wrist splint as when tanner wrap and bandages taken off of pt' s right arm with nursing noted large wound area proximal to pt's right wrist. At this time hold on issuing the removeable right wrist splint as it may cause further agitation and slow down the healing of his wound. Pt able to work with OT on keeping right arm elevated on pillow and working on gentle AROM exercises to help decrease his finger swelling. Pt to go to skilled rehab when medically stable. Goals Grooming Goal Standby Assistance Dressing Goal Moderate Assistance Toileting Goal Minimal Assistance Bathing Goal Moderate Assistance Toilet Transfer Goal Minimal Assistance Days to Meet Goals 30 Frequency of Treatment Frequency Of Treatment Once a Day Treatment Plan OT Treatment Plan ADL Training,Functional Cognition Training,Functional Mobility,Patient/Family Education,Discharge Planning Discharge Recommendations OT Discharge Recommendations SNF Rehab Transportation Needs at Discharge Wheelchair/Cabulance
[2022-08-09] MEDS: ATORVASTATIN 20 MG TABLET 40 MG PO (20:44)
[2022-08-10] VITALS (32 sets, daily range): BP systolic 116–145; BP diastolic 62–79; PULSE 59–105; RESP 15–36; TEMP 36.4–37.1; O2SAT 92–98
[2022-08-10] MEDS: cefTRIAXone 1,000 MG VIAL 1000 MG (05:31)
[2022-08-10] MEDS: cefTRIAXone 1,000 MG in SODIUM CHLORIDE 0.9% 100 ML 200 MG IV (05:31)
[2022-08-10 06:17] LABS: Hematocrit 25.7 % (41-53); Hemoglobin 8.7 g/dL (13.5-17.5); Mean Corpuscular HGB Conc 33.8 % (30-36); Mean Corpuscular Hemoglobin 30.3 PG (26-34); Mean Corpuscular Volume 89.7 fL (80-100); Platelet Count 215 X10^3/uL (150-400); Red Blood Cell Count 2.87 X10^6/uL (4.5-5.9); Red Cell Distribution Width 16.7 % (11.6-14.8); White Blood Cell Count 21.5 X10^3/uL (4.5-11.0)
[2022-08-10 06:23] LABS: Add Manual Diff / Slide Review YES
[2022-08-10 06:25] LABS: Blood Urea Nitrogen 45 mg/dL (9-20); Calcium 7.8 mg/dL (8.4-10.2); Carbon Dioxide 24 mmol/L (22-32); Chloride 106 mmol/L (98-107); Estimated Glomerular Filt Rate 28 mL/min (>60); Glucose 109 mg/dL (80-110); HEMOLYSIS < 15 (0-50); Sodium 140 mmol/L (137-145)
[2022-08-10 06:45] LABS: Neutrophils Absolute Manual 1720 /uL (3000-5900); Total Cells Counted 100
[2022-08-10 06:46] LABS: Acanthocytes 1+; Anisocytosis 1+; Ovalocytes 1+
[2022-08-10 06:47] LABS: Smudge Cells 1+
--- NOTE | 2022-08-10 08:37 | P.DS_ITS ---
History of Present Illness History of Present Illness Date Patient Seen: 08/10/22 Chief complaint: GLF last night, blood thinners Narrative: Chris Peralta is an 87-year-old male nonsmoker with history of hypertension, hyperlipidemia on blood thinners for atrial fibrillation presented with his daughter, Darlene with chief complaint of a ground level fall last night. History is provided by his daughter as he is very hard of hearing and confused. ? He had been sitting in an automated recliner and slid out and landed on the ground.? In doing so he injured his right hand and ankle.? He denies any head neck or back pain.? He denies chest pain, but daughter states his is weak and seems to always be short of breath with an extended dry cough in the am.?Denies runny nose, sore throat nor fever or chills.? He is had no nausea, vomiting or diarrhea.? He lives at home with his daughter who moved up from [place] and she is concerned that he is decompensating and they are unable to care for him.? Patient has had somewhat of a decline since requiring hip surgery in April and has not been n ear is ambulatory since.? Patient has become significantly weak with increased SOB and inability to assist over the past few days. Patient is currently incontinent of both bladder and bowel worsening over the past couple of months. EMS was called multiple times as Darlene is unable to pick him up on her own.? His daughter Darlene stated that he was to have seen an oncologist as he is been having elevated white counts and they are concerned he has chronic leukemia. Chest x-ray reports a small right pleural effusion likely consolidation/pneumonia and also noted pulmonary edema and cardiomegaly asso ciated with CHF.? There is a possibility of a nondisplaced fracture of the base of the 3rd metacarpal of 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? He is a low-grade temperature of 99? blood pressure 142/64 heart rate 75 respiratory rate 18 oxygen saturation 98% on room air he weighs 99 kg with a BMI of 30.8.? His WBC is 21.7, RBC 2.8 hemoglobin 8.7 hematocrit 25.8 he appears to have a abnormal smear, creatinine is 2.54 with a BUN of 38 and an EGFR of 24 which is his baseline, glucose 171 proBNP is almost 8000 procalcitonin is negative and COVID 19 PCR is positive.? UA is negative for UTI. Discharge Providers Provider Date of admission: 08/07/22 05:32 Discharge Date: 08/10/22 Primary care physician: Rani Clark MD Consults: 08/06/22 16:12 Consult to CRIMINAL RECORDS TECHNICIAN - Loan Interviewer Stat Comment: 08/07/22 19:16 Consult to Occupational Therapy Evaluate & Treat Comment: Physician Instructions: Evaluate and treat Consult to Physical Therapy Evaluate & Treat Comment: Physician Instructions: Evaluate and Treat 08/09/22 14:09 Consult to Occupational Therapy Evaluate & Treat Comment: Right wrist splint, movement as tolerated Physician Instructions: Evaluate and treat Discharge provider: Rg Roger DO Summary Hospital Course Discharge Diagnosis: Acute on chronic right-sided CHF exacerbation, present on admission * diuresed well with IV lasix, start po lasix 40mg daily * Echo 08/07 shows EF 50-55% with severe biatrial enlargement, mild aortic stenosis (valve area 1.8cm2, mean gradient 15mmHg), mild to moderate tricuspid regurgitation and severely elevated RVSP of 61 with right sided hypervolemia * Patient now on room air and lungs sound clear on exam Blood loss anemia likely from GIB * Patient's Hgb dipped to 7.1 and he had large black BM * Stopped eliquis, given 1 unit PRBC * Patient likely not a good candidate for scope due to age * Monitor CBC, will transfuse as needed to keep Hgb >7 * Currently stable Hgb in 8's Right hand bruising and possible 3rd metacarpal fracture from fall * Xray of hand in ED showed possible 3rd metacarpal displaced fracture, but could be denegerative change * Ortho recommended splinting with velcro wrist splint and movement as tolera lavnone, no intervention needed Suspected bacterial pneumonia, acute, present on admission * He was started on IV ceftriaxone and azithromycin and this will be continued for 5 and 3 days respectively * discharged to finish 2 more days of augmentin po COVID-19 unknown if acute * Per the daughter the patient reportedly tested positive approximately 3 weeks ago the tested negative on home testing kits and is now positive * Patient received IV remdesivir and dexamethasone then these were discontinued after pt weaned off O2 Leukocytosis, present since April of 2022 * Patient will need to be assessed by Hematology as chronic 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 Diuresed well and able to come off oxygen. Also received IV abx for possible CAP. Had a fall at home on eliquis which caused bruising and swelling of right hand. Hand Xray showed possible 3rd metacarpal fracture, which ortho said to just splint and move as tolerated. While admitted his Hgb dipped to 7.1 and patient had a guiaic positive melanotic stool so he was transfused 1 unit of PRBC and his home eliquis was stopped. He will be discharged to SNF for rehab and will finish a couple days of abx orally. Time Spent with Patient Time spent: Greater than 30 minutes Exam Vital Signs (past 8 hours): - 08/10/22 00:41 08/10/22 04:00 Temperature 97.6 F 98.7 F Pulse Rate 82 72 Respiratory Rate 15 20 Blood Pressure 138/62 125/77 Pulse Oximetry 98 96 Oxygen Delivery Method Room Air Oxygen Flow Rate 0 Narrative Exam Narrative: Gen: Alert, oriented X 2, well-nourished 87 y.o. male, appears younger than stated age HEENT: normocephalic, atraumatic, conjunctiva clear, sclera non-icteric, oral mucosa pink and moist Neck: supple, full ROM, no JVD, trachea is midline Resp: Lungs CTA, non-labored breathing CV: irregularly irregular, no murmur or rubs Abd: soft, non-tender, normoactive BTs Skin: no lesions or rashes, dry and intact Neuro: Very hard of hearing, pleasantly confused. Speech clear and coherent. Extremities: Multiple excoriations on both legs, +2 nonpitting edema, right hand in splint with dark bruising of fingers, moves all 4 right hand fingers, patient is ambulatory Psyche: normal mood and affect. Objective Labs Result Diagrams: 08/10/22 06:01 08/10/22 06:01 Labs: Laboratory Results - last 24 hr 08/09/22 08/09/22 08/10/22 09:15 09:15 06:01 WBC 23.9 H D 21.5 H RBC 2.81 L 2.87 L Hgb 8.4 L 8.7 L Hct 25.5 L 25.7 L MCV 90.5 89.7 MCH 29.9 30.3 MCHC 33.0 33.8 RDW 17.1 H 16.7 H Plt Count 208 215 Neut % (Auto) Not Reportable Not Reportable Lymph % (Auto) Not Reportable Not Reportable [place] % (Auto) Not Reportable Not Reportable Eos % (Auto) Not Reportable Not Reportable Baso % (Auto) Not Reportable Not Reportable Lymph # (Auto) Not Reportable Not Reportable [place] # (Auto) Not Reportable Not Reportable Baso # (Auto) Not Reportable Not Reportable Total Counted 100 100 Seg Neutrophils % 14.0 L 8.0 L Lymphocytes % (Manual) 80.0 H 88.0 H Monocytes % (Manual) 2.0 2.0 Eosinophils % (Manual) 3.0 2.0 Basophils % (Manual) 1.0 Neutrophils # (Manual) 3346 1720 L Smudge Cells 1+ H 1+ H Platelet Estimate Adequate on smear RBC Morphology S See below Poikilocytosis 1+ H D Anisocytosis 1+ H Ovalocytes 1+ H 1+ H Acanthocytes (Spur) 1+ 1+ Sodium 139 Potassium 3.7 Chloride 105 Carbon Dioxide 22 BUN 44 H Creatinine 2.37 H Estimated GFR 26 L BUN/Creatinine Ratio 18.6 Glucose 134 H Calcium 7.8 L Magnesium 1.7 Total Bilirubin 0.5 AST 21 ALT 14 Alkaline Phosphatase 101 Total Protein 6.6 Albumin 3.1 L Globulin 3.5 Albumin/Globulin Ratio 0.9 L 08/10/22 06:01 WBC RBC Hgb Hct MCV MCH MCHC RDW Plt Count Neut % (Auto) Lymph % (Auto) [place] % (Auto) Eos % (Auto) Baso % (Auto) Lymph # (Auto) [place] # (Auto) Baso # (Auto) Total Counted Seg Neutrophils % Lymphocytes % (Manual) Monocytes % (Manual) Eosinophils % (Manual) Basophils % (Manual) Neutrophils # (Manual) Smudge Cells Platelet Estimate RBC Morphology Poikilocytosis Anisocytosis Ovalocytes Acanthocytes (Spur) Sodium 140 Potassium 4.0 Chloride 106 Carbon Dioxide 24 BUN 45 H Creatinine 2.25 H Estimated GFR 28 L BUN/Creatinine Ratio 20.0 Glucose 109 Calcium 7.8 L Magnesium Total Bilirubin AST ALT Alkaline Phosphatase Total Protein Albumin Globulin Albumin/Globulin Ratio [facility] Medical History (Updated 08/07/22 @ 06:32 by NIELS Lovell) Anticoagulated Anticoagulation adequate Atrial fibrillation Chronic kidney disease (CKD) stage G3a/A1, moderately decreased glomerular filtration rate (GFR) between 45-59 mL/min/1.73 square meter and albuminuria creatinine ratio less than 30 mg/g Chronic renal failure Coronary artery disease History of left common carotid artery stent placement History of right common carotid artery stent placement Peripheral arterial disease Surgical History History of appendectomy History of bilateral knee arthroplasty Stented coronary artery Family History Mother Lung cancer Father Lung cancer Other Hypertension Social History marital status: household members: family Smoking Status: Never smoker Discharge Plan Discharge Plan Patient Disposition: SNF Discharge orders & Medications Prescriptions: New amoxicillin-pot clavulanate 875-125 mg tablet 1 tab PO BID 2 Days Qty: 4 0RF Rx Instructions: start on 08/11 Continued atorvastatin 40 mg tablet 40 mg PO BEDTIME amlodipine 5 mg tablet 5 mg PO DAILY ferrous gluconate 324 mg (38 mg iron) tablet 324 mg PO BID Label Comments: TK 1 T PO BID. pantoprazole 40 mg Tablet,Delayed Release (Dr/Ec) 40 mg PO BID torsemide 10 mg Tablet 10 mg PO DAILY cholecalciferol (vitamin D3) [Vitamin D3] 50 mcg (2,000 unit) Tablet 50 mcg PO DAILY oxycodone 5 mg Tablet 5 mg PO Q3HR PRN (Reason: Pain, Mild (1-3)) Qty: 30 0RF Discontinued Eliquis 2.5 mg Tablet 2.5 mg BID Follow up/Referrals: Rani Clark MD [Primary Care Provider] - Discharge Data Primary Care Provider: Rani Clark Quality VTE Deep Vein Thrombosis/Pulmonary Embolism Present on Admission: No
[2022-08-10] MEDS: AMLODIPINE 5 MG TABLET PO (09:35)
[2022-08-10] MEDS: FUROSEMIDE 40 MG TABLET PO (09:35)
--- NOTE | 2022-08-10 10:25 | OT.IP.TRT ---
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 (08/07/22) Occupational Therapy Treatment Note M2 OT-IP Current Condition Start: 08/08/22 13:41 Freq: Status: Active Protocol: Document 08/08/22 11:40 [facility] (Rec: 08/08/22 14:01 [facility] [id number]) Occupational Therapy Current Condition Current Condition Evaluation Date 08/08/22 Treatment Diagnosis CHF exacerbation, COVID+, PNA, decreased mobility Diagnosis Onset Date 08/07/22 M3 OT- IP Subjective and Pain Start: 08/08/22 13:41 Freq: Status: Active Protocol: Document 08/10/22 10:25 [facility] (Rec: 08/10/22 11:09 [facility] [id number]) OT- Subjective Occupational Therapy Visit Type Type Treatment Note Visit Start Time 10:25 Visit Stop Time 10:51 Total Visit Minutes 26 Occupational Therapy Visit Comments Patient Comments Pt agreed to brush his teeth. Patient/Caregiver Goals TO get better. OT Pain Assessment Pain When Pain Assessed At Rest Pain Present Pain Present Denied Pain M4 OT- IP ADL's Start: 08/08/22 13:41 Freq: Status: Active Protocol: Document 08/10/22 10:25 [facility] (Rec: 08/10/22 11:09 [facility] [id number]) OT ADL-Grooming General Evaluation Grooming Ability Standby Assistance Comments OT Grooming Comments Pt able to do after set-up. OT ADL-Oral Care General Eval Oral Care Ability Standby Assistance Areas of Assistance Retrieving/Set-Up of Items Comments Oral Care Comments Pt able to use right hand today to assist with oral care needs as noted decreased swelling in 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 M5 OT- IP IADL's Start: 08/08/22 13:41 Freq: Status: Active Protocol: Document 08/08/22 11:40 [facility] (Rec: 08/08/22 14:01 [facility] [id number]) OT-Instrumental Activities of Daily Living Home Safety Awareness Home Safety Comments Pt's daughter now lives with the pt and has been assisting with all his needs. M6 OT- IP Functional Cognition Start: 08/08/22 13:41 Freq: Status: Active Protocol: Document 08/10/22 10:25 [facility] (Rec: 08/10/22 11:09 [facility] [id number]) Cognitive Factors Limiting Selfcare Function Cognitive Comments Cognitive Assessment Comments Pt able to follow commands for oral care and grooming needs. OT- Vision and Hearing OT- Hearing Assessment OT- Hearing Assessment Hearing Impaired M9 OT- IP Assessment and Plan Start: 08/08/22 13:41 Freq: Status: Active Protocol: Document 08/10/22 10:25 [facility] (Rec: 08/10/22 11:09 [facility] [id number]) OT Summary Assessment and Plan Potential Rehabilitation Potential Good Analytic Complexity at Evaluation Moderate Summary OT Impairments Pain,Range of Motion,Strength, Coordination,Functional Mobility,Grooming,Dressing, Toileting,Bathing,Toilet Transfers,Shower Transfers, Activity Tolerance Progress Towards Goals Progressing Toward Goals Assessment Summary Swelling in right hand looks much better today and able to do gentle stretching to his right internal rotators, PROM, AAROM and AROM to 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 Pt is very pleasant and cooperative and will benefit from skilled rehab. Goals Grooming Goal Independent Dressing Goal Minimal Assistance Toileting Goal Minimal Assistance Bathing Goal Moderate Assistance Toilet Transfer Goal Contact Guard Assistance Shower Transfer Goal Minimal Assistance Days to Meet Goals 30 Frequency of Treatment Frequency Of Treatment Once a Day Treatment Plan OT Treatment Plan ADL Training,Functional Cognition Training,Functional Mobility,Patient/Family Education,Discharge Planning Discharge Recommendations OT Discharge Recommendations SNF Rehab Transportation Needs at Discharge Wheelchair/Cabulance
--- NOTE | 2022-08-10 10:50 | PT.IPTN ---
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 (08/07/22) Physical Therapy Treatment Note M2 PT-IP Current Condition Start: 08/08/22 12:46 Freq: NEEDED Status: Active Protocol: Document 08/08/22 11:40 AB (Rec: 08/08/22 13:04 AB [id number]) Physical Therapy Current Condition Current Condition Evaluation Date 08/08/22 Treatment Diagnosis Covid; CHF; PNA; difficulty in walking Onset Date 08/07/22 M3 PT-IP Subjective Start: 08/08/22 12:46 Freq: NEEDED Status: Active Protocol: Document 08/10/22 10:27 LJ (Rec: 08/10/22 10:50 LJ [id number]) Subjective Physical Therapy Visit Type Type Treatment Note Visit Start Time 09:51 Visit Stop Time 10:22 Total Visit Minutes 31 Notes Dtr currently in room with pt. Nursing beginning to set up room for pt to udr BSC. Number of SPORTS MARKETER Visits 1 Physical Therapy Visit Comments Patient Comments agreeable to do PT Therapy Pain Assessment Pain Present Pain Present Denied Pain M4 PT-IP Mobility and Gait Start: 08/08/22 12:46 Freq: NEEDED Status: Active Protocol: Document 08/10/22 10:27 LJ (Rec: 08/10/22 10:50 LJ [id number]) PT-Bed Mobility Assessment Supine to Sit Supine to Sit Moderate Assistance,1 Person Assistance,Head of Bed Elevated Scooting Scooting to Edge of Bed Maximum Assistance PT-Transfer Assessment Sit to and From Stand Sit to and from Stand Moderate Assistance,2 Person Assistance,Use of Upper Extremities Equipment Transfer Assistive Device Gait Belt,Front Wheeled Walker Orthotic/Prosthetic Devices or Brace: No Transfers Transfer Destination Chair,Bedside Commode Transfer Technique Stand Step Pivot Transfer Ability Level of Assist Moderate Assistance,2 Person Assistance,Use of Upper Extremities Comments Mobility Comments Pt sitting in bed wanting to use BSC. He was able to use LUE to push into elevated head of bed and get to seated position with MODA from SPORTS MARKETER giving cues for scooting right buttocks forward and moving LEs off the bed. Once seated on side of bed, pt able to scoot farther so that feet touched the floor PHILL from SPORTS MARKETER. Pt stood MODA x2 with SPORTS MARKETER and nursing. Cues to extend his trunk and lift chest. Pt unable to get into full standing position. Remained flexed at trunk. He wasn't able to lift right foot to take a step sideways toward the BSC but was able to slide/ pivot foot to make a stand step pivot transfer to position himself in front of the BSC. Pt reached back with LUE and lowered himself onto commode. Pt then stood for ~30 sec while nursing performed pericare. PHILL x1 from SPORTS MARKETER to stand from BSC. Pt took lager step toward chair to his right and reached out to the arm rest of chair with RUE. He was able to move with minmal use of FWW rather taking step with RLE to position himself in front of the chair. Pt used bilateral Us (L>R) to lower himself onto chair. He was sitting upright in chair with feet on floor. Chair alarm was connected to pt and he was given all needs within reach. Gait Assessment Comments Gait Comments unable at this time. stand step pivot transfer x2. M5 PT-IP Objective Assessments Start: 08/08/22 12:46 Freq: NEEDED Status: Active Protocol: Document 08/08/22 11:40 AB (Rec: 08/08/22 13:04 AB [id number]) Orientation Orientation/Cognition Level of Alertness Alert Orientation Name Language Function Ability Hard of Hearing Safety Awareness Decreased Safety Awareness Memory Description Short Term Impaired Gross Range of Motion Lower Extremity ROM Assessment Within Functional Limits Strength Lower Extremity Strength Assessment Bilaterally Impaired Hip 4-/5 Knee 3+/5 Muscle Tone Muscle Tone WNL Yes M6 PT-IP Treatment Start: 08/08/22 12:46 Freq: NEEDED Status: Active Protocol: Document 08/10/22 10:27 (Rec: 08/10/22 10:50 [id number]) Physical Therapy Treatment Education Education Provided Safety M7 PT-IP Assessment and Plan Start: 08/08/22 12:46 Freq: NEEDED Status: Active Protocol: Document 08/10/22 10:27 KIM (Rec: 08/10/22 10:50 [id number]) PT Summary Assessment and Plan Potential Rehabilitation Potential Fair Status of Condition at Evaluation Evolving Summary Impairments Pain,ROM,Strength,Balance, Coordination,Sensation,Tone, Cognition,Bed Mobility, Transfers,Gait,Activity Tolerance Assessment Summary Pt improved with bed mobility and transfers. May be able to take a few steps with WC following for a few feet. He is pleasant cooperative and would like to return to being able to walk a bit. Pt will require SNF to increase strength and activity tolerance to return to ambulation and decrease assistance for transfers and bed mobility. Goals Bed Mobility Goal Minimal Assistance Transfer Goal Minimal Assistance,Front Wheeled Walker Gait Goal Minimal Assistance,Front Wheel Walker Gait Distance 30 Other Goals improve bed mobility, transfers and ambulation using FWW 50 ft SBA up/down 1 step using FWW min A Days to Meet Goals 10 Frequency of Treatment Frequency Of Treatment Once a Day Treatment Plan Physical Therapy Treatment Plan Bed Mobility Training,Transfer Training,Gait Training, Therapeutic Exercise,Balance Retraining,Discharge Planning, Hot or Cold Pack,Neuromuscular Re-ed,Coordination Retraining ,Manual Therapy Other Recommendations and Next Treatment LE ex, bed mob, transfers, Focus standing increase tolerance, gait if able w/ FWW and chair follow. Precautions Other Precautions Covid; falls Recommendations To Nursing Amount of Assist Needed 2 Person Assist Discharge Recommendations PT Discharge Recommendations SNF Rehab
--- NOTE | 2022-08-10 11:19 | CM.DPNOTE ---
DCP Note Discharge ppk completed by Dr Roger this morning for discharge to [facility] No insurance authorization in place at this time. Once this is secured by Evelina at [facility], patient can admit to SNF Following closely for coordination JW
[2022-08-10] MEDS: AZITHROMYCIN 250 MG TABLET 500 MG PO (11:55)
--- NOTE | 2022-08-10 19:16 | P.PN_ITS ---
Subjective Subjective Interval history: No complaints today. Awaiting SNF. Exam Vital Signs (past 8 hours): - 08/10/22 11:30 08/10/22 12:00 08/10/22 12:43 Temperature 98.0 F Pulse Rate 60 60 59 L Respiratory Rate 25 H 23 20 Blood Pressure 145/79 H Pulse Oximetry 92 Oxygen Delivery Method Room Air Oxygen Flow Rate 0 Narrative Exam Narrative: Gen: Alert, oriented X 2, well-nourished 87 y.o. male, appears younger than stated age HEENT: normocephalic, atraumatic, conjunctiva clear, sclera non-icteric, oral mucosa pink and moist Neck: supple, full ROM, no JVD, trachea is midline Resp: Lungs CTA, non-labored breathing CV: irregularly irregular, no murmur or rubs Abd: soft, non-tender, normoactive BTs Skin: no lesions or rashes, dry and intact Neuro: Very hard of hearing, pleasantly confused. Speech clear and coherent. Extremities: Multiple excoriations on both legs, +2 nonpitting edema, right hand in splint with dark bruising of fingers, moves all 4 right hand fingers, patient is ambulatory Psyche: normal mood and affect. Objective Labs Result Diagrams: 08/10/22 06:01 08/10/22 06:01 Labs: Laboratory Results - last 24 hr 08/10/22 08/10/22 06:01 06:01 WBC 21.5 H RBC 2.87 L Hgb 8.7 L Hct 25.7 L MCV 89.7 MCH 30.3 MCHC 33.8 RDW 16.7 H Plt Count 215 Neut % (Auto) Not Reportable Lymph % (Auto) Not Reportable [place] % (Auto) Not Reportable Eos % (Auto) Not Reportable Baso % (Auto) Not Reportable Lymph # (Auto) Not Reportable [place] # (Auto) Not Reportable Baso # (Auto) Not Reportable Total Counted 100 Seg Neutrophils % 8.0 L Lymphocytes % (Manual) 88.0 H Monocytes % (Manual) 2.0 Eosinophils % (Manual) 2.0 Neutrophils # (Manual) 1720 L Smudge Cells 1+ H RBC Morphology See below Anisocytosis 1+ H Ovalocytes 1+ H Acanthocytes (Spur) 1+ Sodium 140 Potassium 4.0 Chloride 106 Carbon Dioxide 24 BUN 45 H Creatinine 2.25 H Estimated GFR 28 L BUN/Creatinine Ratio 20.0 Glucose 109 Calcium 7.8 L [facility] Medical History (Updated 08/07/22 @ 06:32 by NIELS Lovell) Anticoagulated Anticoagulation adequate Atrial fibrillation Chronic kidney disease (CKD) stage G3a/A1, moderately decreased glomerular filtration rate (GFR) between 45-59 mL/min/1.73 square meter and albuminuria creatinine ratio less than 30 mg/g Chronic renal failure Coronary artery disease History of left common carotid artery stent placement History of right common carotid artery stent placement Peripheral arterial disease Surgical History History of appendectomy History of bilateral knee arthroplasty Stented coronary artery Family History Mother Lung cancer Father Lung cancer Other Hypertension Social History marital status: household members: family Smoking Status: Never smoker Assessment & Plan Assessment & Plan narrative: Chris Peralta is admitted for weakness and shortness of breath associated with a acute on chronic CHF exacerbation, suspected bacterial pneumonia and COVID-19. Acute on chronic right-sided CHF exacerbation, present on admission * diuresed well with IV lasix, start po lasix 40mg daily * Echo 08/07 shows EF 50-55% with severe biatrial enlargement, mild aortic stenosis (valve area 1.8cm2, mean gradient 15mmHg), mild to moderate tricuspid regurgitation and severely elevated RVSP of 61 with right sided hypervolemia * Patient now on room air and lungs sound clear on exam Blood loss anemia likely from GIB * Patient's Hgb dipped to 7.1 and he had large black BM * Stopped eliquis, given 1 unit PRBC * Patient likely not a good candidate for scope due to age * Monitor CBC, will transfuse as needed to keep Hgb >7 * Currently stable Hgb in 8's Right hand bruising and possible 3rd metacarpal fracture from fall * Xray of hand in ED showed possible 3rd metacarpal displaced fracture, but could be denegerative change * Ortho recommended splinting with velcro wrist splint and movement as tolerated, no intervention needed Suspected bacterial pneumonia, acute, present on admission * He was started on IV ceftriaxone and azithromycin and this will be continued COVID-19 unknown if acute * Per the daughter the patient reportedly tested positive approximately 3 weeks ago the tested negative on home testing kits and is now positive * Patient received IV remdesivir and dexamethasone then these were discontinued after pt weaned off O2 Leukocytosis, present since April of 2022 * Patient will need to be assessed by Hematology as chronic 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 Dispo: SNF on 08/10 Code status: Full code as discussed with the patient's daughter. She states there is some sort of power of civil litigation attorney but does not know who it is. COVID-19 COVID-19 status: Positive Result date/Date tested (Pos, Neg/Pending): 08/07/22 Time Spent With Patient Critical Care time: I spent a total of [] minutes of critical care time on this patient's care today; this time is exclusive of procedural time. Quality VTE Deep Vein Thrombosis/Pulmonary Embolism Present on Admission: No
[2022-08-10] MEDS: ATORVASTATIN 20 MG TABLET 40 MG PO (20:36)
--- NOTE | 2022-08-11 04:09 | PC.NURSE ---
Pt is AxOx1-2, pleasantly confused and cooperative. VSS, pt denies pain. Continued droplet precaution. Pt is voiding in his brief.. Tele is irregular and bonifacio at night. No other changes. Continue monitor.
[2022-08-11] MEDS: cefTRIAXone 1,000 MG in SODIUM CHLORIDE 0.9% 100 ML 200 MG IV (04:23)
[2022-08-11 05:00] VITALS: BP 140/64; PULSE 62; RESP 15; TEMP 36.3; O2SAT 96
[2022-08-11 05:30] LABS: Hematocrit 24.7 % (41-53); Hemoglobin 8.2 g/dL (13.5-17.5); Mean Corpuscular HGB Conc 33.1 % (30-36); Mean Corpuscular Volume 90.5 fL (80-100); Platelet Count 200 X10^3/uL (150-400); Red Blood Cell Count 2.73 X10^6/uL (4.5-5.9); Red Cell Distribution Width 16.5 % (11.6-14.8); White Blood Cell Count 21.4 X10^3/uL (4.5-11.0)
[2022-08-11 05:34] LABS: BUN Creatinine Ratio 19.5 (6-22); Blood Urea Nitrogen 43 mg/dL (9-20); Calcium 7.7 mg/dL (8.4-10.2); Carbon Dioxide 24 mmol/L (22-32); Chloride 107 mmol/L (98-107); Estimated Glomerular Filt Rate 28 mL/min (>60); Glucose 93 mg/dL (80-110); HEMOLYSIS < 15 (0-50); Potassium 3.6 mmol/L (3.4-5.1); Sodium 138 mmol/L (137-145)
[2022-08-11 05:43] LABS: Add Manual Diff / Slide Review YES
[2022-08-11 06:22] LABS: Neutrophils Absolute Manual 1926 /uL (3000-5900); Smudge Cells 2+; Total Cells Counted 100
[2022-08-11 06:23] LABS: Acanthocytes 1+; Ovalocytes 1+; Poikilocytosis 1+
[2022-08-11 08:09] VITALS: BP 140/76; PULSE 79; RESP 22; TEMP 36.8; O2SAT 97
--- NOTE | 2022-08-11 09:14 | P.DS_ITS ---
History of Present Illness History of Present Illness Date Patient Seen: 08/11/22 Chief complaint: GLF last night, blood thinners Narrative: Chris Peralta is an 87-year-old male nonsmoker with history of hypertension, hyperlipidemia on blood thinners for atrial fibrillation presented with his daughter, Darlene with chief complaint of a ground level fall last night. History is provided by his daughter as he is very hard of hearing and confused. ? He had been sitting in an automated recliner and slid out and landed on the ground.? In doing so he injured his right hand and ankle.? He denies any head neck or back pain.? He denies chest pain, but daughter states his is weak and seems to always be short of breath with an extended dry cough in the am.?Denies runny nose, sore throat nor fever or chills.? He is had no nausea, vomiting or diarrhea.? He lives at home with his daughter who moved up from [place] and she is concerned that he is decompensating and they are unable to care for him.? Patient has had somewhat of a decline since requiring hip surgery in April and has not been n ear is ambulatory since.? Patient has become significantly weak with increased SOB and inability to assist over the past few days. Patient is currently incontinent of both bladder and bowel worsening over the past couple of months. EMS was called multiple times as Darlene is unable to pick him up on her own.? His daughter Darlene stated that he was to have seen an oncologist as he is been having elevated white counts and they are concerned he has chronic leukemia. Chest x-ray reports a small right pleural effusion likely consolidation/pneumonia and also noted pulmonary edema and cardiomegaly asso ciated with CHF.? There is a possibility of a nondisplaced fracture of the base of the 3rd metacarpal of 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? He is a low-grade temperature of 99? blood pressure 142/64 heart rate 75 respiratory rate 18 oxygen saturation 98% on room air he weighs 99 kg with a BMI of 30.8.? His WBC is 21.7, RBC 2.8 hemoglobin 8.7 hematocrit 25.8 he appears to have a abnormal smear, creatinine is 2.54 with a BUN of 38 and an EGFR of 24 which is his baseline, glucose 171 proBNP is almost 8000 procalcitonin is negative and COVID 19 PCR is positive.? UA is negative for UTI. Discharge Providers Provider Date of admission: 08/07/22 05:32 Discharge Date: 08/11/22 Primary care physician: Rani Clark MD Consults: 08/06/22 16:12 Consult to MACHINE SCALLOP CUTTER - Membership Sales Advisor Stat Comment: 08/07/22 19:16 Consult to Occupational Therapy Evaluate & Treat Comment: Physician Instructions: Evaluate and treat Consult to Physical Therapy Evaluate & Treat Comment: Physician Instructions: Evaluate and Treat 08/09/22 14:09 Consult to Occupational Therapy Evaluate & Treat Comment: Right wrist splint, movement as tolerated Physician Instructions: Evaluate and treat Discharge provider: Rg Roger DO Summary Hospital Course Discharge Diagnosis: Acute on chronic right-sided CHF exacerbation, present on admission * diuresed well with IV lasix, start po lasix 40mg daily * Echo 08/07 shows EF 50-55% with severe biatrial enlargement, mild aortic stenosis (valve area 1.8cm2, mean gradient 15mmHg), mild to moderate tricuspid regurgitation and severely elevated RVSP of 61 with right sided hypervolemia * Patient now on room air and lungs sound clear on exam Blood loss anemia likely from GIB * Patient's Hgb dipped to 7.1 and he had large black BM * Stopped eliquis, given 1 unit PRBC * Patient likely not a good candidate for scope due to age * Monitor CBC, will transfuse as needed to keep Hgb >7 * Currently stable Hgb in 8's Right hand bruising and possible 3rd metacarpal fracture from fall * Xray of hand in ED showed possible 3rd metacarpal displaced fracture, but could be denegerative change * Ortho recommended splinting with velcro wrist splint and movement as tolera lavonne, no intervention needed Suspected bacterial pneumonia, acute, present on admission * He was started on IV ceftriaxone and azithromycin and this will be continued for 5 and 3 days respectively * discharged to finish 2 more days of augmentin po COVID-19 unknown if acute * Per the daughter the patient reportedly tested positive approximately 3 weeks ago the tested negative on home testing kits and is now positive * Patient received IV remdesivir and dexamethasone then these were discontinued after pt weaned off O2 Leukocytosis, present since April of 2022 * Patient will need to be assessed by Hematology as chronic 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 Diuresed well and able to come off oxygen. Also received IV abx for possible CAP. Had a fall at home on eliquis which caused bruising and swelling of right hand. Hand Xray showed possible 3rd metacarpal fracture, which ortho said to just splint and move as tolerated. While admitted his Hgb dipped to 7.1 and patient had a guiaic positive melanotic stool so he was transfused 1 unit of PRBC and his home eliquis was stopped. Hgb remained stable after blood transfusion. He will be discharged to SNF for rehab and will finish a couple days of abx orally. Time Spent with Patient Time spent: Greater than 30 minutes Exam Vital Signs (past 8 hours): - 08/11/22 05:00 08/11/22 08:09 Temperature 97.4 F L 98.2 F Pulse Rate 62 79 Respiratory Rate 15 22 Blood Pressure 140/64 140/76 Pulse Oximetry 96 97 Oxygen Flow Rate 0 0 Oxygen Delivery Method Room Air Oxygen Flow Rate 0 Narrative Exam Narrative: Gen: Alert, oriented X 2, well-nourished 87 y.o. male, appears younger than stated age HEENT: normocephalic, atraumatic, conjunctiva clear, sclera non-icteric, oral mucosa pink and moist Neck: supple, full ROM, no JVD, trachea is midline Resp: Lungs CTA, non-labored breathing CV: irregularly irregular, no murmur or rubs Abd: soft, non-tender, normoactive BTs Skin: no lesions or rashes, dry and intact Neuro: Very hard of hearing, pleasantly confused. Speech clear and coherent. Extremities: Multiple excoriations on both legs, +2 nonpitting edema, right hand in splint with dark bruising of fingers, moves all 4 right hand fingers, patient is ambulatory Psyche: normal mood and affect. Objective Labs Result Diagrams: 08/11/22 04:41 08/11/22 04:41 Labs: Laboratory Results - last 24 hr 08/11/22 08/11/22 04:41 04:41 WBC 21.4 H RBC 2.73 L Hgb 8.2 L Hct 24.7 L MCV 90.5 MCH 30.0 MCHC 33.1 RDW 16.5 H Plt Count 200 Neut % (Auto) Not Reportable Lymph % (Auto) Not Reportable [place] % (Auto) Not Reportable Eos % (Auto) Not Reportable Baso % (Auto) Not Reportable Lymph # (Auto) Not Reportable [place] # (Auto) Not Reportable Baso # (Auto) Not Reportable Total Counted 100 Seg Neutrophils % 9.0 L Lymphocytes % (Manual) 85.0 H Monocytes % (Manual) 2.0 Eosinophils % (Manual) 4.0 Neutrophils # (Manual) 1926 L Smudge Cells 2+ H RBC Morphology See below Poikilocytosis 1+ H Ovalocytes 1+ H Acanthocytes (Spur) 1+ Sodium 138 Potassium 3.6 Chloride 107 Carbon Dioxide 24 BUN 43 H Creatinine 2.20 H Estimated GFR 28 L BUN/Creatinine Ratio 19.5 Glucose 93 Calcium 7.7 L [facility] Medical History (Updated 08/07/22 @ 06:32 by NIELS Lovell) Anticoagulated Anticoagulation adequate Atrial fibrillation Chronic kidney disease (CKD) stage G3a/A1, moderately decreased glomerular filtration rate (GFR) between 45-59 mL/min/1.73 square meter and albuminuria creatinine ratio less than 30 mg/g Chronic renal failure Coronary artery disease History of left common carotid artery stent placement History of right common carotid artery stent placement Peripheral arterial disease Surgical History History of appendectomy History of bilateral knee arthroplasty Stented coronary artery Family History Mother Lung cancer Father Lung cancer Other Hypertension Social History marital status: household members: family Smoking Status: Never smoker Discharge Plan Discharge Plan Patient Disposition: SNF Discharge orders & Medications Prescriptions: New amoxicillin-pot clavulanate 875-125 mg tablet 1 tab PO BID 2 Days Qty: 4 0RF Rx Instructions: start on 08/11 Continued atorvastatin 40 mg tablet 40 mg PO BEDTIME amlodipine 5 mg tablet 5 mg PO DAILY ferrous gluconate 324 mg (38 mg iron) tablet 324 mg PO BID Label Comments: TK 1 T PO BID. pantoprazole 40 mg Tablet,Delayed Release (Dr/Ec) 40 mg PO BID torsemide 10 mg Tablet 10 mg PO DAILY cholecalciferol (vitamin D3) [Vitamin D3] 50 mcg (2,000 unit) Tablet 50 mcg PO DAILY oxycodone 5 mg Tablet 5 mg PO Q3HR PRN (Reason: Pain, Mild (1-3)) Qty: 30 0RF Discontinued Eliquis 2.5 mg Tablet 2.5 mg BID Follow up/Referrals: Rani Clark MD [Primary Care Provider] - Discharge Data Primary Care Provider: Rani Clark Quality VTE Deep Vein Thrombosis/Pulmonary Embolism Present on Admission: No
[2022-08-11] MEDS: FUROSEMIDE 40 MG TABLET PO (09:21)
[2022-08-11] MEDS: AMLODIPINE 5 MG TABLET PO (09:21)
[2022-08-11 10:22] VITALS: BP 115/56; PULSE 60
[2022-08-11] MEDS: OXYCODONE IR 5 MG TABLET PO (12:09)
[2022-08-11 12:18] VITALS: BP 129/63; PULSE 67; RESP 67; TEMP 36.2; O2SAT 96
--- NOTE | 2022-08-11 14:40 | P.PN_ITS ---
Subjective Subjective Date Patient Seen: 08/11/22 Time Patient Seen: 14:41 Interval history: Patient brushing his teeht. Has no complaints and awaiting SNF placement. Exam Vital Signs (past 8 hours): - 08/11/22 08:09 08/11/22 10:22 08/11/22 12:18 Temperature 98.2 F 97.1 F L Pulse Rate 79 60 67 Respiratory Rate 22 67 H Blood Pressure 140/76 115/56 L 129/63 Pulse Oximetry 97 96 Oxygen Flow Rate 0 0 Oxygen Delivery Method Room Air Oxygen Flow Rate 0 Narrative Exam Narrative: Gen: Alert, oriented X 2, well-nourished 87 y.o. male, appears younger than stated age HEENT: normocephalic, atraumatic, conjunctiva clear, sclera non-icteric, oral mucosa pink and moist Neck: supple, full ROM, no JVD, trachea is midline Resp: Lungs CTA, non-labored breathing CV: irregularly irregular, no murmur or rubs Abd: soft, non-tender, normoactive BTs Skin: no lesions or rashes, dry and intact Neuro: Very hard of hearing, pleasantly confused. Speech clear and coherent. Extremities: Multiple excoriations on both legs, +2 nonpitting edema, right hand in splint with dark bruising of fingers, moves all 4 right hand fingers, patient is ambulatory Psyche: normal mood and affect. Objective Labs Result Diagrams: 08/11/22 04:41 08/11/22 04:41 Labs: Laboratory Results - last 24 hr 08/11/22 08/11/22 04:41 04:41 WBC 21.4 H RBC 2.73 L Hgb 8.2 L Hct 24.7 L MCV 90.5 MCH 30.0 MCHC 33.1 RDW 16.5 H Plt Count 200 Neut % (Auto) Not Reportable Lymph % (Auto) Not Reportable [place] % (Auto) Not Reportable Eos % (Auto) Not Reportable Baso % (Auto) Not Reportable Lymph # (Auto) Not Reportable [place] # (Auto) Not Reportable Baso # (Auto) Not Reportable Total Counted 100 Seg Neutrophils % 9.0 L Lymphocytes % (Manual) 85.0 H Monocytes % (Manual) 2.0 Eosinophils % (Manual) 4.0 Neutrophils # (Manual) 1926 L Smudge Cells 2+ H RBC Morphology See below Poikilocytosis 1+ H Ovalocytes 1+ H Acanthocytes (Spur) 1+ Sodium 138 Potassium 3.6 Chloride 107 Carbon Dioxide 24 BUN 43 H Creatinine 2.20 H Estimated GFR 28 L BUN/Creatinine Ratio 19.5 Glucose 93 Calcium 7.7 L PFSH Medical History (Updated 08/07/22 @ 06:32 by NIELS Lovell) Anticoagulated Anticoagulation adequate Atrial fibrillation Chronic kidney disease (CKD) stage G3a/A1, moderately decreased glomerular filtration rate (GFR) between 45-59 mL/min/1.73 square meter and albuminuria creatinine ratio less than 30 mg/g Chronic renal failure Coronary artery disease History of left common carotid artery stent placement History of right common carotid artery stent placement Peripheral arterial disease Surgical History History of appendectomy History of bilateral knee arthroplasty Stented coronary artery Family History Mother Lung cancer Father Lung cancer Other Hypertension Social History marital status: household members: family Smoking Status: Never smoker Assessment & Plan Assessment & Plan narrative: Chris Peralta is admitted for weakness and shortness of breath associated with a acute on chronic CHF exacerbation, suspected bacterial pneumonia and COVID-19. Acute on chronic right-sided CHF exacerbation, present on admission * diuresed well with IV lasix, start po lasix 40mg daily * Echo 08/07 shows EF 50-55% with severe biatrial enlargement, mild aortic stenosis (valve area 1.8cm2, mean gradient 15mmHg), mild to moderate tricuspid regurgitation and severely elevated RVSP of 61 with right sided hypervolemia * Patient now on room air and lungs sound clear on exam Blood loss anemia likely from GIB * Patient's Hgb dipped to 7.1 and he had large black BM * Stopped eliquis, given 1 unit PRBC * Patient likely not a good candidate for scope due to age * Monitor CBC, will transfuse as needed to keep Hgb >7 * Currently stable Hgb in 8's Right hand bruising and possible 3rd metacarpal fracture from fall * Xray of hand in ED showed possible 3rd metacarpal displaced fracture, but could be denegerative change * Ortho recommended splinting with velcro wrist splint and movement as tolerated, no intervention needed Suspected bacterial pneumonia, acute, present on admission * He was started on IV ceftriaxone and azithromycin and this will be continued COVID-19 unknown if acute * Per the daughter the patient reportedly tested positive approximately 3 weeks ago the tested negative on home testing kits and is now positive * Patient received IV remdesivir and dexamethasone then these were discontinued after pt weaned off O2 Leukocytosis, present since April of 2022 * Patient will need to be assessed by Hematology as chronic 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 Dispo: Awaiting SNF. Code status: Full code as discussed with the patient's daughter. She states there is some sort of power of claims attorney but does not know who it is. COVID-19 COVID-19 status: Positive Result date/Date tested (Pos, Neg/Pending): 08/07/22 Time Spent With Patient Critical Care time: I spent a total of [] minutes of critical care time on this patient's care today; this time is exclusive of procedural time. Quality VTE Deep Vein Thrombosis/Pulmonary Embolism Present on Admission: No
--- NOTE | 2022-08-11 16:01 | PT.IPTN ---
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) use of anticoagulants (08/07/22) Physical Therapy Treatment Note M2 PT-IP Current Condition Start: 08/08/22 12:46 Freq: NEEDED Status: Active Protocol: Document 08/11/22 15:34 SP (Rec: 08/11/22 18:03 SP [id number]) Physical Therapy Current Condition Current Condition Evaluation Date 08/08/22 Treatment Diagnosis Covid; CHF; PNA; difficulty in walking Onset Date 08/07/22 M3 PT-IP Subjective Start: 08/08/22 12:46 Freq: NEEDED Status: Active Protocol: Document 08/11/22 15:34 SP (Rec: 08/11/22 18:03 SP [id number]) Subjective Physical Therapy Visit Type Type Treatment Note Visit Start Time 15:34 Visit Stop Time 16:01 Total Visit Minutes 27 Notes VItals taken: supine: 91/64 Hr 72 SaO2 95% on RA seated 164/87 PRODUCT SUPPORT REPRESENTATIVE provided 2nd person assist during transfer to chair and forward gait follow with chair assist CG as needed for safety. Number of AUTO PARTS CLERK Visits 2 Physical Therapy Visit Comments Patient Comments Pt verónica GRANT and declined use of pocket talker. He was agreeable to do PT and recommended up to the chair mobility. Therapy Pain Assessment Pain Present Pain Present Pain Reported Location right hand Scale Used no pain scale rating given Description With Movement Pain Behaviors Facial Grimacing Pain Management Techniques Distraction,Modification of Treatment,Re-positioning, Timing of Activity with Medications left hip Scale Used no pain scale rating given Description With Movement Pain Behaviors Facial Grimacing,Moaning Pain Management Techniques Distraction,Modification of Treatment,Re-positioning, Timing of Activity with Medications M4 PT-IP Mobility and Gait Start: 08/08/22 12:46 Freq: NEEDED Status: Active Protocol: Document 08/11/22 15:34 SP (Rec: 08/11/22 18:03 SP [email or web address]) PT-Bed Mobility Assessment Supine to Sit Supine to Sit Moderate Assistance,Maximum Assistance,1 Person Assistance ,Head of Bed Elevated Scooting Scooting to Edge of Bed Moderate Assistance PT-Transfer Assessment Sit to and From Stand Sit to and from Stand Moderate Assistance,Maximum Assistance,2 Person Assistance ,Use of Upper Extremities Equipment Transfer Assistive Device Gait Belt,Front Wheeled Walker Orthotic/Prosthetic Devices or Brace: No Transfers Transfer Destination Chair Transfer Technique Stand Step Pivot Transfer Ability Level of Assist Moderate Assistance,2 Person Assistance,Use of Upper Extremities Comments Mobility Comments Pt pleasant gentleman eager to mobilize with PT. He completed elevated supine>sit and scoot to EOB Mod/ Max A x1 . 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 Cued for sequencing BLE and support FWW positioning, back stepping to chair, handover hand reach back Mod A descend slow sit, 2 min rest in chair. PRODUCT SUPPORT REPRESENTATIVE provided clean pull up brief. Sit>stand Max A x2 cued push from chair LUE, challenged not able use RUE, once coming to stand PRODUCT SUPPORT REPRESENTATIVE/AUTO PARTS CLERK assisted brief mgt. Pt progressed gait forward 10 ft in room, chair follow Mod A x2 , occaional cue for RUE maintain on FWW, noted lateral L trunk sways need to L side support, step to patterning. Max A x2slow sit back into chair. Max A scoot back in chair BUE on chair arms and BLE push on floor, therapist blocked B knees to support pt retron scoot. AUTO PARTS CLERK elevated BLEs inchair, provided call light chair alarm donned and all needs in reach. PRODUCT SUPPORT REPRESENTATIVE acquired/AUTO PARTS CLERK added R forearm trough on R side FWW to give RUE better trunk and BUE FWW mgt support in standing during transfers. Gait Assessment Gait Gait Assistance Required: Moderate Assistance,2 Person Assist Distance (Feet) 10 Able to Maintain Weight Bearing Status Yes During Gait Assistive Devices Assistive Device Gait Belt,Front Wheeled Walker ,Platform Walker Orthotic/Prosthetic Devices or Brace: Yes Gait Deviations General Gait Pattern Antalgic,Decreased Stride Length,Decreased Feet Clearance,Lateral Trunk Lean, Step-to Gait Factors Limiting Gait Function Factors Limiting Gait Function Decreased Activity Tolerance, Decreased Strength,Difficulty Following Directions,Limited Range of Motion,Pain,Poor Balance,Poor Safety Awareness, Respiratory Distress Comments Gait Comments able SPT using FWW, fwd gait 10 ft, L lateral lean during gait. provided R forearm trough before left room for safety, increase pt stability and allow support under RUE during mobility. May need adjustment in standing next tx for proper height. Stair Climbing Assessment Comments Stair Climbing Comments pt has 1 step to enter home, if safe/ able to return home. PT-Balance Assessment Sitting Balance and Reactions Static Sitting Balance Ability Fair Dynamic Sitting Balance Ability Poor Standing Balance and Reactions Static Standing Balance Ability Poor Dynamic Standing Balance Ability Poor Device Used FWW M5 PT-IP Objective Assessments Start: 08/08/22 12:46 Freq: NEEDED Status: Active Protocol: Document 08/08/22 11:40 AB (Rec: 08/08/22 13:04 AB [id number]) Orientation Orientation/Cognition Level of Alertness Alert Orientation Name Language Function Ability Hard of Hearing Safety Awareness Decreased Safety Awareness Memory Description Short Term Impaired Gross Range of Motion Lower Extremity ROM Assessment Within Functional Limits Strength Lower Extremity Strength Assessment Bilaterally Impaired Hip 4-/5 Knee 3+/5 Muscle Tone Muscle Tone WNL Yes M6 PT-IP Treatment Start: 08/08/22 12:46 Freq: NEEDED Status: Active Protocol: Document 08/11/22 15:34 SP (Rec: 08/11/22 18:03 SP [id number]) Physical Therapy Treatment Education Education Provided Safety M7 PT-IP Assessment and Plan Start: 08/08/22 12:46 Freq: NEEDED Status: Active Protocol: Document 08/11/22 15:34 SP (Rec: 08/11/22 18:03 SP [id number]) PT Summary Assessment and Plan Potential Rehabilitation Potential Fair Status of Condition at Evaluation Evolving Summary Impairments Pain,ROM,Strength,Balance, Coordination,Sensation,Tone, Cognition,Bed Mobility, Transfers,Gait,Activity Tolerance Progress Towards Goals Progressing Toward Goals,Slow Progress due to Pain,Slow Progress due to Activity Tolerance Assessment Summary Pt improves Mod/Max A x1 for bed mobility, Mod/Max A x2 for transfers using FWW (added R platform end tx), gait fwd 10 ft chair follow Mod A x2. Pt would be good candidate for acute rehab/SNF to progress strength/ mobility using PFWW. Will continue to assess progress. Goals Bed Mobility Goal Minimal Assistance Transfer Goal Minimal Assistance,Front Wheeled Walker Gait Goal Minimal Assistance,Front Wheel Walker Gait Distance 30 Other Goals improve bed mobility, transfers and ambulation using FWW 50 ft SBA up/down 1 step using FWW min A Days to Meet Goals 10 Frequency of Treatment Frequency Of Treatment Once a Day Treatment Plan Physical Therapy Treatment Plan Bed Mobility Training,Transfer Training,Gait Training, Therapeutic Exercise,Balance Retraining,Discharge Planning, Hot or Cold Pack,Neuromuscular Re-ed,Coordination Retraining ,Manual Therapy Other Recommendations and Next Treatment bed mob, transfers, gait w/ Focus PFWW (reassess proper height) chair follow. Precautions Other Precautions Covid; falls Recommendations To Nursing Amount of Assist Needed 2 Person Assist Discharge Recommendations PT Discharge Recommendations SNF Rehab,Acute Rehab,SNF vs Acute Rehab Transportation Needs at Discharge Wheelchair/Cabulance
[2022-08-11 16:30] VITALS: BP 138/78; PULSE 52; RESP 20; TEMP 36.2; O2SAT 97
[2022-08-11 20:00] VITALS: BP 123/58; PULSE 61; RESP 18; TEMP 36.4; O2SAT 98
[2022-08-11] MEDS: ATORVASTATIN 20 MG TABLET 40 MG PO (20:41)
[2022-08-12] VITALS: BP 110/55; PULSE 60; RESP 19; TEMP 36.2; O2SAT 97
--- NOTE | 2022-08-12 03:15 | PC.NURSE ---
Pt is AxOx1-2, pleasant and confused. VSS, pt denies pain. VSS, continue droplet precaution. Pt slept well. No other changes.
[2022-08-12 04:00] VITALS: BP 122/62; PULSE 60; RESP 19; TEMP 36.4; O2SAT 97
[2022-08-12 05:01] LABS: Hematocrit 25.5 % (41-53); Hemoglobin 8.5 g/dL (13.5-17.5); Mean Corpuscular HGB Conc 33.3 % (30-36); Mean Corpuscular Hemoglobin 30.2 PG (26-34); Mean Corpuscular Volume 90.7 fL (80-100); Platelet Count 211 X10^3/uL (150-400); Red Blood Cell Count 2.81 X10^6/uL (4.5-5.9); Red Cell Distribution Width 16.3 % (11.6-14.8); White Blood Cell Count 24.6 X10^3/uL (4.5-11.0)
[2022-08-12 05:02] LABS: Add Manual Diff / Slide Review YES
[2022-08-12 05:09] LABS: BUN Creatinine Ratio 20.7 (6-22); Blood Urea Nitrogen 43 mg/dL (9-20); Calcium 7.8 mg/dL (8.4-10.2); Carbon Dioxide 23 mmol/L (22-32); Chloride 105 mmol/L (98-107); Estimated Glomerular Filt Rate 30 mL/min (>60); Glucose 105 mg/dL (80-110); HEMOLYSIS < 15 (0-50); Potassium 4.2 mmol/L (3.4-5.1); Sodium 137 mmol/L (137-145)
[2022-08-12 05:44] LABS: Neutrophils Absolute Manual 1968 /uL (3000-5900); Total Cells Counted 100
[2022-08-12 05:45] LABS: Acanthocytes 1+; Anisocytosis 1+; Smudge Cells 1+
[2022-08-12 05:46] LABS: Schistocytes 1+
[2022-08-12 07:43] VITALS: BP 136/65; PULSE 68; RESP 16; TEMP 36.6; O2SAT 97
[2022-08-12] MEDS: FUROSEMIDE 40 MG TABLET PO (09:55)
[2022-08-12] MEDS: AMLODIPINE 5 MG TABLET PO (09:55)
[2022-08-12 11:00] VITALS: BP 132/58; PULSE 64; RESP 16; TEMP 36.2; O2SAT 99
--- NOTE | 2022-08-12 13:11 | CM.DPC ---
DCP continued: JEFFERSON spoke with patients daughter today letting her know we still have not received [employer] authorization for SNF placement to [facility]. Patients daughter stated understanding. CM restated the conversation patients daughter had with DWAYNE Yan last week that the patient may need to go back home pending oyster buyer placement if SNF authorization does not go through with [employer]. Patients daughter stated she understands but is just not sure she will be able to care for him at home for very long. CM stated understanding and did remind her that the patient does have his state assessment 09/03/22 for care home placement and that hopefully [employer] will approve the authorization and he can go to SNF but if not Cm wanted her to be prepared for taking the patient home. Patients daughter stated understanding. CM Called Evelina at [facility] who stated she can still accept the patient once they receive [employer] auth just pending authorization at this time. Cm department will follow up with [employer] tomorrow saturday to check on authorization. Rani Sotelo RNsocial media marketing analyst
[2022-08-12 15:00] VITALS: BP 144/61; PULSE 78; RESP 18; TEMP 36.5; O2SAT 96
--- NOTE | 2022-08-12 15:16 | PT.IPTN ---
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 (08/07/22) Physical Therapy Treatment Note M2 PT-IP Current Condition Start: 08/08/22 12:46 Freq: NEEDED Status: Active Protocol: Document 08/12/22 15:16 BC (Rec: 08/12/22 15:16 [id number]) Physical Therapy Current Condition Current Condition Evaluation Date 08/08/22 Treatment Diagnosis Covid; CHF; PNA; difficulty in walking Onset Date 08/07/22 M3 PT-IP Subjective Start: 08/08/22 12:46 Freq: NEEDED Status: Active Protocol: Document 08/12/22 15:06 BC (Rec: 08/12/22 15:16 [id number]) Subjective Physical Therapy Visit Type Type Treatment Note Visit Start Time 14:40 Visit Stop Time 15:05 Total Visit Minutes 25 Physical Therapy Visit Comments Patient Comments Pt agreeable to PT, football game is in halftime Patient Goals None stated but he does want to work on walking today. Therapy Pain Assessment Pain When Pain Assessed At Rest Pain Present Pain Present Denied Pain M4 PT-IP Mobility and Gait Start: 08/08/22 12:46 Freq: NEEDED Status: Active Protocol: Document 08/12/22 15:06 BC (Rec: 08/12/22 15:16 [id number]) PT-Bed Mobility Assessment Supine to Sit Supine to Sit Minimal Assistance,1 Person Assistance,Head of Bed Elevated Scooting Scooting to Edge of Bed Moderate Assistance PT-Transfer Assessment Sit to and From Stand Sit to and from Stand Minimal Assistance,Moderate Assistance,1 Person Assistance ,Use of Upper Extremities Equipment Transfer Assistive Device Platform Walker Transfers Transfer Destination Bed,Chair Transfer Technique Stand Step Pivot Transfer Ability Level of Assist Moderate Assistance,Use of Upper Extremities Comments Mobility Comments Pt needing min A to sit up EOB , mod A to scoot to edge of bed. Once seated he was able to complete sit<>stand x2 reps to platform walker with min A . Therapist demo'd hand position for transfer to platform walker at Pt request. Sit<>stand with mod A of 1. Sit<>stand from recliner x2 with mod A. Therapist adjusted height of platform for a more neutral glenohumeral and scapular position. Gait Assessment Gait Gait Assistance Required: Minimum Assistance Distance (Feet) 20 Assistive Devices Assistive Device Gait Belt,Platform Walker Gait Deviations General Gait Pattern Antalgic,Decreased Stride Length,Decreased Feet Clearance,Lateral Trunk Lean, Wide Based Gait Comments Gait Comments Bed<>chair x10' with platform walker and min A to manage walker position. Pt sat and rested. Second gait session was 20' in room with 180 deg turn. Min A again for walker mgmt and occasional balance support. Stair Climbing Assessment Comments Stair Climbing Comments NA PT-Balance Assessment Sitting Balance and Reactions Static Sitting Balance Ability Good Dynamic Sitting Balance Ability Good Standing Balance and Reactions Static Standing Balance Ability Fair Dynamic Standing Balance Ability Fair M5 PT-IP Objective Assessments Start: 08/08/22 12:46 Freq: NEEDED Status: Active Protocol: Document 08/08/22 11:40 AB (Rec: 08/08/22 13:04 AB [id number]) Orientation Orientation/Cognition Level of Alertness Alert Orientation Name Language Function Ability Hard of Hearing Safety Awareness Decreased Safety Awareness Memory Description Short Term Impaired Gross Range of Motion Lower Extremity ROM Assessment Within Functional Limits Strength Lower Extremity Strength Assessment Bilaterally Impaired Hip 4-/5 Knee 3+/5 Muscle Tone Muscle Tone WNL Yes M6 PT-IP Treatment Start: 08/08/22 12:46 Freq: NEEDED Status: Active Protocol: Document 08/12/22 15:06 (Rec: 08/12/22 15:16 [id number]) Physical Therapy Treatment Education Education Provided Safety Other Treatments Other Treatment Performed Pt educated on positioning of UE during STS transfers with platform walker. Practiced x4 reps total. M7 PT-IP Assessment and Plan Start: 08/08/22 12:46 Freq: NEEDED Status: Active Protocol: Document 08/12/22 15:06 (Rec: 08/12/22 15:16 [id number]) PT Summary Assessment and Plan Potential Rehabilitation Potential Good Status of Condition at Evaluation Evolving Summary Impairments Pain,ROM,Strength,Balance, Coordination,Sensation,Tone, Cognition,Bed Mobility, Transfers,Gait,Activity Tolerance Progress Towards Goals Progressing Toward Goals,Slow Progress due to Pain,Slow Progress due to Activity Tolerance Assessment Summary Pt agreeable to PT. He was demonstrating much improved strength and ambulation vs yesterday. Bed mobility has improved to min A. Gait was more tolerable with assist of 1 person 10' and 20'. Sit to stand transfers improving to min/mod A pending height of surface he is transferring from. Recommending d/c to SNF still based on continued assist for basic transfers, limited ambulation tolerance, and high fall risk. Continued education for transfers and safety needed. Goals Bed Mobility Goal Minimal Assistance Transfer Goal Minimal Assistance,Front Wheeled Walker Gait Goal Minimal Assistance,Front Wheel Walker Gait Distance 30 Other Goals improve bed mobility, transfers and ambulation using FWW 50 ft SBA up/down 1 step using FWW min A Days to Meet Goals 10 Frequency of Treatment Frequency Of Treatment Once a Day Treatment Plan Physical Therapy Treatment Plan Bed Mobility Training,Transfer Training,Gait Training, Therapeutic Exercise,Balance Retraining,Discharge Planning, Hot or Cold Pack,Neuromuscular Re-ed,Coordination Retraining ,Manual Therapy Other Recommendations and Next Treatment Continue to progress gait Focus tolerance. Improved today with 20' including 180 deg turns vs chair follow. Recommendations To Nursing Amount of Assist Needed 1 Person Assist Discharge Recommendations PT Discharge Recommendations SNF Rehab,Acute Rehab,SNF vs Acute Rehab Transportation Needs at Discharge Wheelchair/Cabulance
--- NOTE | 2022-08-12 15:33 | P.PN_ITS ---
Subjective Subjective Date Patient Seen: 08/12/22 Interval history: No complaints today. Awaiting SNF. Exam Vital Signs (past 8 hours): - 08/12/22 07:43 08/12/22 11:00 Temperature 97.8 F 97.2 F L Pulse Rate 68 64 Respiratory Rate 16 16 Blood Pressure 136/65 132/58 L Pulse Oximetry 97 99 Oxygen Flow Rate 0 0 Oxygen Delivery Method Room Air Oxygen Flow Rate 0 Narrative Exam Narrative: Gen: Alert, oriented X 2, well-nourished 87 y.o. male, appears younger than stated age HEENT: normocephalic, atraumatic, conjunctiva clear, sclera non-icteric, oral mucosa pink and moist Neck: supple, full ROM, no JVD, trachea is midline Resp: Lungs CTA, non-labored breathing CV: irregularly irregular, no murmur or rubs Abd: soft, non-tender, normoactive BTs Skin: no lesions or rashes, dry and intact Neuro: Very hard of hearing, pleasantly confused. Speech clear and coherent. Extremities: Multiple excoriations on both legs, +2 nonpitting edema, right hand in splint with dark bruising of fingers, moves all 4 right hand fingers, patient is ambulatory Psyche: normal mood and affect. Objective Labs Result Diagrams: 08/12/22 04:36 08/12/22 04:36 Labs: Laboratory Results - last 24 hr 08/12/22 08/12/22 04:36 04:36 WBC 24.6 H RBC 2.81 L Hgb 8.5 L Hct 25.5 L MCV 90.7 MCH 30.2 MCHC 33.3 RDW 16.3 H Plt Count 211 Neut % (Auto) Not Reportable Lymph % (Auto) Not Reportable [place] % (Auto) Not Reportable Eos % (Auto) Not Reportable Baso % (Auto) Not Reportable Lymph # (Auto) Not Reportable [place] # (Auto) Not Reportable Baso # (Auto) Not Reportable Total Counted 100 Seg Neutrophils % 8.0 L Lymphocytes % (Manual) 89.0 H Eosinophils % (Manual) 3.0 Neutrophils # (Manual) 1968 L Smudge Cells 1+ H RBC Morphology See below Anisocytosis 1+ H Acanthocytes (Spur) 1+ Schistocytes 1+ H Sodium 137 Potassium 4.2 Chloride 105 Carbon Dioxide 23 BUN 43 H Creatinine 2.08 H Estimated GFR 30 L BUN/Creatinine Ratio 20.7 Glucose 105 Calcium 7.8 L [facility] Medical History (Updated 08/07/22 @ 06:32 by NIELS Lovell) Anticoagulated Anticoagulation adequate Atrial fibrillation Chronic kidney disease (CKD) stage G3a/A1, moderately decreased glomerular filtration rate (GFR) between 45-59 mL/min/1.73 square meter and albuminuria creatinine ratio less than 30 mg/g Chronic renal failure Coronary artery disease History of left common carotid artery stent placement History of right common carotid artery stent placement Peripheral arterial disease Surgical History History of appendectomy History of bilateral knee arthroplasty Stented coronary artery Family History Mother Lung cancer Father Lung cancer Other Hypertension Social History marital status: household members: family Smoking Status: Never smoker Assessment & Plan Assessment & Plan narrative: Chris Peralta is admitted for weakness and shortness of breath associated with a acute on chronic CHF exacerbation, suspected bacterial pneumonia and COVID-19. Acute on chronic right-sided CHF exacerbation, present on admission * diuresed well with IV lasix, start po lasix 40mg daily * Echo 08/07 shows EF 50-55% with severe biatrial enlargement, mild aortic stenosis (valve area 1.8cm2, mean gradient 15mmHg), mild to moderate tricuspid regurgitation and severely elevated RVSP of 61 with right sided hypervolemia * Patient now on room air and lungs sound clear on exam CKD * currently at baseline of 2 * avoid nephrotoxic agents Blood loss anemia likely from GIB * Patient's Hgb dipped to 7.1 and he had large black BM * Stopped eliquis, given 1 unit PRBC * Patient likely not a good candidate for scope due to age * Monitor CBC, will transfuse as needed to keep Hgb >7 * Currently stable Hgb in 8's Right hand bruising and possible 3rd metacarpal fracture from fall * Xray of hand in ED showed possible 3rd metacarpal displaced fracture, but could be denegerative change * Ortho recommended splinting with velcro wrist splint and movement as tolerated, no intervention needed Suspected bacterial pneumonia, acute, present on admission * He was started on IV ceftriaxone and azithromycin and this will be continued, finished course COVID-19 unknown if acute * Per the daughter the patient reportedly tested positive approximately 3 weeks ago the tested negative on home testing kits and is now positive * Patient received IV remdesivir and dexamethasone then these were discontinued after pt weaned off O2 Leukocytosis, present since April of 2022 * Patient will need to be assessed by Hematology as chronic 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 Dispo: Awaiting SNF authorization. Code status: Full code as discussed with the patient's daughter. She states there is some sort of power of trademark attorney but does not know who it is. COVID-19 COVID-19 status: Positive Result date/Date tested (Pos, Neg/Pending): 08/07/22 Time Spent With Patient Critical Care time: I spent a total of [] minutes of critical care time on this patient's care today; this time is exclusive of procedural time. Quality VTE Deep Vein Thrombosis/Pulmonary Embolism Present on Admission: No
[2022-08-12 20:00] VITALS: BP 124/56; PULSE 79; RESP 20; TEMP 36.6; O2SAT 95
[2022-08-12] MEDS: ATORVASTATIN 20 MG TABLET 40 MG PO (20:54)
[2022-08-13 00:30] VITALS: BP 151/60; PULSE 63; RESP 20; TEMP 36.4; O2SAT 97
[2022-08-13 04:30] VITALS: BP 136/65; PULSE 61; RESP 20; TEMP 36.5; O2SAT 98
[2022-08-13] MEDS: FUROSEMIDE 40 MG TABLET PO (08:56)
[2022-08-13] MEDS: AMLODIPINE 5 MG TABLET PO (08:56)
--- NOTE | 2022-08-13 09:18 | CM.DPC ---
Addendum entered by DWAYNE Glass 08/13/22 13:15: ADD Call from Jennifer at [facility] with [facility] auth #[id number] and SW also sent the auth number to [facility] in case they don't have it. BF Addendum entered by DWAYNE Glass 08/13/22 12:26: ADD: Per Jose Luis at [facility], spoke to [facility] via phone and confirmed auth and agreeable with accepting pt today likely between [phone]. Pt COVID+ and therefore no updated COVID swab needed at this time. LAUREL updated RN, undergraduate intern, and FINISHING POWDER PRESS OPERATOR. LAUREL called pt's Dtr Patrizia and updated on above and she confirms she is appreciative and agreeable with d/c to SNF today. LAUREL faxed [facility] PASRR, signed med list, scripts, MD orders, d/c summary and updated MD prog note to review. BF Original Note: DCP SNF auth Per MD, pt remains medically stable to d/c to SNF today and due to long holiday weekend insurance was not available to review to auth request submitted on Sat08/10/22. LAUREL called [facility] admissions and linux unix administrator Jose Luis is covering today and SW requested he urgently follow up on submitted auth request with [facility]. LAUREL also called [facility] [phone] and eventually got transferred to the Long Term auth reviewing coordinator at [phone] and confirmed they recieved the clinicals towards SNF auth and were currently reviewing and would auth this morning but need to speak to [facility] to determine if [facility] will accept Medicare coverage rates or want to do a one time auth out of network contract. LAUREL updated them that pt has discharge orders for d/c today. LAUREL called Jose Luis back at [facility] and updated on above and requested he call [facility] back at the direct number for the reviewing coordinator towards plan of d/c today. Jose Luis states he is going into his meeting right now and will follow up on this ace. Plan: SW to follow for plan of d/c to SNF today once [facility] auth obtained for Medicare coverage or one time auth. DWAYNE Glass
[2022-08-13 10:00] VITALS: BP 145/63; PULSE 65; RESP 20; TEMP 36.2; O2SAT 96
--- NOTE | 2022-08-13 13:48 | PM.DS.1 ---
History of Present Illness History of Present Illness Date Patient Seen: 08/10/22 Chief complaint: GLF last night, blood thinners Narrative: Per admitting provider: Chris Peralta is an 87-year-old male nonsmoker with history of hypertension, hyperlipidemia on blood thinners for atrial fibrillation presented with his daughter, Darlene with chief complaint of a ground level fall last night. History is provided by his daughter as he is very hard of hearing and confused. ? He had been sitting in an automated recliner and slid out and landed on the ground.? In doing so he injured his right hand and ankle.? He denies any head neck or back pain.? He denies chest pain, but daughter states his is weak and seems to always be short of breath with an extended dry cough in the am.?Denies runny nose, sore throat nor fever or chills.? He is had no nausea, vomiting or diarrhea.? He lives at home with his daughter who moved up from [place] and she is concerned that he is decompensating and they are unable to care for him.? Patient has had somewhat of a decline since requiring hip surgery in April and has not been near is ambulatory since.? Patient has become significantly weak with increased SOB and inability to assist over the past few days. Patient is currently incontinent of both bladder and bowel worsening over the past couple of months. EMS was called multiple times as Darlene is unable to pick him up on her own.? His daughter Darlene stated that he was to have seen an oncologist as he is been having elevated white counts and they are concerned he has chronic leukemia. Chest x-ray reports a small right pleural effusion likely consolidation/pneumonia and also noted pulmonary edema and cardiomegaly associated with CHF.? There is a possibility of a nondisplaced fracture of the base of the 3rd metacarpal of 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? He is a low-grade temperature of 99? blood pressure 142/64 heart rate 75 respiratory rate 18 oxygen saturation 98% on room air he weighs 99 kg with a BMI of 30.8.? His WBC is 21.7, RBC 2.8 hemoglobin 8.7 hematocrit 25.8 he appears to have a abnormal smear, creatinine is 2.54 with a BUN of 38 and an EGFR of 24 which is his baseline, glucose 171 proBNP is almost 8000 procalcitonin is negative and COVID 19 PCR is positive.? UA is negative for UTI. Discharge Providers Provider Date of admission: 08/07/22 05:32 Discharge Date: 08/13/22 Primary care physician: Rani Clark MD Consults: 08/06/22 16:12 Consult to TOOL MAKER BENCH - Skilled Trades Teacher Stat Comment: 08/07/22 19:16 Consult to Occupational Therapy Evaluate & Treat Comment: Physician Instructions: Evaluate and treat Consult to Physical Therapy Evaluate & Treat Comment: Physician Instructions: Evaluate and Treat 08/09/22 14:09 Consult to Occupational Therapy Evaluate & Treat Comment: Right wrist splint, movement as tolerated Physician Instructions: Evaluate and treat Discharge provider: Mirza Ravi MD Summary Hospital Course Discharge Diagnosis: 1. Acute on chronic CHFpEF exacerbation 2. Mild aortic stenosis 3. CKD stage 3-4 4. Blood loss anemia 5. Possible 3rd metacarpal fracture on right 6. Pneumonia, COVID positive, possible bacteria 7. Leukocytosis, chronic 8. Atrial fibrillation Hospital Course: Mr. Peralta was admitted with initial difficulty breathing. He was found to have an acute exacerbation of CHF and started on IV lasix and improved and was transitioned to oral lasix. His EF was 50-55% and he had mild aortic stenosis which likely contributed to his CHF. He was also COVID positive and had a question of a bacterial pneumonia. He was treated for both and on day of discharge was off oxygen and needed no further treatment for these two etiologies. He also needed a blood transfusion, 1 PRBC, for hemoglobin less than 7. He had an episode of dark stool. His eliquis was held and his hemoglobin stabilized in the 8s. He is discharged with his eliquis held and given his age, his bruising, and his anemia it should be strongly considered to permanently stop this medication. He was found to have a probable 3rd metatarsal fracture and orthopedic recommended splint placement and no need for further intervention. In addition he has chronically elevated leukocytosis since at least April 2022, there is some concern of CLL and he is referred to oncology for further evaluation. Exam Vital Signs (past 8 hours): - 08/13/22 10:00 Temperature 97.2 F L Pulse Rate 65 Respiratory Rate 20 Blood Pressure 145/63 H Pulse Oximetry 96 Oxygen Flow Rate 0 Oxygen Delivery Method Room Air Oxygen Flow Rate 0 Narrative Exam Narrative: Gen: no acute distress, appears younger than stated age Resp: clear bilaterally CV: irregularly irregular, no murmurs Abd: soft, non-tender Objective Labs Result Diagrams: 08/12/22 04:36 08/12/22 04:36 [facility] Medical History (Updated 08/07/22 @ 06:32 by NIELS Lovell) Anticoagulated Anticoagulation adequate Atrial fibrillation Chronic kidney disease (CKD) stage G3a/A1, moderately decreased glomerular filtration rate (GFR) between 45-59 mL/min/1.73 square meter and albuminuria creatinine ratio less than 30 mg/g Chronic renal failure Coronary artery disease History of left common carotid artery stent placement History of right common carotid artery stent placement Peripheral arterial disease Surgical History History of appendectomy History of bilateral knee arthroplasty Stented coronary artery Family History Mother Lung cancer Father Lung cancer Other Hypertension Social History marital status: household members: family Smoking Status: Never smoker Discharge Plan Discharge Plan Patient Disposition: SNF Transfer to: [facility] Provider Discharge Comment: You came to the hospital and were found to have heart failure flare and started on a water pill called Lasix. You were found to have COVID. You also had anemia and hour eliquis was stopped. You had a fracture of your hand and should use a splint. You should see a transport analyst for your high white cells. Discharge orders & Medications Prescriptions: New amoxicillin-pot clavulanate 875-125 mg tablet 1 tab PO BID 2 Days Qty: 4 0RF Rx Instructions: start on 08/11 Continued atorvastatin 40 mg tablet 40 mg PO BEDTIME amlodipine 5 mg tablet 5 mg PO DAILY ferrous gluconate 324 mg (38 mg iron) tablet 324 mg PO BID Label Comments: TK 1 T PO BID. pantoprazole 40 mg Tablet,Delayed Release (Dr/Ec) 40 mg PO BID torsemide 10 mg Tablet 10 mg PO DAILY cholecalciferol (vitamin D3) [Vitamin D3] 50 mcg (2,000 unit) Tablet 50 mcg PO DAILY oxycodone 5 mg Tablet 5 mg PO Q3HR PRN (Reason: Pain, Mild (1-3)) Qty: 30 0RF Discontinued Eliquis 2.5 mg Tablet 2.5 mg BID Follow up/Referrals: Kierra Jamison MD [Physician] - 2 Weeks (chronic leukocytosis, cLL?) Rani Clark MD [Primary Care Provider] - 1 Week Diet/Activity/Treatments Diet: Diet as Tolerated Liquid consistency: Normal/Thin Food texture: Regular [facility] Rehab type: Physical therapy and Occupational therapy Discharge Data Primary Care Provider: Rani Clark Quality VTE Deep Vein Thrombosis/Pulmonary Embolism Present on Admission: No
--- NOTE | 2022-08-13 14:16 | PC.NURSE ---
Discharge Note Patient A&O to baseline, VSS, RA, no complaints of pain/discomfort. Patient agreeable to discharge plan. PIV/TELE discontinued. Patient assisted to dress and pack all belongings. Patient assisted to facility wheelchair 1p/FWW. Patient left unit via WC w/ facility staff.
== END 2022-08-13 14:10 | DRG 177 ==
LOC: ED 08-07 05:29 → AC 08-07 05:33 → ICU 08-07 07:57 → AC 08-10 14:21
PROVIDERS: Internal Medicine Critical Care Medicine; Student in an Organized Health Care Education/Training Program; Admitting Provider Nurse Practitioner Family; Emergency Provider Emergency Medicine; PCP Internal Medicine; Referring Provider Emergency Medicine; Visit Provider Nurse Practitioner Family
DX: U07.1 COVID-19 (principal); I50.33 Acute on chronic diastolic (congestive) heart failure; J15.9 Unspecified bacterial pneumonia; I48.20 Chronic atrial fibrillation, unspecified; I13.0 Hypertensive heart and chronic kidney disease with heart failure and stage 1 through stage 4 chronic kidney disease, or unspecified chronic kidney disease; N18.4 Chronic kidney disease, stage 4 (severe); R32 Unspecified urinary incontinence; S62.312A Displaced fracture of base of third metacarpal bone, right hand, initial encounter for closed fracture; D50.0 Iron deficiency anemia secondary to blood loss (chronic); I35.0 Nonrheumatic aortic (valve) stenosis; E78.5 Hyperlipidemia, unspecified; W07.XXXA Fall from chair, initial encounter; Z79.01 Long term (current) use of anticoagulants
CPT/HCPCS: 0241U; 29125; 36415; 36430; 71045; 73130; 73610; 80048; 80053; 81003; 81015; 82009; 82550; 83605; 83690; 83735; 83880; 84145; 84443; 84484; 85007; 85025; 85610; 85730; 86850; 86900; 86901; 87086; 87797; 93005; 93306; 96365; 96375; 97116; 97162; 97166; 97530; 97535; 99284; 99285; P9016; J0696; J1100; J1940; Q9957

== ENCOUNTER → 2022-10-09 15:21 | Outpatient (CLI) | payer OTHER, MEDICAID, SELFPAY ==
[2022-08-07 09:13] VITALS: BMI 29.8
--- NOTE | 2022-10-09 15:26 | DI.RAD.S_ITS ---
PROCEDURE: XR CHEST 2V INDICATIONS: PNEUMONIA TECHNIQUE: 2 views of the chest were acquired. COMPARISON: 08/06/2022 FINDINGS: Small bilateral pleural effusions, right greater than left. Overlying atelectasis. Diffusely increased interstitial and airspace opacities in both lungs. Marked cardiomegaly, similar to previous exam. IMPRESSION: Cardiomegaly with moderate to severe cardiogenic pulmonary edema and bilateral pleural effusions. Dictated by: Andre Louis M.D. on 10/09/2022 at 15:45 Approved by: Andre Louis M.D. on 10/09/2022 at 15:46
== END ==
PROVIDERS: PCP Internal Medicine; Referring Provider Nurse Practitioner Family; Visit Provider Nurse Practitioner Family
DX: J18.9 Pneumonia, unspecified organism (principal); I50.9 Heart failure, unspecified; I51.7 Cardiomegaly; J81.1 Chronic pulmonary edema; J90 Pleural effusion, not elsewhere classified
CPT/HCPCS: 71046

== ENCOUNTER 2022-10-19 06:33 | Inpatient (IN) | payer OTHER, MEDICAID, SELFPAY ==
[2022-08-07 09:13] VITALS: BMI 29.8
[2022-10-19] VITALS (17 sets, daily range): BP systolic 116–157; BP diastolic 62–73; PULSE 72–88; RESP 13–24; TEMP 36.1–36.2; O2SAT 93–98; BMI 34.3
--- NOTE | 2022-10-19 | DI.ECHO.S_ITS ---
[facility]---------+ [facility] +---------+ : : [address] : : : : [id number] : : : : Phone: [phone]+ Echocardiogram Report + + :Name: JOHN PAUL SINGH Study Date: 10/19/2022 Height: 66 in : :[facility] ReadingLocation: : : Gender: Male : :: 1935 Age: 87 yrs BP: 135/62 mmHg: :Reason For Study: ASSESS EJECTION FRACTION/ WMA : :Ordering Physician: KRYSTAL, : :BEATA Chavarria D.O Performed By: Brandee Rankin : :Referring: BEATA VELIZ D.O : + + Interpretation Summary A two-dimensional transthoracic echocardiogram with color flow and Doppler was performed in limited views only to assess ejection fraction. The study quality was technically difficult. The ejection fraction is estimated to be 45-50%. There are no obvious focal wall motion abnormalities noted but poor endocardial definition reduces the sensitivity for the detection of such. The right ventricular systolic pressure is estimated to be at least 66 mmHg based on an estimated right atrial pressure of 15 mm Hg. There is a large left-sided pleural effusion. Procedure: A two-dimensional transthoracic echocardiogram with color flow and Doppler was performed in limited views only to assess ejection fraction. The study quality was technically difficult. A contrast injection of Definity was performed to improve assessment of LV function. The patient was in sinus rhythm with heart rates between 68-81 bpm during the exam. Left Ventricle: The left ventricle is mildly dilated. The estimated left ventricular end diastolic volume is 186 ml. Left ventricular wall thickness is borderline increased. The ejection fraction is estimated to be 45-50%. There are no obvious focal wall motion abnormalities noted but poor endocardial definition reduces the sensitivity for the detection of such. Septal motion is consistent with conduction abnormality. Aortic Valve: The aortic valve is trileaflet. Tricuspid Valve: There is mild to moderate tricuspid regurgitation. The right ventricular systolic pressure is estimated to be at least 66 mmHg based on an estimated right atrial pressure of 15 mm Hg. Great Vessels: The IVC is dilated (diameter is greater than 2.1 cm) and it collapses less than 50% with a sniff. This suggests a high right atrial pressure of 15 mm Hg. Pericardium/ Pleura There is no pericardial effusion. There is a large left- sided pleural effusion. MMode/2D Measurements & Calculations LVIDd: 6.1 cm LA A2 area: 37.6 cm2 LVIDs: 4.9 cm LA A4 area: 44.3 cm2 FS: 20.0 % LA length (vol): 8.8 cm EPSS: 1.5 cm LA vol: 161.2 ml IVSd: 1.0 cm LVPWd: 0.86 cm RA long axis: 7.5 cm RA area: 37.9 cm2 RA vol: 162.5 ml IVC diam: 3.0 cm Doppler Measurements & Calculations TR max hesham: 352.9 cm/sec TR max P.8 mmHg Reading Physician:CLAUDIO
--- NOTE | 2022-10-19 06:40 | DI.CT.S_ITS ---
PROCEDURE: CT HEAD/BRAIN WO CON INDICATIONS: decreased mental status TECHNIQUE: Noncontrast 4.5 mm thick angled axial sections acquired from the foramen magnum to the vertex, with coronal and sagittal reformats. For radiation dose reduction, the following was used: automated exposure control, adjustment of mA and/or kV according to patient size. COMPARISON: [facility], CT, CT HEAD/BRAIN WO CON, 01/21/2021, 18:03. FINDINGS: Image quality: Excellent. CSF spaces: Basal cisterns are patent. No extra-axial fluid collections. The ventricles are symmetric in size and shape. Brain: No intracranial bleeds or masses. There is cerebral volume loss for age, with resultant ventricular and sulcal prominence. There are periventricular and deep white matter chronic small vessel ischemic changes. There is intracranial internal carotid artery atherosclerosis. Skull and face: Calvarium and visualized facial bones appear intact, without suspicious lesions. Sinuses: Visualized sinuses and mastoids are clear. IMPRESSION: 1. No acute intracranial process. 2. Moderate to severe atrophy and chronic microvascular ischemic changes. Dictated by: Renee Davis M.D. on 10/19/2022 at 8:01 Approved by: Renee Davis M.D. on 10/19/2022 at 8:02
--- NOTE | 2022-10-19 06:41 | DI.RAD.S_ITS ---
PROCEDURE: XR CHEST 1V INDICATIONS: short of breath TECHNIQUE: One view of the chest was acquired. COMPARISON: [facility], CR, XR CHEST 2V, 10/09/2022, 15:31. FINDINGS: Surgical changes and devices: None. Lungs and pleura: There is pulmonary vascular congestion and pulmonary edema. Underlying bilateral patchy infiltrates cannot be excluded. Moderate right pleural effusion is seen with fluid extending to minor fissure increased since previous study. Small left pleural effusion is also seen. No gross pneumothorax. Mediastinum: Mediastinal contours appear normal. Heart size is enlarged. Bones and chest wall: No suspicious bony lesions. Overlying soft tissues appear unremarkable. IMPRESSION: Finding is suggestive of worsening CHF changes. Underlying bilateral patchy infiltrates cannot be excluded. No gross pneumothorax. Dictated by: Maverick Kulkarni M.D. on 10/19/2022 at 8:11 Approved by: Maverick Kulkarni M.D. on 10/19/2022 at 8:12
--- NOTE | 2022-10-19 06:44 | ED.AMS ---
HPI - Altered Mental Status <DO Yon Lobo Last Filed: 10/23/22 17:27> General Chief Complaint: Altered Mental Status Stated Complaint: Altered LOC. Time Seen by Provider: 10/19/22 06:40 History of Present Illness HPI narrative: Patient is a 87-year-old male history of chronic kidney disease, congestive heart failure, aortic stenosis, peripheral vascular disease, hyperlipidemia, coronary artery disease, atrial fibrillation presenting today with decreasing mental status. He resides long-term care facility. He was previously admitted here 08/07/2022 through 08/13/2022 at that time it appears that he was on Eliquis for AFib but he did have some bleeding I do not see that he is anticoagulated now. He presents today to the ED with decreasing mental status. Although he is awake he is able to follow commands staff reports that his behavior has changed. He is not ambulatory. He is on oxygen as needed. He denies any pain no abdominal pain no nausea vomiting no chest pain. Related Data Home Medications Medication Instructions Recorded Confirmed amlodipine 5 mg tablet 5 mg PO DAILY 01/23/19 10/19/22 atorvastatin 40 mg tablet 40 mg PO BEDTIME 01/23/19 10/19/22 ferrous gluconate 324 mg (38 mg 324 mg PO BID 01/23/19 10/19/22 iron) tablet pantoprazole 40 mg tablet,delayed 40 mg PO BID 05/03/22 10/19/22 release cholecalciferol (vitamin D3) 50 50 mcg PO DAILY 08/07/22 10/19/22 mcg (2,000 unit) tablet (Vitamin D3) torsemide 10 mg tablet 10 mg PO DAILY 08/07/22 10/19/22 Previous Rx's Medication Instructions Recorded oxycodone 5 mg tablet 5 mg PO Q3HR PRN Pain, Mild (1-3) 08/10/22 #30 tabs Allergies Allergy/AdvReac Type Severity Reaction Status Date / Time No Known Drug Allergies Allergy Verified 08/06/22 16:11 Review of Systems <DO Yon Lobo Last Filed: 10/23/22 17:27> Review of Systems ROS Unobtainable: All systems reviewed & are unremarkable except as noted in HPI and below Patient History <DO Yon Lobo Last Filed: 10/23/22 17:27> Medical History Anticoagulated Anticoagulation adequate Atrial fibrillation Chronic kidney disease (CKD) stage G3a/A1, moderately decreased glomerular filtration rate (GFR) between 45-59 mL/min/1.73 square meter and albuminuria creatinine ratio less than 30 mg/g Chronic renal failure Coronary artery disease History of left common carotid artery stent placement History of right common carotid artery stent placement Peripheral arterial disease Surgical History History of appendectomy History of bilateral knee arthroplasty Stented coronary artery Family History Mother Lung cancer Father Lung cancer Other Hypertension Social History marital status: household members: family Smoking Status: Never smoker alcohol intake: current Smoking Status: Never smoker alcohol intake frequency: a few times a month Substance Use Type: does not use Exam <DO Yon Lobo Last Filed: 10/23/22 17:27> Initial Vital Signs Initial Vital Signs: Vital Signs Pulse Rate 88 10/19/22 06:37 Pulse Oximetry 94 10/19/22 06:37 GENERAL: Alert elderly male alert HEENT: Head atraumatic,EOMI, pupils reactive, face symmetric, [moist] mucous membranes CARDIOVASCULAR: Regular rate and rhythm without murmurs, rubs or gallops. RESPIRATORY: Coarse breath sounds bilaterally no respiratory distress ABDOMEN: Soft, nontender. Normoactive bowel sounds all 4 quadrants. No guarding or rebound. EXTREMITIES: Normal range of motion, no clubbing or edema. Neurovascularly intact NEUROLOGICAL: Not answering questions able to squeeze hands equally SKIN: Warm, dry, no laceration, no petechiae, no rashes or lesions. <Gianni Romero DO - Last Filed: 10/19/22 09:21> Initial Vital Signs Initial Vital Signs: Vital Signs Pulse Rate 88 10/19/22 06:37 Pulse Oximetry 94 10/19/22 06:37 Course <Khushbu Field DO - Last Filed: 10/23/22 17:27> Orders Ordered: Acetaminophen (Acetaminophen 325 Mg Tablet) 650 mg PO Q6H PRN PRN Reason: Fever/Mild Pain (1-3) Acetazolamide (Acetazolamide 250 Mg Tablet) 500 mg PO DAILY [facility] Last Admin: 10/23/22 09:06 Dose: 500 mg Documented By: Admin: 10/22/22 08:48 Dose: 500 mg Documented By: Admin: 10/21/22 09:48 Dose: 500 mg Documented By: Admin: 10/20/22 09:59 Dose: 500 mg Documented By: Admin: 10/19/22 13:08 Dose: 500 mg Documented By: JUNAID Amlodipine Besylate (Amlodipine 5 Mg Tablet) 5 mg PO DAILY [facility] Last Admin: 10/23/22 09:05 Dose: 5 mg Documented By: Admin: 10/22/22 08:48 Dose: 5 mg Documented By: Admin: 10/21/22 09:48 Dose: 5 mg Documented By: Admin: 10/20/22 09:59 Dose: 5 mg Documented By: Admin: 10/19/22 13:02 Dose: 5 mg Documented By: JUNAID Aspirin (Aspirin Ec 81 Mg Tablet) 81 mg PO DAILY [facility] Last Admin: 10/23/22 09:05 Dose: 81 mg Documented By: Admin: 10/22/22 08:48 Dose: 81 mg Documented By: Admin: 10/21/22 09:47 Dose: 81 mg Documented By: Admin: 10/20/22 09:59 Dose: 81 mg Documented By: VINOD Atorvastatin Calcium (Atorvastatin 20 Mg Tablet) 40 mg PO BEDTIME [facility] Last Admin: 10/22/22 22:18 Dose: 40 mg Documented By: Admin: 10/21/22 22:23 Dose: 40 mg Documented By: Admin: 10/20/22 21:57 Dose: 40 mg Documented By: Admin: 10/19/22 21:42 Dose: 40 mg Documented By: MERVIN Ferrous Sulfate (Ferrous Sulfate 325 Mg Tablet) 325 mg PO BID [facility] Last Admin: 10/23/22 09:05 Dose: 325 mg Documented By: Admin: 10/22/22 22:18 Dose: 325 mg Documented By: Admin: 10/22/22 08:49 Dose: 325 mg Documented By: Admin: 10/21/22 22:23 Dose: 325 mg Documented By: Admin: 10/21/22 09:48 Dose: 325 mg Documented By: Admin: 10/20/22 21:57 Dose: 325 mg Documented By: Admin: 10/20/22 09:59 Dose: 325 mg Documented By: Admin: 10/19/22 21:43 Dose: 325 mg Documented By: MERVIN Furosemide (Furosemide 40 Mg/4 Ml Vial) 80 mg IV 1600,0800 [facility] Last Admin: 10/23/22 16:17 Dose: 80 mg Documented By: Admin: 10/23/22 09:18 Dose: 80 mg Documented By: Admin: 10/22/22 15:59 Dose: 80 mg Documented By: Admin: 10/22/22 08:49 Dose: 80 mg Documented By: Admin: 10/21/22 15:02 Dose: 80 mg Documented By: JOSE Heparin Sodium (Porcine) (Heparin 5,000 Unit/Ml Vial) 5,000 unit SUBCUT BID [facility] Last Admin: 10/23/22 09:25 Dose: 5,000 unit Documented By: Admin: 10/22/22 22:17 Dose: 5,000 unit Documented By: Admin: 10/22/22 08:48 Dose: 5,000 unit Documented By: Admin: 10/21/22 22:24 Dose: 5,000 unit Documented By: Admin: 10/21/22 09:48 Dose: 5,000 unit Documented By: Admin: 10/20/22 21:57 Dose: 5,000 unit Documented By: Admin: 10/20/22 09:58 Dose: 5,000 unit Documented By: Admin: 10/19/22 21:43 Dose: 5,000 unit Documented By: Admin: 10/19/22 13:09 Dose: 5,000 unit Documented By: JUNAID Melatonin (Melatonin 3 Mg Tablet) 6 mg PO BEDTIME PRN PRN Reason: Insomnia Last Admin: 10/21/22 22:23 Dose: 6 mg Documented By: THANG Metoprolol Tartrate (Metoprolol Ir 25 Mg Tablet) 12.5 mg PO BID [facility] Last Admin: 10/23/22 09:05 Dose: 12.5 mg Documented By: Admin: 10/23/22 01:41 Dose: Not Given Documented By: Admin: 10/22/22 08:49 Dose: 12.5 mg Documented By: Admin: 10/21/22 22:24 Dose: 12.5 mg Documented By: Admin: 10/21/22 09:47 Dose: 12.5 mg Documented By: Admin: 10/20/22 21:57 Dose: 12.5 mg Documented By: Admin: 10/20/22 10:00 Dose: 12.5 mg Documented By: Admin: 10/19/22 21:42 Dose: 12.5 mg Documented By: Admin: 10/19/22 13:08 Dose: 12.5 mg Documented By: JUNAID Naloxone HCl (Naloxone 0.4 Mg/Ml Vial) 0.2 mg IV Q2MIN PRN PRN Reason: Opiate Reversal Ondansetron HCl (Ondansetron 4 Mg/2 Ml Inj) 4 mg IV Q8HR PRN PRN Reason: Nausea And Vomiting Pantoprazole Sodium (Pantoprazole Dr 40 Mg Tablet) 40 mg PO BID [facility] Admin: 10/23/22 09:05 Dose: 40 mg Documented By: Admin: 10/22/22 22:18 Dose: 40 mg Documented By: Admin: 10/22/22 08:48 Dose: 40 mg Documented By: Admin: 10/21/22 22:23 Dose: 40 mg Documented By: Admin: 10/21/22 09:48 Dose: 40 mg Documented By: Admin: 10/20/22 21:57 Dose: 40 mg Documented By: Admin: 10/20/22 10:00 Dose: 40 mg Documented By: Admin: 10/19/22 21:42 Dose: 40 mg Documented By: Admin: 10/19/22 13:01 Dose: 40 mg Documented By: JUNAID Polyethylene Glycol (Polyethylene Glycol 3350 17 Gm Powd.Pack) 17 gm PO DAILY PRN PRN Reason: Constipation Sennosides (Sennosides 8.6 Mg Tablet) 8.6 mg PO BID PRN PRN Reason: Constipation Sodium Chloride (Sodium Chloride 0.9% Flush) 10 ml IV PRN PRN PRN Reason: Flush Sodium Chloride (Sodium Chloride 0.9% Flush) 10 ml IV BID [facility] Admin: 10/23/22 09:42 Dose: 10 ml Documented By: Admin: 10/22/22 22:18 Dose: 10 ml Documented By: Admin: 10/22/22 10:54 Dose: 10 ml Documented By: Admin: 10/22/22 06:56 Dose: Not Given Documented By: THANG Spironolactone (Spironolactone 25 Mg Tablet) 12.5 mg PO DAILY [facility] Last Admin: 10/23/22 09:05 Dose: 12.5 mg Documented By: Admin: 10/22/22 08:48 Dose: 12.5 mg Documented By: Admin: 10/21/22 09:48 Dose: 12.5 mg Documented By: Admin: 10/20/22 09:59 Dose: 12.5 mg Documented By: Admin: 10/19/22 13:09 Dose: 12.5 mg Documented By: JUNAID Discontinued Medications Aspirin (Aspirin 325 Mg Tablet) 325 mg PO NOW ONE Stop: 10/19/22 09:10 Last Admin: 10/19/22 13:09 Dose: 325 mg Documented By: JUNAID Azithromycin (Azithromycin 250 Mg Tablet) 500 mg PO DAILY [facility] Stop: 10/22/22 08:59 Last Admin: 10/21/22 09:47 Dose: 500 mg Documented By: Admin: 10/20/22 10:00 Dose: 500 mg Documented By: VINOD Furosemide (Furosemide 40 Mg/4 Ml Vial) 40 mg IV NOW ONE Stop: 10/19/22 07:23 Last Admin: 10/19/22 07:56 Dose: 40 mg Documented By: ILIA Furosemide (Furosemide 40 Mg/4 Ml Vial) 40 mg IV 1600,0800 [facility] Last Admin: 10/19/22 09:03 Dose: Not Given Documented By: ILIA(2) Furosemide (Furosemide 40 Mg/4 Ml Vial) 60 mg IV 1600,0800 [facility] Last Admin: 10/21/22 09:50 Dose: 60 mg Documented By: Admin: 10/20/22 16:28 Dose: 60 mg Documented By: Admin: 10/20/22 09:59 Dose: 60 mg Documented By: Admin: 10/19/22 17:28 Dose: 60 mg Documented By: JUNAID Furosemide (Furosemide 40 Mg/4 Ml Vial) 40 mg IV NOW ONE Stop: 10/19/22 08:46 Last Admin: 10/19/22 09:09 Dose: Not Given Documented By: ILIA Ceftriaxone Sodium 1,000 mg/ (Sodium Chloride) 100 mls @ 200 mls/hr IV NOW ONE Stop: 10/19/22 07:44 Last Infusion: 10/19/22 08:29 Dose: 0 mls/hr Documented By: Admin: 10/19/22 08:00 Dose: 200 mls/hr Documented By: ILIA Azithromycin 500 mg/ Dextrose 250 mls @ 250 mls/hr IV NOW ONE Stop: 10/19/22 07:44 Last Infusion: 10/19/22 09:39 Dose: 0 mls/hr Documented By: Admin: 10/19/22 08:29 Dose: 250 mls/hr Documented By: ILIA Ceftriaxone Sodium 1,000 mg/ (Sodium Chloride) 100 mls @ 200 mls/hr IV Q24H [facility] Stop: 10/24/22 09:14 Last Admin: 10/21/22 10:33 Dose: Not Given Documented By: Admin: 10/20/22 10:01 Dose: 200 mls/hr Documented By: VINOD Ceftriaxone Sodium 1,000 mg/ (Sodium Chloride) 100 mls @ 200 mls/hr IV Q24H [facility] Stop: 10/23/22 10:44 Last Admin: 10/23/22 09:04 Dose: 200 mls/hr Documented By: Infusion: 10/22/22 11:24 Dose: 200 mls/hr Documented By: Admin: 10/22/22 10:54 Dose: 200 mls/hr Documented By: Infusion: 10/21/22 10:44 Dose: 200 mls/hr Documented By: Admin: 10/21/22 10:14 Dose: 200 mls/hr Documented By: JOSE Oxycodone HCl (Oxycodone Ir 5 Mg Tablet) 5 mg PO Q3HR PRN PRN Reason: Pain, Mild (1-3) Vital Signs Vital signs: Vital Signs - 8 hr 10/19/22 06:46 10/19/22 06:37 10/19/22 06:38 Temperature 97.2 F L Pulse Rate 88 88 88 Respiratory Rate 16 Blood Pressure 140/67 Pulse Oximetry 96 94 94 Oxygen Delivery Method Nasal Cannula Oxygen Flow Rate 2 10/19/22 06:38 10/19/22 07:00 10/19/22 07:02 Temperature Pulse Rate 87 Respiratory Rate 17 Blood Pressure 140/67 157/73 H Pulse Oximetry 94 Oxygen Delivery Method Oxygen Flow Rate 10/19/22 07:02 10/19/22 07:30 10/19/22 07:30 Temperature Pulse Rate 87 84 Respiratory Rate 24 15 Blood Pressure 147/66 H Pulse Oximetry 95 98 Oxygen Delivery Method Oxygen Flow Rate 10/19/22 08:00 10/19/22 08:00 10/19/22 08:20 Temperature Pulse Rate 85 Respiratory Rate 16 Blood Pressure 138/63 136/62 Pulse Oximetry 97 Oxygen Delivery Method Oxygen Flow Rate 10/19/22 08:20 10/19/22 08:30 10/19/22 08:40 Temperature Pulse Rate 83 82 Respiratory Rate 14 13 Blood Pressure 142/71 H Pulse Oximetry 95 95 Oxygen Delivery Method Oxygen Flow Rate 10/19/22 08:40 10/19/22 08:59 10/19/22 09:00 Temperature Pulse Rate 82 86 Respiratory Rate 19 16 Blood Pressure 135/62 Pulse Oximetry 95 94 Oxygen Delivery Method Oxygen Flow Rate 10/19/22 09:00 Temperature Pulse Rate 87 Respiratory Rate 17 Blood Pressure Pulse Oximetry 94 Oxygen Delivery Method Oxygen Flow Rate <Gianni Romero DO - Last Filed: 10/19/22 09:21> Orders Ordered: Acetaminophen (Acetaminophen 325 Mg Tablet) 650 mg PO Q6H PRN PRN Reason: Fever/Mild Pain (1-3) Acetazolamide (Acetazolamide 250 Mg Tablet) 500 mg PO DAILY [facility] Last Admin: 10/23/22 09:06 Dose: 500 mg Documented By: Admin: 10/22/22 08:48 Dose: 500 mg Documented By: Admin: 10/21/22 09:48 Dose: 500 mg Documented By: Admin: 10/20/22 09:59 Dose: 500 mg Documented By: Admin: 10/19/22 13:08 Dose: 500 mg Documented By: JUNAID Amlodipine Besylate (Amlodipine 5 Mg Tablet) 5 mg PO DAILY [facility] Last Admin: 10/23/22 09:05 Dose: 5 mg Documented By: Admin: 10/22/22 08:48 Dose: 5 mg Documented By: Admin: 10/21/22 09:48 Dose: 5 mg Documented By: Admin: 10/20/22 09:59 Dose: 5 mg Documented By: Admin: 10/19/22 13:02 Dose: 5 mg Documented By: JUNAID Aspirin (Aspirin Ec 81 Mg Tablet) 81 mg PO DAILY [facility] Last Admin: 10/23/22 09:05 Dose: 81 mg Documented By: Admin: 10/22/22 08:48 Dose: 81 mg Documented By: Admin: 10/21/22 09:47 Dose: 81 mg Documented By: Admin: 10/20/22 09:59 Dose: 81 mg Documented By: VINOD Atorvastatin Calcium (Atorvastatin 20 Mg Tablet) 40 mg PO BEDTIME [facility] Last Admin: 10/22/22 22:18 Dose: 40 mg Documented By: Admin: 10/21/22 22:23 Dose: 40 mg Documented By: Admin: 10/20/22 21:57 Dose: 40 mg Documented By: Admin: 10/19/22 21:42 Dose: 40 mg Documented By: MERVIN Ferrous Sulfate (Ferrous Sulfate 325 Mg Tablet) 325 mg PO BID [facility] Last Admin: 10/23/22 09:05 Dose: 325 mg Documented By: Admin: 10/22/22 22:18 Dose: 325 mg Documented By: Admin: 10/22/22 08:49 Dose: 325 mg Documented By: Admin: 10/21/22 22:23 Dose: 325 mg Documented By: Admin: 10/21/22 09:48 Dose: 325 mg Documented By: Admin: 10/20/22 21:57 Dose: 325 mg Documented By: Admin: 10/20/22 09:59 Dose: 325 mg Documented By: Admin: 10/19/22 21:43 Dose: 325 mg Documented By: MERVIN Furosemide (Furosemide 40 Mg/4 Ml Vial) 80 mg IV 1600,0800 [facility] Last Admin: 10/23/22 16:17 Dose: 80 mg Documented By: Admin: 10/23/22 09:18 Dose: 80 mg Documented By: Admin: 10/22/22 15:59 Dose: 80 mg Documented By: Admin: 10/22/22 08:49 Dose: 80 mg Documented By: Admin: 10/21/22 15:02 Dose: 80 mg Documented By: JOSE Heparin Sodium (Porcine) (Heparin 5,000 Unit/Ml Vial) 5,000 unit SUBCUT BID [facility] Last Admin: 10/23/22 09:25 Dose: 5,000 unit Documented By: Admin: 10/22/22 22:17 Dose: 5,000 unit Documented By: Admin: 10/22/22 08:48 Dose: 5,000 unit Documented By: Admin: 10/21/22 22:24 Dose: 5,000 unit Documented By: Admin: 10/21/22 09:48 Dose: 5,000 unit Documented By: Admin: 10/20/22 21:57 Dose: 5,000 unit Documented By: Admin: 10/20/22 09:58 Dose: 5,000 unit Documented By: Admin: 10/19/22 21:43 Dose: 5,000 unit Documented By: Admin: 10/19/22 13:09 Dose: 5,000 unit Documented By: JUNAID Melatonin (Melatonin 3 Mg Tablet) 6 mg PO BEDTIME PRN PRN Reason: Insomnia Last Admin: 10/21/22 22:23 Dose: 6 mg Documented By: THANG Metoprolol Tartrate (Metoprolol Ir 25 Mg Tablet) 12.5 mg PO BID [facility] Last Admin: 10/23/22 09:05 Dose: 12.5 mg Documented By: Admin: 10/23/22 01:41 Dose: Not Given Documented By: Admin: 10/22/22 08:49 Dose: 12.5 mg Documented By: Admin: 10/21/22 22:24 Dose: 12.5 mg Documented By: Admin: 10/21/22 09:47 Dose: 12.5 mg Documented By: Admin: 10/20/22 21:57 Dose: 12.5 mg Documented By: Admin: 10/20/22 10:00 Dose: 12.5 mg Documented By: Admin: 10/19/22 21:42 Dose: 12.5 mg Documented By: Admin: 10/19/22 13:08 Dose: 12.5 mg Documented By: JUNAID Naloxone HCl (Naloxone 0.4 Mg/Ml Vial) 0.2 mg IV Q2MIN PRN PRN Reason: Opiate Reversal Ondansetron HCl (Ondansetron 4 Mg/2 Ml Inj) 4 mg IV Q8HR PRN PRN Reason: Nausea And Vomiting Pantoprazole Sodium (Pantoprazole Dr 40 Mg Tablet) 40 mg PO BID [facility] Last Admin: 10/23/22 09:05 Dose: 40 mg Documented By: Admin: 10/22/22 22:18 Dose: 40 mg Documented By: Admin: 10/22/22 08:48 Dose: 40 mg Documented By: Admin: 10/21/22 22:23 Dose: 40 mg Documented By: Admin: 10/21/22 09:48 Dose: 40 mg Documented By: Admin: 10/20/22 21:57 Dose: 40 mg Documented By: Admin: 10/20/22 10:00 Dose: 40 mg Documented By: Admin: 10/19/22 21:42 Dose: 40 mg Documented By: Admin: 10/19/22 13:01 Dose: 40 mg Documented By: JUNAID Polyethylene Glycol (Polyethylene Glycol 3350 17 Gm Powd.Pack) 17 gm PO DAILY PRN PRN Reason: Constipation Sennosides (Sennosides 8.6 Mg Tablet) 8.6 mg PO BID PRN PRN Reason: Constipation Sodium Chloride (Sodium Chloride 0.9% Flush) 10 ml IV PRN PRN PRN Reason: Flush Sodium Chloride (Sodium Chloride 0.9% Flush) 10 ml IV BID [facility] Last Admin: 10/23/22 09:42 Dose: 10 ml Documented By: Admin: 10/22/22 22:18 Dose: 10 ml Documented By: Admin: 10/22/22 10:54 Dose: 10 ml Documented By: Admin: 10/22/22 06:56 Dose: Not Given Documented By: THANG Spironolactone (Spironolactone 25 Mg Tablet) 12.5 mg PO DAILY [facility] Last Admin: 10/23/22 09:05 Dose: 12.5 mg Documented By: Admin: 10/22/22 08:48 Dose: 12.5 mg Documented By: Admin: 10/21/22 09:48 Dose: 12.5 mg Documented By: Admin: 10/20/22 09:59 Dose: 12.5 mg Documented By: Admin: 10/19/22 13:09 Dose: 12.5 mg Documented By: JUNAID Discontinued Medications Aspirin (Aspirin 325 Mg Tablet) 325 mg PO NOW ONE Stop: 10/19/22 09:10 Last Admin: 10/19/22 13:09 Dose: 325 mg Documented By: JUNAID Azithromycin (Azithromycin 250 Mg Tablet) 500 mg PO DAILY [facility] Stop: 10/22/22 08:59 Last Admin: 10/21/22 09:47 Dose: 500 mg Documented By: Admin: 10/20/22 10:00 Dose: 500 mg Documented By: VINOD Furosemide (Furosemide 40 Mg/4 Ml Vial) 40 mg IV NOW ONE Stop: 10/19/22 07:23 Last Admin: 10/19/22 07:56 Dose: 40 mg Documented By: ILIA Furosemide (Furosemide 40 Mg/4 Ml Vial) 40 mg IV 1600,0800 [facility] Last Admin: 10/19/22 09:03 Dose: Not Given Documented By: ILIA(2) Furosemide (Furosemide 40 Mg/4 Ml Vial) 60 mg IV 1600,0800 [facility] Last Admin: 10/21/22 09:50 Dose: 60 mg Documented By: Admin: 10/20/22 16:28 Dose: 60 mg Documented By: Admin: 10/20/22 09:59 Dose: 60 mg Documented By: Admin: 10/19/22 17:28 Dose: 60 mg Documented By: JUNAID Furosemide (Furosemide 40 Mg/4 Ml Vial) 40 mg IV NOW ONE Stop: 10/19/22 08:46 Last Admin: 10/19/22 09:09 Dose: Not Given Documented By: ILIA Ceftriaxone Sodium 1,000 mg/ (Sodium Chloride) 100 mls @ 200 mls/hr IV NOW ONE Stop: 10/19/22 07:44 Last Infusion: 10/19/22 08:29 Dose: 0 mls/hr Documented By: Admin: 10/19/22 08:00 Dose: 200 mls/hr Documented By: ILIA Azithromycin 500 mg/ Dextrose 250 mls @ 250 mls/hr IV NOW ONE Stop: 10/19/22 07:44 Last Infusion: 10/19/22 09:39 Dose: 0 mls/hr Documented By: Admin: 10/19/22 08:29 Dose: 250 mls/hr Documented By: ILIA Ceftriaxone Sodium 1,000 mg/ (Sodium Chloride) 100 mls @ 200 mls/hr IV Q24H [facility] Stop: 10/24/22 09:14 Last Admin: 10/21/22 10:33 Dose: Not Given Documented By: Admin: 10/20/22 10:01 Dose: 200 mls/hr Documented By: VINOD Ceftriaxone Sodium 1,000 mg/ (Sodium Chloride) 100 mls @ 200 mls/hr IV Q24H [facility] Stop: 10/23/22 10:44 Last Admin: 10/23/22 09:04 Dose: 200 mls/hr Documented By: Infusion: 10/22/22 11:24 Dose: 200 mls/hr Documented By: Admin: 10/22/22 10:54 Dose: 200 mls/hr Documented By: Infusion: 10/21/22 10:44 Dose: 200 mls/hr Documented By: Admin: 10/21/22 10:14 Dose: 200 mls/hr Documented By: JOSE Oxycodone HCl (Oxycodone Ir 5 Mg Tablet) 5 mg PO Q3HR PRN PRN Reason: Pain, Mild (1-3) Vital Signs Vital signs: Vital Signs - 8 hr 10/19/22 06:46 10/19/22 06:37 10/19/22 06:38 Temperature 97.2 F L Pulse Rate 88 88 88 Respiratory Rate 16 Blood Pressure 140/67 Pulse Oximetry 96 94 94 Oxygen Delivery Method Nasal Cannula Oxygen Flow Rate 2 10/19/22 06:38 10/19/22 07:00 10/19/22 07:02 Temperature Pulse Rate 87 Respiratory Rate 17 Blood Pressure 140/67 157/73 H Pulse Oximetry 94 Oxygen Delivery Method Oxygen Flow Rate 10/19/22 07:02 10/19/22 07:30 10/19/22 07:30 Temperature Pulse Rate 87 84 Respiratory Rate 24 15 Blood Pressure 147/66 H Pulse Oximetry 95 98 Oxygen Delivery Method Oxygen Flow Rate 10/19/22 08:00 10/19/22 08:00 10/19/22 08:20 Temperature Pulse Rate 85 Respiratory Rate 16 Blood Pressure 138/63 136/62 Pulse Oximetry 97 Oxygen Delivery Method Oxygen Flow Rate 10/19/22 08:20 10/19/22 08:30 10/19/22 08:40 Temperature Pulse Rate 83 82 Respiratory Rate 14 13 Blood Pressure 142/71 H Pulse Oximetry 95 95 Oxygen Delivery Method Oxygen Flow Rate 10/19/22 08:40 10/19/22 08:59 10/19/22 09:00 Temperature Pulse Rate 82 86 Respiratory Rate 19 16 Blood Pressure 135/62 Pulse Oximetry 95 94 Oxygen Delivery Method Oxygen Flow Rate 10/19/22 09:00 Temperature Pulse Rate 87 Respiratory Rate 17 Blood Pressure Pulse Oximetry 94 Oxygen Delivery Method Oxygen Flow Rate MDM - Altered Mental Status <Khushbu Field DO - Last Filed: 10/23/22 17:27> Lab Data 10/19/22 06:38 10/19/22 06:38 Labs: Lab Results 10/19/22 10/19/22 10/19/22 Range/Units 06:38 06:38 06:38 WBC (4.5-11.0) X10^3/uL RBC (4.5-5.9) X10^6/uL Hgb (13.5-17.5) g/dL Hct (41-53) % MCV (80-100) fL MCH (26-34) PG MCHC (30-36) % RDW (11.6-14.8) % Plt Count (150-400) X10^3/uL Neut % (Auto) Lymph % (Auto) [place] % (Auto) Eos % (Auto) Baso % (Auto) Lymph # (Auto) [place] # (Auto) Baso # (Auto) Total Counted Seg Neutrophils % (38-70) % Band Neutrophils % (3-7) % Lymphocytes % (Manual) (25-45) % Eosinophils % (Manual) (2-4) % Neutrophils # (Manual) ([id number]) /uL Smudge Cells RBC Morphology Poikilocytosis Anisocytosis Acanthocytes (Spur) Schistocytes PT 13.2 H (10.1-12.7) SECONDS INR 1.2 (0.9-1.3) APTT 31 (26-36) SECONDS Sodium (137-145) mmol/L Potassium (3.4-5.1) mmol/L Chloride (98-107) mmol/L Carbon Dioxide (22-32) mmol/L BUN (9-20) mg/dL Creatinine (0.66-1.25) mg/dL Estimated GFR (>60) mL/min BUN/Creatinine Ratio (6-22) Glucose (80-110) mg/dL Hemoglobin A1c (4.0-6.0) % Lactate 0.9 (0.7-2.1) mmol/L Calcium (8.4-10.2) mg/dL Magnesium (1.6-2.3) mg/dL Total Bilirubin (0.2-1.3) mg/dL AST (17-59) IU/L ALT (<50) IU/L Alkaline Phosphatase (38-126) U/L Total Creatine Kinase (55-170) U/L CK-MB (CK-2) CK-MB (CK-2) Rel Index Troponin I (0.01-0.034) ng/mL NT-Pro-B Natriuret Pep (<450) pg/mL Total Protein (6.3-8.2) g/dL Albumin (3.5-5.0) g/dL Globulin (1.7-4.1) g/dL Albumin/Globulin Ratio (1.0-2.8) Lipase (23-300) U/L Procalcitonin 2.25 H (<0.5) ng/mL Urine Color Urine Appearance Urine pH (4.5-8.0) Ur Specific Coin (1.000-1.035) Urine Protein (Negative) Urine Glucose (UA) (Negative) g/dL Urine Ketones (NEGATIVE) Urine Occult Blood (Negative) Urine Nitrate (Negative) Urine Bilirubin (NEGATIVE) Urine Urobilinogen (0.2) E.U./dL Ur Leukocyte Esterase (NEGATIVE) Urine RBC (0-5/HPF) Urine WBC (0-5/HPF) Ur Squamous Epith Cells (0-5/HPF) Urine Bacteria (None) Hyaline Casts (None) Ur Culture Indicated? SARS-CoV-2 (PCR) (Negative) Influenza A (RT-PCR) (NEGATIVE) Influenza B (RT-PCR) (NEGATIVE) RSV (PCR) (Negative) 10/19/22 10/19/22 10/19/22 Range/Units 06:38 06:38 06:38 WBC 23.6 H (4.5-11.0) X10^3/uL RBC 3.04 L (4.5-5.9) X10^6/uL Hgb 9.5 L (13.5-17.5) g/dL Hct 29.6 L (41-53) % MCV 97.3 (80-100) fL MCH 31.2 (26-34) PG MCHC 32.0 (30-36) % RDW 20.0 H (11.6-14.8) % Plt Count 130 L (150-400) X10^3/uL Neut % (Auto) Not Reportable Lymph % (Auto) Not Reportable [place] % (Auto) Not Reportable Eos % (Auto) Not Reportable Baso % (Auto) Not Reportable Lymph # (Auto) Not Reportable [place] # (Auto) Not Reportable Baso # (Auto) Not Reportable Total Counted 100 Seg Neutrophils % 20.0 L (38-70) % Band Neutrophils % 1.0 L (3-7) % Lymphocytes % (Manual) 76.0 H (25-45) % Eosinophils % (Manual) 3.0 (2-4) % Neutrophils # (Manual) 4956 (2918-2207) /uL Smudge Cells 2+ H RBC Morphology See below Poikilocytosis 1+ H Anisocytosis 1+ H Acanthocytes (Spur) 1+ Schistocytes 1+ H PT (10.1-12.7) SECONDS INR (0.9-1.3) APTT (26-36) SECONDS Sodium 138 (137-145) mmol/L Potassium 4.5 (3.4-5.1) mmol/L Chloride 98 (98-107) mmol/L Carbon Dioxide 31 (22-32) mmol/L BUN 44 H (9-20) mg/dL Creatinine 3.62 H (0.66-1.25) mg/dL Estimated GFR 16 L (>60) mL/min BUN/Creatinine Ratio 12.2 (6-22) Glucose 67 L (80-110) mg/dL Hemoglobin A1c (4.0-6.0) % Lactate (0.7-2.1) mmol/L Calcium 8.3 L (8.4-10.2) mg/dL Magnesium (1.6-2.3) mg/dL Total Bilirubin 1.1 (0.2-1.3) mg/dL AST 34 (17-59) IU/L ALT 15 (<50) IU/L Alkaline Phosphatase 102 (38-126) U/L Total Creatine Kinase 29 L (55-170) U/L CK-MB (CK-2) TNP CK-MB (CK-2) Rel Index TNP Troponin I 1.580 H* (0.01-0.034) ng/mL NT-Pro-B Natriuret Pep 41918 H (<450) pg/mL Total Protein 6.5 (6.3-8.2) g/dL Albumin 3.0 L (3.5-5.0) g/dL Globulin 3.5 (1.7-4.1) g/dL Albumin/Globulin Ratio 0.9 L (1.0-2.8) Lipase 25 (23-300) U/L Procalcitonin (<0.5) ng/mL Urine Color Urine Appearance Urine pH (4.5-8.0) Ur Specific Coin (1.000-1.035) Urine Protein (Negative) Urine Glucose (UA) (Negative) g/dL Urine Ketones (NEGATIVE) Urine Occult Blood (Negative) Urine Nitrate (Negative) Urine Bilirubin (NEGATIVE) Urine Urobilinogen (0.2) E.U./dL Ur Leukocyte Esterase (NEGATIVE) Urine RBC (0-5/HPF) Urine WBC (0-5/HPF) Ur Squamous Epith Cells (0-5/HPF) Urine Bacteria (None) Hyaline Casts (None) Ur Culture Indicated? SARS-CoV-2 (PCR) (Negative) Influenza A (RT-PCR) (NEGATIVE) Influenza B (RT-PCR) (NEGATIVE) RSV (PCR) (Negative) 10/19/22 10/19/22 10/19/22 Range/Units 06:47 06:47 06:59 WBC (4.5-11.0) X10^3/uL RBC (4.5-5.9) X10^6/uL Hgb (13.5-17.5) g/dL Hct (41-53) % MCV (80-100) fL MCH (26-34) PG MCHC (30-36) % RDW (11.6-14.8) % Plt Count (150-400) X10^3/uL Neut % (Auto) Lymph % (Auto) [place] % (Auto) Eos % (Auto) Baso % (Auto) Lymph # (Auto) [place] # (Auto) Baso # (Auto) Total Counted Seg Neutrophils % (38-70) % Band Neutrophils % (3-7) % Lymphocytes % (Manual) (25-45) % Eosinophils % (Manual) (2-4) % Neutrophils # (Manual) (1898-1975) /uL Smudge Cells RBC Morphology Poikilocytosis Anisocytosis Acanthocytes (Spur) Schistocytes PT (10.1-12.7) SECONDS INR (0.9-1.3) APTT (26-36) SECONDS Sodium (137-145) mmol/L Potassium (3.4-5.1) mmol/L Chloride (98-107) mmol/L Carbon Dioxide (22-32) mmol/L BUN (9-20) mg/dL Creatinine (0.66-1.25) mg/dL Estimated GFR (>60) mL/min BUN/Creatinine Ratio (6-22) Glucose (80-110) mg/dL Hemoglobin A1c 4.9 (4.0-6.0) % Lactate (0.7-2.1) mmol/L Calcium (8.4-10.2) mg/dL Magnesium 1.9 (1.6-2.3) mg/dL Total Bilirubin (0.2-1.3) mg/dL AST (17-59) IU/L ALT (<50) IU/L Alkaline Phosphatase (38-126) U/L Total Creatine Kinase (55-170) U/L CK-MB (CK-2) CK-MB (CK-2) Rel Index Troponin I (0.01-0.034) ng/mL NT-Pro-B Natriuret Pep (<450) pg/mL Total Protein (6.3-8.2) g/dL Albumin (3.5-5.0) g/dL Globulin (1.7-4.1) g/dL Albumin/Globulin Ratio (1.0-2.8) Lipase (23-300) U/L Procalcitonin (<0.5) ng/mL Urine Color Urine Appearance Urine pH (4.5-8.0) Ur Specific Coin (1.000-1.035) Urine Protein (Negative) Urine Glucose (UA) (Negative) g/dL Urine Ketones (NEGATIVE) Urine Occult Blood (Negative) Urine Nitrate (Negative) Urine Bilirubin (NEGATIVE) Urine Urobilinogen (0.2) E.U./dL Ur Leukocyte Esterase (NEGATIVE) Urine RBC (0-5/HPF) Urine WBC (0-5/HPF) Ur Squamous Epith Cells (0-5/HPF) Urine Bacteria (None) Hyaline Casts (None) Ur Culture Indicated? SARS-CoV-2 (PCR) Negative (Negative) Influenza A (RT-PCR) Flu a negative (NEGATIVE) Influenza B (RT-PCR) Flu b negative (NEGATIVE) RSV (PCR) Negative (Negative) 10/19/22 Range/Units 09:08 WBC (4.5-11.0) X10^3/uL RBC (4.5-5.9) X10^6/uL Hgb (13.5-17.5) g/dL Hct (41-53) % MCV (80-100) fL MCH (26-34) PG MCHC (30-36) % RDW (11.6-14.8) % Plt Count (150-400) X10^3/uL Neut % (Auto) Lymph % (Auto) [place] % (Auto) Eos % (Auto) Baso % (Auto) Lymph # (Auto) [place] # (Auto) Baso # (Auto) Total Counted Seg Neutrophils % (38-70) % Band Neutrophils % (3-7) % Lymphocytes % (Manual) (25-45) % Eosinophils % (Manual) (2-4) % Neutrophils # (Manual) (1416-0355) /uL Smudge Cells RBC Morphology Poikilocytosis Anisocytosis Acanthocytes (Spur) Schistocytes PT (10.1-12.7) SECONDS INR (0.9-1.3) APTT (26-36) SECONDS Sodium (137-145) mmol/L Potassium (3.4-5.1) mmol/L Chloride (98-107) mmol/L Carbon Dioxide (22-32) mmol/L BUN (9-20) mg/dL Creatinine (0.66-1.25) mg/dL Estimated GFR (>60) mL/min BUN/Creatinine Ratio (6-22) Glucose (80-110) mg/dL Hemoglobin A1c (4.0-6.0) % Lactate (0.7-2.1) mmol/L Calcium (8.4-10.2) mg/dL Magnesium (1.6-2.3) mg/dL Total Bilirubin (0.2-1.3) mg/dL AST (17-59) IU/L ALT (<50) IU/L Alkaline Phosphatase (38-126) U/L Total Creatine Kinase (55-170) U/L CK-MB (CK-2) CK-MB (CK-2) Rel Index Troponin I (0.01-0.034) ng/mL NT-Pro-B Natriuret Pep (<450) pg/mL Total Protein (6.3-8.2) g/dL Albumin (3.5-5.0) g/dL Globulin (1.7-4.1) g/dL Albumin/Globulin Ratio (1.0-2.8) Lipase (23-300) U/L Procalcitonin (<0.5) ng/mL Urine Color Yellow Urine Appearance Clear Urine pH 5.0 (4.5-8.0) Ur Specific Coin 1.020 (1.000-1.035) Urine Protein Negative (Negative) Urine Glucose (UA) Negative (Negative) g/dL Urine Ketones Negative (NEGATIVE) Urine Occult Blood Negative (Negative) Urine Nitrate Negative (Negative) Urine Bilirubin Negative (NEGATIVE) Urine Urobilinogen 0.2 (0.2) E.U./dL Ur Leukocyte Esterase Negative (NEGATIVE) Urine RBC 0-1/hpf (0-5/HPF) Urine WBC 5-10/hpf H (0-5/HPF) Ur Squamous Epith Cells 5-10 /hpf H (0-5/HPF) Urine Bacteria Few (2-10) H (None) Hyaline Casts 10-30/lpf (None) Ur Culture Indicated? Specimen cultured SARS-CoV-2 (PCR) (Negative) Influenza A (RT-PCR) (NEGATIVE) Influenza B (RT-PCR) (NEGATIVE) RSV (PCR) (Negative) Point of Care Testing Glucose POC 108 MDM Narrative Medical decision making narrative: Patient work up has been started for altered mental status. awaiting test results, and signed out to Dr. Romero for further evaluation and treatment. Dr romero: Received turned over. Reviewed patient's history and physical. I also discussed the case with his daughter Darlene over the phone. According to his daughter he normally is alert and oriented. He has been at [place] for the past several weeks. She does not live in the local area. He is in AFib. Is not on anticoagulation. His head CT shows no acute pathology. Patient has baseline chronic kidney disease in his somewhat worse today. His chest x-ray looks like fluid overload/pneumonia. He has a leukocytosis that is slightly worse than normal but he is had an elevated leukocytosis for the past several months. His procalcitonin is elevated. Blood cultures were obtained. Antibiotics administered. Patient denies chest pain. He is very slow in answering questions but does not know what year it is and does follow commands. Has an elevated troponin. No ST changes on his EKG. I did discuss the case with Dr. Roger on-call for Hospital Medicine. Will diurese patient. Will continue with antibiotics. Will admit to the hospital. Fluid hydration as well. Patient was hypoglycemic however he is getting sugar with his antibiotic administration. Will hold on heparin for now as most likely elevation in troponin is related to his CHF. Dr. Roger agrees with this. Will admit for further evaluation and treatment. <Gianni Romero, DO - Last Filed: 10/19/22 09:21> Lab Data Labs: Lab Results 10/19/22 10/19/22 10/19/22 Range/Units 06:38 06:38 06:38 WBC (4.5-11.0) X10^3/uL RBC (4.5-5.9) X10^6/uL Hgb (13.5-17.5) g/dL Hct (41-53) % MCV (80-100) fL MCH (26-34) PG MCHC (30-36) % RDW (11.6-14.8) % Plt Count (150-400) X10^3/uL Neut % (Auto) Lymph % (Auto) [place] % (Auto) Eos % (Auto) Baso % (Auto) Lymph # (Auto) [place] # (Auto) Baso # (Auto) Total Counted Seg Neutrophils % (38-70) % Band Neutrophils % (3-7) % Lymphocytes % (Manual) (25-45) % Eosinophils % (Manual) (2-4) % Neutrophils # (Manual) (1387-1579) /uL Smudge Cells RBC Morphology Poikilocytosis Anisocytosis Acanthocytes (Spur) Schistocytes PT 13.2 H (10.1-12.7) SECONDS INR 1.2 (0.9-1.3) APTT 31 (26-36) SECONDS Sodium (137-145) mmol/L Potassium (3.4-5.1) mmol/L Chloride (98-107) mmol/L Carbon Dioxide (22-32) mmol/L BUN (9-20) mg/dL Creatinine (0.66-1.25) mg/dL Estimated GFR (>60) mL/min BUN/Creatinine Ratio (6-22) Glucose (80-110) mg/dL Hemoglobin A1c (4.0-6.0) % Lactate 0.9 (0.7-2.1) mmol/L Calcium (8.4-10.2) mg/dL Magnesium (1.6-2.3) mg/dL Total Bilirubin (0.2-1.3) mg/dL AST (17-59) IU/L ALT (<50) IU/L Alkaline Phosphatase (38-126) U/L Total Creatine Kinase (55-170) U/L CK-MB (CK-2) CK-MB (CK-2) Rel Index Troponin I (0.01-0.034) ng/mL NT-Pro-B Natriuret Pep (<450) pg/mL Total Protein (6.3-8.2) g/dL Albumin (3.5-5.0) g/dL Globulin (1.7-4.1) g/dL Albumin/Globulin Ratio (1.0-2.8) Lipase (23-300) U/L Procalcitonin 2.25 H (<0.5) ng/mL Urine Color Urine Appearance Urine pH (4.5-8.0) Ur Specific Coin (1.000-1.035) Urine Protein (Negative) Urine Glucose (UA) (Negative) g/dL Urine Ketones (NEGATIVE) Urine Occult Blood (Negative) Urine Nitrate (Negative) Urine Bilirubin (NEGATIVE) Urine Urobilinogen (0.2) E.U./dL Ur Leukocyte Esterase (NEGATIVE) Urine RBC (0-5/HPF) Urine WBC (0-5/HPF) Ur Squamous Epith Cells (0-5/HPF) Urine Bacteria (None) Hyaline Casts (None) Ur Culture Indicated? SARS-CoV-2 (PCR) (Negative) Influenza A (RT-PCR) (NEGATIVE) Influenza B (RT-PCR) (NEGATIVE) RSV (PCR) (Negative) 10/19/22 10/19/22 10/19/22 Range/Units 06:38 06:38 06:38 WBC 23.6 H (4.5-11.0) X10^3/uL RBC 3.04 L (4.5-5.9) X10^6/uL Hgb 9.5 L (13.5-17.5) g/dL Hct 29.6 L (41-53) % MCV 97.3 (80-100) fL MCH 31.2 (26-34) PG MCHC 32.0 (30-36) % RDW 20.0 H (11.6-14.8) % Plt Count 130 L (150-400) X10^3/uL Neut % (Auto) Not Reportable Lymph % (Auto) Not Reportable [place] % (Auto) Not Reportable Eos % (Auto) Not Reportable Baso % (Auto) Not Reportable Lymph # (Auto) Not Reportable [place] # (Auto) Not Reportable Baso # (Auto) Not Reportable Total Counted 100 Seg Neutrophils % 20.0 L (38-70) % Band Neutrophils % 1.0 L (3-7) % Lymphocytes % (Manual) 76.0 H (25-45) % Eosinophils % (Manual) 3.0 (2-4) % Neutrophils # (Manual) 4956 (0221-1088) /uL Smudge Cells 2+ H RBC Morphology See below Poikilocytosis 1+ H Anisocytosis 1+ H Acanthocytes (Spur) 1+ Schistocytes 1+ H PT (10.1-12.7) SECONDS INR (0.9-1.3) APTT (26-36) SECONDS Sodium 138 (137-145) mmol/L Potassium 4.5 (3.4-5.1) mmol/L Chloride 98 (98-107) mmol/L Carbon Dioxide 31 (22-32) mmol/L BUN 44 H (9-20) mg/dL Creatinine 3.62 H (0.66-1.25) mg/dL Estimated GFR 16 L (>60) mL/min BUN/Creatinine Ratio 12.2 (6-22) Glucose 67 L (80-110) mg/dL Hemoglobin A1c (4.0-6.0) % Lactate (0.7-2.1) mmol/L Calcium 8.3 L (8.4-10.2) mg/dL Magnesium (1.6-2.3) mg/dL Total Bilirubin 1.1 (0.2-1.3) mg/dL AST 34 (17-59) IU/L ALT 15 (<50) IU/L Alkaline Phosphatase 102 (38-126) U/L Total Creatine Kinase 29 L (55-170) U/L CK-MB (CK-2) TNP CK-MB (CK-2) Rel Index TNP Troponin I 1.580 H* (0.01-0.034) ng/mL NT-Pro-B Natriuret Pep 22059 H (<450) pg/mL Total Protein 6.5 (6.3-8.2) g/dL Albumin 3.0 L (3.5-5.0) g/dL Globulin 3.5 (1.7-4.1) g/dL Albumin/Globulin Ratio 0.9 L (1.0-2.8) Lipase 25 (23-300) U/L Procalcitonin (<0.5) ng/mL Urine Color Urine Appearance Urine pH (4.5-8.0) Ur Specific Coin (1.000-1.035) Urine Protein (Negative) Urine Glucose (UA) (Negative) g/dL Urine Ketones (NEGATIVE) Urine Occult Blood (Negative) Urine Nitrate (Negative) Urine Bilirubin (NEGATIVE) Urine Urobilinogen (0.2) E.U./dL Ur Leukocyte Esterase (NEGATIVE) Urine RBC (0-5/HPF) Urine WBC (0-5/HPF) Ur Squamous Epith Cells (0-5/HPF) Urine Bacteria (None) Hyaline Casts (None) Ur Culture Indicated? SARS-CoV-2 (PCR) (Negative) Influenza A (RT-PCR) (NEGATIVE) Influenza B (RT-PCR) (NEGATIVE) RSV (PCR) (Negative) 10/19/22 10/19/22 10/19/22 Range/Units 06:47 06:47 06:59 WBC (4.5-11.0) X10^3/uL RBC (4.5-5.9) X10^6/uL Hgb (13.5-17.5) g/dL Hct (41-53) % MCV (80-100) fL MCH (26-34) PG MCHC (30-36) % RDW (11.6-14.8) % Plt Count (150-400) X10^3/uL Neut % (Auto) Lymph % (Auto) [place] % (Auto) Eos % (Auto) Baso % (Auto) Lymph # (Auto) [place] # (Auto) Baso # (Auto) Total Counted Seg Neutrophils % (38-70) % Band Neutrophils % (3-7) % Lymphocytes % (Manual) (25-45) % Eosinophils % (Manual) (2-4) % Neutrophils # (Manual) (3756-4696) /uL Smudge Cells RBC Morphology Poikilocytosis Anisocytosis Acanthocytes (Spur) Schistocytes PT (10.1-12.7) SECONDS INR (0.9-1.3) APTT (26-36) SECONDS Sodium (137-145) mmol/L Potassium (3.4-5.1) mmol/L Chloride (98-107) mmol/L Carbon Dioxide (22-32) mmol/L BUN (9-20) mg/dL Creatinine (0.66-1.25) mg/dL Estimated GFR (>60) mL/min BUN/Creatinine Ratio (6-22) Glucose (80-110) mg/dL Hemoglobin A1c 4.9 (4.0-6.0) % Lactate (0.7-2.1) mmol/L Calcium (8.4-10.2) mg/dL Magnesium 1.9 (1.6-2.3) mg/dL Total Bilirubin (0.2-1.3) mg/dL AST (17-59) IU/L ALT (<50) IU/L Alkaline Phosphatase (38-126) U/L Total Creatine Kinase (55-170) U/L CK-MB (CK-2) CK-MB (CK-2) Rel Index Troponin I (0.01-0.034) ng/mL NT-Pro-B Natriuret Pep (<450) pg/mL Total Protein (6.3-8.2) g/dL Albumin (3.5-5.0) g/dL Globulin (1.7-4.1) g/dL Albumin/Globulin Ratio (1.0-2.8) Lipase (23-300) U/L Procalcitonin (<0.5) ng/mL Urine Color Urine Appearance Urine pH (4.5-8.0) Ur Specific Coin (1.000-1.035) Urine Protein (Negative) Urine Glucose (UA) (Negative) g/dL Urine Ketones (NEGATIVE) Urine Occult Blood (Negative) Urine Nitrate (Negative) Urine Bilirubin (NEGATIVE) Urine Urobilinogen (0.2) E.U./dL Ur Leukocyte Esterase (NEGATIVE) Urine RBC (0-5/HPF) Urine WBC (0-5/HPF) Ur Squamous Epith Cells (0-5/HPF) Urine Bacteria (None) Hyaline Casts (None) Ur Culture Indicated? SARS-CoV-2 (PCR) Negative (Negative) Influenza A (RT-PCR) Flu a negative (NEGATIVE) Influenza B (RT-PCR) Flu b negative (NEGATIVE) RSV (PCR) Negative (Negative) 10/19/22 Range/Units 09:08 WBC (4.5-11.0) X10^3/uL RBC (4.5-5.9) X10^6/uL Hgb (13.5-17.5) g/dL Hct (41-53) % MCV (80-100) fL MCH (26-34) PG MCHC (30-36) % RDW (11.6-14.8) % Plt Count (150-400) X10^3/uL Neut % (Auto) Lymph % (Auto) [place] % (Auto) Eos % (Auto) Baso % (Auto) Lymph # (Auto) [place] # (Auto) Baso # (Auto) Total Counted Seg Neutrophils % (38-70) % Band Neutrophils % (3-7) % Lymphocytes % (Manual) (25-45) % Eosinophils % (Manual) (2-4) % Neutrophils # (Manual) (2682-8045) /uL Smudge Cells RBC Morphology Poikilocytosis Anisocytosis Acanthocytes (Spur) Schistocytes PT (10.1-12.7) SECONDS INR (0.9-1.3) APTT (26-36) SECONDS Sodium (137-145) mmol/L Potassium (3.4-5.1) mmol/L Chloride (98-107) mmol/L Carbon Dioxide (22-32) mmol/L BUN (9-20) mg/dL Creatinine (0.66-1.25) mg/dL Estimated GFR (>60) mL/min BUN/Creatinine Ratio (6-22) Glucose (80-110) mg/dL Hemoglobin A1c (4.0-6.0) % Lactate (0.7-2.1) mmol/L Calcium (8.4-10.2) mg/dL Magnesium (1.6-2.3) mg/dL Total Bilirubin (0.2-1.3) mg/dL AST (17-59) IU/L ALT (<50) IU/L Alkaline Phosphatase (38-126) U/L Total Creatine Kinase (55-170) U/L CK-MB (CK-2) CK-MB (CK-2) Rel Index Troponin I (0.01-0.034) ng/mL NT-Pro-B Natriuret Pep (<450) pg/mL Total Protein (6.3-8.2) g/dL Albumin (3.5-5.0) g/dL Globulin (1.7-4.1) g/dL Albumin/Globulin Ratio (1.0-2.8) Lipase (23-300) U/L Procalcitonin (<0.5) ng/mL Urine Color Yellow Urine Appearance Clear Urine pH 5.0 (4.5-8.0) Ur Specific Coin 1.020 (1.000-1.035) Urine Protein Negative (Negative) Urine Glucose (UA) Negative (Negative) g/dL Urine Ketones Negative (NEGATIVE) Urine Occult Blood Negative (Negative) Urine Nitrate Negative (Negative) Urine Bilirubin Negative (NEGATIVE) Urine Urobilinogen 0.2 (0.2) E.U./dL Ur Leukocyte Esterase Negative (NEGATIVE) Urine RBC 0-1/hpf (0-5/HPF) Urine WBC 5-10/hpf H (0-5/HPF) Ur Squamous Epith Cells 5-10 /hpf H (0-5/HPF) Urine Bacteria Few (2-10) H (None) Hyaline Casts 10-30/lpf (None) Ur Culture Indicated? Specimen cultured SARS-CoV-2 (PCR) (Negative) Influenza A (RT-PCR) (NEGATIVE) Influenza B (RT-PCR) (NEGATIVE) RSV (PCR) (Negative) Point of Care Testing Glucose POC 108 Imaging Data Chest x-ray: Attestation: I personally reviewed and interpreted this imaging study as follows: My Impression: CHF Radiologist's Impression: Cardiomegaly with bilateral pleural effusions and diffuse bilateral airspace disease was may indicate edema or pneumonia CT scan - head: Radiologist's Impression: [address] [address] [address] Scan Report Signed Patient: Chris Peralta MR#: [id number] : 1935 Acct:[id number] Age/Sex: 87 / M Date of Service: 10/19/22 Loc: ED Accession Number: [id number] ?? Procedure: CT head/brain wo con Ordering Provider: Khushbu Field D.O. PROCEDURE:? CT HEAD/BRAIN WO CON ? INDICATIONS:? decreased mental status ? TECHNIQUE:? Noncontrast 4.5 mm thick angled axial sections acquired from the foramen magnum to the vertex, with coronal and sagittal reformats.? For radiation dose reduction, the following was used:? automated exposure control, adjustment of mA and/or kV according to patient size.? ? COMPARISON:? [facility], CT, CT HEAD/BRAIN WO CON, 01/21/2021, 18:03. ? FINDINGS:? Image quality:? Excellent.? ? CSF spaces:? Basal cisterns are patent.? No extra-axial fluid collections.? The ventricles are symmetric in size and shape.? ? Brain:? No intracranial bleeds or masses.? There is cerebral volume loss for age, with resultant ventricular and sulcal prominence.? There are periventricular and deep white matter chronic small vessel ischemic changes.? There is intracranial internal carotid artery atherosclerosis.? ? Skull and face:? Calvarium and visualized facial bones appear intact, without suspicious lesions.? ? Sinuses:? Visualized sinuses and mastoids are clear.? ? IMPRESSION:? ? 1. No acute intracranial process. ? 2. Moderate to severe atrophy and chronic microvascular ischemic changes. ? ? Dictated by: Renee Davis M.D. on 10/19/2022 at 8:01 ? ? Approved by: Renee Davis M.D. on 10/19/2022 at 8:02? ECG Data Attestation: I personally reviewed and interpreted this ECG as follows: Interpretation: Atrial fibrillation Ventricular rate 82 Left axis deviation No ST T wave changes MDM Narrative Medical decision making narrative: Dr romero: Received turned over. Reviewed patient's history and physical. I also discussed the case with his daughter Darlene over the phone. According to his daughter he normally is alert and oriented. He has been at [place] for the past several weeks. She does not live in the local area. He is in AFib. Is not on anticoagulation. His head CT shows no acute pathology. Patient has baseline chronic kidney disease in his somewhat worse today. His chest x-ray looks like fluid overload/pneumonia. He has a leukocytosis that is slightly worse than normal but he is had an elevated leukocytosis for the past several months. His procalcitonin is elevated. Blood cultures were obtained. Antibiotics administered. Patient denies chest pain. He is very slow in answering questions but does not know what year it is and does follow commands. Has an elevated troponin. No ST changes on his EKG. I did discuss the case with Dr. Roger on-call for Hospital Medicine. Will diurese patient. Will continue with antibiotics. Will admit to the hospital. Fluid hydration as well. Patient was hypoglycemic however he is getting sugar with his antibiotic administration. Will hold on heparin for now as most likely elevation in troponin is related to his CHF. Dr. Roger agrees with this. Will admit for further evaluation and treatment. Discharge Plan Departure Patient Disposition: Admitted As Inpatient Clinical Impression: CHF (congestive heart failure), Pneumonia, Altered mental status, Elevated troponin, Acute kidney injury Admit Date/Time: 10/19/22 10:12 Admit Provider: Rg Roger
[2022-10-19 06:52] LABS: Hematocrit 29.6 % (41-53); Hemoglobin 9.5 g/dL (13.5-17.5); Mean Corpuscular Hemoglobin 31.2 PG (26-34); Mean Corpuscular Volume 97.3 fL (80-100); Platelet Count 130 X10^3/uL (150-400); Red Blood Cell Count 3.04 X10^6/uL (4.5-5.9); White Blood Cell Count 23.6 X10^3/uL (4.5-11.0)
[2022-10-19 06:54] LABS: INR 1.2 (0.9-1.3); Prothrombin Time 13.2 SECONDS (10.1-12.7)
[2022-10-19 06:56] LABS: Add Manual Diff / Slide Review YES
[2022-10-19 06:57] LABS: PTT Partial Thromboplastin Tim 31 SECONDS (26-36)
[2022-10-19 07:02] LABS: Alanine Aminotransferase 15 IU/L (<50); Albumin Globulin Ratio 0.9 (1.0-2.8); Alkaline Phosphatase 102 U/L (38-126); Aspartate Aminotransferase 34 IU/L (17-59); BUN Creatinine Ratio 12.2 (6-22); Bilirubin Total 1.1 mg/dL (0.2-1.3); Blood Urea Nitrogen 44 mg/dL (9-20); Calcium 8.3 mg/dL (8.4-10.2); Carbon Dioxide 31 mmol/L (22-32); Chloride 98 mmol/L (98-107); Creatine Kinase 29 U/L (55-170); Estimated Glomerular Filt Rate 16 mL/min (>60); Globulin 3.5 g/dL (1.7-4.1); Glucose 67 mg/dL (80-110); HEMOLYSIS < 15 (0-50); Lipase 25 U/L (23-300); Potassium 4.5 mmol/L (3.4-5.1); Sodium 138 mmol/L (137-145); Total Protein 6.5 g/dL (6.3-8.2)
[2022-10-19 07:03] LABS: Lactate (Lactic Acid) 0.9 mmol/L (0.7-2.1)
[2022-10-19 07:19] LABS: Procalcitonin 2.25 ng/mL (<0.5)
[2022-10-19 07:21] LABS: Neutrophils Absolute Manual 4956 /uL (3000-5900); Total Cells Counted 100
[2022-10-19 07:22] LABS: Smudge Cells 2+
[2022-10-19 07:23] LABS: Acanthocytes 1+
[2022-10-19 07:24] LABS: Anisocytosis 1+; Poikilocytosis 1+; Schistocytes 1+
[2022-10-19 07:28] LABS: NT-proBNP (BNP-Adult 18+) 51900 pg/mL (<450)
[2022-10-19 07:48] LABS: Influenza A - CEPHEID Flu A NEGATIVE (NEGATIVE); Influenza B - CEPHEID Flu B NEGATIVE (NEGATIVE); Respiratory Syncytial Virus Negative (Negative)
[2022-10-19 07:51] LABS: COVID-19 CEPHEID 4-PLEX PCR Negative (Negative)
[2022-10-19] MEDS: FUROSEMIDE 40 MG/4 ML VIAL IV (07:56)
[2022-10-19] MEDS: cefTRIAXone 1,000 MG in SODIUM CHLORIDE 0.9% 100 ML 200 MG IV (08:00)
[2022-10-19] MEDS: AZITHROMYCIN 500 MG in DEXTROSE 5% IN WATER 250 ML 250 MG IV (08:29)
--- NOTE | 2022-10-19 08:38 | PC.NURSE ---
azithromycin in d5w 250 ml infusing x 1 hour. pt drank 1 apple juice 120 ml and eating yogurt.
--- NOTE | 2022-10-19 09:03 | PM.HP.1 ---
History of Present Illness History of Present Illness Date Patient Seen: 10/19/22 Chief complaint: Altered LOC. Narrative: Chris Peralta is an 87yo M with PMH of HFpEF, mild aortic stenosis, bilateral BOBBY, atrial fibrillation not on anticoag due to falls, CKD stage 4 and HTN who presents from SNF for worsening SOB and altered mental status. Patient is too somnolent to answer questions so I called his daughter Patrizia and am going off of the ED notes. Patrizia says she recently moved back to [place] after being his 08/04 caregiver for 2 years. He now lives at [facility] as she cannot care for him anymore and he has had multiple frequent falls. She states he has an advanced directive which states he is interested in comfort measures only, however when last speaking with him he expressed to her that he has wanted everything done for him. She states his health has slowly been declining with heart and kidney issues. Per ED notes patient was sent over from his SNF this morning due to altered mental status and unable to ambulate. He was found be alert and able to follow commands in the ED. CXR revealed pulm edema and BNP 51k. WBC 23 and procal of 2. Cr of 3.62. Given 40mg IV lasix. Patient History Medical History Anticoagulated Anticoagulation adequate Atrial fibrillation Chronic kidney disease (CKD) stage G3a/A1, moderately decreased glomerular filtration rate (GFR) between 45-59 mL/min/1.73 square meter and albuminuria creatinine ratio less than 30 mg/g Chronic renal failure Coronary artery disease History of left common carotid artery stent placement History of right common carotid artery stent placement Peripheral arterial disease Surgical History History of appendectomy History of bilateral knee arthroplasty Stented coronary artery Family & Social History Family History Mother Lung cancer Father Lung cancer Other Hypertension Social History: household members family Safety & Behavioral: Feels Safe in Current Yes Environment Been Physically Hurt or No Threatened By a Person Tobacco & Substance use: Smoking Status Never smoker alcohol intake frequency a few times a month Substance Use Type does not use Meds Home Medications and Allergies Home Medications Medication Instructions Recorded Confirmed Type amlodipine 5 mg tablet 5 mg PO DAILY 01/23/19 10/19/22 History atorvastatin 40 mg tablet 40 mg PO BEDTIME 01/23/19 10/19/22 History ferrous gluconate 324 mg (38 mg 324 mg PO BID 01/23/19 10/19/22 History iron) tablet pantoprazole 40 mg tablet,delayed 40 mg PO BID 05/03/22 10/19/22 History release cholecalciferol (vitamin D3) 50 50 mcg PO DAILY 08/07/22 10/19/22 History mcg (2,000 unit) tablet (Vitamin D3) torsemide 10 mg tablet 10 mg PO DAILY 08/07/22 10/19/22 History oxycodone 5 mg tablet 5 mg PO Q3HR PRN Pain, Mild (1-3) 08/10/22 10/19/22 Rx #30 tabs Allergies Allergy/AdvReac Type Severity Reaction Status Date / Time No Known Drug Allergies Allergy Verified 08/06/22 16:11 Review of Systems Review of Systems Narrative: All other systems reviewed with the patient and are negative unless otherwise stated. Exam Vital Signs (past 8 hours): - 10/19/22 06:46 10/19/22 06:37 10/19/22 06:38 Temperature 97.2 F L Pulse Rate 88 88 88 Respiratory Rate 16 Blood Pressure 140/67 Pulse Oximetry 96 94 94 Oxygen Delivery Method Nasal Cannula Oxygen Flow Rate 2 10/19/22 06:38 10/19/22 07:00 10/19/22 07:02 Temperature Pulse Rate 87 Respiratory Rate 17 Blood Pressure 140/67 157/73 H Pulse Oximetry 94 Oxygen Delivery Method Oxygen Flow Rate 10/19/22 07:02 10/19/22 07:30 10/19/22 07:30 Temperature Pulse Rate 87 84 Respiratory Rate 24 15 Blood Pressure 147/66 H Pulse Oximetry 95 98 Oxygen Delivery Method Oxygen Flow Rate 10/19/22 08:00 10/19/22 08:00 10/19/22 08:20 Temperature Pulse Rate 85 Respiratory Rate 16 Blood Pressure 138/63 136/62 Pulse Oximetry 97 Oxygen Delivery Method Oxygen Flow Rate 10/19/22 08:20 10/19/22 08:30 10/19/22 08:40 Temperature Pulse Rate 83 82 Respiratory Rate 14 13 Blood Pressure 142/71 H Pulse Oximetry 95 95 Oxygen Delivery Method Oxygen Flow Rate 10/19/22 08:40 10/19/22 08:59 10/19/22 09:00 Temperature Pulse Rate 82 86 Respiratory Rate 19 16 Blood Pressure 135/62 Pulse Oximetry 95 94 Oxygen Delivery Method Oxygen Flow Rate Oxygen Delivery Method Nasal Cannula Oxygen Flow Rate 2 Narrative Exam Narrative: GEN: somnolent, elderly male HEENT: moist mucous membranes, PERRL NECK: trachea midline, no JVD CV: regular rate and rhythm, no murmurs PULM: clear bilaterally ABD: soft, nontender, nondistended, no organomegaly EXT: warm and well perfused with no edema NEURO: awake, alert, oriented, no focal deficits Objective Labs 10/19/22 06:38 10/19/22 06:38 Labs: Laboratory Results - last 24 hr 10/19/22 10/19/22 10/19/22 06:38 06:38 06:38 WBC RBC Hgb Hct MCV MCH MCHC RDW Plt Count Neut % (Auto) Lymph % (Auto) [place] % (Auto) Eos % (Auto) Baso % (Auto) Lymph # (Auto) [place] # (Auto) Baso # (Auto) Total Counted Seg Neutrophils % Band Neutrophils % Lymphocytes % (Manual) Eosinophils % (Manual) Neutrophils # (Manual) Smudge Cells RBC Morphology Poikilocytosis Anisocytosis Acanthocytes (Spur) Schistocytes PT 13.2 H INR 1.2 APTT 31 Sodium Potassium Chloride Carbon Dioxide BUN Creatinine Estimated GFR BUN/Creatinine Ratio Glucose Lactate 0.9 Calcium Total Bilirubin AST ALT Alkaline Phosphatase Total Creatine Kinase CK-MB (CK-2) CK-MB (CK-2) Rel Index Troponin I NT-Pro-B Natriuret Pep Total Protein Albumin Globulin Albumin/Globulin Ratio Lipase Procalcitonin 2.25 H SARS-CoV-2 (PCR) Influenza A (RT-PCR) Influenza B (RT-PCR) RSV (PCR) 10/19/22 10/19/22 10/19/22 06:38 06:38 06:38 WBC 23.6 H RBC 3.04 L Hgb 9.5 L Hct 29.6 L MCV 97.3 MCH 31.2 MCHC 32.0 RDW 20.0 H Plt Count 130 L Neut % (Auto) Not Reportable Lymph % (Auto) Not Reportable [place] % (Auto) Not Reportable Eos % (Auto) Not Reportable Baso % (Auto) Not Reportable Lymph # (Auto) Not Reportable [place] # (Auto) Not Reportable Baso # (Auto) Not Reportable Total Counted 100 Seg Neutrophils % 20.0 L Band Neutrophils % 1.0 L Lymphocytes % (Manual) 76.0 H Eosinophils % (Manual) 3.0 Neutrophils # (Manual) 4956 Smudge Cells 2+ H RBC Morphology See below Poikilocytosis 1+ H Anisocytosis 1+ H Acanthocytes (Spur) 1+ Schistocytes 1+ H PT INR APTT Sodium 138 Potassium 4.5 Chloride 98 Carbon Dioxide 31 BUN 44 H Creatinine 3.62 H Estimated GFR 16 L BUN/Creatinine Ratio 12.2 Glucose 67 L Lactate Calcium 8.3 L Total Bilirubin 1.1 AST 34 ALT 15 Alkaline Phosphatase 102 Total Creatine Kinase 29 L CK-MB (CK-2) TNP CK-MB (CK-2) Rel Index TNP Troponin I 1.580 H* NT-Pro-B Natriuret Pep 59232 H Total Protein 6.5 Albumin 3.0 L Globulin 3.5 Albumin/Globulin Ratio 0.9 L Lipase 25 Procalcitonin SARS-CoV-2 (PCR) Influenza A (RT-PCR) Influenza B (RT-PCR) RSV (PCR) 10/19/22 06:59 WBC RBC Hgb Hct MCV MCH MCHC RDW Plt Count Neut % (Auto) Lymph % (Auto) [place] % (Auto) Eos % (Auto) Baso % (Auto) Lymph # (Auto) [place] # (Auto) Baso # (Auto) Total Counted Seg Neutrophils % Band Neutrophils % Lymphocytes % (Manual) Eosinophils % (Manual) Neutrophils # (Manual) Smudge Cells RBC Morphology Poikilocytosis Anisocytosis Acanthocytes (Spur) Schistocytes PT INR APTT Sodium Potassium Chloride Carbon Dioxide BUN Creatinine Estimated GFR BUN/Creatinine Ratio Glucose Lactate Calcium Total Bilirubin AST ALT Alkaline Phosphatase Total Creatine Kinase CK-MB (CK-2) CK-MB (CK-2) Rel Index Troponin I NT-Pro-B Natriuret Pep Total Protein Albumin Globulin Albumin/Globulin Ratio Lipase Procalcitonin SARS-CoV-2 (PCR) Negative Influenza A (RT-PCR) Flu a negative Influenza B (RT-PCR) Flu b negative RSV (PCR) Negative Assessment & Plan Assessment & Plan narrative: # acute metabolic encephalopathy, improving -patient now awake and alert, but only oriented to self -unclear etiology -monitor # acute diastolic heart failure exacerbatio -chest x-ray with pulmonary edema and BNP 51,000 -received 40 mg IV Lasix in ED -continue with 60 mg IV Lasix b.i.d. and add diamox 500mg daily for better decongestion -start aspirin 81mg daily -currently on amlodipine, may switch or add low dose RICO/ARB once kidney function improves for afterload reduction -start spironolactone 12.5mg daily due to elevated BNP -hold home po torsemide 10mg daily, will likely increase dose on discharge # possible CAP -CXR with pulm edema and pneumonia cannot be excluded -no temp, but WBC 23 and procal 2 -continue rocephin and azithro for now # chronic leukocytosis -WBC always in low 20's, was going to get outpatient workup for CLL -blood smear in Apr 2022 showed marked lymphocytosis and smudge cells suspicious for low-grade lymphoproliferative disorder -monitor CBC # PAOLA on CKD stage 4 -Cr 3.62 in ED, baseline is around 2.2 -diuresis as above -avoid nephrotoxic agents -daily BMP's # myocardial injury due to demand ischemia from CHF exacerbation -troponin 1.580 on arrival to ED, no chest pain or EKG changes -medical management with aspirin and statin above -trend trops # chronic atrial fibrillation -previously on eliquis but stopped due to falls -currently rate controlled, not on beta alicja for some reason -start metop tart 12.5mg BID # HTN, chronic -continue home amlodipine Code status is DNR as expressed by patient's daughter who is DPOA, based on his previous advanced directive. Patient not oriented to be able to give code status. COVID negative. DVT prophylaxis with heparin subQ. Proxy is daughter Patrizia. I have reviewed home meds and used all available resources to reconcile the home meds. This patient will be admitted as inpatient and will require greater than 2 midnights of hospital time to treat CHF exacerbation. Time Spent With Patient Critical Care time: I spent a total of [] minutes of critical care time on this patient's care today; this time is exclusive of procedural time.
[2022-10-19 09:05] LABS: Magnesium 1.9 mg/dL (1.6-2.3)
[2022-10-19 09:09] LABS: Hemoglobin A1C% w Est Avg Glu 4.9 % (4.0-6.0)
[2022-10-19 09:18] LABS: Appearance Urine UA CLEAR; Bilirubin Urine UA NEGATIVE (NEGATIVE); Color Urine UA YELLOW; Glucose Urine UA NEGATIVE (Negative); Ketones Urine UA NEGATIVE (NEGATIVE); Leukocyte Esterase Urine UA NEGATIVE (NEGATIVE); Nitrite Urine UA NEGATIVE (Negative); Occult Blood Urine UA NEGATIVE (Negative); Protein Urine UA NEGATIVE (Negative); Urobilinogen Urine UA 0.2 E.U./dL (0.2)
--- NOTE | 2022-10-19 09:20 | PC.NURSE ---
drinking clear ensure due to unable to eat breakfast due to dentition. diet updated to heart healthy mechanical soft for lunch
[2022-10-19 09:29] LABS: Squamous Epithelial Cell Urine 5-10 /HPF (0-5/HPF); WBC Urine 5-10/HPF (0-5/HPF)
[2022-10-19 09:30] LABS: Bacteria Urine Few (2-10); RBC Urine 0-1/HPF (0-5/HPF)
[2022-10-19 09:31] LABS: Culture Indicated Urine Specimen Cultured; Hyaline Casts Urine 10-30/LPF
--- NOTE | 2022-10-19 12:27 | OT.IPNOTE ---
Pr Dr. Roger pt okay to be seen for therapy eval as Troponin 1.58 , but now trending down to 1.4. Pt very hard of hearing even with hearing amplifier on. Attempted to get the pt up to the edge of the bed. Pt was cooperative to assist to help lift his legs up so able to get his heel protector boots off. Noted some drainage on the bed from left lower leg and pt's nurse notified. Afterwards pt states , Just leave me alone, I do not want to get up.
[2022-10-19] MEDS: PANTOPRAZOLE DR 40 MG TABLET PO ×2 (13:01→21:42)
[2022-10-19] MEDS: AMLODIPINE 5 MG TABLET PO (13:02)
[2022-10-19] MEDS: acetaZOLAMIDE 250 MG TABLET 500 MG PO (13:08)
[2022-10-19] MEDS: METOPROLOL IR 25 MG TABLET 12.5 MG PO ×2 (13:08→21:42)
[2022-10-19] MEDS: SPIRONOLACTONE 25 MG TABLET 12.5 MG PO (13:09)
[2022-10-19] MEDS: HEPARIN 5,000 UNIT/ML VIAL 5000 UNIT SUBCUT ×2 (13:09→21:43)
[2022-10-19] MEDS: ASPIRIN 325 MG TABLET PO (13:09)
--- NOTE | 2022-10-19 15:01 | PT-IP ANOTE ---
PT eval order received. EMR reviewed. checked with pt but pt with confusion and gets agitated. Stated that he will stay in bed for the whole day and does not want to move. asked pt questions to get info regarding PLOF but pt unable to provide clear info. Pt stated that he does not want PT. attempted several times to contact [facility] where pt lives but unsuccessful. will f/u tomorrow.
[2022-10-19] MEDS: FUROSEMIDE 40 MG/4 ML VIAL 60 MG IV (17:28)
--- NOTE | 2022-10-19 19:14 | PC.NURSE ---
Addendum entered by Rebeka Magana R.N. 10/23/22 09:24: pictures of patients wounds taken upon day of admission from unit wound care camera, printed and placed in physical chart to be uploaded. Original Note: Pt arrived from ED. Pt weak very [place], A&OX1 very confused. VSS, afebrile on 2 LNC. Pt denies pain but several wounds to BLE's noted. Pt with +@ edema to scrotum. Pt is declining to eat but agreed to take pills in yogurt. He yells out that he wants to go home several times today. q2 turn, continuous monitoring.
[2022-10-19] MEDS: ATORVASTATIN 20 MG TABLET 40 MG PO (21:42)
[2022-10-19] MEDS: FERROUS SULFATE 325 MG TABLET PO (21:43)
[2022-10-20 02:51] LABS: Enterococcus species Not Detected (Not Detect); Listeria monocytogenes Not Detected (Not Detect); Staphylococcus species Detected (Not Detect)
[2022-10-20 02:52] LABS: Acinetobacter baumannii Not Detected (Not Detect); Candida albicans Not Detected (Not Detect); Candida glabrata Not Detected (Not Detect); Candida krusei Not Detected (Not Detect); Candida parapsilosis Not Detected (Not Detect); Candida tropicalis Not Detected (Not Detect); E. coli Not Detected (Not Detect); Enterobacter cloacae complex Not Detected (Not Detect); Enterobacteriaceae species Not Detected (Not Detect); Haemophilus influenzae Not Detected (Not Detect); Methicillin-resistant gene Detected (Not Detect); Neisseria meningitidis Not Detected (Not Detect); Proteus species Not Detected (Not Detect); Pseudomonas aeruginosa Not Detected (Not Detect); Serratia marcescens Not Detected (Not Detect); Streptococcus agalactiae (Gr B Not Detected (Not Detect); Streptococcus pneumonia Not Detected (Not Detect); Streptococcus pyogenes (Gr A) Not Detected (Not Detect); Streptococcus species Not Detected (Not Detect)
[2022-10-20 04:14] VITALS: BP 139/69; PULSE 68; RESP 18; TEMP 36.2; O2SAT 92
--- NOTE | 2022-10-20 05:13 | PC.NURSE ---
Mckeon informed of pt's blood culture result showing gram positive cocci, no further order since pt. is already on azithromycin and ceftriaxone.
[2022-10-20 05:40] LABS: Hematocrit 29.4 % (41-53); Hemoglobin 9.5 g/dL (13.5-17.5); Mean Corpuscular HGB Conc 32.3 % (30-36); Mean Corpuscular Hemoglobin 31.2 PG (26-34); Mean Corpuscular Volume 96.6 fL (80-100); Platelet Count 135 X10^3/uL (150-400); Red Blood Cell Count 3.04 X10^6/uL (4.5-5.9); Red Cell Distribution Width 19.9 % (11.6-14.8); White Blood Cell Count 22.7 X10^3/uL (4.5-11.0)
[2022-10-20 05:41] LABS: Add Manual Diff / Slide Review YES
[2022-10-20 05:42] LABS: BUN Creatinine Ratio 12.1 (6-22); Blood Urea Nitrogen 45 mg/dL (9-20); Calcium 8.3 mg/dL (8.4-10.2); Carbon Dioxide 32 mmol/L (22-32); Chloride 96 mmol/L (98-107); Estimated Glomerular Filt Rate 15 mL/min (>60); Glucose 88 mg/dL (80-110); HEMOLYSIS < 15 (0-50); Sodium 137 mmol/L (137-145)
[2022-10-20 05:43] LABS: Magnesium 1.9 mg/dL (1.6-2.3)
[2022-10-20 05:59] LABS: Procalcitonin 1.74 ng/mL (<0.5)
[2022-10-20 06:28] LABS: Anisocytosis 1+; Neutrophils Absolute Manual 2951 /uL (3000-5900); Poikilocytosis 1+; Total Cells Counted 100
[2022-10-20 06:29] LABS: Acanthocytes 1+; Smudge Cells 2+
[2022-10-20 08:43] VITALS: BP 127/71; PULSE 65; RESP 18; TEMP 36.3; O2SAT 94
[2022-10-20] MEDS: HEPARIN 5,000 UNIT/ML VIAL 5000 UNIT SUBCUT ×2 (09:58→21:57)
[2022-10-20] MEDS: FUROSEMIDE 40 MG/4 ML VIAL 60 MG IV ×2 (09:59→16:28)
[2022-10-20] MEDS: acetaZOLAMIDE 250 MG TABLET 500 MG PO (09:59)
[2022-10-20] MEDS: SPIRONOLACTONE 25 MG TABLET 12.5 MG PO (09:59)
[2022-10-20] MEDS: FERROUS SULFATE 325 MG TABLET PO ×2 (09:59→21:57)
[2022-10-20] MEDS: ASPIRIN EC 81 MG TABLET PO (09:59)
[2022-10-20] MEDS: AMLODIPINE 5 MG TABLET PO (09:59)
[2022-10-20] MEDS: PANTOPRAZOLE DR 40 MG TABLET PO ×2 (10:00→21:57)
[2022-10-20] MEDS: METOPROLOL IR 25 MG TABLET 12.5 MG PO ×2 (10:00→21:57)
[2022-10-20] MEDS: AZITHROMYCIN 250 MG TABLET 500 MG PO (10:00)
[2022-10-20] MEDS: cefTRIAXone 1,000 MG in SODIUM CHLORIDE 0.9% 100 ML 200 MG IV (10:01)
--- NOTE | 2022-10-20 10:19 | DI.US.S_ITS ---
PROCEDURE: US RENAL COMPLETE INDICATIONS: ACUTE KIDNEY INJURY TECHNIQUE: Real-time scanning was performed of the kidneys and bladder, with image documentation. COMPARISON: [facility], , RENAL COMPLETE, 03/12/2018, 8:19. FINDINGS: Study is limited by excessive bowel gas and patient inability to cooperate with the exam. Right kidney measures 7.1 cm in length and 0.8 cm in cortical thickness. Portions of the kidney are obscured by bowel gas and positioning. No focal lesion. No hydronephrosis, calculi or renal cysts present. Left kidney not visualized due to overlying bowel gas. Urinary bladder is not well visualized, but appears to contain a Quintana catheter Incidental moderate bilateral pleural effusions noted IMPRESSION: Significantly limited exam. Atrophic right kidney without shadowing calculus or hydronephrosis Approved by: Gustabo Mcfadden M.D. on 10/20/2022 at 12:02
--- NOTE | 2022-10-20 11:02 | CM.DANOTE ---
DCP: Case received, EMR reviewed. Checked on patient, was sleeping. Called Evelina at [facility] to get additional information on patient. DCP assessment completed with information currently available. Patient is an 87 year old male who admitted yesterday morning to the care of the hospitalist team. PCP: Dr. Rani Clark Payer: confirmed: [facility]. Patient came to the hospital secondary to having decreased mental status. He was sent over from his facility, [facility]. Notes indicate that patient had been here 08/07-08/13, and then discharged to [facility]. Patient is now a permanent resident there. Daughter used to be his caregiver at home prior, but has moved to [place]. Notes also indicate that patient is non-ambulatory, and has oxygen as needed. Patient holds current diagnosis of acute metabolic encephalopathy, acute diastolic heart failure exacerbation. Notes from hospitalist, Dr. Roger, indicated that he had reached daughter in [place]. She had cared for him for two years, but unable to continue to do so secondary to his falls at home. Confirmed with Evelina at [facility] that patient is a permanent resident. Nurse, Norma, had mentioned that the facility was hoping that hospice could be pursued, due to his not eating much. Conversation was had between Dr. Roger and patient who indicated that he wanted all done. Notes also indicate that patient is comfort care. Patient is non-ambulatory at baseline, has wheel-chair. He needs encouragement to eat. Evelina indicated, he does normally have some confusion, but had gotten worse. Patient is hard of hearing, and has a hearing device. He has been sleeping, was informed that he had called out for assistance at night, but not attempting to get up. He wears heel protectors to avoid skin breakdown. P: DCP to continue to follow. Plan is for patient to return back to [facility] when deemed medically stable. Callie Sharma RN/Fourth Mate Discharge Planning/Care Management CM Discharge Assessment Start: 10/20/22 11:00 Freq: Status: Active Protocol: Document 10/20/22 11:00 (Rec: 10/20/22 11:02 [id number]) Discharge Planning Assessment Assigned Labor Arbitrator Callie Sharma RN/Fourth Mate Advance Directives? Yes Advance Directives on File No History Provided By Patient,Family Member,Medical Record Prior Living Arrangements Skilled Nurse Facility Household Members family Type of transporation used prior to Relies on Others admit Independent with ADL's No Is patient alert and oriented? Yes: Alert to self, place, but some cognitive issues Needs Assistance With Bathing,Eating,Grooming,Meal Prep,Toileting,Managing Medications,Home Chores / Shopping Caregiver for Another No DME Already Rented / Owned Wheelchair Patient/Family Preference Detention Facility Barriers to Discharge No Comment Patient resides at [facility] as permanent resident. Discharge Plan Detention Facility Transportation Arrangement SNF likely to provide transport at d/c Referrals Initiated Detention Additional Comment Patient came from [facility] If patient plan is SNF: Has PASSR been No completed? Whiteboard Updated in Patient Room with Yes name and ext. # of Labor Arbitrator Review Status In Process Next Review Type Continued Stay Review
--- NOTE | 2022-10-20 11:55 | PT-IP ANOTE ---
checked on pt is pt is asleep. attemped to wake pt up needing increase effort and pt only opened his eyes but unresponsive and does not make eye contact. nurse is aware and stated that pt has been lethargic. pt not appropriate for PT eval at this time. will f/u.
[2022-10-20 13:06] VITALS: BP 132/57; PULSE 69; RESP 16; TEMP 36.5; O2SAT 91
--- NOTE | 2022-10-20 14:26 | PT-IP ANOTE ---
checked on pt and pt continues to be lethargic and not appropriate for PT.
--- NOTE | 2022-10-20 15:32 | PM.PN.1 ---
Subjective Subjective Date Patient Seen: 10/20/22 Interval history: 87 year old male admitted with lethargy, due to CHF exacerbation, PAOLA, hypoxic respiratory failure. He is slow to respond but does complain of continued shortness of breath today, very hard of hearing and waxes and wanes through the day. He denied nausea, abdominal pain, or chest pain. Exam Vital Signs (past 8 hours): - 10/20/22 08:43 Temperature 97.3 F L Pulse Rate 65 Respiratory Rate 18 Blood Pressure 127/71 Pulse Oximetry 94 Oxygen Flow Rate 1 Oxygen Delivery Method Nasal Cannula Oxygen Flow Rate 1 Narrative Exam Narrative: GEN: predominantly somnolent, elderly male but occasionally answers questions appropriately but then falls right back to sleep. HEENT: moist mucous membranes, PERRL NECK: trachea midline, no JVD CV: regular rate and rhythm, no murmurs PULM: clear bilaterally ABD: soft, nontender, nondistended, no organomegaly EXT: warm and well perfused with no edema NEURO: awake, alert, oriented, no focal deficits Objective Labs 10/20/22 05:04 10/20/22 05:04 Labs: Laboratory Results - last 24 hr 10/19/22 10/20/22 10/20/22 18:15 01:36 05:04 WBC RBC Hgb Hct MCV MCH MCHC RDW Plt Count Neut % (Auto) Lymph % (Auto) [place] % (Auto) Eos % (Auto) Baso % (Auto) Lymph # (Auto) [place] # (Auto) Baso # (Auto) Total Counted Seg Neutrophils % Lymphocytes % (Manual) Neutrophils # (Manual) Smudge Cells RBC Morphology Poikilocytosis Anisocytosis Acanthocytes (Spur) Sodium Potassium Chloride Carbon Dioxide BUN Creatinine Estimated GFR BUN/Creatinine Ratio Glucose Calcium Magnesium 1.9 Troponin I 1.190 H* Procalcitonin A. baumannii (PCR) Not detected Candace albicans (PCR) Not detected C. glabrata (PCR) Not detected C. krusei (PCR) Not detected C. parapsilosis (PCR) Not detected C. tropicalis (PCR) Not detected Enterobacteriac sp PCR Not detected E. cloacae complex PCR Not detected Enterococcus sp PCR Not detected E. coli (PCR) Not detected H. influenzae (PCR) Not detected Klebsiella oxytoca PCR Not detected Klebsiella pneumoniae Not detected List. monocytogenes PCR Not detected N. meningitidis (PCR) Not detected Proteus species (PCR) Not detected Serratia marcescens PCR Not detected Staphylococcus sp PCR Detected H Staph aureus (PCR) Not detected mecA-Methicil Res Gene Detected H Streptococcus sp PCR Not detected Group A Strep (PCR) Not detected Strep agalactiae (PCR) Not detected Strep pneumoniae (PCR) Not detected P. aeruginosa (PCR) Not detected Jeanne/B-Vanco Res Genes Not Reportable KPC-Carbap Res Gene PCR Not Reportable 10/20/22 10/20/22 05:04 05:04 WBC 22.7 H RBC 3.04 L Hgb 9.5 L Hct 29.4 L MCV 96.6 MCH 31.2 MCHC 32.3 RDW 19.9 H Plt Count 135 L Neut % (Auto) Not Reportable Lymph % (Auto) Not Reportable [place] % (Auto) Not Reportable Eos % (Auto) Not Reportable Baso % (Auto) Not Reportable Lymph # (Auto) Not Reportable [place] # (Auto) Not Reportable Baso # (Auto) Not Reportable Total Counted 100 Seg Neutrophils % 13.0 L Lymphocytes % (Manual) 87.0 H Neutrophils # (Manual) 2951 L Smudge Cells 2+ H RBC Morphology See below Poikilocytosis 1+ H Anisocytosis 1+ H Acanthocytes (Spur) 1+ Sodium 137 Potassium 4.0 Chloride 96 L Carbon Dioxide 32 BUN 45 H Creatinine 3.73 H Estimated GFR 15 L BUN/Creatinine Ratio 12.1 Glucose 88 Calcium 8.3 L Magnesium Troponin I Procalcitonin 1.74 H A. baumannii (PCR) Candace albicans (PCR) C. glabrata (PCR) C. krusei (PCR) C. parapsilosis (PCR) C. tropicalis (PCR) Enterobacteriac sp PCR E. cloacae complex PCR Enterococcus sp PCR E. coli (PCR) H. influenzae (PCR) Klebsiella oxytoca PCR Klebsiella pneumoniae List. monocytogenes PCR N. meningitidis (PCR) Proteus species (PCR) Serratia marcescens PCR Staphylococcus sp PCR Staph aureus (PCR) mecA-Methicil Res Gene Streptococcus sp PCR Group A Strep (PCR) Strep agalactiae (PCR) Strep pneumoniae (PCR) P. aeruginosa (PCR) Jeanne/B-Vanco Res Genes KPC-Carbap Res Gene PCR [facility] Medical History Anticoagulated Anticoagulation adequate Atrial fibrillation Chronic kidney disease (CKD) stage G3a/A1, moderately decreased glomerular filtration rate (GFR) between 45-59 mL/min/1.73 square meter and albuminuria creatinine ratio less than 30 mg/g Chronic renal failure Coronary artery disease History of left common carotid artery stent placement History of right common carotid artery stent placement Peripheral arterial disease Surgical History History of appendectomy History of bilateral knee arthroplasty Stented coronary artery Family History Mother Lung cancer Father Lung cancer Other Hypertension Social History marital status: household members: family Smoking Status: Never smoker alcohol intake: current Assessment & Plan Assessment & Plan narrative: # acute metabolic encephalopathy, improving -patient now more awake and alert, but only oriented to self -likely in setting of renal failure, heart failure and respiratory failure. -monitor # acute on chronic diastolic heart failure exacerbatio -chest x-ray with pulmonary edema and BNP 51,000, TTE with EF 45-50%. -continue with 60 mg IV Lasix b.i.d. and added diamox 500mg daily for better decongestion -start aspirin 81mg daily -currently on amlodipine, may switch or add low dose RICO/ARB once kidney function improves for afterload reduction -start spironolactone 12.5mg daily due to elevated BNP -hold home po torsemide 10mg daily, will likely increase dose on discharge # possible CAP -CXR with pulm edema and pneumonia cannot be excluded -no temp, but WBC 23 and procal 2 -continue rocephin and azithro for treatment for possible pneumonia. Will complete 5 day course. # chronic leukocytosis -WBC always in low 20's, was going to get outpatient workup for CLL -blood smear in Apr 2022 showed marked lymphocytosis and smudge cells suspicious for low-grade lymphoproliferative disorder -monitor CBC # PAOLA on CKD stage 4 -Cr 3.62 in ED, baseline is around 2.2, increased slightly to 3.73. -diuresis as above -avoid nephrotoxic agents -daily BMP's -renal ultrasound performed today without urological obstruction / hydronephrosis. # myocardial injury due to demand ischemia from CHF exacerbation -troponin 1.580 on arrival to ED, no chest pain or EKG changes -medical management with aspirin and statin above -trend trops # chronic atrial fibrillation -previously on eliquis but stopped due to falls -currently rate controlled, not on beta alicja for some reason -start metop tart 12.5mg BID # HTN, chronic -continue home amlodipine #positive blood culture - blood culture 1/ bottles with staph sp. This most likely represents contaminant. Code status is DNR as expressed by patient's daughter who is DPOA, based on his previous advanced directive. Patient not oriented to be able to give code status. COVID negative. DVT prophylaxis with heparin subQ. Proxy is daughter Patrizia. I have reviewed home meds and used all available resources to reconcile the home meds. This patient will be admitted as inpatient and will require greater than 2 midnights of hospital time to treat CHF exacerbation. Time Spent With Patient Critical Care time: I spent a total of [] minutes of critical care time on this patient's care today; this time is exclusive of procedural time. Quality VTE Deep Vein Thrombosis/Pulmonary Embolism Present on Admission: No
[2022-10-20 19:55] VITALS: BP 126/53; PULSE 63; RESP 18; TEMP 36.4; O2SAT 98
[2022-10-20] MEDS: ATORVASTATIN 20 MG TABLET 40 MG PO (21:57)
[2022-10-20 23:06] VITALS: BP 123/49; PULSE 63; RESP 18; O2SAT 98
[2022-10-21 06:04] LABS: Blood Urea Nitrogen 46 mg/dL (9-20); Calcium 8.4 mg/dL (8.4-10.2); Carbon Dioxide 32 mmol/L (22-32); Chloride 96 mmol/L (98-107); Estimated Glomerular Filt Rate 15 mL/min (>60); Glucose 82 mg/dL (80-110); HEMOLYSIS < 15 (0-50); Potassium 3.8 mmol/L (3.4-5.1); Sodium 137 mmol/L (137-145)
[2022-10-21 06:06] LABS: Magnesium 1.9 mg/dL (1.6-2.3)
[2022-10-21 06:07] LABS: Hematocrit 31.6 % (41-53); Hemoglobin 10.2 g/dL (13.5-17.5); Mean Corpuscular HGB Conc 32.2 % (30-36); Mean Corpuscular Hemoglobin 31.1 PG (26-34); Mean Corpuscular Volume 96.6 fL (80-100); Platelet Count 146 X10^3/uL (150-400); Red Blood Cell Count 3.27 X10^6/uL (4.5-5.9); Red Cell Distribution Width 19.9 % (11.6-14.8)
[2022-10-21 06:10] LABS: Add Manual Diff / Slide Review YES
[2022-10-21 06:25] LABS: Anisocytosis 1+; Neutrophils Absolute Manual 4320 /uL (3000-5900); Poikilocytosis 1+; Smudge Cells 2+; Total Cells Counted 100
[2022-10-21 06:26] LABS: Schistocytes 1+
[2022-10-21] MEDS: AZITHROMYCIN 250 MG TABLET 500 MG PO (09:47)
[2022-10-21] MEDS: ASPIRIN EC 81 MG TABLET PO (09:47)
[2022-10-21] MEDS: METOPROLOL IR 25 MG TABLET 12.5 MG PO ×2 (09:47→22:24)
[2022-10-21] MEDS: PANTOPRAZOLE DR 40 MG TABLET PO ×2 (09:48→22:23)
[2022-10-21] MEDS: AMLODIPINE 5 MG TABLET PO (09:48)
[2022-10-21] MEDS: HEPARIN 5,000 UNIT/ML VIAL 5000 UNIT SUBCUT ×2 (09:48→22:24)
[2022-10-21] MEDS: FERROUS SULFATE 325 MG TABLET PO ×2 (09:48→22:23)
[2022-10-21] MEDS: acetaZOLAMIDE 250 MG TABLET 500 MG PO (09:48)
[2022-10-21] MEDS: SPIRONOLACTONE 25 MG TABLET 12.5 MG PO (09:48)
[2022-10-21] MEDS: FUROSEMIDE 40 MG/4 ML VIAL 60 MG IV (09:50)
[2022-10-21] MEDS: cefTRIAXone 1,000 MG in SODIUM CHLORIDE 0.9% 100 ML 200 MG IV (10:14)
[2022-10-21 12:00] VITALS: BP 126/52; PULSE 58; TEMP 36.1
[2022-10-21 12:49] VITALS: O2SAT 96
--- NOTE | 2022-10-21 13:55 | P.PN_ITS ---
Subjective Subjective Date Patient Seen: 10/21/22 Interval history: 87 year old male admitted with lethargy, due to CHF exacerbation, PAOLA, hypoxic respiratory failure. He is more lethargic this morning, very hard of hearing and waxes and wanes through the day. He denied nausea, abdominal pain, or chest pain. Exam Vital Signs (past 8 hours): - 10/21/22 09:09 10/21/22 12:00 10/21/22 12:49 Temperature 97.0 F L Pulse Rate 58 L Blood Pressure 126/52 L Pulse Oximetry 96 Oxygen Delivery Method Nasal Cannula Nasal Cannula Oxygen Flow Rate 2 Oxygen Delivery Method Nasal Cannula Oxygen Flow Rate 2 Narrative Exam Narrative: GEN: predominantly somnolent, elderly male but occasionally answers questions appropriately but then falls right back to sleep. HEENT: moist mucous membranes, PERRL NECK: trachea midline, no JVD CV: regular rate and rhythm, no murmurs PULM: clear bilaterally ABD: soft, nontender, nondistended, no organomegaly EXT: warm and well perfused with no edema NEURO: awake, alert, oriented, no focal deficits Objective Labs 10/21/22 05:10 10/21/22 05:10 Labs: Laboratory Results - last 24 hr 10/21/22 10/21/22 10/21/22 05:10 05:10 05:10 WBC 24.0 H RBC 3.27 L Hgb 10.2 L Hct 31.6 L MCV 96.6 MCH 31.1 MCHC 32.2 RDW 19.9 H Plt Count 146 L Neut % (Auto) Not Reportable Lymph % (Auto) Not Reportable [place] % (Auto) Not Reportable Eos % (Auto) Not Reportable Baso % (Auto) Not Reportable Lymph # (Auto) Not Reportable [place] # (Auto) Not Reportable Baso # (Auto) Not Reportable Total Counted 100 Seg Neutrophils % 18.0 L Lymphocytes % (Manual) 82.0 H Neutrophils # (Manual) 4320 Smudge Cells 2+ H RBC Morphology See below Poikilocytosis 1+ H Anisocytosis 1+ H Schistocytes 1+ H Sodium 137 Potassium 3.8 Chloride 96 L Carbon Dioxide 32 BUN 46 H Creatinine 3.82 H Estimated GFR 15 L BUN/Creatinine Ratio 12.0 Glucose 82 Calcium 8.4 Magnesium 1.9 PFSH Medical History Anticoagulated Anticoagulation adequate Atrial fibrillation Chronic kidney disease (CKD) stage G3a/A1, moderately decreased glomerular filtration rate (GFR) between 45-59 mL/min/1.73 square meter and albuminuria creatinine ratio less than 30 mg/g Chronic renal failure Coronary artery disease History of left common carotid artery stent placement History of right common carotid artery stent placement Peripheral arterial disease Surgical History History of appendectomy History of bilateral knee arthroplasty Stented coronary artery Family History Mother Lung cancer Father Lung cancer Other Hypertension Social History marital status: household members: family Smoking Status: Never smoker alcohol intake: current Assessment & Plan Assessment & Plan narrative: # acute metabolic encephalopathy, improving -patient now more awake and alert, but only oriented to self -likely in setting of renal failure, heart failure and respiratory failure. -monitor # acute on chronic diastolic heart failure exacerbatio -chest x-ray with pulmonary edema and BNP 51,000, TTE with EF 45-50%. -continued with 60 mg IV Lasix b.i.d. and added diamox 500mg daily for better decongestion. Weight is up today however, and with continued rising cr possible not diuresing well. He is incontinent and urine output not reliable. Increased to 80 mg BID of lasix. If weights not consistent consider cabrera tomorrow for accurate intake and output. -start aspirin 81mg daily -currently on amlodipine, may switch or add low dose RICO/ARB once kidney function improves for afterload reduction -started spironolactone 12.5mg daily -hold home po torsemide 10mg daily, will likely increase dose on discharge # possible CAP -CXR with pulm edema and pneumonia cannot be excluded -no temp, but WBC 23 and procal 2 -continue rocephin and azithro for treatment for possible pneumonia. Will complete 5 day course. 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 consider cabrera tomorrow. -diuresis as above -avoid nephrotoxic agents -daily BMP's -renal ultrasound performed 10/20 without urological obstruction / hydronephrosis. # myocardial injury due to demand ischemia from CHF exacerbation -troponin 1.580 on arrival to ED, no chest pain or EKG changes -medical management with aspirin and statin above -trend trops # chronic atrial fibrillation -previously on eliquis but stopped due to falls -currently rate controlled, not on beta alicja for some reason -start metop tart 12.5mg BID # HTN, chronic -continue home amlodipine #positive blood culture - blood culture 09/19 bottles with staph sp. This most likely represents contaminant. Code status is DNR as expressed by patient's daughter who is DPOA, based on his previous advanced directive. Patient not oriented to be able to give code status. COVID negative. DVT prophylaxis with heparin subQ. Proxy is daughter Patrizia. I have reviewed home meds and used all available resources to reconcile the home meds. This patient will be admitted as inpatient and will require greater than 2 midnights of hospital time to treat CHF exacerbation. Time Spent With Patient Critical Care time: I spent a total of [] minutes of critical care time on this patient's care today; this time is exclusive of procedural time. Quality VTE Deep Vein Thrombosis/Pulmonary Embolism Present on Admission: No
[2022-10-21] MEDS: FUROSEMIDE 40 MG/4 ML VIAL 80 MG IV (15:02)
[2022-10-21 18:00] VITALS: BP 113/67; PULSE 65; RESP 16; TEMP 36.2; O2SAT 99
[2022-10-21 20:00] VITALS: BP 129/57; PULSE 70; RESP 17; TEMP 36.4; O2SAT 98
[2022-10-21] MEDS: ATORVASTATIN 20 MG TABLET 40 MG PO (22:23)
[2022-10-21] MEDS: MELATONIN 3 MG TABLET 6 MG PO (22:23)
[2022-10-22 02:00] VITALS: BP 140/62; PULSE 63; RESP 20; TEMP 36.5; O2SAT 95
[2022-10-22 06:08] LABS: Mean Corpuscular HGB Conc 32.2 % (30-36); Mean Corpuscular Hemoglobin 31.1 PG (26-34); Mean Corpuscular Volume 96.4 fL (80-100); Platelet Count 147 X10^3/uL (150-400); Red Blood Cell Count 3.21 X10^6/uL (4.5-5.9); Red Cell Distribution Width 19.5 % (11.6-14.8); White Blood Cell Count 21.8 X10^3/uL (4.5-11.0)
[2022-10-22 06:10] LABS: Add Manual Diff / Slide Review YES
[2022-10-22 06:13] LABS: Blood Urea Nitrogen 48 mg/dL (9-20); Calcium 8.4 mg/dL (8.4-10.2); Carbon Dioxide 33 mmol/L (22-32); Chloride 98 mmol/L (98-107); Estimated Glomerular Filt Rate 15 mL/min (>60); Glucose 90 mg/dL (80-110); HEMOLYSIS < 15 (0-50); Magnesium 1.8 mg/dL (1.6-2.3); Potassium 3.6 mmol/L (3.4-5.1); Sodium 140 mmol/L (137-145)
[2022-10-22 06:34] LABS: Anisocytosis 1+; Neutrophils Absolute Manual 4578 /uL (3000-5900); Poikilocytosis 1+; Total Cells Counted 100
[2022-10-22 06:35] LABS: Schistocytes 1+; Smudge Cells 2+
[2022-10-22] MEDS: HEPARIN 5,000 UNIT/ML VIAL 5000 UNIT SUBCUT ×2 (08:48→22:17)
[2022-10-22] MEDS: SPIRONOLACTONE 25 MG TABLET 12.5 MG PO (08:48)
[2022-10-22] MEDS: ASPIRIN EC 81 MG TABLET PO (08:48)
[2022-10-22] MEDS: PANTOPRAZOLE DR 40 MG TABLET PO ×2 (08:48→22:18)
[2022-10-22] MEDS: AMLODIPINE 5 MG TABLET PO (08:48)
[2022-10-22] MEDS: acetaZOLAMIDE 250 MG TABLET 500 MG PO (08:48)
[2022-10-22] MEDS: FERROUS SULFATE 325 MG TABLET PO ×2 (08:49→22:18)
[2022-10-22] MEDS: METOPROLOL IR 25 MG TABLET 12.5 MG PO (08:49)
[2022-10-22] MEDS: FUROSEMIDE 40 MG/4 ML VIAL 80 MG IV ×2 (08:49→15:59)
[2022-10-22 09:07] VITALS: BP 164/67; PULSE 71; RESP 16; TEMP 36.3; O2SAT 95
--- NOTE | 2022-10-22 09:51 | PC.NURSE ---
Addendum entered by Tiffanie Cruz R.N. 10/22/22 12:39: Patient is resting comfortably. He has been changed x1 as he was incontinent of urine. Denies any pain. Original Note: Patient is confused, and does not follow commands well. Incontinent of urine and changed, he is stiff when moving side to side and unable to help. He has skin issues, such as wheepy legs and arms. Edema to lower extremities at a 3+. Scrotum is swollen. He denies pain. Lasix given. BS with some crackles. He is being repositioned every two hours and is supine at this time.
[2022-10-22] MEDS: cefTRIAXone 1,000 MG in SODIUM CHLORIDE 0.9% 100 ML 200 MG IV (10:54)
[2022-10-22] MEDS: SODIUM CHLORIDE 0.9% FLUSH 10 ML IV ×2 (10:54→22:18)
--- NOTE | 2022-10-22 11:09 | OT.IPNOTE ---
Attempted to see pt for OT services. Pt is awake with eyes open but non responsive to verbal, tactile, or visual cues at this time. Will hold and follow tomorrow. Recommend P.T. hold on pt today as well.
--- NOTE | 2022-10-22 12:13 | PT-IP ANOTE ---
Pt is on hold today per OT d/t not responsive enough to participate. See OT note.
--- NOTE | 2022-10-22 12:51 | PM.PN.1 ---
Subjective Subjective Date Patient Seen: 10/22/22 Interval history: 87 year old male admitted with lethargy, due to CHF exacerbation, PAOLA, hypoxic respiratory failure. He is more lethargic this morning, very hard of hearing and waxes and wanes through the day. Cr finally downtrended a bit. Exam Vital Signs (past 8 hours): - 10/22/22 09:07 Temperature 97.4 F L Pulse Rate 71 Respiratory Rate 16 Blood Pressure 164/67 H Pulse Oximetry 95 Oxygen Flow Rate 0 Oxygen Delivery Method Nasal Cannula Oxygen Flow Rate 0 Narrative Exam Narrative: GEN: predominantly somnolent, elderly male but occasionally answers questions appropriately but then falls right back to sleep. HEENT: moist mucous membranes, PERRL NECK: trachea midline, no JVD CV: regular rate and rhythm, no murmurs PULM: clear bilaterally ABD: soft, nontender, nondistended, no organomegaly EXT: warm and well perfused with no edema NEURO: awake, alert, oriented, no focal deficits Objective Labs 10/22/22 05:20 10/22/22 05:20 Labs: Laboratory Results - last 24 hr 10/22/22 10/22/22 10/22/22 05:20 05:20 05:20 WBC 21.8 H RBC 3.21 L Hgb 10.0 L Hct 31.0 L MCV 96.4 MCH 31.1 MCHC 32.2 RDW 19.5 H Plt Count 147 L Neut % (Auto) Not Reportable Lymph % (Auto) Not Reportable [place] % (Auto) Not Reportable Eos % (Auto) Not Reportable Baso % (Auto) Not Reportable Lymph # (Auto) Not Reportable [place] # (Auto) Not Reportable Baso # (Auto) Not Reportable Total Counted 100 Seg Neutrophils % 21.0 L Lymphocytes % (Manual) 79.0 H Neutrophils # (Manual) 4578 Smudge Cells 2+ H RBC Morphology See below Poikilocytosis 1+ H Anisocytosis 1+ H Schistocytes 1+ H Sodium 140 Potassium 3.6 Chloride 98 Carbon Dioxide 33 H BUN 48 H Creatinine 3.70 H Estimated GFR 15 L BUN/Creatinine Ratio 13.0 Glucose 90 Calcium 8.4 Magnesium 1.8 PFSH Medical History Anticoagulated Anticoagulation adequate Atrial fibrillation Chronic kidney disease (CKD) stage G3a/A1, moderately decreased glomerular filtration rate (GFR) between 45-59 mL/min/1.73 square meter and albuminuria creatinine ratio less than 30 mg/g Chronic renal failure Coronary artery disease History of left common carotid artery stent placement History of right common carotid artery stent placement Peripheral arterial disease Surgical History History of appendectomy History of bilateral knee arthroplasty Stented coronary artery Family History Mother Lung cancer Father Lung cancer Other Hypertension Social History marital status: household members: family Smoking Status: Never smoker alcohol intake: current Assessment & Plan Assessment & Plan narrative: # acute metabolic encephalopathy -patient continues to wax and wane with his encephalopathy, slightly worse today perhaps. -likely in setting of renal failure, heart failure and respiratory failure. -monitor -will check ABG today, his BMP indicates an alkalosis, possibly hypercarbia leading to enecephalopathy? -stop ordered opiates today. # acute on chronic diastolic heart failure exacerbatio -chest x-ray with pulmonary edema and BNP 51,000, TTE with EF 45-50%. -continues with 60 mg IV Lasix b.i.d. and added diamox 500mg daily for better decongestion. He is incontinent and urine output not reliable. Increased to 80 mg BID of lasix. If weights not reliable consistent consider cabrera tomorrow for accurate intake and output. Last weight was actually from admission. -start aspirin 81mg daily -currently on amlodipine, may switch or add low dose RICO/ARB once kidney function improves for afterload reduction -started spironolactone 12.5mg daily -hold home po torsemide 10mg daily, will likely increase dose on discharge # possible CAP -CXR with pulm edema and pneumonia cannot be excluded -no temp, but WBC 23 and procal 2 -continue rocephin and azithro for treatment for possible pneumonia. Will complete 5 day course. # chronic leukocytosis -WBC always in low 20's, was going to get outpatient workup for CLL -blood smear in Apr 2022 showed marked lymphocytosis and smudge cells suspicious for low-grade lymphoproliferative disorder -monitor CBC # PAOLA on CKD stage 4 -Cr 3.62 in ED, baseline is around 2.2, peaked at 3.8 and only slightly improved today, but may be improving with today with increased diuresis started yesterday. -diuresis as above -avoid nephrotoxic agents -daily BMP's -renal ultrasound performed / without urological obstruction / hydronephrosis. # myocardial injury due to demand ischemia from CHF exacerbation -troponin 1.580 on arrival to ED, no chest pain or EKG changes -medical management with aspirin and statin above -trended troponins until downtrending. # chronic atrial fibrillation -previously on eliquis but stopped due to falls -currently rate controlled, not on beta alicja as outpatient. -started metop tart 12.5mg BID # HTN, chronic -continue home amlodipine #positive blood culture - blood culture 09/19 bottles with staph sp. This most likely represents contaminant. No further evaluation needed at this time. Code status is DNR as expressed by patient's daughter who is DPOA, based on his previous advanced directive. Patient not oriented to be able to give code status. COVID negative. DVT prophylaxis with heparin subQ. Proxy is daughter Patrizia. I have reviewed home meds and used all available resources to reconcile the home meds. Dispo: inpatient, timing for discharge back to his SNF (residence is [facility]) is unclear at this time. Time Spent With Patient Critical Care time: I spent a total of [] minutes of critical care time on this patient's care today; this time is exclusive of procedural time. Quality VTE Deep Vein Thrombosis/Pulmonary Embolism Present on Admission: No
[2022-10-22 20:00] VITALS: BP 130/55; PULSE 65; RESP 17; TEMP 36.6; O2SAT 99
[2022-10-22] MEDS: ATORVASTATIN 20 MG TABLET 40 MG PO (22:18)
[2022-10-23 03:22] VITALS: BP 139/60; PULSE 68; RESP 20; TEMP 36.6; O2SAT 96
[2022-10-23 08:29] LABS: Hematocrit 28.6 % (41-53); Hemoglobin 9.2 g/dL (13.5-17.5); Mean Corpuscular HGB Conc 32.2 % (30-36); Mean Corpuscular Hemoglobin 31.2 PG (26-34); Platelet Count 136 X10^3/uL (150-400); Red Blood Cell Count 2.95 X10^6/uL (4.5-5.9); Red Cell Distribution Width 19.9 % (11.6-14.8); White Blood Cell Count 20.3 X10^3/uL (4.5-11.0)
[2022-10-23 08:30] LABS: Add Manual Diff / Slide Review YES
[2022-10-23 08:34] VITALS: BP 136/53; PULSE 60; RESP 18; TEMP 36.9; O2SAT 97
[2022-10-23 08:45] LABS: BUN Creatinine Ratio 14.1 (6-22); Blood Urea Nitrogen 50 mg/dL (9-20); Carbon Dioxide 35 mmol/L (22-32); Chloride 98 mmol/L (98-107); Estimated Glomerular Filt Rate 16 mL/min (>60); Glucose 97 mg/dL (80-110); HEMOLYSIS < 15 (0-50); Potassium 3.3 mmol/L (3.4-5.1); Sodium 139 mmol/L (137-145)
[2022-10-23 08:46] LABS: Magnesium 1.7 mg/dL (1.6-2.3)
[2022-10-23] MEDS: cefTRIAXone 1,000 MG in SODIUM CHLORIDE 0.9% 100 ML 200 MG IV (09:04)
[2022-10-23] MEDS: AMLODIPINE 5 MG TABLET PO (09:05)
[2022-10-23] MEDS: SPIRONOLACTONE 25 MG TABLET 12.5 MG PO (09:05)
[2022-10-23] MEDS: ASPIRIN EC 81 MG TABLET PO (09:05)
[2022-10-23] MEDS: METOPROLOL IR 25 MG TABLET 12.5 MG PO ×2 (09:05→20:47)
[2022-10-23] MEDS: PANTOPRAZOLE DR 40 MG TABLET PO ×2 (09:05→20:47)
[2022-10-23] MEDS: FERROUS SULFATE 325 MG TABLET PO ×2 (09:05→20:47)
[2022-10-23] MEDS: acetaZOLAMIDE 250 MG TABLET 500 MG PO (09:06)
[2022-10-23 09:07] LABS: Neutrophils Absolute Manual 2436 /uL (3000-5900); Total Cells Counted 100
[2022-10-23 09:08] LABS: Smudge Cells 2+
[2022-10-23 09:09] LABS: Anisocytosis 1+
[2022-10-23 09:10] LABS: Acanthocytes 1+; Poikilocytosis 1+
[2022-10-23] MEDS: FUROSEMIDE 40 MG/4 ML VIAL 80 MG IV ×2 (09:18→16:17)
[2022-10-23] MEDS: HEPARIN 5,000 UNIT/ML VIAL 5000 UNIT SUBCUT ×2 (09:25→20:47)
[2022-10-23] MEDS: SODIUM CHLORIDE 0.9% FLUSH 10 ML IV ×2 (09:42→20:48)
[2022-10-23 10:00] VITALS: O2SAT 95
--- NOTE | 2022-10-23 10:49 | OT.IPNOTE ---
Attempted OT eval , initiated to move pt legs to the edge of the bed and offer pt a hand so able to assist, pt with no response even given verbal, tactile, and physical cues. NO charge.
[2022-10-23 12:04] VITALS: BP 130/59; PULSE 60; RESP 18; TEMP 36.6; O2SAT 96
--- NOTE | 2022-10-23 13:54 | PT-IP ANOTE ---
checked on pt. pt has his eyes open but not making any eye contact despite cues. used amplifier due to pt's [place]. pt unable to respond and questions and not verbalizing anything. pt continues not to be appropriate for PT. Informed nurse and agreed. informed hospitalist that PT will d/c PT eval order as pt has been not appropriate for PT since last week.
--- NOTE | 2022-10-23 14:11 | P.PN_ITS ---
Subjective Subjective Date Patient Seen: 10/23/22 Interval history: 87 year old male admitted with lethargy, due to CHF exacerbation, PAOLA, hypoxic respiratory failure. He is more lethargic this morning, but was alert yesterday evening and watching TV. very hard of hearing and waxes and wanes through the day. Cr finally downtrending with increased furosemide dosing. Exam Vital Signs (past 8 hours): - 10/23/22 08:34 10/23/22 12:04 10/23/22 10:00 Temperature 98.5 F 97.8 F Pulse Rate 60 60 Respiratory Rate 18 18 Blood Pressure 136/53 L 130/59 L Pulse Oximetry 97 96 95 Oxygen Delivery Method Nasal Cannula Oxygen Flow Rate 2 2 2 Oxygen Delivery Method Nasal Cannula Oxygen Flow Rate 2 Narrative Exam Narrative: GEN: predominantly somnolent, elderly male but occasionally answers questions appropriately but then falls right back to sleep. HEENT: moist mucous membranes, PERRL NECK: trachea midline, no JVD CV: regular rate and rhythm, no murmurs PULM: clear bilaterally ABD: soft, nontender, nondistended, no organomegaly EXT: warm and well perfused with no edema NEURO: awake, alert, oriented, no focal deficits Objective Labs 10/23/22 08:20 10/23/22 08:20 Labs: Laboratory Results - last 24 hr 10/23/22 10/23/22 10/23/22 08:20 08:20 08:20 WBC 20.3 H RBC 2.95 L Hgb 9.2 L Hct 28.6 L MCV 97.0 MCH 31.2 MCHC 32.2 RDW 19.9 H Plt Count 136 L Neut % (Auto) Not Reportable Lymph % (Auto) Not Reportable [place] % (Auto) Not Reportable Eos % (Auto) Not Reportable Baso % (Auto) Not Reportable Lymph # (Auto) Not Reportable [place] # (Auto) Not Reportable Baso # (Auto) Not Reportable Total Counted 100 Seg Neutrophils % 12.0 L Lymphocytes % (Manual) 87.0 H Monocytes % (Manual) 1.0 L Neutrophils # (Manual) 2436 L Smudge Cells 2+ H RBC Morphology See below Poikilocytosis 1+ H Anisocytosis 1+ H Acanthocytes ([place]) 1+ Sodium 139 Potassium 3.3 L Chloride 98 Carbon Dioxide 35 H BUN 50 H Creatinine 3.55 H Estimated GFR 16 L BUN/Creatinine Ratio 14.1 Glucose 97 Calcium 8.0 L Magnesium 1.7 PFSH Medical History Anticoagulated Anticoagulation adequate Atrial fibrillation Chronic kidney disease (CKD) stage G3a/A1, moderately decreased glomerular filtration rate (GFR) between 45-59 mL/min/1.73 square meter and albuminuria creatinine ratio less than 30 mg/g Chronic renal failure Coronary artery disease History of left common carotid artery stent placement History of right common carotid artery stent placement Peripheral arterial disease Surgical History History of appendectomy History of bilateral knee arthroplasty Stented coronary artery Family History Mother Lung cancer Father Lung cancer Other Hypertension Social History marital status: household members: family Smoking Status: Never smoker alcohol intake: current Assessment & Plan Assessment & Plan narrative: # acute metabolic encephalopathy -patient continues to wax and wane with his encephalopathy -likely in setting of renal failure, heart failure and respiratory failure. -monitor -ABG ordered, his BMP indicates an alkalosis, possibly hypercarbia leading to enecephalopathy? -stopped opiates. # acute on chronic diastolic heart failure exacerbation -chest x-ray with pulmonary edema and BNP 51,000, TTE with EF 45-50% slightly declined from prior study in 07/2022. -continues with 60 mg IV Lasix b.i.d. and added diamox 500mg daily for better decongestion. He is incontinent and urine output not reliable. Increased to 80 mg BID of lasix. Weights are variable, if not consistent tomorrow (bed weight) consider cabrera for accurate intake and output. -start aspirin 81mg daily -currently on amlodipine, may switch or add low dose RICO/ARB once kidney function improves for afterload reduction -started spironolactone 12.5mg daily -hold home po torsemide 10mg daily, will likely increase dose on discharge # possible CAP -CXR with pulm edema and pneumonia cannot be excluded -no temp, but WBC 23 and procal 2 (but also possible lymphoma as noted below) -completed rocephin and azithro for treatment for possible pneumonia. # chronic leukocytosis -WBC always in low 20's, was going to get outpatient workup for CLL -blood smear in Apr 2022 showed marked lymphocytosis and smudge cells suspicious for low-grade lymphoproliferative disorder -monitor CBC # PAOLA on CKD stage 4 -Cr 3.62 in ED, baseline is around 2.2, peaked at 3.8 and only slightly improved today but trend is improving today with increased diuresis. -diuresis as above -avoid nephrotoxic agents -daily BMP's -renal ultrasound performed / without urological obstruction / hydronephrosis. # myocardial injury due to demand ischemia from CHF exacerbation -troponin 1.580 on arrival to ED, no chest pain or EKG changes -medical management with aspirin and statin above -trended troponins until downtrending. # chronic atrial fibrillation -previously on eliquis but stopped due to falls -currently rate controlled, not on beta alicja as outpatient. -started metop tart 12.5mg BID # HTN, chronic -continue home amlodipine #positive blood culture - blood culture / bottles with staph sp. This most likely represents contamin ant. No further evaluation needed at this time. #hypokalemia - likely due to furosemide, will not replete today given his degree of renal failure. Continue to monitor electrolytes while diuresing. Code status is DNR as expressed by patient's daughter who is DPOA, based on his previous advanced directive. Patient not oriented to be able to give code status. COVID negative. DVT prophylaxis with heparin subQ. Proxy is daughter Patrizia. I have reviewed home meds and used all available resources to reconcile the home meds. Dispo: inpatient, timing for discharge back to his SNF (residence is [facility]) is unclear at this time. Time Spent With Patient Critical Care time: I spent a total of [] minutes of critical care time on this patient's care today; this time is exclusive of procedural time. Quality VTE Deep Vein Thrombosis/Pulmonary Embolism Present on Admission: No
[2022-10-23 19:04] VITALS: BP 121/60; PULSE 63; RESP 16; TEMP 36.2; O2SAT 97
[2022-10-23 20:45] VITALS: BP 147/67; PULSE 68; RESP 18; TEMP 36.2; O2SAT 95
[2022-10-23] MEDS: ATORVASTATIN 20 MG TABLET 40 MG PO (20:47)
--- NOTE | 2022-10-23 23:54 | PC.NURSE ---
Addendum entered by Griselda Vickers R.N. 10/24/22 06:29: Noted weight to be down 27kg yesterday and up 15kg today so will have day shift rezero bed and verify weight later this morning. Original Note: Patient is oriented to self only. Is WALES so need to speak directly into his ear in order for him to hear. He is able to follow directions and answers yes/no questions. Breath sounds with crackles in right lower lobe. On RA initially with sat of 95% but when asleep mouth breathes and desats to upper 80's so is currently on oxygen at 2L/min per NC; on continuous oximetry. HRR but intermittently bradycardic with rate in 50's. BP elevated at 147/67. BT hypoactive and has not had a BM since 10/19; medicated with Senna. Is incontinent of urine. Unable to turn himself so is being repositioned q2h. Has not been out of bed so gait/transfer ability is not assessed. Coccyx is reddened but no open areas noted. Skin on bilateral LE is dry and scaly with some ulcerations; Allevyn dressing to left LE is CDI; feet are encased in soft heel protectors. Denied pain when asked. Fall risk score is high and bed alarm is activated.
[2022-10-24] MEDS: SENNOSIDES 8.6 MG TABLET PO (00:21)
[2022-10-24 03:53] VITALS: BP 135/63; PULSE 68; RESP 18; TEMP 36.7; O2SAT 96
[2022-10-24 07:05] LABS: Hematocrit 32.8 % (41-53); Hemoglobin 10.5 g/dL (13.5-17.5); Mean Corpuscular Hemoglobin 30.9 PG (26-34); Mean Corpuscular Volume 96.8 fL (80-100); Platelet Count 165 X10^3/uL (150-400); Red Blood Cell Count 3.39 X10^6/uL (4.5-5.9); Red Cell Distribution Width 19.6 % (11.6-14.8)
[2022-10-24 07:07] LABS: Add Manual Diff / Slide Review YES
[2022-10-24 07:22] LABS: BUN Creatinine Ratio 14.8 (6-22); Blood Urea Nitrogen 50 mg/dL (9-20); Calcium 8.4 mg/dL (8.4-10.2); Carbon Dioxide 34 mmol/L (22-32); Chloride 96 mmol/L (98-107); Estimated Glomerular Filt Rate 17 mL/min (>60); Glucose 100 mg/dL (80-110); HEMOLYSIS < 15 (0-50); Magnesium 1.7 mg/dL (1.6-2.3); Potassium 3.1 mmol/L (3.4-5.1); Sodium 140 mmol/L (137-145)
[2022-10-24 07:43] LABS: Neutrophils Absolute Manual 5520 /uL (3000-5900); Total Cells Counted 100
[2022-10-24 07:44] LABS: Acanthocytes 2+; Smudge Cells 3+
[2022-10-24 08:35] VITALS: BP 144/68; PULSE 77; RESP 20; TEMP 37.2; O2SAT 91
[2022-10-24] MEDS: AMLODIPINE 5 MG TABLET PO (08:56)
[2022-10-24] MEDS: ASPIRIN EC 81 MG TABLET PO (08:56)
[2022-10-24] MEDS: FERROUS SULFATE 325 MG TABLET PO ×2 (08:57→20:53)
[2022-10-24] MEDS: acetaZOLAMIDE 250 MG TABLET 500 MG PO (08:57)
[2022-10-24] MEDS: METOPROLOL IR 25 MG TABLET 12.5 MG PO ×2 (08:57→20:54)
[2022-10-24] MEDS: SODIUM CHLORIDE 0.9% FLUSH 10 ML IV ×2 (08:58→20:55)
[2022-10-24] MEDS: PANTOPRAZOLE DR 40 MG TABLET PO ×2 (08:58→20:55)
[2022-10-24] MEDS: HEPARIN 5,000 UNIT/ML VIAL 5000 UNIT SUBCUT ×2 (08:58→20:54)
[2022-10-24] MEDS: FUROSEMIDE 40 MG/4 ML VIAL 80 MG IV ×2 (09:06→15:27)
--- NOTE | 2022-10-24 10:44 | OT.IPNOTE ---
Pt has not been able to actively able to participate when attempting OT eval since 10/19/22, therefore discharge OT eval orders.
[2022-10-24 14:25] VITALS: BP 117/50; PULSE 70; RESP 20; TEMP 36.3; O2SAT 100
--- NOTE | 2022-10-24 16:23 | P.PN_ITS ---
Subjective Subjective Date Patient Seen: 10/24/22 Interval history: 87 year old male very hard of hearing, chronic diastolic heart failure, CKD, admitted with lethargy, due to CHF exacerbation, PAOLA. Patient unable to state concerns either due to confusion or severe hearing loss. He seems to be diuresing with increase to 80 mg IV Lasix. Peripheral edema seems improving. Creatinine slightly better. Exam Vital Signs (past 8 hours): - 10/24/22 08:35 10/24/22 14:25 Temperature 98.9 F 97.3 F L Pulse Rate 77 70 Respiratory Rate 20 20 Blood Pressure 144/68 H 117/50 L Pulse Oximetry 91 100 Oxygen Flow Rate 0 0 Oxygen Delivery Method Room Air,Nasal Cannula Oxygen Flow Rate 0 Narrative Exam Narrative: General: Patient awake, mouth breathing, but not really talking, not tachypneic Lungs: Shallow breath sounds, clear to auscultation Heart: Irregularly irregular with systolic murmur Abdomen: Soft Extremities: Dry, no pitting edema Objective Labs 10/24/22 05:52 10/24/22 05:52 Labs: Laboratory Results - last 24 hr 10/24/22 10/24/22 05:52 05:52 WBC 23.0 H RBC 3.39 L Hgb 10.5 L Hct 32.8 L MCV 96.8 MCH 30.9 MCHC 32.0 RDW 19.6 H Plt Count 165 Neut % (Auto) Not Reportable Lymph % (Auto) Not Reportable Kane % (Auto) Not Reportable Eos % (Auto) Not Reportable Baso % (Auto) Not Reportable Lymph # (Auto) Not Reportable [place] # (Auto) Not Reportable Baso # (Auto) Not Reportable Total Counted 100 Seg Neutrophils % 21.0 L D Band Neutrophils % 3.0 Lymphocytes % (Manual) 76.0 H Neutrophils # (Manual) 5520 Smudge Cells 3+ H RBC Morphology Not Reportable Acanthocytes (Spur) 2+ Sodium 140 Potassium 3.1 L Chloride 96 L Carbon Dioxide 34 H BUN 50 H Creatinine 3.38 H Estimated GFR 17 L BUN/Creatinine Ratio 14.8 Glucose 100 Calcium 8.4 Magnesium 1.7 PFSH Medical History Anticoagulated Anticoagulation adequate Atrial fibrillation Chronic kidney disease (CKD) stage G3a/A1, moderately decreased glomerular filtration rate (GFR) between 45-59 mL/min/1.73 square meter and albuminuria creatinine ratio less than 30 mg/g Chronic renal failure Coronary artery disease History of left common carotid artery stent placement History of right common carotid artery stent placement Peripheral arterial disease Surgical History History of appendectomy History of bilateral knee arthroplasty Stented coronary artery Family History Mother Lung cancer Father Lung cancer Other Hypertension Social History marital status: household members: family Smoking Status: Never smoker alcohol intake: current Assessment & Plan Assessment & Plan narrative: 1. Acute on chronic diastolic heart failure -chest x-ray with bilateral effusions, pulmonary edema and BNP 51,000 -TTE 10/19 with EF 45-50% slightly declined from prior study in 07/2022 -continue Lasix 80 mg IV b.i.d. -stopped acetazolamide due to increasing bicarb, spironolactone also discontinued secondary to PAOLA -O2 sats have been normal since admit 2. Acute kidney injury -baseline Cr 2.2-2.5, Cr remains sig elevated and only marginally improved with diuresis -continue diuresis -continue amlodipine 5 mg qd for BP 3. Possible CAP -CXR with pulm edema and pneumonia cannot be excluded -no temp, but WBC 23 and procal 2 (but also possible lymphoma as noted below) -completed rocephin and azithro for treatment for possible pneumonia. 4. Chronic leukocytosis -WBC always in low 20's, was going to get outpatient workup for CLL -blood smear in Apr 2022 showed marked lymphocytosis and smudge cells suspicious for low-grade lymphoproliferative disorder -monitor CBC 5. Acute metabolic encephalopathy -patient continues to wax and wane with his encephalopathy, also practically deaf -likely in setting of renal failure, heart failure and respiratory failure. -monitor 6. Myocardial injury due to demand ischemia from CHF exacerbation -troponin 1.580 on arrival to ED, no chest pain or EKG changes -medical management with aspirin and statin --trended troponins until downtrending 7. Chronic atrial fibrillation -previously on eliquis but stopped due to falls -currently rate controlled, not on beta alicja as outpatient. -started metop tart 12.5mg BID -continue tele 8. Positive blood culture ?- blood culture 1/4 bottles with staph sp. This most likely represents contaminant. No further evaluation needed at this time. Spoke with pt's daughter Patrizia, who is DPOA. Reviewed patient has clinically end-stage heart failure and kidney disease with poor prognosis following hospital discharge. Patient's daughter is in agreement for getting hospice evaluation once he is back in [facility]. He certainly meets Hospice requirements based on heart and kidney failure. Hopefully discharge in 1 to 2 days with Hospice. Patrizia currently resides in [place] and planning to come back here on Nov 11. Time Spent With Patient Critical Care time: I spent a total of [] minutes of critical care time on this patient's care today; this time is exclusive of procedural time. Quality VTE Deep Vein Thrombosis/Pulmonary Embolism Present on Admission: No
[2022-10-24 19:40] VITALS: BP 119/51; PULSE 63; RESP 24; TEMP 36.6; O2SAT 95
[2022-10-24] MEDS: ATORVASTATIN 20 MG TABLET 40 MG PO (20:53)
--- NOTE | 2022-10-24 23:47 | PC.NURSE ---
Patient is awake and able to state his name and birthdate although words sometimes difficult to understand. Follows directions and responds to yes/no questions. Very ALTURAS but able to hear if spoken to directly into ear. Breath sounds diminished but CTA with RA sat of 95%; on continuous oximetry. HRR but intermittently bradycardic with rate in 50's. BT hypoactive and has not had a BM since 2. Has been incontinent of urine but now with condom catheter on; urine is clear, yellow. Unable to move himself so is being repositioned q2h. Has not been out of bed. Has very dry, scaly skin on bilateral LE with Allevyn dressing to skin ulcer on left LE; CDI. Wearing padded heel protectors. Denied pain when asked. Fall risk score is high and bed alarm is activated.
[2022-10-25 01:37] VITALS: BP 115/56; PULSE 61; RESP 20; TEMP 37.1; O2SAT 92
[2022-10-25 06:59] LABS: Hematocrit 33.3 % (41-53); Hemoglobin 10.8 g/dL (13.5-17.5); Mean Corpuscular HGB Conc 32.3 % (30-36); Mean Corpuscular Hemoglobin 31.1 PG (26-34); Mean Corpuscular Volume 96.2 fL (80-100); Platelet Count 171 X10^3/uL (150-400); Red Blood Cell Count 3.47 X10^6/uL (4.5-5.9); Red Cell Distribution Width 19.8 % (11.6-14.8); White Blood Cell Count 23.4 X10^3/uL (4.5-11.0)
[2022-10-25 07:04] LABS: Add Manual Diff / Slide Review YES
[2022-10-25 07:20] LABS: BUN Creatinine Ratio 16.1 (6-22); Blood Urea Nitrogen 51 mg/dL (9-20); Calcium 8.4 mg/dL (8.4-10.2); Carbon Dioxide 36 mmol/L (22-32); Chloride 96 mmol/L (98-107); Estimated Glomerular Filt Rate 18 mL/min (>60); Glucose 103 mg/dL (80-110); HEMOLYSIS < 15 (0-50); Magnesium 1.8 mg/dL (1.6-2.3); Sodium 141 mmol/L (137-145)
[2022-10-25 07:26] LABS: Potassium 2.7 mmol/L (3.4-5.1)
[2022-10-25 07:31] LABS: Anisocytosis 1+; Burr Cells 1+; Neutrophils Absolute Manual 3276 /uL (3000-5900); Poikilocytosis 1+; Smudge Cells 2+; Total Cells Counted 100
[2022-10-25] MEDS: FERROUS SULFATE 325 MG TABLET PO (08:24)
[2022-10-25] MEDS: PANTOPRAZOLE DR 40 MG TABLET PO (08:24)
[2022-10-25] MEDS: AMLODIPINE 5 MG TABLET PO (08:24)
[2022-10-25] MEDS: METOPROLOL IR 25 MG TABLET 12.5 MG PO (08:24)
[2022-10-25] MEDS: ASPIRIN EC 81 MG TABLET PO (08:24)
[2022-10-25] MEDS: POTASSIUM CHLORIDE 20 MEQ TAB PO (08:25)
[2022-10-25] MEDS: HEPARIN 5,000 UNIT/ML VIAL 5000 UNIT SUBCUT (08:25)
[2022-10-25 08:52] VITALS: BP 101/65; PULSE 61; RESP 20; TEMP 36.1; O2SAT 94
[2022-10-25] MEDS: FUROSEMIDE 40 MG/4 ML VIAL 80 MG IV (09:40)
[2022-10-25] MEDS: SODIUM CHLORIDE 0.9% FLUSH 10 ML IV (09:41)
[2022-10-25 11:50] LABS: HEMOLYSIS < 15 (0-50)
[2022-10-25 12:07] LABS: COVID19 -Nasal RAPID Negative (Negative)
--- NOTE | 2022-10-25 13:04 | P.DS_ITS ---
History of Present Illness History of Present Illness Chief complaint: Altered LOC. Narrative: 87yo M with PMH of HFpEF, mild aortic stenosis, bilateral BOBBY, atrial fibrillation not on anticoag due to falls, CKD stage 4 and HTN who presents from SNF for worsening SOB and altered mental status. Patient is too somnolent to answer questions so I called his daughter Patrizia and am going off of the ED notes. Patrizia says she recently moved back to [place] after being his 24/7 caregiver for 2 years. He now lives at [facility] as she cannot care for him anymore and he has had multiple frequent falls. She states he has an advanced directive which states he is interested in comfort measures only, however when last speaking with him he expressed to her that he has wanted everything done for him. She states his health has slowly been declining with heart and kidney issues. Per ED notes patient was sent over from his SNF this morning due to altered mental status and unable to ambulate. He was found be alert and able to follow commands in the ED. CXR revealed pulm edema and BNP 51k. WBC 23 and procal of 2. Cr of 3.62. Given 40mg IV lasix. Discharge Providers Provider Date of admission: 10/19/22 10:12 Discharge Date: 10/25/22 Primary care physician: Rani Clark MD Consults: 10/19/22 08:34 Consult to LEAD INVESTIGATOR - Geology Faculty Member Routine Comment: at SNF, declining health, may need hospice 10/19/22 08:38 Consult to Occupational Therapy Evaluate & Treat Comment: Physician Instructions: Evaluate and treat Consult to Physical Therapy Evaluate & Treat Comment: Physician Instructions: Evaluate and Treat 10/24/22 16:55 Consult to Hospice Referral Routine Comment: Discharge provider: Bear Bush MD Summary Hospital Course Discharge Diagnosis: 1. Acute on chronic diastolic heart failure 2. Acute kidney injury 3. Chronic kidney disease stage 4 4. Possible bacterial pneumonia 5. 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 Myocardial injury due to demand ischemia 7. Chronic atrial fibrillation 8. Positive blood culture for staph epi, likely contaminant 9. Severe bilateral hearing loss 10. Acute metabolic encephalopathy Hospital Course: Patient was diuresed with IV Lasix 80 mg b.i.d. with improvement in shortness of breath and mental status. However he had only marginal improvement in GFR. He also received antibiotics for pneumonia although most likely x-ray findings were more likely due to CHF. Patient has end-stage heart failure and kidney disease. In light of patient's marginal improvement after 6 days in hospital it was determined that clinically he would be best served by comfort care approach rather than bouncing back in and out of the hospital. Patient's daughter/DPRAYA Acharya gave consent to initiating hospice referral which they will see patient at [facility]. Status at Discharge Cognitive/behavioral status at discharge: at baseline, confused Functional status at discharge: bed bound Overall status at discharge: patient is back to baseline Time Spent with Patient Time spent: Greater than 30 minutes Exam Vital Signs (past 8 hours): - 10/25/22 08:52 Temperature 97.0 F L Pulse Rate 61 Respiratory Rate 20 Blood Pressure 101/65 Pulse Oximetry 94 Oxygen Flow Rate 0 Oxygen Delivery Method Room Air Oxygen Flow Rate 0 Narrative Exam Narrative: General: Alert, very hard of hearing, uses amplifier, breathing comfortably Lungs: Very shallow breaths, no crackles Heart: Irregularly irregular Extremities: No distal edema Objective Labs 10/25/22 05:15 10/25/22 11:36 Labs: Laboratory Results - last 24 hr 10/25/22 10/25/22 10/25/22 05:15 05:15 11:36 WBC 23.4 H RBC 3.47 L Hgb 10.8 L Hct 33.3 L MCV 96.2 MCH 31.1 MCHC 32.3 RDW 19.8 H Plt Count 171 Neut % (Auto) Not Reportable Lymph % (Auto) Not Reportable [place] % (Auto) Not Reportable Eos % (Auto) Not Reportable Baso % (Auto) Not Reportable Lymph # (Auto) Not Reportable [place] # (Auto) Not Reportable Baso # (Auto) Not Reportable Total Counted 100 Seg Neutrophils % 14.0 L Lymphocytes % (Manual) 72.0 H Atypical Lymphs % 14.0 H Neutrophils # (Manual) 3276 Smudge Cells 2+ H RBC Morphology Not Reportable Poikilocytosis 1+ H Anisocytosis 1+ H [place] Cells 1+ H Sodium 141 Potassium 2.7 L* 3.0 L Chloride 96 L Carbon Dioxide 36 H BUN 51 H Creatinine 3.16 H Estimated GFR 18 L BUN/Creatinine Ratio 16.1 Glucose 103 Calcium 8.4 Magnesium 1.8 SARS-CoV-2 (PCR) 10/25/22 11:41 WBC RBC Hgb Hct MCV MCH MCHC RDW Plt Count Neut % (Auto) Lymph % (Auto) [place] % (Auto) Eos % (Auto) Baso % (Auto) Lymph # (Auto) [place] # (Auto) Baso # (Auto) Total Counted Seg Neutrophils % Lymphocytes % (Manual) Atypical Lymphs % Neutrophils # (Manual) Smudge Cells RBC Morphology Poikilocytosis Anisocytosis [place] Cells Sodium Potassium Chloride Carbon Dioxide BUN Creatinine Estimated GFR BUN/Creatinine Ratio Glucose Calcium Magnesium SARS-CoV-2 (PCR) Negative [facility] Medical History Anticoagulated Anticoagulation adequate Atrial fibrillation Chronic kidney disease (CKD) stage G3a/A1, moderately decreased glomerular fi ltration rate (GFR) between 45-59 mL/min/1.73 square meter and albuminuria creatinine ratio less than 30 mg/g Chronic renal failure Coronary artery disease History of left common carotid artery stent placement History of right common carotid artery stent placement Peripheral arterial disease Surgical History History of appendectomy History of bilateral knee arthroplasty Stented coronary artery Family History Mother Lung cancer Father Lung cancer Other Hypertension Social History marital status: household members: family Smoking Status: Never smoker alcohol intake: current Discharge Plan Discharge Plan Patient Disposition: SNF Transfer to: [facility] Provider Discharge Comment: Pt with end stage heart failure and kidney disease, diuresed in hospital, being discharged to [facility]. Pt is comfort care with Hospice requested to evaluate pt. Discharge orders & Medications Prescriptions: New torsemide 20 mg tablet 20 mg PO DAILY Qty: 30 0RF Continued atorvastatin 40 mg tablet 40 mg PO BEDTIME ferrous gluconate 324 mg (38 mg iron) tablet 324 mg PO BID Label Comments: TK 1 T PO BID. pantoprazole 40 mg Tablet,Delayed Release (Dr/Ec) 40 mg PO BID cholecalciferol (vitamin D3) [Vitamin D3] 50 mcg (2,000 unit) Tablet 50 mcg PO DAILY oxycodone 5 mg Tablet 5 mg PO Q3HR PRN (Reason: Pain, Mild (1-3)) Qty: 30 0RF Discontinued amlodipine 5 mg tablet 5 mg PO DAILY torsemide 10 mg Tablet 10 mg PO DAILY Follow up/Referrals: Rani Clark MD [Primary Care Provider] - Discharge Health Status Precautions: [place] Diet/Activity/Treatments Diet: Regular Liquid consistency: Normal/Thin Food texture: Regular Visit Report/Discharge Packet Stand Alone Forms: Patient Portal/API Discharge Data Primary Care Provider: Rani Clark Quality VTE Deep Vein Thrombosis/Pulmonary Embolism Present on Admission: No
--- NOTE | 2022-10-25 15:27 | CM.DPC ---
DCP continued: JEFFERSON spoke with nursing and Dr. Bush about DC plan for this patient. Dr. Bush spoke with patients daughter yesterday and she was agreeable to hospice plan. When MD attempted to talk with patient he was not responding to MDs questions and was not participating in a conversation with the provider. CM met with the patient a little while later with his nurse Megha and Charge nurse Nuha. We asked the patient if we could talk with him about his future care plans and he said yes. Nuha attempted to talk with him about hospice but patient would not engage in the conversation with staff. We were using a speech amplifier to talk with him so he could hear us . CM asked the patient if he was okay with CM talking to his Daughter about Hospice. Patient shook his head yes. Cm asked a second time if it was okay to speak with his daughter, patient responded talk daughter. CM asked if he wanted to go on Hospice - no response and patient appeared to be sleeping. attempted to wake him up and he repeated talk daughter. JEFFERSON called patients daughter who stated she thought hospice would be the best course of action, Jefferson spoke with Eleazar Pearl who agreed and [facility] referral was sent. JEFFERSON spoke with Evelina at [facility] and let her know the plan was to DC back to there facility with hospice and on comfort care orders. Evelina agreed and said she would talk the patient back today. but they would need BLS transport set up. JEFFERSON called patients daughter and let her know that BLS transport is recommended and that they could receive a bill if his insurance wouldn't cover the cost. She stated understanding and was in agreement to do BLS transport. JEFFERSON filled out BLS transport form Dr. Bush signed it and put a copy in to be scanned into the chart. BLS transport was set up for 1500 today with ambulance. Patient is DNR and polst in chart. PASRR done, meds sent and DC summary sent to [facility].. Rani Felton
--- NOTE | 2022-10-25 16:13 | PC.NURSE ---
Pt out via BLS to [facility] with all belongings. at 1520. [facility].
== END 2022-10-25 15:20 | DRG 291 ==
LOC: ED 10:02 → AC 10:12
PROVIDERS: Emergency Medicine; Internal Medicine; Admitting Provider Student in an Organized Health Care Education/Training Program; Emergency Provider Emergency Medicine; PCP Internal Medicine; Referring Provider Emergency Medicine; Visit Provider Student in an Organized Health Care Education/Training Program
DX: I13.0 Hypertensive heart and chronic kidney disease with heart failure and stage 1 through stage 4 chronic kidney disease, or unspecified chronic kidney disease (principal); G93.41 Metabolic encephalopathy; J18.9 Pneumonia, unspecified organism; I50.33 Acute on chronic diastolic (congestive) heart failure; J96.91 Respiratory failure, unspecified with hypoxia; N17.9 Acute kidney failure, unspecified; I24.8 Other forms of acute ischemic heart disease; I48.20 Chronic atrial fibrillation, unspecified; N18.4 Chronic kidney disease, stage 4 (severe); E78.5 Hyperlipidemia, unspecified; I25.10 Atherosclerotic heart disease of native coronary artery without angina pectoris; I73.9 Peripheral vascular disease, unspecified; D72.829 Elevated white blood cell count, unspecified; E87.6 Hypokalemia; H91.93 Unspecified hearing loss, bilateral; I35.0 Nonrheumatic aortic (valve) stenosis; Z96.653 Presence of artificial knee joint, bilateral; Z20.822 Contact with and (suspected) exposure to COVID-19; Z66 Do not resuscitate; Z79.899 Other long term (current) drug therapy; Z51.5 Encounter for palliative care; Z91.81 History of falling; Z80.1 Family history of malignant neoplasm of trachea, bronchus and lung; Z82.49 Family history of ischemic heart disease and other diseases of the circulatory system; Z95.5 Presence of coronary angioplasty implant and graft; Z95.820 Peripheral vascular angioplasty status with implants and grafts
CPT/HCPCS: 0241U; 36415; 70450; 71045; 76770; 80048; 80053; 81001; 82550; 82962; 83036; 83605; 83690; 83735; 83880; 84132; 84145; 84484; 85007; 85025; 85610; 85730; 87040; 87086; 87150; 87635; 93005; 93307; 94760; 94762; 96365; 96367; 96375; 99285; C9803; J0696; J1644; J1940; Q9957